=== PATIENT | female | born 1955 | race Caucasian/White ===

== ENCOUNTER 2024-11-21 08:43 | Outpatient (OUT) | payer MEDICARE, SELFPAY ==
--- NOTE | 2024-11-21 08:51 | ECG_ITS ---
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 Measurements Intervals [place] Rate: 53 P: 64 AL: 171 QRS: 49 QRSD: 83 T: 67 QT: 432 QTc: 409 Interpretive Statements SINUS BRADYCARDIA MODERATE ST DEPRESSION [0.05+ mV ST DEPRESSION] Abnormal ECG No previous ECG available for comparison Electronically Signed On 11-21-2024 11:55:49 EDT by MARANDA HERRERA M.D.
--- NOTE | 2024-11-21 09:52 | PM.PRESUREVA ---
History of Present Illness History of Present Illness Chief complaint: Right Ureteral Stone with Hydronephrosis Narrative: Patient presents for presurgical testing accompanied by her . Please see HPI from Dr. Loaiza dated November 19, 2024. Review of Systems ROS Narrative Please see ROS from Dr. Loaiza dated November 19, 2024. 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 (ICD-10) Squamous cell skin cancer ?C44.92 - Squamous cell carcinoma of skin, unspecified (ICD-10) Osteoporosis ?M81.0 - Age-related osteoporosis without current pathological fracture (ICD-10) COVID-19 ?U07.1 - COVID-19 (ICD-10) Heart murmur ?R01.1 - Cardiac murmur, unspecified (ICD-10) Hypertension ?I10 - Essential (primary) hypertension (ICD-10) S/P extracorporeal shock wave therapy ?Z98.890 - Other specified postprocedural states (ICD-10) Tendinitis ?M77.9 - Enthesopathy, unspecified (ICD-10) Kidney stones ?N20.0 - Calculus of kidney (ICD-10) Vertigo ?R42 - Dizziness and giddiness (ICD-10) Surgical History (Updated 11/21/24 @ 09:37 by Jing Gomez NP) S/P ureteral stent placement ?Z96.0 - Presence of urogenital implants (ICD-10) History of breast biopsy ?Z98.890 - Other specified postprocedural states (ICD-10) History of excision of lesion ?Z98.890 - Other specified postprocedural states (ICD-10) ?Z87.2 - Personal history of diseases of the skin and subcutaneous tissue (ICD-10) History of appendectomy ?Z90.49 - Acquired absence of other specified parts of digestive tract (ICD-10) History of tubal ligation ?Z98.51 - Tubal ligation status (ICD-10) History of colonoscopy ?Z98.890 - Other specified postprocedural states (ICD-10) Family History (Updated 11/21/24 @ 09:51 by Jing Gomez NP) Other Arthritis Atrial fibrillation CAD (coronary artery disease) Dementia Family history of CHF (congestive heart failure) Family history of COPD (chronic obstructive pulmonary disease) Family history of cancer Family history of diabetes mellitus Family history of hypertension Family history of myocardial infarction Family history of stroke Kidney disease Pacemaker Parkinson disease Social History (Updated 11/21/24 @ 09:26 by Jing Gomez NP) Within the past year, how often did you have a drink containing alcohol: never Score interpretation: A score less than 3 is consistent with normal alcohol consumption. Smoking status: Never smoker Non-prescribed substance use: denies use Highest level of school completed/degree received: high school graduate Meds Home Medications and Allergies Home Medications ?Medication ?Instructions ?Recorded ?Confirmed ?Type cetirizine 10 mg capsule 10 mg PO DAILY PRN allergy symptoms 11/21/24 11/21/24 History cholecalciferol (vitamin D3) 50 2,000 unit PO DAILY 11/21/24 11/21/24 History mcg (2,000 unit) capsule docusate sodium 100 mg capsule 100 mg PO DAILY 11/21/24 11/21/24 History ondansetron 4 mg disintegrating 4 mg PO Q8H PRN nausea and vomiting 11/21/24 11/21/24 History tablet oxycodone-acetaminophen 5 mg-325 1 tab PO Q8H PRN pain 11/21/24 11/21/24 History mg tablet potassium bicarbonate-citric acid 25 meq PO BID 11/21/24 11/21/24 History 25 mEq effervescent tablet (Klor-Con/EF) rosuvastatin 10 mg tablet 10 mg PO DAILY 11/21/24 11/21/24 History tamsulosin 0.4 mg capsule 0.4 mg PO DAILY 11/21/24 11/21/24 History valsartan 40 mg tablet 40 mg PO DAILY 11/21/24 11/21/24 History Allergies Allergy/AdvReac Type Severity Reaction Status Date / Time amoxicillin Allergy Rash Verified 11/21/24 09:22 azithromycin Allergy Abdominal Verified 11/21/24 09:22 Pain bee venom protein (honey bee) Allergy Hives Verified 11/21/24 09:22 chlorpheniramine Allergy eye Verified 11/21/24 09:22 swelling erythromycin base Allergy Abdominal Verified 11/21/24 09:22 Pain Iodinated Contrast Media Allergy Chest Pain Verified 11/21/24 09:22 Sulfa (Sulfonamide Allergy Rash Verified 11/21/24 09:22 Antibiotics) Exam Narrative Exam Narrative: Constitutional: Awake, alert, comfortable, well-appearing, nontoxic, interactive, vital signs as charted Head: Normocephalic, atraumatic Neck: Supple, normal appearance, normal range of motion, no meningeal signs, no lymphadenopathy Respiratory: No respiratory distress, breath sounds clear Cardiovascular: Regular rate and rhythm, strong and regular heart tones Abdomen: Nontender, normal bowel sounds, soft, no CVA tenderness Musculoskeletal: Normal gait, no swelling or edema Skin: No rashes or induration, no lesions, only visible skin inspected Neuro: No neurological deficits, normal sensation Psychiatric: Oriented ?3, normal affect Assessment and Plan Assessment and Plan (1) Kidney stones: (2) Ureteral stone: (3) Hydronephrosis: Plan Cystoscopy, right retrograde, right ureteroscopy, holmium laser, possible right stent placement scheduled with Dr. Loaiza November 25, 2024.
[2024-11-21 10:17] LABS: INR 1.07; Partial Thromboplastin Time 28.5 sec (22.3-36.2); Prothrombin Time 11.3 sec (9.0-11.6)
== END 2024-11-21 08:44 | disposition home or self-care (01) ==
LOC: PST 08:45
PROVIDERS: PCP Family Medicine; Visit Provider Urology
DX: Z01.812 Encounter for preprocedural laboratory examination (principal); Z01.818 Encounter for other preprocedural examination; N20.1 Calculus of ureter; N13.30 Unspecified hydronephrosis
CPT/HCPCS: 80048; 85610; 85730; 93005; G0463

== ENCOUNTER 2024-11-25 06:26 | Day surgery (SDC) | payer MEDICARE, SELFPAY ==
[2024-11-21 09:45] VITALS: BP 114/75; PULSE 61; TEMP 36.4; O2SAT 98; BMI 26.7
[2024-11-25] VITALS (9 sets, daily range): BP systolic 162–189; BP diastolic 82–99; PULSE 67–130; TEMP 36.2–36.5; O2SAT 94–99; BMI 27.0
[2024-11-25] MEDS: LACTATED RINGER'S SOLUTION 1,000 ML 50 ML IV ×2 (07:22→09:05)
[2024-11-25] MEDS: CIPROFLOXACIN 400 MG/200 ML D5W PREMIX 200 MG IV (07:49)
--- NOTE | 2024-11-25 08:52 | PM.URSON ---
Urology Surgery Operative Note Operative Note Procedure Date: 11/25/24 Time Out Performed: yes Pre-op Diagnosis: Right ureteral and renal calculi Post-op Diagnosis: same as pre-op Procedures performed: 1. Cystoscopy. 2. Right rigid ureteral dilation. 3. Right ureteroscopy. 4. Right pyeloscopy. 5. Thulium laser lithotripsy of multiple right renal calculi. 6. Placement of 6 Russian variable length right ureteral stent Anesthesia: General-LMA Primary Surgeon: Shawn Loaiza Complications: None Estimated blood loss (mL): 5 Findings: 1 distal ureteral calculus. Multiple right renal calculi. Multiple renal James's plaques Specimens: None Drains: 6 Russian variable length right ureteral stent Indications for Procedures: This lady has had 2 obstructing right ureteral calculi that she has been unable to pass. She also has ipsilateral renal calculi. She now presents for definitive ureteroscopic stone manipulation and possible right stent placement. She has signed an informed consent after risks were explained. Detailed description of Procedure: The patient was brought to the operating room and placed on the operating room table in the supine position. SCDs were placed on the lower extremities and turned on and functioning during the entire case. Timeout was done by all parties in the room. We all agreed upon the patient's identification and the planned procedures for this patient. Genn. anesthesia was then administered. The patient was then repositioned into the modified dorsal lithotomy position. All pressure points were satisfactorily padded. Genitalia were sterilely prepped and draped in usual fashion. I started by passing a 22 Russian Olympus cystoscope per urethra and into the bladder. Careful panendoscopy in the bladder revealed no evidence of any tumors, stones or lesions. I then passed a Glidewire through the scope and up the right ureter into the kidney. Fluoroscopically I could only see stones within the right kidney. I then used a 8 and 10 Russian rigid dilator to dilate the distal right ureter. I could feel a stone getting crushed from the dilator distally. I then remove the scope and passed a 10 Russian/12 Russian ureteral access sheath up to the L5 level. The stylette and wire were then removed. I then passed a flexible ureteroscope through the access sheath and into the ureter. I ascended up the ureter and found no stones. I then went into the kidney and scoped through the upper mid and lower pole calyces. There were several stones within the calyces. One of them was at least a centimeter in size. There were also multiple James's plaques in the upper and mid pole calyces. I passed a 272 Angstrom laser fiber through the scope and began doing laser lithotripsy at 7 W on the dusting mode of the thulium laser. I started in the upper calyces and dusted all the stones. I then went into the mid calyces and similarly dusted these I finished off in the lower pole calyces. Our last endoscopic view revealed no evidence of any formed stone remaining. Tons of laser dust and submillimeter fragments were seen. Fluoroscopically there was no evidence of any visible stone remaining. The wire was passed through the scope into the kidney and the scope was then removed. I inspected the ureter on the way out and distally there was a stone which was now crushed. The sheath was removed. I then passed the cystoscope back into the bladder over the wire. I then slid a 6 Russian variable length ureteral stent over the wire up to the kidney. The wire was removed and there were good curls in the kidney and in the bladder. The bladder was drained of its contents and the scope was then removed. She was then transferred to a [facility] bed and wheeled to PACU in stable condition. She will be discharged to home with a prescription for Myrbetriq 50 mg daily #10.
--- NOTE | 2024-11-25 10:17 | PC.NURSE ---
1005: pt ambulates to bathroom,voids without difficulty. urine clear,pink no clots noted.
== END 2024-11-25 10:10 | disposition home or self-care (01) ==
LOC: SURGOUT 06:27
PROVIDERS: PCP Family Medicine; Visit Provider Urology
PROC: (CPT 52356; principal; 2024-11-25 08:00)
DX: N13.2 Hydronephrosis with renal and ureteral calculous obstruction (principal); E78.5 Hyperlipidemia, unspecified; J30.2 Other seasonal allergic rhinitis; Z90.49 Acquired absence of other specified parts of digestive tract; Z98.51 Tubal ligation status
CPT/HCPCS: 52356; 36415; 76000; 80048; 99999; J0744; J1100; J2250; J2371; J2405; J2704; J3010

== ENCOUNTER 2025-01-22 08:31 | Outpatient (OUT) | payer MEDICARE, SELFPAY ==
--- OUTSIDE RECORDS SUMMARY | 2025-01-20 09:00 | XMS_ITS | Encounter Summary ---
Author Organization [facility] Address [id number] [address] [place] [address] Care Team Providers Care Mattress Stuffer Name Role Phone CameronReilly jane Primary Care Provider + [phone] Reason for Visit * Reason Comments maw Encounter Details Date Type Department Care Team (Late st Contact Info) Description 01/20/2025 9:00 AM EDT [facility] [address] [place] [id number] Arrived Social History Tobacco Use Types Packs/Day Years Used Date Smoking Tobacco: Never Passive Smoke Exposure: Never Smokeless Tobacco: Never Alcohol Use Standard Drinks/Week Comments Not Currently 0 (1 standard drink = 0.6 oz pur e alcohol) [facility] Utilities Answer Date Recorded In the past 12 months has e electric, gas, oil, or water company threatened to shut off services in your home? No 08/15/2023 Social Connection and Isolat ion Panel [NHANES] Answer Date Recorded In a typical week, how many times do you talk on the phone with family, friends, or neighbors? More than three times a week 07/18/2022 How often do you get togethe r with friends or relatives? More than three times a week 07/18/2022 How often do you attend chur ch or mandaeism services? More than 4 times per year 07/18/2022 Do you belong to any clubs o r organizations such as tenriism groups, unions, fraternal or athletic groups, or school groups? Yes 07/18/2022 How often do you attend meet ings of the clubs or organizations you belong to? 1 to 4 times per year 07/18/2022 Are you , , di vorced, , never , or living with a partner? 07/18/2022 AUDIT-C Answer Date Recorded Q1: How often do you have a drink containing alcohol? Never 07/18/2022 Q2: How many drinks containi ng alcohol do you have on a typical day when you are drinking? Patient does not drink Q3: How often do you have si x or more drinks on one occasion? Never 07/18/2022 Overall Financial Resource Strain (CARDIA) Answe r Date Recorded How hard is it for you to pa y for the very basics like food, housing, medical care, and heating? Not hard at all 07/18/2022 PHQ-2 Answer Date Recorded Total Score 0 01/20/2025 [facility] [place] [facility] Occupat ional Health - Occupational Stress Questionnaire Answer Date Recorded Do you feel stress - tense, restless, nervous, or anxious, or unable to sleep at night because your mind is troubled all the time - these days? Not at all 07/18/2022 Exercise Vital Sign Answer Date Recorde d On average, how many days pe r week do you engage in moderate to strenuous exercise (like a brisk walk)? 0 days 01/20/2025 On average, how many minutes do you engage in exercise at this level? 0 min 01/20/2025 PRAPARE - Transportation Answer Date Re corded In the past 12 months, has l ack of transportation kept you from medical appointments or from getting medications? No 07/06 In the past 12 months, has l ack of transportation kept you from meetings, work, or from getting things needed for daily living? No 07/18/2022 Housing Instability Answer Date Recorde d Are you worried or concerned that in the next two months you may not have stable housing that you own, rent or stay in as a part of a household? No 01/15/2024 Childcare Answer Date Recorded Do problems getting child ca re make it difficult for you to work or study? No 07/18/2022 Employment Answer Date Recorded Do you need help finding a l al career center and/or a training program? No 12/28/2022 Hunger Screening Answer Date Recorded Within the past 12 months we worried whether our food would run out before we got money to buy more. Never True 01/20/2025 Within the past 12 months th e food we bought just didn't last and we didn't have money to get more. Never True 01/20/2025 Purpose - Life Answer Date Recorded I have a purpose and direction in my life. Stron gly Agree 07/18/2022 Comments Unknown Sex and Gender Information Value Date Recorded Sex Assigned at Not on file Legal Sex Female 11:24 AM EDT Gender Identity Not on file Sexual Orientation Not on file documented as of this encounter Last Filed Vital Signs Vital Sign Reading Time Taken Comments Blood Pressure 110/72 01/20/2025 9:08 AM EDT Pulse - - Temperature - - Respiratory Rate - - Oxygen Saturation - - Inhaled Oxygen Concentration - - Weight 67.1 kg (148 lb) 01/20/2025 9:08 AM EDT Height 160 cm (5' 3 ) 01/20/2025 9:08 AM EDT Body Mass Index 26.22 01/20/2025 9:08 AM EDT documented in this encounter Plan of Treatment Upcoming Encounters Date Type Department Care Team (Late st Contact Info) Description 08/19/2025 10:00 AM EST Office Visit [facility] - Family Medicine [address] [place] [address] Reilly Yoo DO [address] [facility] [address] 01/26/2026 9:40 AM EDT Office Visit [facility] - Family Medicine [address] [place] [address] documented as of this encounter Visit Diagnoses Not on filedocumented in this encounter Additional Health Concerns Assessment Noted Time PHQ-9 Depression Total Score: 0 01/21/20 25 9:10 AM EDT documented as of this encounter Care Teams Mattress Stuffer Relationship Specialty Start Date End Date Reilly Yoo DO [address] [facility] [place] [address] PCP - General Family Medicine 06/06/22 documented as of this encounter
--- OUTSIDE RECORDS SUMMARY | 2025-01-20 10:36 | XMS_ITS | Encounter Summary ---
Author Organization [facility] Address [address] [place] [address] Care Team Providers Care Insulation Worker Furnace Installer Name Role Phone Reilly Yoo MD Primary Care Provider + [phone] Reilly Yoo MD Primary Care Provider + [phone] Encounter Details Date Type Department Care Team (Late st Contact Info) Description 07/14/2024 External Result Encounter [facility] Unsolicited Andres Restrepo, DO [address] [address] Social History Tobacco Use Types Packs/Day Years Used Date Smoking Tobacco: Never Alcohol Use Standard Drinks/Week Comments Never 0 (1 standard drink = 0.6 oz pure alcohol) Caffeine intake: 1-2 cups per day chocolate Comments Unknown Sex and Gender Information Value Date Recorded Sex Assigned at Not on file Legal Sex Female 6:50 PM EDT Gender Identity Not on file Sexual Orientation Not on file documented as of this encounter Plan of Treatment Upcoming Encounters Date Type Department Care Team (Late st Contact Info) Description 01/29/2025 10:45 AM EDT Office Visit [facility] [address] [phone] Andres Restrepo, DO [address] [address] 06/30/2025 10:30 AM EST Office Visit [facility] [address] [place] [address] [place] [phone] Annmarie Freitas DO [address] [place] [address] [place] [address] 06/30/2025 12:00 PM EST Ancillary Procedure [facility] [place] [address] [place] [address] [place] [phone] documented as of this encounter Procedures Procedure Name Priority Date/Time Associated Diagnosis Comments BI US GUIDED BREAST LOCALIZATION AND BIOPSY RIGHT 07/14/2024 2:00 PM EST documented in this encounter Results * Right US-guided breast localization and biopsy (07/14/2024 2:00 PM EST) Anatomical Region Laterality Modality Breast Right Ultrasound 07/14/2024 2:00 PM EST Impressions 07/14/2024 2:39 PM EST Successful ultrasound-guided breast lesion biopsy. RESULT CODE: NL A targeted right breast ultrasound performed. At the 9:00 position 2 cm from nipple there is an ill- defined area of mixed echogenicity measuring 7 x 3 x 6 mm. Anechoic 4 mm cyst identified in the periareolar region of the 9:00 position. Biopsy of the lesion at the 9:00 position 2 cm from the nipple performed. Impression dictated by: Manny Storey M.D.07/14/2024 2:00 PM Tech: Sarah Beth Ramos Transcribed By: 07/14/24 1438 Dictated By: Manny Storey DO 07/14/24 1400 Signed By: 07/17/24 1451 Narrative 07/14/2024 2:39 PM EST [facility] [address] [place] [id number] Ultrasound Report Signed Patient: Malia Smith MR#: [id number] : 1955 Acct:[id number] Age/Sex: 68 / F ADM Date: 07/14/24 Loc: [facility] Room: Type: [facility] Attending Dr: Andres Restrepo DO Ordering Provider: Andres Restrepo DO Date of Service: 07/14/24 US/US breast ndl core biopsy RT: N63.11 ([id number]) US/US breast RT limited: N63.11 ([id number]) MM/MM post biopsy RT w/CAD: POST RT US GUIDED BREAST BIOPSY - CLIP PLACEMENT Copies to: Andres Restrepo DO ADDENDUM Pathology report: Benign nodular fibrocystic change. No evidence of malignancy. No atypia. Return to routine screening. Impression dictated by: Manny Storey M.D.07/17/2024 11:39 AM Ultrasound-guided breast lesion biopsy with vacuum assistance HISTORY: Right breast nodule biopsy PR[facility] IMAG[facility]06/24/2024, 06/12/2024 TECHNIQUE: The region of concern was localized. Sterile technique and local lidocaine utilized. Core biopsy needle was advanced with ultrasound guidance Multiple core tissue samples of the lesion obtained. Before the needle was removed, biopsy marking clip placed. No immediate complications identified. Mammogram obtained for biopsy marking clip localization. Biopsy marking clip is seen near the biopsy cavity. Procedure Note Radiology, Radiologist, MD - 07/17/2024 [facility] [address] [place] [address] Ultrasound Report Signed Patient: Malia Smith MMR#: [id number] : 7Acct:[id number] Age/Sex: 68 / FADM Date: 07/14/24 Loc: [facility] Room:Type: [facility] Attending Dr: Andres Restrepo DO Ordering Provider: Andres Restrepo DO Date of Service: 07/14/24 US/US breast ndl core biopsy RT: N63.11 ([id number]) US/US breast RT limited: N63.11 ([id number]) MM/MM post biopsy RT w/CAD: POST RT US GUIDED BREAST BIOPSY- CLIP PLACEMENT Copies to: Andres Restrepo DO ADDENDUM Pathology report: Benign nodular fibrocystic change. No evidence ofmalignancy. No atypia. Return to routine screening. Impression dictated by: Manny Storey M.D.07/17/2024 11:39 AM Ultrasound-guided breast lesion biopsy with vacuum assistance HISTORY: Right breast nodule biopsy PRIOR IMAGIN06/24/2024, 06/12/2024 TECHNIQUE: The region of concern was localized. Sterile technique andlocal lidocaine utilized. Core biopsy needle was advanced with ultrasound guidance Multiple core tissuesamples of the lesion obtained. Before the needle was removed, biopsy marking clip placed. Noimmediate complications identified. Mammogram obtained for biopsy marking clip localization. Biopsy markingclip is seen near the biopsy cavity. IMPRESSION: Successful ultrasound-guided breast lesion biopsy. RESULT CODE: NL A targeted right breast ultrasound performed. At the 9:00 position 2 cmfrom nipple there is an ill- defined area of mixed echogenicity measuring 7 x 3 x 6 mm. Anechoic 4 mmcyst identified in the periareolar region of the 9:00 position. Biopsy of the lesion at the 9:00position 2 cm from the nipple performed. Impression dictated by: Manny Storey M.D.07/14/2024 2:00 PM Tech: Sarah Beth Ramos Transcribed By: 07/14/24 1438 Dictated By: Manny Storey DO 07/14/24 1400 Signed By:07/17/24 1451 us Andres Restrepo [place] [facility] [place]ED[place] Edited Result - Final documented in this encounter Visit Diagnoses Not on filedocumented in this encounter Care Teams Insulation Worker Furnace Installer Relationship Specialty Start Date End Date Reilly Yoo MD PCP - General Family Medicine 05/17/23 12/31/24 Reilly Yoo MD [address] [facility] [place] [address] PCP - General Family Medicine 01/01/25 documented as of this encounter
--- OUTSIDE RECORDS SUMMARY | 2025-01-20 10:36 | XMS_ITS | Encounter Summary ---
[facility] Address [facility] [place]-[id number] [address] [place] [address] Care Team Providers Care Stoneworking Sander Name Role Phone Reilly Yoo Primary Care Provider + [phone] Encounter Details Date Type Department Care Team (Late st Contact Info) Description 08/18/2024 Orders Only [facility] Internal Medicine - Family Medicine [address] [place] [phone] Ana Larsen CMA Hypercholesterolemia Social History Tobacco Use Types Packs/Day Years Used Date Smoking Tobacco: Never Passive Smoke Exposure: Never Smokeless Tobacco: Never Alcohol Use Standard Drinks/Week Comments Not Currently 0 (1 standard drink = 0.6 oz pur e alcohol) [facility] Utilities Answer Date Recorded In the [...] often do you attend chur ch or cheondoism services? More than 4 times per year 07/18/2022 Do you belong to any clubs o r organizations such as jewish groups, unions, fraternal or athletic groups, or [...] PHQ-2 Answer Date Recorded Total Score 0 08/18/2024 [facility] - Occupational Stress [...] exercise (like a brisk walk)? 0 days 01/15/2024 On average, how many minutes do you engage in exercise at this level? 0 min 01/15/2024 PRAPARE - Transportation Answer Date Re corded [...] got money to buy more. Never True 08/18/2024 Within the past 12 months th e food we bought just didn't last and we didn't have money to get more. Never True 08/18/2024 Purpose - Life Answer Date Recorded I have a purpose and direction in my life. Eloyn gly Agree 07/18/2022 Comments Unknown Sex and [...] - Family Medicine [address] [place] [phone] Reilly Yoo DO [address], [facility] [place] [place] [address] 01/26/2026 9:40 AM EDT [facility] [address] [place] [address] documented as of this encounter Procedures Procedure Name Priority Date/Time Associated Diagnosis Comments LIPID PROFILE Routine 08/15/2024 Hypercholesterolemia documented in this encounter Results * Lipid panel (08/15/2024) External Cholesterol 153 MANUALLY TRANSCRIBED RESULTS External Cholesterol:Hdl 59 MANUALLY TRANSCRIBED RESULTS External Ldl (Calc) 74 MANUALLY TRANSCRIBED RESULTS External Triglycerides 98 MANUALLY TRANSCRIBED RESULTS Blood 08/15/2024 us Reilly Yoo DO LAB BLOOD ORDERABLES Final R esult MANUALLY TRANSCRIBED RESULTS documented in this encounter Visit Diagnoses Diagnosis Hypercholesterolemia Pure hypercholesterolemia documented in this encounter Additional Health Concerns Assessment Noted Time PHQ-9 Depression Total Score: 0 08/18/19 25 10:30 AM EST documented as of this encounter Care Teams Stoneworking Sander Relationship Specialty Start Date End Date Reilly Yoo DO [address], [place] [address] PCP - General Family Medicine 06/06/22 documented as of this encounter
--- OUTSIDE RECORDS SUMMARY | 2025-01-20 10:36 | XMS_ITS | Encounter Summary ---
Author Organization [facility] tem Address [id number] [address] [place] [address] Care Team Providers Care Founder And Chief Technical Officer Name Role Phone Reilly Yoo DO Primary Care Provider + [phone] Encounter Details Date Type Department Care Team (Late st Contact Info) Description 08/19/2024 Orders Only [facility] - Family Medicine [address] [place] [phone] Reilly Yoo DO [address] [place] [address] Social History Tobacco Use Types Packs/Day Years Used Date Smoking Tobacco: Never Passive Smoke Exposure: Never Smokeless Tobacco: Never Alcohol Use Standard Drinks/Week Comments Not Currently 0 (1 standard drink = 0.6 oz pur e alcohol) [facility] Utilities Answer Date Recorded In the past 12 months has [employer], gas, oil, or water Results Scorecard threatened to shut off services in your [...] 07/18/2022 How often do you attend chur or christian services? More than 4 times per year 07/18/2022 Do you belong to any clubs o r organizations such as roman catholic groups, unions, fraternal or athletic groups, or [...] Answer Date Recorded Total Score 0 08/18/2024 [facility]at ional Health - Occupational Stress [...] Recorded Do you need help finding a [facility] career center and/or a training program? No [...] Medicine - Family Medicine [address] [place] [address] Reilly Yoo DO [address], [facility] [address] 01/26/2026 9:40 AM EDT Office Visit [facility] - Family Medicine [address] [place] [address] documented as of this encounter Visit Diagnoses Not on filedocumented in this encounter Additional Health Concerns Assessment Noted Time PHQ-9 Depression Total Score: 0 08/18/19 25 10:30 AM EST documented as of this encounter Care Teams Founder And Chief Technical Officer Relationship Specialty Start Date End Date Reilly Yoo DO [address] [place] [place] [address] PCP - General Family Medicine 06/06/22 documented as of this encounter
--- OUTSIDE RECORDS SUMMARY | 2025-01-20 10:36 | XMS_ITS | Encounter Summary ---
Author Organization [facility] tem Address [facility] [place]-[id number] [address] [place] [address] Care Team Providers Care Rn Plastics Name Role Phone NailaReilly Primary Care Provider + [phone] Encounter Details Date Type Department Care Team (Late st Contact Info) Description 12/11/2022 Orders Only [facility] Medicine - Family Medicine [address] [place] [phone] External, Scanning Provider Social History Tobacco Use Types Packs/Day Years Used Date Smoking Tobacco: Never Passive Smoke Exposure: Never Smokeless Tobacco: Never Alcohol Use Standard Drinks/Week Comments Not Currently 0 (1 standard drink = 0.6 oz pur e alcohol) Social Connection and Isolat ion Panel [NHANES] Answer Date Recorded In a typical week, how many times do you talk on the phone with family, friends, or neighbors? More than three times a week 07/18/2022 How often do you get togethe r with friends or relatives? More than three times a week 07/18/2022 How often do you attend chur ch or latter-day services? More than 4 times per year 07/18/2022 Do you belong to any clubs o r organizations such as uatsdin groups, unions, fraternal or athletic groups, or [...] and heating? Not hard at all 07/18/2022 [facility]at ional [facility] - Occupational Stress Questionnaire Answer Date Recorded [...] exercise (like a brisk walk)? 0 days 07/18/2022 On average, how many minutes do you engage in exercise at this level? 0 min 07/18/2022 PRAPARE - Transportation Answer Date Re corded In the past 12 months, has l ack of transportation kept you from medical appointments or from getting medications? No 07/06 In the past 12 months, has l ack of transportation kept you from meetings, work, or from getting things needed for daily living? No 07/18/2022 Childcare Answer Date Recorded Do problems getting child ca re make it difficult for you to work or study? No 07/18/2022 Employment Answer Date Recorded Employment Unknown 01/15/2019 Purpose - Life Answer Date Recorded I [...] Medicine - Family Medicine [address] [place] [address] Reilly Yoo, DO [address], [place] [address] 01/26/2026 9:40 AM EDT Office Visit [facility] - Family Medicine [address] [place] [address] documented as of this encounter Procedures Procedure Name Priority Date/Time Associated Diagnosis Comments HEPATITIS C(HCV) ANTIBODY W/ REFLEX TO PCR Routine 01/02/2016 documented in this encounter Results * Hepatitis C(HCV) Ab w/ Reflex to PCR (01/02/2016) us Scanning Provider External LAB BLOOD ORDERABLES Final Result Performing Organization Address City/State/[facility] Co de Phone Number MANUALLY TRANSCRIBED LAB RESULTS documented in this encounter Visit Diagnoses Not on filedocumented in this encounter Care Teams Rn Plastics Relationship Specialty Start Date End Date Reilly Yoo DO [address], [place] [address] PCP - General Family Medicine 06/06/22 documented as of this encounter
--- OUTSIDE RECORDS SUMMARY | 2025-01-20 10:36 | XMS_ITS | Clinical Summary ---
Author Organization [facility] Healthcare Address [address] [place] [address] Care Team Providers Care Customer Service Clerk Name Role Phone Reilly Yoo MD Primary Care Provider [phone] Allergies Active Allergy Reactions Criticality Noted Date Comments Amoxicillin Rash Low 07/18/2022 Other Reaction(s): Itching, Unknown Other reaction(s): Itching Azithromycin 05/17/2023 Other Reaction(s): Unknown Bee Venom 07/18/2022 Chlorpheniramine 07/18/2022 Other Reaction(s): Edema around eye Other reaction(s): Edema around eye Erythromycin Base 05/17/2023 Other Reaction(s): Unknown Iodinated Contrast Media 05/17/2023 Other Reaction(s): Chest tightness Pseudoephedrine 05/17/2023 Other Reaction(s): Unknown Sulfamethoxazole Rash Low 07/18/2022 Sulfamethoxazole-Trimethoprim Rash Low 2022 Other Reaction(s): Unknown Medications alendronate (Fosamax) 70 MG tablet TAKE 1 TABLET BY MOUTH ONCE WEEKLY ON AN EMPTY STOMACH BEFORE BREAKFAST. REMAIN UPRIGHT FOR 30 MINUTES AND TAKE WITH 8 OUNCES OF WATER 3 Active Calcium-Vitamin D-Vitamin K (Calcium + D) 500-1000-40 MG-UNT-MCG chewable tablet Orally Acti ve cetirizine (ZyrTEC ALLERGY) 10 MG tablet 1 (one) time each day at the same time. Active cholecalciferol (Vitamin D-3) 50 MCG (1999) tablet Vitamin D3 2,000 IU QD Active lisinopril 5 MG tablet Take 1 tablet by mouth in the morning. 3 Active lovastatin (Mevacor) 20 MG tablet Take 20 mg by mouth in the morning. 3 Active meclizine (Antivert) 12.5 MG tablet take 2 tablet by oral route 3 times every day as needed Oral Active potassium citrate CR (Urocit-K-10) 10 mEq ER tablet every 8 (eight) hours. Active valsartan (Diovan) 40 MG tablet Take 40 mg by mouth in the morning. 4 Active rosuvastatin (Crestor) 10 MG tablet Take 1 tablet by mouth in the morning. 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 Encounters Date Type Department Care Team Description 01/01/2025 Travel from Last 3 Months Family History Medical History Relation Name Comments Asthma Father Atrial fibrillation Father Stroke Father Cancer Maternal Grandmother Heart disease Maternal Grandmother Arthritis Mother Breast cancer Mother Dementia Mother Heart disease Mother Hypertension Mother Kidney disease Mother Ovarian cancer Mother Colon cancer Paternal Grandfather Stroke Paternal Grandmother Arthritis Sister Diabetes Sister Osteoporosis Sister Stroke Sister Thyroid disease Sister Relation Name Status Comments Father Maternal Grandmother Mother Paternal Grandfather Paternal Grandmother Sister Social History Tobacco Use Types Packs/Day Years Used Date Smoking Tobacco: Never Smokeless Tobacco: Never Tobacco Cessation:Counseling Given: Yes Alcohol Use Standard Drinks/Week Comments Never 0 (1 standard drink = 0.6 oz pure alcohol) Caffeine intake: 1-2 cups per day chocolate Comments Unknown Sex and Gender Information Value Date Recorded Sex Assigned at Not on file Legal Sex Female 6:50 PM EDT Gender Identity Not on file Sexual Orientation Not on file Last Filed Vital Signs Vital Sign Reading Time Taken Comments Blood Pressure 124/80 07/31/2024 1:31 PM EST Pulse - - Temperature - - Respiratory Rate 18 10/10/2024 1:31 PM EST Oxygen Saturation - - Inhaled Oxygen Concentration - - Weight 66.7 kg (147 lb) 10/10/2024 1:31 PM EST Height 157.5 cm (5' 2 ) 10/10/2024 1:31 PM EST Body Mass Index 26.89 10/10/2024 1:31 PM EST Plan of Treatment Upcoming Encounters Date Type Department Care Team (Late st Contact Info) Description 01/29/2025 10:45 AM EDT Office Visit [facility] [address] [place] [phone] Andres Restrepo, DO [address] [place] [address] 06/30/2025 10:30 AM EST Office Visit [facility] [address] [place] [address] Annmarie Freitas, DO [address] [place] [address] 06/30/2025 12:00 PM EST Ancillary Procedure [facility] [place] [address] [place] [phone] Health Maintenance Due Date Last Done Comments CT Colonography 1955 Colonoscopy 1955 FIT 1955 FOBT 1955 Sigmoidoscopy 1955 Mammogram 06/24/2025 06/24/2024, 110 02/2024, 05/17/2023, Additional history exists Colorectal Cancer Screening 08/22/2026 FIT-DNA 08/22/2026 08/22/2023 Pneumococcal Vaccine: 65+ Years Completed Influenza Vaccine Completed 06/07/2024, , 05/23/2022, Additional history exists Procedures Procedure Name Priority Date/Time Associated Diagnosis Comments BI US BREAST LIMITED RIGHT Routine 01/16/2025 9:24 AM EDT Pseudoangiomatous stromal hyperplasia of breast BI MAMMOGRAM DIAGNOSTIC TOMOSYNTHESIS RIGHT Routine 06/24/2024 2:20 PM EST Mammogram abnormal from Last 3 Months or Most Recently Relevant to Health Maintenance Results * Right breast US limited (01/16/2025 9:24 AM EDT) Anatomical Region Laterality Modality Breast Right Ultrasound 01/16/2025 9:24 AM EDT Impressions 01/16/2025 1:29 PM EDT decrease in size of mixed echogenic area now measuring 6 mm. Findings likely representing migration of clip adjacent to the smaller biopsy cavity. Six-month targeted right breast ultrasound recommended. RESULT CODE: 3 Probably Benign Finding Short Term Follow-Up DENSITY CODE: 2 (approximately 25-50% glandular) There are scattered areas of fibroglandular density. FOLLOW UP: 6M THE FALSE-NEGATIVE RATE OF MAMMOGRAPHY IS APPROXIMATELY 10%. IMAGING OF A PALPABLE ABNORMALITY MUST BE BASED ON CLINICAL GROUNDS. PATIENT WAS ENTERED INTO A REMINDER SYSTEM WITH A TARGET DUE DATE FOR THE NEXT MAMMOGRAM. Impression dictated by: Manny Storey M.D. 01/16/2025 1:26 PM Dictation Location: [facility] Dictated By: Manny Storey DO 01/16/25 0924 Signed By: <Electronically signed by Manny Storey DO in OV> 01/16/25 1326 Narrative 01/16/2025 1:29 PM EDT [facility] [address] [place] [address] Mammography Report Signed Patient: Malia Smith MR#: [id number] : 1955 Acct:[id number] Age/Sex: 69 / F Adm Date: 01/16/25 Loc: [place] Room: Type: [facility] Attending Dr: Andres Restrepo DO Ordering Provider: Andres Restrepo DO Date of Service: 01/16/25 Procedure(s): MM diagnostic mammo RT w/CAD; US breast RT limited Accession Number(s): ([id number]) US/US breast RT limited: 6mos. follow up w/mamm ([id number]) MM/MM diagnostic mammo RT w/CAD: 6mos. follow up Copies to: DO Andres Amezquita DO RIGHT Diagnostic Full Field digital mammogram with 3-D imaging. Full field digital CC and MLO imaging performed. CAD utilized. COMPARISON: 07/14/2024 HISTORY: Annual screening BREAST COMPOSITION: Scattered fibroglandular densities of the breast parenchyma identified BREAST CALCIFICATIONS: Benign calcifications present. VASCULAR CALCIFICATIONS: None ARCHITECTURAL DISTORTION: None BREAST NODULE: None AXILLARY LYMPH NODES: Normal POSTSURGICAL CHANGES: Biopsy marking clip 5 cm lateral to the nipple adjacent to a small residual cavity. Targeted right breast ultrasound performed. At the 9:00 position 2 cm the nipple there is redemonstration of the mixed echogenic area measuring 6 mm. Prior measurement 7 mm. At the 9:00 position 5 to 6 cm from nipple there is a hypoechoic irregular area measuring 4 x 6 x 4 mm. There is questionable clip identified in this region likely representing the biopsy cavity. This is just migration of clip. MM/MM diagnostic mammo RT w/CAD Procedure Note Radiology, Radiologist, MD - 01/16/2025 [facility] [address] [place] [address] Mammography Report Signed Patient: Malia Smith MMR#: [id number] : 1955cct:[id number] Age/Sex: 69 / FAdm Date: 01/16/25 Loc: [place] Room:Type: [facility] Attending Dr: Andres Restrepo DO Ordering Provider: Andres Restrepo DO Date of Service: 01/16/25 Procedure(s): MM diagnostic mammo RT w/CAD; US breast RT limited Accession Number(s): ([id number]) US/US breast RT limited: 6mos. followup w/mamm ([id number]) MM/MM diagnostic mammo RT w/CAD: 6mos. follow up Copies to: DO Andres Amezquita DO RIGHT Diagnostic Full Field digital mammogram with 3-D imaging. Full field digital CC and MLO imaging performed. CAD utilized. COMPARISON: 07/14/2024 HISTORY: Annual screening BREAST COMPOSITION: Scattered fibroglandular densities of the breastparenchyma identified BREAST CALCIFICATIONS: Benign calcifications present. VASCULAR CALCIFICATIONS: None ARCHITECTURAL DISTORTION: None BREAST NODULE: None AXILLARY LYMPH NODES: Normal POSTSURGICAL CHANGES: Biopsy marking clip 5 cm lateral to the nippleadjacent to a small residual cavity. Targeted right breast ultrasound performed. At the 9:00 position 2 cm thenipple there is redemonstration of the mixed echogenic area measuring 6 mm. Priormeasurement 7 mm. At the 9:00 position 5 to 6 cm from nipple there is a hypoechoic irregular areameasuring 4 x 6 x 4 mm. There is questionable clip identified in this region likely representing the biopsycavity. This is just migration of clip. MM/MM diagnostic mammo RT w/CAD IMPRESSION: decrease in size of mixed echogenic area now measuring 6 mm. Findingslikely representing migration of clip adjacent to the smaller biopsy cavity.Six-month targeted right breast ultrasound recommended. RESULT CODE: 3 Probably Benign Finding Short Term Follow-Up DENSITY CODE: 2 (approximately 25-50% glandular) There are scattered areasof fibroglandular density. FOLLOW UP: 6M THE FALSE-NEGATIVE RATE OF MAMMOGRAPHY IS APPROXIMATELY 10%. IMAGING OF A PALPABLE ABNORMALITY MUST BE BASED ON CLINICAL GROUNDS. PATIENT WAS ENTERED INTO A REMINDER SYSTEM WITH A TARGET DUE DATE FOR THENEXT MAMMOGRAM. Impression dictated by: Manny Storey M.D. 01/16/2025 1:26 PM Dictation Location: [facility] Dictated By: Manny Storey DO 01/16/25 0924 Signed By: <Electronically signed by Manny Storey DO in OV> 01/16/25 1326 us Andres Restrepo DO IMG US PROCEDURES Final R esult * (ABNORMAL) Right diagnostic mammogram with tomosynthesis (06/24/2024 2:20 PM EST) Anatomical Region Laterality Modality Breast Right Mammography 06/25/2024 4:04 PM EST Impressions 06/25/2024 4:20 PM EST Previously noted approximately 7 mm round density in the lateral aspect of the right breast is again identified on coned-down compression views and may be at the mid breast level near the nipple on the true lateral view, difficult to say with certainty. Ultrasound study was unremarkable raising the possibility of a mammographic density that is not a simple cyst. Follow-up MRI examination of the breasts with and without intravenous gadolinium contrast is recommended for further evaluation. If MRI is not desired, follow-up diagnostic mammogram study of the right breast as well as ultrasound study of the right breast in 3 months would be recommended. BIRADS 0 - Need Additional Imaging Evaluation DENSITY: There are scattered areas of fibroglandular density FOLLOW-UP: Additional Imaging Breast MRI. Board Certified Radiologists. Accredited by the ACR and FDA. MAMMOGRAPHY IS VERY IMPORTANT TO YOUR HEALTH. THE [place] [employer]IET[employer] GUIDELINES RECOMMEND THAT WOMEN 40 YEARS OF AGE AND OLDER SHOULD HAVE A MAMMOGRAM EVERY YEAR. A REMINDER LETTER WILL BE SENT AT THE APPROPRIATE TIME. ELECTRONICALLY SIGNED BY: Familia Perry M.D. Narrative 06/25/2024 4:20 PM EST EXAMINATION: BI MAMMOGRAM DIAGNOSTIC TOMOSYNTHESIS RIGHT CLINICAL HISTORY: abnomral mammogram TECHNIQUE: Diagnostic digital mammogram study of the right breast was performed with 2D and 3D tomosynthesis imaging. Study was compared to the screening mammogram study of the breasts dated 06/12/2024 and ultrasound study of the right breast dated 06/24/2024. FINDINGS: Coned-down compression views of the area of interest in the lateral aspect of the right breast as well as true lateral view of the right breast were obtained. On the true lateral view there is an approximately 7 x 6 mm asymmetric density near the level of the nipple anteriorly not seen on the prior study, this may correlate with the 7 mm fairly round asymmetric density again noted laterally on coned- down compression views though difficult to say with certainty. Ultrasound study failed to demonstrate obvious focal abnormality. When correlated with ultrasound study there remains concern for a mammographic density that is not a simple cyst. Follow-up MRI examination of the breasts with and without intravenous gadolinium contrast is recommended for further evaluation. If MRI is not desired, follow-up diagnostic mammogram study of the right breast as well as ultrasound study of the right breast in 3 months would be recommended. Annmarie Freitas DO IMG BI PROCEDURES Final Res ult from Last 3 Months or Most Recently Relevant to Health Maintenance Insurance [facility] Care Teams Customer Service Clerk Relationship Specialty Start Date End Date Reilly Yoo MD [address], [place] [address] PCP - General Family Medicine 01/01/25
--- OUTSIDE RECORDS SUMMARY | 2025-01-20 10:36 | XMS_ITS | Encounter Summary ---
Author Organization [employer] Address [id number] [address] [place] [address] Care Team Providers Care Cryptography Teacher Name Role Phone Naila Reilly Veronica GARCIA Primary Care Provider + [phone] Encounter Details Date Type Department Care Team (Late st Contact Info) Description 08/19/2024 Telephone [facility] - Family Medicine [address] [place] [phone] Lyric Parsons CMA Social History Tobacco Use Types Packs/Day Years Used Date Smoking Tobacco: Never Passive Smoke Exposure: Never Smokeless Tobacco: Never Alcohol Use Standard Drinks/Week Comments Not Currently 0 (1 standard drink = 0.6 oz pur e alcohol) [facility] Utilities Answer Date Recorded In the past [...] often do you attend chur ch or taoism services? More than 4 times per year 07/18/2022 Do you belong to any clubs o r organizations such as holiness groups, unions, fraternal or athletic groups, or [...] Answer Date Recorded Total Score 0 08/18/2024 [facility] - Occupational Stress [...] Recorded Do you need help finding a [facility] career center and/or a training program? No [...] a purpose and direction in my life. Sindy barker Agree 07/18/2022 Comments Unknown Sex and Gender Information Value Date Recorded Sex Assigned at Not on file Legal Sex Female 11:24 AM EDT Gender Identity Not on file Sexual Orientation Not on file documented as of this encounter Miscellaneous Notes * Telephone Encounter - Lyric Parsons CMA - 08/19/2024 2:01 PM EST ----- Message from Dr. Reilly Yoo DO sent at 08/19/2024 1:09 PM EST ----- Her lipids were at goal. Continue rosuvastatin. Vitamin-D level was low normal. Stay on the supplement. I do not have her CMP result yet though. [facility] if not.She will have to go back and get it * Telephone Encounter - Lyric Parsons CMA - 08/19/2024 2:01 PM EST [facility] , they did not I tried to call pt left vm to cb * Telephone Encounter - Lyric Parsons CMA - 08/19/2024 2:01 PM EST Called pt told her she needs to go get her cmp drawn , she stated she would documented in this encounter Plan of Treatment Upcoming Encounters Date Type Department Care Team (Late st Contact Info) Description 08/19/2025 10:00 AM EST Office Visit [facility] - Family Medicine [address] [place] [place] [address] Reilly Yoo DO [address] [facility] [place] [address] 01/26/2026 9:40 AM EDT Office Visit [facility] - Family Medicine [address] [place] [address] documented as of this encounter Visit Diagnoses Not on filedocumented in this encounter Additional Health Concerns Assessment Noted Time PHQ-9 Depression Total Score: 0 08/18/19 25 10:30 AM EST documented as of this encounter Care Teams Cryptography Teacher Relationship Specialty Start Date End Date Reilly Yoo DO [address] [place] [address] PCP - General Family Medicine 06/06/22 documented as of this encounter
--- OUTSIDE RECORDS SUMMARY | 2025-01-20 10:36 | XMS_ITS | Encounter Summary ---
Author Organization [facility] Address [address] [place] [address] Care Team Providers Care Cloth Finishing Range Tender Name Role Phone Reilly Yoo MD Primary Care Provider + [phone] Reilly Yoo MD Primary Care Provider + [phone] Encounter Details Date Type Department Care Team (Late Contact Info) Description 05/16/2023 Abstract [facility] [address] [facility] [address] [place] [address] Annmarie Freitas, DO [address] [facility] [address] [place] [address] Social History Tobacco Use Types Packs/Day Years Used Date Smoking Tobacco: Never Tobacco Cessation:Counseling Given: Not Answered Alcohol Use Standard Drinks/Week Comments Never 0 [...] Encounters Date Type Department Care Team (Late Contact Info) Description 01/29/2025 10:45 AM EDT Office [facility] [address] [facility] [address] [place] [phone] Andres Restrepo, DO [address] [facility] [address] [place] [address] 06/30/2025 10:30 AM EST Office Visit [facility] [address] [place] [address] [place] [address] Annmarie Freitas DO [address] [place] [address] [place] [address] 06/30/2025 12:00 PM EST Ancillary Procedure [facility] [address] [place] [address] [place] [address] documented as of this encounter Visit Diagnoses Not on filedocumented in this encounter Care Teams Cloth Finishing Range Tender Relationship Specialty Start Date End Date Reilly Yoo MD PCP - General Family Medicine 05/17/23 12/31/24 Reilly Yoo MD [address] [place], [facility] [address] PCP - General Family Medicine 01/01/25 documented as of this encounter
--- OUTSIDE RECORDS SUMMARY | 2025-01-20 10:36 | XMS_ITS | Clinical Summary ---
Author Organization [employer] Address [id number] [address] [place] [address] Care Team Providers Care Outpatient Therapist Name Role Phone Reilly Yoo DO Primary Care Provider [phone] Allergies Active Allergy Reactions Criticality Noted Date Comments Amoxicillin Rash Low 07/18/2022 Other reaction(s): Itching Bee Venom Protein (Honey Bee) 2021 Chlorpheniramine 07/18/2022 Other reaction(s): Edema around eye Erythromycin 07/18/2022 Other reaction(s): Stomach cramps Iodinated Contrast Media 07/18/2022 Other reaction(s): Chest tightness Sulfamethoxazole Rash Low 07/18/2022 Medications cholecalciferol, vitamin D3, 2,000 units tablet Active EFFER-K 25 mEq disintegrating tablet 2 Active cetirizine (ZyrTEC) 10 mg tablet Active rosuvastatin (CRESTOR) 10 mg tablet take 1 tablet by mouth every morning 90 tablet 2 4 Active valsartan (DIOVAN) 40 mg tablet TAKE 1 TABLET BY MOUTH EVERY MORNING 90 tablet 2 5 Active pseudoephedrine HCl (SUDAFED 12 HOUR ORAL) Take by mouth. 5 12/23/19 25 Discontin ued(Thera py completed ) Active Problems Problem Noted Date Diagnosed Date Tick bite of lower back 12/22/2024 Neoplasm of uncertain behavior of skin 5 Hydronephrosis with ureteral calculus 01/26/2023 01/26/2023 Overweight 01/26/2023 Left flank pain 07/18/2022 Hypercholesterolemia 07/18/2022 Impacted cerumen 07/18/2022 Incomplete emptying of bladder 07/18/2022 Microscopic hematuria 07/18/2022 Nocturia 07/18/2022 Osteoporosis 07/18/2022 Stress incontinence of urine 07/18/2022 Urinary urgency 07/18/2022 Vertigo 07/18/2022 Kidney stone on left side 02/25/2018 Squamous cell carcinoma of skin 02/25/2018 Essential hypertension 02/11/2016 Vitamin D deficiency 01/03/2016 Resolved Problems Problem Noted Date Diagnosed Date Resolved Date Plantar fasciitis 07/18/2022 01/26/2023 COVID 01/26/2023 Encounters Date Type Department Care Team Description 01/20/2025 9:00 AM EDT Office Visit [facility] - Family Medicine [address] [place] [address] Arrived 01/20/2025 Travel 01/01/2025 11:30 AM EDT Office Visit [facility] [address] [place] [address] Reilly Yoo, Bilateral impacted cerumen (Primary Dx); Neoplasm of uncertain behavior of skin 01/01/2025 Travel 12/30/2024 Orders Only [facility] [address] [place] [address] Reilly Yoo, Neoplasm of uncertain behavior of skin (Primary Dx) 12/22/2024 11:30 AM EDT Office Visit [facility] Internal [facility] - Family Medicine [address] [place] [address] Reilly Yoo, Neoplasm of uncertain behavior of skin (Primary Dx); Tick bite of lower back, sequela; Bilateral impacted cerumen 12/22/2024 Travel 11/02/2024 Refill [facility] Family Medicine [address] [place] [address] Reilly Yoo, DO from Last 3 Months Immunizations Immunization Administration Dates Next Due COVID-19 Vaccine, vector-nr, rS-Ad26, PF, 0.5mL 10/11/2020 COVID-19, mRNA, LNP-S, PF, 1 00mcg/0.5mL Dose 10/11/2020 Influenza (IM) Preservative Free 05/12/2016,04/07 Influenza High Dose Preservative Free IM 024 Influenza, High-dose, Quadrivalent 05/23/2022 Influenza, Injectable, MDCK, Quadrivalent 2018 Influenza, Injectable, Mdck, Preservative Free, Quad 05/07/2020,05/21/2018,04/13/2017 Influenza, Injectable, Quadrivalent 05/08/2017 Influenza, Injectable, quadrivalent (PF) 021 Influenza, Live, Intranasal 05/06/2019 Pneumococcal Conjugate 20-valent 12/05/2021,05/0 09/2021 Tdap 01/26/2023,12/09/2012 Zoster Live 10/23/2016 Zoster Vaccine Recombinant 05/11/2019,03/12/2019 Family History Medical History Relation Name Comments Asthma Brother Basal cell carcinoma Brother Glaucoma Brother Hyperlipidemia Brother Hypertension Brother Nephrolithiasis Brother No Known Problems Daughter 1 No Known Problems Daughter 2 Arthritis Father Asthma Father Atrial fibrillation Father Diverticulosis Father Heart failure Father Nephrolithiasis Father Stroke Father Arthritis Mother Breast cancer Mother Cataracts Mother Dementia Mother Hearing loss Mother Hyperlipidemia Mother Hypertension Mother Kidney disease Mother Macular degeneration Mother Colon cancer Paternal Grandfather Arthritis Sister Diabetes type II Sister Hepatitis Sister Hypertension Sister Osteoporosis Sister Rheum arthritis Sister Stroke Sister No Known Problems Son Relation Name Status Comments Brother Daughter 1 Alive Daughter 2 Alive Father Mother Paternal Grandfather Sister Son Alive Social History Tobacco Use Types Packs/Day Years Used Date Smoking Tobacco: Never Passive Smoke Exposure: Never Smokeless Tobacco: Never Tobacco Cessation:Counseling Given: Not Answered Alcohol Use Standard Drinks/Week Comments Not Currently 0 (1 standard drink = 0.6 oz pur e alcohol) [place] [employer] Utilities Answer Date Recorded In the past 12 months has [employer], gas, oil, or water [employer] threatened to shut off services in your [...] often do you attend chur ch or nondenominational services? More than 4 times per year [...] Answer Date Recorded Total Score 0 01/20/2025 [facility] Occupat ional Health - [...] Recorded Do you need help finding a [facility] career center and/or a training program? No [...] Pressure 110/72 01/20/2025 9:08 AM EDT Pulse 55 01/01/2025 11:06 AM EDT Temperature 37.3 C (99.1 F) 01/01/2025 11:06 AM EDT Respiratory Rate 20 01/01/2025 11:06 AM EDT Oxygen Saturation 99% 01/01/2025 11:06 AM EDT Inhaled Oxygen Concentration - - Weight 67.1 kg (148 lb) 01/20/2025 9:08 AM EDT Height 160 cm (5' 3 ) 01/20/2025 9:08 AM EDT Body Mass Index 26.22 01/20/2025 9:08 AM EDT Plan of Treatment Upcoming Encounters Date Type Department Care Team (Late st Contact Info) Description 08/19/2025 10:00 AM EST Office Visit [facility] - Family Medicine [address] [place] [address] Reilly Yoo, DO [address] [place] [address] 01/26/2026 9:40 AM EDT Office Visit [facility] - Family Medicine [address] [place] [address] Health Maintenance Due Date Last Done Comments Adult BMI Follow Up Plan 1974 Influenza Vaccine 04/06/2025 06/07/2024, , 04/12/2021, Additional history exists Mammogram 06/24/2025 06/24/2024, 02/2024, 05/17/2023, Additional history exists Tobacco Screening 01/01/2026 01/01/2025 Adult BMI Screening 01/20/2026 01/20/2025 Depression Screening 01/20/2026 01/20/2025 Fall Risk Screening 01/20/2026 01/20/2025 Medicare Annual Wellness Visit 01/20/2026 0 01/20/2025, 01/15/2024, 12/28/2022 Colon Cancer Screening 3 Yea r Cologuard 08/22/2026 08/22/2023 DTaP,Tdap and Td Vaccines (3 - Td or Tdap) 01/26/2033 01/26/2023, 12/09/2012 Zoster (Shingles) Vaccine Completed 2018, 03/12/2019, 10/23/2016 COVID-19 Vaccine Discontinued 10/11/2020, 10/11/2020 Medical Devices Not on file Procedures Procedure Name Priority Date/Time Associated Diagnosis Comments COLOGUARD NON-[facility] Routine 08/22/2023 7:34 AM EST Screen for colon cancer from Last 3 Months or Most Recently Relevant to Health Maintenance Results * Cologuard Non-[facility] (08/22/2023 7:34 AM EST) EXTERNAL COLOGUARD Negative Negative 2023 6:45 PM EST [employer] (CLIA #:[id number]) Comment: NEGATIVE TEST RESULT. A negative Cologuard result indicates a low likelihood that a colorectal cancer (CRC) or advanced adenoma (adenomatous polyps with more advanced pre-malignant features) is present. The chance that a person with a negative Cologuard test has a colorectal cancer is less than 1 in 1500 (negative predictive value >99.9%) or has an advanced adenoma is less than 5.3% (negative predictive value 94.7%). These data are based on a prospective cross-sectional study of 10,000 individuals at average risk for colorectal cancer who were screened with both Cologuard and colonoscopy. (Carmen Rahman et al, N Engl J Med 2014;370(14):6213-1599) The normal value (reference range) for this assay is negative. COLOGUARD RE-SCREENING RECOMMENDATION: Periodic colorectal cancer screening is an important part of preventive healthcare for asymptomatic individuals at average risk for colorectal cancer. Following a negative Cologuard result, the [place] Cancer Society and U.S. Multi-Society Task Force screening guidelines recommend a Cologuard re-screening interval of 3 years. References: [place] [employer] Society Guideline for Colorectal Cancer Screening: https://www.cancer.org/cancer/zrxhi-lwrneh-jwushv/ddsaahjse-aggsprgds-xbgqstt/ac s-rec ommendations.html.; Adolph FAROOQ, Francie LUNDBERG, Dread DiorK, Colorectal Cancer Screening: Recommendations for Physicians and Patients from the U.S. Multi-Society Task Force on Colorectal Cancer Screening , Am J Gastroenterology 2017; 112:3947-3099. TEST DESCRIPTION: Composite algorithmic analysis of stool DNA-biomarkers with hemoglobin immunoassay. Quantitative values of individual biomarkers are not reportable and are not associated with individual biomarker result reference ranges. Cologuard is intended for colorectal cancer screening of adults of either sex, 45 years or older, who are at average-risk for colorectal cancer (CRC). Cologuard has been approved for use by the U.S. FDA. The performance of Cologuard was established in a cross sectional study of average-risk adults aged 50-84. Cologuard performance in patients ages 45 to 49 years was estimated by sub-group analysis of near-age groups. Colonoscopies performed for a positive result may find as the most clinically significant lesion: colorectal cancer [4.0%], advanced adenoma (including sessile serrated polyps greater than or equal to 1cm diameter) [20%] or non- advanced adenoma [31%]; or no colorectal neoplasia [45%]. These estimates are derived from a prospective cross-sectional screening study of 10,000 individuals at average risk for colorectal cancer who were screened with both Cologuard and colonoscopy. (Carmen Rahman et al, N Engl J Med 2014;370(14):7458-9146.) Cologuard may produce a false negative or false positive result (no colorectal cancer or precancerous polyp present at colonoscopy follow up). A negative Cologuard test result does not guarantee the absence of CRC or advanced adenoma (pre-cancer). The current Cologuard screening interval is every 3 years. ([place] Cancer Society and U.S. Multi-Society Task Force). Cologuard performance data in a 10,000 patient pivotal study using colonoscopy as the reference method can be accessed at the following location: www.[employer]anov[employer]/results. Additional description of the Cologuard test process, warnings and precautions can be found at www.[employer] Shoprd.Texert. Stool specimen (specimen) Rectum structure / Unknown 08/22/2023 7:34 AM EST 08/23/2023 2:10 PM EST Reilly Yoo DO LAB ORDERABLES Final Result [employer] (CLIA #:[id number]) [address] [place] [address], from Last 3 Months or Most Recently Relevant to Health Maintenance Insurance MEDICARE Care Teams Outpatient Therapist Relationship Specialty Start Date End Date Reilly Yoo DO [address], [place] [address] PCP - General Family Medicine 06/06/22
--- OUTSIDE RECORDS SUMMARY | 2025-01-20 10:36 | XMS_ITS | Encounter Summary ---
Author Organization [facility] tem Address [id number] [address] [place] [address] Care Team Providers Care Chief Knowledge Officer Name Role Phone Reilly Yoo DO Primary Care Provider + [phone] Encounter Details Date Type Department Care Team (Late st Contact Info) Description 08/27/2024 Orders Only [facility] - Family Medicine [address] [place] [phone] Reilly Yoo DO [address] [place] [address] Social History Tobacco Use Types Packs/Day Years Used Date Smoking Tobacco: Never Passive Smoke Exposure: Never Smokeless Tobacco: Never Alcohol Use Standard Drinks/Week Comments Not Currently 0 (1 standard drink = 0.6 oz pur e alcohol) [facility] Utilities Answer Date Recorded In the past 12 months has [employer], gas, oil, or water [employer] threatened to shut off services in your [...] How often do you attend chur or pentecostal services? More than 4 times per year 07/18/2022 Do you belong to any clubs o r organizations such as religious groups, unions, fraternal or athletic groups, or [...] Answer Date Recorded Total Score 0 08/18/2024 [facility] of Occupat ional Health - Occupational [...] Recorded Do you need help finding a [facility] career center and/or a training program? [...] Medicine - Family Medicine [address] [place] [address] Reilly Yoo DO [address], [facility] [place] [address] 01/26/2026 9:40 AM EDT Office Visit [facility] - Family Medicine [address] [place] [address] documented as of this encounter Visit Diagnoses Not on filedocumented in this encounter Additional Health Concerns Assessment Noted Time PHQ-9 Depression Total Score: 0 08/18/19 25 10:30 AM EST documented as of this encounter Care Teams Chief Knowledge Officer Relationship Specialty Start Date End Date Reilly Yoo DO [address] [place] [place] [address] [address] PCP - General Family Medicine 06/06/22 documented as of this encounter
--- OUTSIDE RECORDS SUMMARY | 2025-01-20 10:36 | XMS_ITS | Encounter Summary ---
Author Organization [employer] Address [id number] [address] [place] [address] Care Team Providers Care Performance Manager Name Role Phone GeorgiaReilly mckenzie Primary Care Provider + [phone] Encounter Details Date Type Department Care Team (Latest Contact Info) Description 01/20/2025 Travel Social History Tobacco Use Types Packs/Day Years Used Date Smoking Tobacco: Never Passive Smoke Exposure: Never Smokeless Tobacco: Never Alcohol Use Standard Drinks/Week Comments Not Currently 0 (1 standard drink = 0.6 oz pur e alcohol) [facility] Utilities Answer Date Recorded In the past 12 months has th [employer], gas, oil, or water company threatened [...] often do you attend chur ch or hoahaoism services? More than 4 times per year 07/18/2022 Do you belong to any clubs o r organizations such as methodist groups, unions, fraternal or athletic groups, or [...] Answer Date Recorded Total Score 0 01/20/2025 [facility] of Occupat ional Health - [...] Recorded Do you need help finding a [facility] and/or a training program? No [...] Medicine - Family Medicine [address] [place] [address] Reilly Yoo DO [address] [place] [address] 01/26/2026 9:40 AM EDT Office Visit [facility] - Family Medicine [address] [place] [address] documented as of this encounter Visit Diagnoses Not on filedocumented in this encounter Additional Health Concerns Assessment Noted Time PHQ-9 Depression Total Score: 0 01/21/20 25 9:10 AM EDT documented as of this encounter Care Teams Performance Manager Relationship Specialty Start Date End Date Reilly Yoo DO [address] [place] [address] PCP - General Family Medicine 06/06/22 documented as of this encounter
--- OUTSIDE RECORDS SUMMARY | 2025-01-20 10:36 | XMS_ITS | Encounter Summary ---
Author Organization [id number] [address] [place] [address] Care Team Providers Care Land Lease Information Clerk Name Role Phone GeorgiaReilly mckenzie Primary Care Provider + [phone] Encounter Details Date Type Department Care Team (Late st Contact Info) Description 09/02/2024 Orders Only [facility] - Family Medicine [address] [place] [phone] Ana Larsen CMA Essential hypertension Social History Tobacco Use Types Packs/Day Years [...] often do you attend chur ch or catholic services? More than 4 times per year 07/18/2022 Do you belong to any clubs o r organizations such as advent groups, unions, fraternal or athletic groups, or [...] Answer Date Recorded Total Score 0 08/18/2024 [facility] of Occupat ional Health - Occupational [...] Recorded Do you need help finding a [facility] career center and/or a training program? No [...] Medicine - Family Medicine [address] [place] [address] Reilly Yoo, [address], [facility] [place] [address] 01/26/2026 9:40 AM EDT [facility] [address] [place] [phone] documented as of this encounter Procedures Procedure Name Priority Date/Time Associated Diagnosis Comments COMPREHENSIVE METABOLIC PANEL Routine 08/30/2024 Essential hypertension documented in this encounter Results * Comprehensive metabolic panel (08/30/2024) External Anion Gap 11.8 MANUALLY TRANSCRIBED RESULTS External Ast 18 MANUALL Y TRANSCRIBED RESULTS External Blood Urea Nitrogen Bun 15 MANUALLY TRANSCRIBED RESULTS External Calcium Ca 8.9 MANUALLY TRANSCRIBED RESULTS External Chloride 105 MANUALLY TRANSCRIBED RESULTS External Co2 / Carbon Dioxide 25.2 MANUALLY TRANSCRIBED RESULTS External Creatinine 0.78 MANUALLY TRANSCRIBED RESULTS External Gfr Amer >60 MANUALLY TRANSCRIBED RESULTS External Gfr Non Amer >60 MANUALLY TRANSCRIBED RESULTS External Alkaline Phosphatase 57 MANUALLY TRANSCRIBED RESULTS External Glucose Fasting Or Random (Fbs) 79 MANUALLY TRANSCRIBED RESULTS External Potassium K 4.0 MANUALLY TRANSCRIBED RESULTS External Sodium Na 138 MANUALLY TRANSCRIBED RESULTS Total Bilirubin 1.0 MANU ALLY TRANSCRIBED RESULTS External Total Protein 6.3 MANUALLY TRANSCRIBED RESULTS Blood 08/30/2024 us Reilly Yoo DO LAB BLOOD ORDERABLES Final R esult MANUALLY TRANSCRIBED RESULTS documented in this encounter Visit Diagnoses Diagnosis Essential hypertension Unspecified essential hypertension documented in this encounter Additional Health Concerns Assessment Noted Time PHQ-9 Depression Total Score: 0 08/18/19 25 10:30 AM EST documented as of this encounter Care Teams Land Lease Information Clerk Relationship Specialty Start Date End Date Reilly Yoo DO [address] [facility], [place] [address] PCP - General Family Medicine 06/06/22 documented as of this encounter
--- OUTSIDE RECORDS SUMMARY | 2025-01-20 10:37 | XMS_ITS | Encounter Summary ---
Author Organization [facility] Address [id number] [address] [place] [address] Care Team Providers Care Building Construction Professor Name Role Phone CameronReilly jane Veronica GARCIA Primary Care Provider + [phone] Encounter Details Date Type Department Care Team (Late st Contact Info) Description 07/24/2022 Orders Only [facility] - Family Medicine [address] [place] [phone] Jaleesa Patel MA Hyperlipidemia, unspecified hyperlipidemia type Social History Tobacco Use Types Packs/Day Years [...] often do you attend chur ch or mosque services? More than 4 times per year 07/18/2022 Do you belong to any clubs o r organizations such as islam groups, unions, fraternal or athletic groups, or [...] and heating? Not hard at all 07/18/2022 [facility] Occupat ional Health - Occupational [...] on file Sexual Orientation Not on file COVID-19 Exposure Response Date Recorded In the last month, have you been in contact with someone who was confirmed or suspected to have Coronavirus / COVID-19? No / Unsure 07/18/2022 1:21 PM EST documented as of this encounter Progress Notes * Ana Larsen CMA - 07/24/2022 8:05 AM EST Spoke with the patient and she understands documented in this encounter Plan of Treatment Upcoming Encounters Date Type Department Care Team (Late st Contact Info) Description 08/19/2025 10:00 AM EST Office Visit [facility] - Family Medicine [address] [place] [address] Reilly Yoo, [address], [place] [address] 01/26/2026 9:40 AM EDT Office Visit [facility] Medicine [address] [place] [place] [phone] documented as of this encounter Procedures Procedure Name Priority Date/Time Associated Diagnosis Comments LIPID PROFILE Routine 07/11/2022 Hyperlipidemia, unspecified hyperlipidemia type COMPREHENSIVE METABOLIC PANEL Routine 07/11/2022 Hyperlipidemia, unspecified hyperlipidemia type documented in this encounter Results * Comprehensive metabolic panel (07/11/2022) External Albumin 4.1 MAN UALLY TRANSCRIBED RESULTS External Alt Sgpt 16 MANUALLY TRANSCRIBED RESULTS External Anion Gap 8.4 MANUALLY TRANSCRIBED RESULTS External Ast 18 MANUALL Y TRANSCRIBED RESULTS External Blood Urea Nitrogen Bun 12 MANUALLY TRANSCRIBED RESULTS External Calcium Ca 9.6 MANUALLY TRANSCRIBED RESULTS External Chloride 106 MANUALLY TRANSCRIBED RESULTS External Co2 / Carbon Dioxide 28.3 MANUALLY TRANSCRIBED RESULTS External Creatinine 0.87 MANUALLY TRANSCRIBED RESULTS External Gfr Non Amer >60 MANUALLY TRANSCRIBED RESULTS External Alkaline Phosphatase 49 MANUALLY TRANSCRIBED RESULTS External Glucose Fasting Or Random (Fbs) 93 MANUALLY TRANSCRIBED RESULTS External Potassium K 4.7 MANUALLY TRANSCRIBED RESULTS External Sodium Na 138 MANUALLY TRANSCRIBED RESULTS Total Bilirubin 0.9 MANU ALLY TRANSCRIBED RESULTS External Total Protein 6.7 MANUALLY TRANSCRIBED RESULTS Blood 07/11/2022 us Reilly Yoo DO LAB BLOOD ORDERABLES Final R esult MANUALLY TRANSCRIBED RESULTS * Lipid panel (07/11/2022) External Cholesterol 171 <=200 MANUALLY TRANSCRIBED RESULTS External Cholesterol:Hdl 2.7 <=5.0 MANUALLY TRANSCRIBED RESULTS External Hdl Cholesterol 63 35 - 85 MANUALLY TRANSCRIBED RESULTS External Ldl (Calc) 97 <=100 MANUALLY TRANSCRIBED RESULTS External Triglycerides 54 35 - 149 MANUALLY TRANSCRIBED RESULTS External Very Low Lipoprotein 10 MANUALLY TRANSCRIBED RESULTS Blood 07/11/2022 us Reilly Yoo DO LAB BLOOD ORDERABLES Final R esult Performing Organization Address City/[facility] Co de Phone Number MANUALLY TRANSCRIBED RESULTS documented in this encounter Visit Diagnoses Diagnosis Hyperlipidemia, unspecified hyperlipidemia type documented in this encounter Care Teams Building Construction Professor Relationship Specialty Start Date End Date Reilly Yoo DO [address] [facility], [place] [address] PCP - General Family Medicine 06/06/22 documented as of this encounter
--- OUTSIDE RECORDS SUMMARY | 2025-01-20 10:37 | XMS_ITS | Encounter Summary ---
Author Organization [employer] Address [id number] [address] [place] [address] Care Team Providers Care Plant Operator Control Room Operator Name Role Phone Naila Reilly Veronica GARCIA Primary Care Provider + [phone] Encounter Details Date Type Department Care Team (Late st Contact Info) Description 08/08/2024 Telephone [facility] - Family Medicine [address] [place] [phone] Lyric Parsons CMA Social History Tobacco Use Types Packs/Day Years Used Date Smoking Tobacco: Never Passive Smoke Exposure: Never Smokeless Tobacco: Never Alcohol Use Standard Drinks/Week Comments Not Currently 0 (1 standard drink = 0.6 oz pur e alcohol) [facility] Utilities Answer Date Recorded In the [...] often do you attend chur ch or zoroastrianism services? More than 4 times per year 07/18/2022 Do you belong to any clubs o r organizations such as gnosticism groups, unions, fraternal or athletic groups, or [...] PHQ-2 Answer Date Recorded Total Score 0 04/23/2024 [facility] of Occupat ional Health - Occupational Stress [...] Recorded Do you need help finding a [facility] career [facility] and/or a training program? No 12/28/2022 Hunger Screening Answer Date Recorded Within the past 12 months we worried whether our food would run out before we got money to buy more. Never True 04/23/2024 Within the past 12 months th e food we bought just didn't last and we didn't have money to get more. Never True 04/23/2024 Purpose - Life Answer Date Recorded I [...] Telephone Encounter - Lyric Parsons CMA - 08/08/2024 10:31 AM EST Pts called requesting her lab order sent to [facility] so she has her results for her upcoming appt documented in this encounter Plan of Treatment Upcoming Encounters Date Type Department Care Team (Late st Contact Info) Description 08/19/2025 10:00 AM EST Office Visit [facility] [address] [place] [address] Reilly Yoo DO [address] [facility] [address] 01/26/2026 9:40 AM EDT Office Visit [facility] Medicine [address] [place] [place] [address] documented as of this encounter Visit Diagnoses Not on filedocumented in this encounter Additional Health Concerns Assessment Noted Time PHQ-9 Depression Total Score: 0 04/23/20 24 8:58 AM EDT documented as of this encounter Care Teams Plant Operator Control Room Operator Relationship Specialty Start Date End Date Reilly Yoo DO [address] [facility] [address] PCP - General Family Medicine 06/06/22 documented as of this encounter
--- OUTSIDE RECORDS SUMMARY | 2025-01-20 10:37 | XMS_ITS | Encounter Summary ---
Author Organization [facility] Address [facility][id number] [address] [place] [address] Care Team Providers Care Consumer Science Teacher Name Role Phone NailaReilly Veronica GARCIA Primary Care Provider + [phone] Encounter Details Date Type Department Care Team (Late st Contact Info) Description 02/21/2023 Orders Only [facility] - Family Medicine [address] [place] [phone] Magalis Robles CMA Age-related osteoporosis without current pathological fracture Social History Tobacco Use Types Packs/Day Years [...] often do you attend chur ch or mormonism services? More than 4 times per year 07/18/2022 Do you belong to any clubs o r organizations such as presybeterian groups, unions, fraternal or athletic groups, or [...] PHQ-2 Answer Date Recorded Total Score 0 01/26/2023 [facility] of Occupat ional Health - [...] Recorded Do you need help finding a [facility] career center and/or a training program? No 12/28/2022 Hunger Screening Answer Date Recorded Within the past 12 months we worried whether our food would run out before we got money to buy more. Never True 01/26/2023 Within the past 12 months th e food we bought just didn't last and we didn't have money to get more. Never True 01/26/2023 Purpose - Life Answer Date Recorded I [...] - Family Medicine [address] [place] [place] [address] Reilly Yoo DO [address] [facility] [place] [address] 01/26/2026 9:40 AM EDT Office Visit [facility] - Family Medicine [address] [place] [address] documented as of this encounter Procedures Procedure Name Priority Date/Time Associated Diagnosis Comments DEXA SCAN CENTRAL SKELETAL Routine 02/19/2023 Age-related osteoporosis without current pathological fracture documented in this encounter Results * Dexa scan central skeletal (02/19/2023) Anatomical Region Laterality Modality N/A Radiographic Dayanara ging 02/19/2023 Reilly Yoo DO IMG DXA ORDERABLES Final Res ult documented in this encounter Visit Diagnoses Diagnosis Age-related osteoporosis without current pathological fracture documented in this encounter Additional Health Concerns Assessment Noted Time PHQ-9 Depression Total Score: 0 01/27/20 23 10:24 AM EDT documented as of this encounter Care Teams Consumer Science Teacher Relationship Specialty Start Date End Date Reilly Yoo DO [address] [facility] [place] [address] PCP - General Family Medicine 06/06/22 documented as of this encounter
--- OUTSIDE RECORDS SUMMARY | 2025-01-20 10:37 | XMS_ITS | Encounter Summary ---
Author Organization [facility] Address [id number] [address] [place] [address] Care Team Providers Care Anvil Worker Name Role Phone GeorgiaReilly mckenzie Primary Care Provider + [phone] Encounter Details Date Type Department Care Team (Late st Contact Info) Description 01/22/2023 Orders Only [facility] - Family Medicine [address] [place] [phone] Magalis Robles CMA Essential hypertension; Hypercholesterolemia Social History Tobacco Use Types Packs/Day [...] often do you attend chur ch or roman catholic services? More than 4 times per year 07/18/2022 Do you belong to any clubs o r organizations such as scientologist groups, unions, fraternal or athletic groups, or [...] Answer Date Recorded Total Score 0 01/26/2023 [facility] - Occupational Stress Questionnaire Answer Date [...] Recorded Do you need help finding a [facility] career [facility] and/or a training program? No [...] Medicine - Family Medicine [address] [place] [phone] Reilly Yoo, [address], [place] [address] 01/26/2026 9:40 AM EDT Office Visit [facility] - Family Medicine [address] [place] [phone] documented as of this encounter Procedures Procedure Name Priority Date/Time Associated Diagnosis Comments TSH Routine 01/19/2023 Essential hypertension Hypercholesterolemia LIPID PROFILE Routine 01/19/2023 Hypercholesterolemia COMPREHENSIVE METABOLIC PANEL Routine 01/19/2023 Essential hypertension documented in this encounter Results * (ABNORMAL) Comprehensive metabolic panel (01/19/2023) External Albumin 4.8(A) 6.4 - 8.9 MAN UALLY TRANSCRIBED RESULTS External Alt Sgpt 13 7 - 52 MANUALLY TRANSCRIBED RESULTS External Anion Gap 2.3 MANUALLY TRANSCRIBED RESULTS External Ast 16 13 - 39 MANUALL Y TRANSCRIBED RESULTS External Blood Urea Nitrogen Bun 17 7 - 25 MANUALLY TRANSCRIBED RESULTS External Calcium Ca 9.4 8.6 - 10.3 MANUALLY TRANSCRIBED RESULTS External Chloride 108(A) 98 - 107 MANUALLY TRANSCRIBED RESULTS External Co2 / Carbon Dioxide 26.2 21 - 31 MANUALLY TRANSCRIBED RESULTS External Creatinine 0.85 0.60 - 1.20 MANUALLY TRANSCRIBED RESULTS External Gfr Amer >60 >60 MANUALLY TRANSCRIBED RESULTS External Gfr Non Amer >60 MANUALLY TRANSCRIBED RESULTS External Alkaline Phosphatase 53 34 - 104 MANUALLY TRANSCRIBED RESULTS External Glucose Fasting Or Random (Fbs) 86 70 - 100 MANUALLY TRANSCRIBED RESULTS External Potassium K 4.1 3.5 - 5.1 MANUALLY TRANSCRIBED RESULTS External Sodium Na 142 136 - 145 MANUALLY TRANSCRIBED RESULTS Total Bilirubin 1.2(A) 0.3 - 1.0 MANU ALLY TRANSCRIBED RESULTS External Total Protein 6.9 6.4 - 8.9 MANUALLY TRANSCRIBED RESULTS Blood 01/19/2023 Reilly Yoo DO LAB BLOOD ORDERABLES Final R esult Performing Organization Address [facility] de Phone Number MANUALLY TRANSCRIBED RESULTS * (ABNORMAL) Lipid panel (01/19/2023) External Cholesterol 207(A) 140 - 200 MANUALLY TRANSCRIBED RESULTS External Cholesterol:Hdl 3.6 0 - 5.0 MANUALLY TRANSCRIBED RESULTS External Hdl Cholesterol 58 23 - 92 MANUALLY TRANSCRIBED RESULTS External Ldl (Calc) 127(A) 0 - 100 MANUALLY TRANSCRIBED RESULTS External Triglycerides 109 0 - 149 MANUALLY TRANSCRIBED RESULTS External Very Low Lipoprotein 21 MANUALLY TRANSCRIBED RESULTS Blood 01/19/2023 Reilly Yoo LAB BLOOD ORDERABLES Final R esult Performing Organization Address [facility] de Phone Number MANUALLY TRANSCRIBED RESULTS * TSH (01/19/2023) External Tsh 2.02 0.45 - 5.33 MANUALLY TRANSCRIBED RESULTS Blood 01/19/2023 Result [facility] Reilly Yoo LAB BLOOD ORDERABLES Final R esult Performing Organization Address [facility] de Phone Number MANUALLY TRANSCRIBED RESULTS documented in this encounter Visit Diagnoses Diagnosis Essential hypertension Unspecified essential hypertension Hypercholesterolemia Pure hypercholesterolemia documented in this encounter Additional Health Concerns Assessment Noted Time PHQ-9 Depression Total Score: 0 12/29/19 23 12:51 PM EDT documented as of this encounter Care Teams Anvil Worker Relationship Specialty Start Date End Date Reilly Yoo DO [address] [facility], [place] [address] PCP - General Family Medicine 06/06/22 documented as of this encounter
--- OUTSIDE RECORDS SUMMARY | 2025-01-20 10:37 | XMS_ITS | Encounter Summary ---
Author Organization [facility] [employer] Sys tem Address [id number] [address] [place] [address] Care Team Providers Care Corporate Development Intern Name Role Phone Reilly Yoo DO Primary Care Provider + [phone] Reason for Visit * Reason Comments Med Refill Encounter Details Date Type Department Care Team (Late st Contact Info) Description 12/05/2022 Refill [facility] - Family Medicine [address] [place] [phone] Reilly Yoo DO [address], [facility] [place] [address] Social History Tobacco Use Types Packs/Day Years [...] often do you attend chur ch or yarsani services? More than 4 times per year 07/18/2022 Do you belong to any clubs o r organizations such as hoahaoism groups, unions, fraternal or athletic groups, or [...] and heating? Not hard at all 07/18/2022 [facility] of Occupat ional Health - Occupational Stress [...] encounter Miscellaneous Notes * Telephone Encounter - Reilly Yoo DO - 12/05/2022 1:39 PM EDT Rx sent in. She is due for a blood pressure recheck in January documented in this encounter Plan of Treatment Upcoming Encounters Date Type Department Care Team (Late st Contact Info) Description 08/19/2025 10:00 AM EST Office Visit [facility] - Family Medicine [address] [place] [address] Reilly Yoo DO [address], [facility] [place] [address] 01/26/2026 9:40 AM EDT Office Visit [facility] Family Medicine [address] [place] [address] documented as of this encounter Visit Diagnoses Not on filedocumented in this encounter Care Teams Corporate Development Intern Relationship Specialty Start Date End Date Reilly Yoo DO [address] [facility] [address] PCP - General Family Medicine 06/06/22 documented as of this encounter
--- OUTSIDE RECORDS SUMMARY | 2025-01-20 10:37 | XMS_ITS | Encounter Summary ---
Author Organization [facility] [employer] Sys [employer] Address [id number] [address] [place] [address] Care Team Providers Care Ceo [employer] Name Role Phone Reilly Yoo DO Primary Care Provider + [phone] Reason for Visit * Reason Comments Med Refill Encounter Details Date Type Department Care Team (Late st Contact Info) Description 08/13/2022 Refill [facility] - Family Medicine [address] [place] [phone] Reilly Yoo DO [address], [facility] [place] [address] Social History Tobacco Use Types Packs/Day Years [...] often do you attend chur ch or spiritism services? More than 4 times per year 07/18/2022 Do you belong to any clubs o r organizations such as voodoo groups, unions, fraternal or athletic groups, or [...] and heating? Not hard at all 07/18/2022 [facility] [place] of Occupat ional Health - Occupational Stress [...] PM EST documented as of this encounter Plan of Treatment Upcoming Encounters Date Type Department Care Team (Late st Contact Info) Description 08/19/2025 10:00 AM EST Office Visit [facility] - Family Medicine [address] [place] [address] Reilly Yoo DO [address] [place] [address] 01/26/2026 9:40 AM EDT Office Visit [facility] Family Medicine [address] [place] [phone] documented as of this encounter Visit Diagnoses Not on filedocumented in this encounter Care Teams Ceo [place] [employer] Relationship Specialty Start Date End Date Reilly Yoo DO [address] [place] [address] PCP - General Family Medicine 06/06/22 documented as of this encounter
--- OUTSIDE RECORDS SUMMARY | 2025-01-20 10:37 | XMS_ITS | Encounter Summary ---
Author Organization [facility] [employer] Sys [employer] Address [facility] [id number] [address] [place] [address] Care Team Providers Care Improvement Manager Name Role Phone Reilly Yoo DO Primary Care Provider + [phone] Reason for Visit * Reason Comments Med Refill Encounter Details Date Type Department Care Team (Late st Contact Info) Description 03/05/2023 Refill [facility] - Family Medicine [address] [place] [phone] Reilly Yoo DO [address], [facility] [address] Social History Tobacco Use Types Packs/Day Years [...] often do you attend chur ch or hindu services? More than 4 times per year 07/18/2022 Do you belong to any clubs o r organizations such as christian groups, unions, fraternal or athletic groups, or [...] Answer Date Recorded Total Score 0 01/26/2023 [facility] of Occupat ional Health - Occupational [...] Recorded Do you need help finding a college medical [facility] career center and/or a training program? No [...] - Family Medicine [address] [place] [place] [address] Reilly Yoo DO [address], [place] [address] 01/26/2026 9:40 AM EDT Office Visit [facility] Family Medicine [address] [place] [address] documented as of this encounter Visit Diagnoses Not on filedocumented in this encounter Additional Health Concerns Assessment Noted Time PHQ-9 Depression Total Score: 0 01/27/20 23 10:24 AM EDT documented as of this encounter Care Teams Improvement Manager Relationship Specialty Start Date End Date Reilyl Yoo DO [address], [place] [address] PCP - General Family Medicine 06/06/22 documented as of this encounter
[2025-01-22 08:28] LABS: Calcium 9.3 mg/dL (8.5-10.1); Carbon Dioxide 28.2 mmol/L (21.0-32.0); Chloride 106 mmol/L (98-107); Estimated GFR (African America >60 (>=60 mL/min/1.73m^2); Estimated GFR (Non-African Ame >60 (>=60 mL/min/1.73m^2); Phosphorus 3.8 mg/dL (2.6-4.7); Sodium 144 mmol/L (136-145); Uric Acid 4.9 mg/dL (2.6-6.0)
--- OUTSIDE RECORDS SUMMARY | 2025-01-22 08:34 | XMS_ITS | Encounter Summary ---
Author Organization [facility] Address [facility] [id number] [address] [place] [address] Care Team Providers Care Proofer Apprentice Name Role Phone Reilly Yoo Primary Care Provider + [phone] Encounter Details Date Type Department Care Team (Late st Contact Info) Description 08/18/2024 Orders Only [facility] - Family Medicine [address] [place] [phone] Ana Larsen CMA Hypercholesterolemia Social History Tobacco Use Types Packs/Day Years Used Date Smoking Tobacco: Never Passive Smoke Exposure: Never Smokeless Tobacco: Never Alcohol Use Standard Drinks/Week Comments Not Currently 0 (1 standard drink = 0.6 oz pur e alcohol) [facility] Utilities Answer Date Recorded In [...] often do you attend chur ch or scientologist services? More than 4 times per year 07/18/2022 Do you belong to any clubs o r organizations such as hinduism groups, unions, fraternal or athletic groups, or [...] Date Recorded Total Score 0 08/18/2024 [facility] of Occupat ional Health - Occupational Stress [...] - Family Medicine [address] [place] [address] Reilly Yoo DO [address], [facility] [place] [address] 01/26/2026 9:40 AM EDT [facility] [address] [place] [address] documented as of this encounter Procedures Procedure [...] documented as of this encounter Care Teams Proofer Apprentice Relationship Specialty Start Date End Date Reilly Yoo DO [address], [place] [address] PCP - General Family Medicine 06/06/22 documented as of this encounter
--- OUTSIDE RECORDS SUMMARY | 2025-01-22 08:34 | XMS_ITS | Encounter Summary ---
Author Organization [employer] Sys [employer] Address [facility]-[id number] [address] [place] [address] Care Team Providers Care Automatic Dry Starch Operator Name Role Phone Naila Reilly Veronica GARCIA Primary Care Provider + [phone] Encounter Details Date Type Department Care Team (Late st Contact Info) Description 08/08/2024 Telephone [facility] - Family Medicine [address] [place] [phone] Lyric Parsons CMA Social History Tobacco Use Types Packs/Day Years Used Date Smoking Tobacco: Never Passive Smoke Exposure: Never Smokeless Tobacco: Never Alcohol Use Standard Drinks/Week Comments Not Currently 0 (1 standard drink = 0.6 oz pur e alcohol) [facility] Utilities Answer Date Recorded In the past [...] often do you attend chur ch or yazidi services? More than 4 times per year 07/18/2022 Do you belong to any clubs o r organizations such as jehovah's witness groups, unions, fraternal or athletic groups, or [...] Answer Date Recorded Total Score 0 04/23/2024 [facility] [place] of Occupat ional Health - Occupational Stress [...] Recorded Do you need help finding a [facility] and/or a training [...] called requesting her lab order sent to [facility] so she has her results for her upcoming appt documented in this encounter Plan of Treatment Upcoming Encounters Date Type Department Care Team (Late st Contact Info) Description 08/19/2025 10:00 AM EST Office Visit [facility] - Family Medicine [address] [place] [address] Reilly Yoo DO [address] [facility] [place] [address] 01/26/2026 9:40 AM EDT Office Visit [facility] - Family Medicine [address] [place] [place] [address] documented as of this encounter Visit Diagnoses Not on filedocumented in this encounter Additional Health Concerns Assessment Noted Time PHQ-9 Depression Total Score: 0 04/23/20 24 8:58 AM EDT documented as of this encounter Care Teams Automatic Dry Starch Operator Relationship Specialty Start Date End Date Reilly Yoo DO [address] [facility] [place] [address] PCP - General Family Medicine 06/06/22 documented as of this encounter
--- OUTSIDE RECORDS SUMMARY | 2025-01-22 08:34 | XMS_ITS | Encounter Summary ---
Author Organization [employer] Address [facility]-[id number] [address] [place] [address] Care Team Providers Care Fbi Sharpshooter Name Role Phone GeorgiaReilly mckenzie Primary Care Provider + [phone] Encounter Details Date Type Department Care Team (Latest Contact Info) Description 01/20/2025 Travel Social History Tobacco Use Types Packs/Day Years Used Date Smoking Tobacco: Never Passive Smoke Exposure: Never Smokeless Tobacco: Never Alcohol Use Standard Drinks/Week Comments Not Currently 0 (1 standard drink = 0.6 oz pur e alcohol) [facility] Utilities Answer Date Recorded In the past 12 months has th [employer], gas, oil, or water company threatened [...] often do you attend chur ch or baptist services? More than 4 times per year 07/18/2022 Do you belong to any clubs o r organizations such as faith groups, unions, fraternal or athletic groups, or [...] Answer Date Recorded Total Score 0 01/20/2025 [employer] of Occupat ional Health - Occupational Stress [...] Recorded Do you need help finding a [facility] and/or a training program? [...] Medicine - Family Medicine [address] [place] [address] Reilly Yoo DO [address], [place] [address] 01/26/2026 9:40 AM EDT Office Visit [facility] - Family Medicine [address] [place] [address] documented as of this encounter Visit Diagnoses Not on filedocumented in this encounter Additional Health Concerns Assessment Noted Time PHQ-9 Depression Total Score: 0 01/21/20 25 9:10 AM EDT documented as of this encounter Care Teams Fbi Sharpshooter Relationship Specialty Start Date End Date Reilly Yoo DO [address] [facility] [place] [address] PCP - General Family Medicine 06/06/22 documented as of this encounter
--- OUTSIDE RECORDS SUMMARY | 2025-01-22 08:34 | XMS_ITS | Encounter Summary ---
Author Organization [facility] Address [facility][id number] [address] [place] [address] Care Team Providers Care Scheduling Clerk Name Role Phone CameronReilly jane Veronica GARCIA Primary Care Provider + [phone] Encounter Details Date Type Department Care Team (Late st Contact Info) Description 07/24/2022 Orders Only [facility] Medicine - Family Medicine [address] [place] [phone] Jaleesa Patel MA Hyperlipidemia, unspecified hyperlipidemia type [...] often do you attend chur ch or jehovah's witness services? More than 4 times per year 07/18/2022 Do you belong to any clubs o r organizations such as shinto groups, unions, fraternal or athletic groups, or [...] 07/18/2022 [facility] of Occupat ional Health - Occupational Stress [...] Medicine - Family Medicine [address] [place] [address] Reilly Yoo, [address], [place] [address] 01/26/2026 9:40 AM EDT Office Visit [facility] - Family Medicine [address] [place] [address] documented as of this encounter Procedures Procedure [...] ORDERABLES Final R esult Performing Organization Address City/[facility] Co de Phone Number MANUALLY TRANSCRIBED RESULTS documented in this encounter Visit Diagnoses Diagnosis Hyperlipidemia, unspecified hyperlipidemia type documented in this encounter Care Teams Scheduling Clerk Relationship Specialty Start Date End Date Reilly Yoo DO [address] [facility], [place] [address] PCP - General Family Medicine 06/06/22 documented as of this encounter
--- OUTSIDE RECORDS SUMMARY | 2025-01-22 08:34 | XMS_ITS | Clinical Summary ---
Author Organization [facility] Healthcare Address [address] [place] [address] Care Team Providers Care Psychologist Military Personnel Name Role Phone Reilly Yoo MD Primary Care Provider [phone] Allergies Active Allergy Reactions Criticality Noted Date [...] [address] [place] [phone] Andres Restrepo, DO [address] [place] [address] 06/30/2025 10:30 AM EST Office Visit [facility] [address] [place] [address] Annmarie Freitas, DO [address] [place] [address] 06/30/2025 12:00 PM EST Ancillary Procedure [facility] [place] [address] [place] [phone] Health Maintenance Due Date Last Done Comments [...] Storey M.D. 01/16/2025 1:26 PM Dictation Location: [facility] Dictated By: Manny Storey DO 01/16/25 0924 Signed By: <Electronically signed by Manny Storey DO in OV> 01/16/25 1326 Narrative 01/16/2025 1:29 PM EDT [facility] [address] [place] [address] Mammography Report Signed Patient: Malia Smith MR#: [id number] : 1955 Acct:[id number] Age/Sex: 69 / F Adm Date: 01/16/25 Loc: [place] Room: Type: [facility] Attending Dr: Anrdes Restrepo DO Ordering Provider: Andres Restrepo DO Date of Service: 01/16/25 Procedure(s): MM diagnostic mammo RT w/CAD; US breast RT limited Accession Number(s): ([id number]) US/US breast RT limited: 6mos. follow up w/mamm ([id number]) MM/MM diagnostic mammo RT w/CAD: 6mos. follow [...] Procedure Note Radiology, Radiologist, MD - 01/16/2025 [facility] [address] [place] [address] Mammography Report Signed Patient: Malia Smith MMR#: [id number] : 1955cct:[id number] Age/Sex: 69 / FAdm Date: 01/16/25 Loc: [place] Room:Type: [facility] Attending Dr: Andres Restrepo DO Ordering Provider: Andres Restrepo DO Date of Service: 01/16/25 Procedure(s): MM diagnostic mammo RT w/CAD; US breast RT limited Accession Number(s): ([id number]) US/US breast RT limited: 6mos. followup w/mamm ([id number]) MM/MM diagnostic mammo RT w/CAD: 6mos. follow [...] Storey M.D. 01/16/2025 1:26 PM Dictation Location: [facility] Dictated By: Manny Storey DO [...] IS VERY IMPORTANT TO YOUR HEALTH. THE [employer] GUIDELINES RECOMMEND THAT WOMEN 40 [...] Most Recently Relevant to Health Maintenance Insurance [facility] Care Teams Psychologist Military Personnel Relationship Specialty Start Date End Date Reilly Yoo MD [address], [place] [address] PCP - General Family Medicine 01/01/25
--- OUTSIDE RECORDS SUMMARY | 2025-01-22 08:34 | XMS_ITS | Encounter Summary ---
Author Organization [facility] [employer] Address [facility]-[id number] [address] [place] [address] Care Team Providers Care Plant Specialist Name Role Phone GeorgiaReilly mckenzie Primary Care Provider + [phone] Encounter Details Date Type Department Care Team (Late st Contact Info) Description 01/22/2023 Orders Only [facility] - Family Medicine [address] [place] [address] Magalis Robles CMA Essential hypertension; Hypercholesterolemia Social [...] often do you attend chur ch or restorationism services? More than 4 times per year 07/18/2022 Do you belong to any clubs o r organizations such as rastafarian groups, unions, fraternal or athletic groups, or [...] Answer Date Recorded Total Score 0 01/26/2023 [facility] - Occupational Stress Questionnaire [...] Recorded Do you need help finding a [facility] career center and/or a training program? No [...] - Family Medicine [address] [place] [phone] Reilly Yoo, [address], [place] [address] 01/26/2026 9:40 AM EDT Office Visit [facility] - Family Medicine [address] [place] [phone] documented as of this encounter Procedures Procedure [...] ORDERABLES Final R esult Performing Organization Address [facility] de Phone Number MANUALLY TRANSCRIBED RESULTS * [...] Lipoprotein 21 MANUALLY TRANSCRIBED RESULTS Blood 01/19/2023 Relily Yoo LAB BLOOD ORDERABLES Final R esult Performing Organization Address [facility] de Phone Number MANUALLY TRANSCRIBED RESULTS * TSH (01/19/2023) External Tsh 2.02 0.45 - 5.33 MANUALLY TRANSCRIBED RESULTS Blood 01/19/2023 Result [facility] Reilly Yoo LAB BLOOD ORDERABLES Final R esult Performing Organization Address [facility] de Phone Number MANUALLY TRANSCRIBED RESULTS documented in this encounter Visit Diagnoses Diagnosis Essential hypertension Unspecified essential hypertension Hypercholesterolemia Pure hypercholesterolemia documented in this encounter Additional Health Concerns Assessment Noted Time PHQ-9 Depression Total Score: 0 12/29/19 23 12:51 PM EDT documented as of this encounter Care Teams Plant Specialist Relationship Specialty Start Date End Date Reilly Yoo DO [address] [facility], [place] [address] PCP - General Family Medicine 06/06/22 documented as of this encounter
--- OUTSIDE RECORDS SUMMARY | 2025-01-22 08:34 | XMS_ITS | Encounter Summary ---
Author Organization [facility] [employer] Sys [employer] Address [facility]-[id number] [address] [place] [address] Care Team Providers Care Plate And Weld Inspector Name Role Phone Reilly Yoo DO Primary Care Provider + [phone] Reason for Visit * Reason Comments Med Refill Encounter Details Date Type Department Care Team (Late st Contact Info) Description 12/05/2022 Refill [facility] - Family Medicine [address] [place] [phone] Reilly Yoo DO [address], [facility] [address] Social History Tobacco Use Types Packs/Day Years [...] often do you attend chur ch or holiness services? More than 4 times per year [...] and heating? Not hard at all 07/18/2022 [facility] [place] of Occupat ional Health - Occupational Stress [...] Medicine - Family Medicine [address] [place] [address] Reilly Yoo DO [address], [facility] [address] 01/26/2026 9:40 AM EDT Office Visit [facility] - Family Medicine [address] [place] [address] documented as of this encounter Visit Diagnoses Not on filedocumented in this encounter Care Teams Plate And Weld Inspector Relationship Specialty Start Date End Date Reilly Yoo DO [address] [facility] [address] PCP - General Family Medicine 06/06/22 documented as of this encounter
--- OUTSIDE RECORDS SUMMARY | 2025-01-22 08:34 | XMS_ITS | Encounter Summary ---
Author Organization [facility] [employer] Sys tem Address [facility][id number] [address] [place] [address] Care Team Providers Care Size Maker Name Role Phone NailaReilly Primary Care Provider + [phone] Encounter Details Date Type Department Care Team (Late st Contact Info) Description 12/11/2022 Orders Only [facility] - Family Medicine [address] [place] [phone] External, Scanning Provider Social History Tobacco Use [...] and heating? Not hard at all 07/18/2022 [facility] of Occupat ional [facility] - Occupational Stress Questionnaire Answer Date [...] Family Medicine [address] [place] [address] Reilly Yoo, DO [address], [place] [address] 01/26/2026 9:40 AM EDT Office Visit [facility] - Family Medicine [address] [place] [address] documented as of this encounter Procedures Procedure Name Priority Date/Time Associated Diagnosis Comments HEPATITIS C(HCV) ANTIBODY W/ REFLEX TO PCR Routine 01/02/2016 documented in this encounter Results * Hepatitis C(HCV) Ab w/ Reflex to PCR (01/02/2016) us Scanning Provider External LAB BLOOD ORDERABLES Final Result Performing Organization Address City/State/[facility] Co de Phone Number MANUALLY TRANSCRIBED LAB RESULTS documented in this encounter Visit Diagnoses Not on filedocumented in this encounter Care Teams Size Maker Relationship Specialty Start Date End Date Reilly Yoo DO [address], [facility] [address] PCP - General Family Medicine 06/06/22 documented as of this encounter
--- OUTSIDE RECORDS SUMMARY | 2025-01-22 08:34 | XMS_ITS | Encounter Summary ---
Author Organization [facility] tem Address [facility]-[id number] [address] [place] [address] Care Team Providers Care House Carpenter Name Role Phone Reilly Yoo DO Primary Care Provider + [phone] Encounter Details Date Type Department Care Team (Late st Contact Info) Description 08/19/2024 Orders Only [facility] - Family Medicine [address] [place] [address] Reilly Yoo DO [address], [place] [address] Social History Tobacco Use Types Packs/Day Years Used Date Smoking Tobacco: Never Passive Smoke Exposure: Never Smokeless Tobacco: Never Alcohol Use Standard Drinks/Week Comments Not Currently 0 (1 standard drink = 0.6 oz pur e alcohol) [facility] Utilities Answer Date Recorded In the past 12 months has [employer], gas, oil, or water [employer] threatened to shut off services in your [...] How often do you attend chur or restoration services? More than 4 times per year 07/18/2022 Do you belong to any clubs o r organizations such as sabianist groups, unions, fraternal or athletic groups, or [...] Answer Date Recorded Total Score 0 08/18/2024 [facility] of Occupat ional Health - [...] Recorded Do you need help finding a [facility] career center and/or a training program? [...] Medicine - Family Medicine [address] [place] [address] Reilly Yoo DO [address], [place] [address] 01/26/2026 9:40 AM EDT Office Visit [facility] - Family Medicine [address] [place] [address] documented as of this encounter Visit Diagnoses Not on filedocumented in this encounter Additional Health Concerns Assessment Noted Time PHQ-9 Depression Total Score: 0 08/18/19 25 10:30 AM EST documented as of this encounter Care Teams House Carpenter Relationship Specialty Start Date End Date Reilly Yoo DO [address] [place] [address] PCP - General Family Medicine 06/06/22 documented as of this encounter
--- OUTSIDE RECORDS SUMMARY | 2025-01-22 08:34 | XMS_ITS | Encounter Summary ---
Author Organization [facility] Address [address] [place] [address] Care Team Providers Care M1A1 Tank Crewman Name Role Phone Reilly Yoo MD Primary Care Provider + [phone] Reilly Yoo MD Primary Care Provider + [phone] Encounter Details Date Type Department Care Team (Late Contact Info) Description 05/16/2023 Abstract [facility] [address] [facility] [address] [place] [address] Annmarie Freitas, DO [address] [facility] [address] [place] [address] Social History Tobacco Use Types [...] EDT Office Visit [facility] [address] [employer] [address] [place] [address] Andres Restrepo, DO [address] [facility] [address] [place] [address] 06/30/2025 10:30 AM EST Office Visit [facility] [address] [place] [address] Annmarie Freitas DO [address] [place] [address] 06/30/2025 12:00 PM EST Ancillary Procedure [facility] [place] [address] [place] [address] documented as of this encounter Visit Diagnoses Not on filedocumented in this encounter Care Teams M1A1 Tank Crewman Relationship Specialty Start Date End Date Reilly Yoo MD PCP - General Family Medicine 05/17/23 12/31/24 Reilly Yoo MD [address], [facility] [place] [address] PCP - General Family Medicine 01/01/25 documented as of this encounter
--- OUTSIDE RECORDS SUMMARY | 2025-01-22 08:34 | XMS_ITS | Encounter Summary ---
Author Organization [employer] Address [facility] [place]-[id number] [address] [place] [address] Care Team Providers Care Pile Driver Engineer Name Role Phone Naila Reilly Veronica GARCIA Primary Care Provider + [phone] Encounter Details Date Type Department Care Team (Late st Contact Info) Description 08/19/2024 Telephone [facility] - Family Medicine [address] [place] [address] Lyric Parsons CMA Social History Tobacco Use Types Packs/Day Years Used Date Smoking Tobacco: Never Passive Smoke Exposure: Never Smokeless Tobacco: Never Alcohol Use Standard Drinks/Week Comments Not Currently 0 (1 standard drink = 0.6 oz pur e alcohol) [facility] Utilities Answer Date Recorded In the [...] often do you attend chur ch or religion services? More than 4 times per year 07/18/2022 Do you belong to any clubs o r organizations such as baptist groups, unions, fraternal or athletic groups, or [...] Answer Date Recorded Total Score 0 08/18/2024 [facility] of Occupat ional Health - Occupational [...] Recorded Do you need help finding a [facility] career [facility] and/or a training [...] her CMP result yet though. [facility] if not.She will have to go back and get it * Telephone Encounter - Lyric Parsons CMA - 08/19/2024 2:01 PM EST [facility] [...] - Family Medicine [address] [place] [address] Reilly Yoo DO [address] [place] [address] 01/26/2026 9:40 AM EDT Office Visit [facility] - Family Medicine [address] [place] [address] documented as of this encounter Visit Diagnoses Not on filedocumented in this encounter Additional Health Concerns Assessment Noted Time PHQ-9 Depression Total Score: 0 08/18/19 25 10:30 AM EST documented as of this encounter Care Teams Pile Driver Engineer Relationship Specialty Start Date End Date Reilly Yoo DO [address] [place] [address] PCP - General Family Medicine 06/06/22 documented as of this encounter
--- OUTSIDE RECORDS SUMMARY | 2025-01-22 08:34 | XMS_ITS | Encounter Summary ---
Author Organization [facility] [employer] Sys [employer] Address [facility]-[id number] [address] [place] [address] Care Team Providers Care Helpdesk Specialist Name Role Phone Reilly Yoo DO Primary Care Provider + [phone] Reason for Visit * Reason Comments Med Refill Encounter Details Date Type Department Care Team (Late st Contact Info) Description 08/13/2022 Refill [facility] - Family Medicine [address] [place] [address] Reilly Yoo DO [address], [facility] [address] Social History Tobacco Use Types Packs/Day Years [...] often do you attend chur ch or temple services? More than 4 times per year 07/18/2022 Do you belong to any clubs o r organizations such as anglican groups, unions, fraternal or athletic groups, or [...] and heating? Not hard at all 07/18/2022 [facility] [place] of Occupat ional Health - Occupational Stress [...] Medicine - Family Medicine [address] [place] [address] Reilly Yoo DO [address] [facility] [place] [address] 01/26/2026 9:40 AM EDT Office Visit [facility] - Family Medicine [address] [place] [address] documented as of this encounter Visit Diagnoses Not on filedocumented in this encounter Care Teams Helpdesk Specialist Relationship Specialty Start Date End Date Reilly Yoo DO [address] [facility] [place] [address] PCP - General Family Medicine 06/06/22 documented as of this encounter
--- OUTSIDE RECORDS SUMMARY | 2025-01-22 08:34 | XMS_ITS | Encounter Summary ---
Author Organization [facility] Address [address] [place] [address] Care Team Providers Care Automatic Line Set Up Mechanic Name Role Phone Reilly Yoo MD Primary Care Provider + [phone] Reilly Yoo MD Primary Care Provider + [phone] Encounter Details Date Type Department Care Team (Late st Contact Info) Description 07/14/2024 External Result Encounter [facility] External Department Unsolicited Andres Restrepo, DO [address] [address] Social History Tobacco Use Types Packs/Day Years [...] EDT Office Visit [facility] [address] [phone] Andres Restrepo, DO [address] [address] 06/30/2025 10:30 AM EST Office Visit [facility] [address] [place] [address] [place] [phone] Annmarie Freitas DO [address] [place] [address] [place] [address] 06/30/2025 12:00 PM EST Ancillary Procedure [facility] [place] [address] [place] [address] [place] [address] documented as of this encounter Procedures [...] 07/17/24 1451 Narrative 07/14/2024 2:39 PM EST [facility] [address] [place] [address] Ultrasound Report Signed Patient: Malia Smith MR#: [id number] : 1955 Acct:[id number] Age/Sex: 68 / F ADM Date: 07/14/24 Loc: [facility] Room: Type: [facility] Attending Dr: Andres Restrepo DO Ordering Provider: Andres Restrepo DO Date of Service: 07/14/24 US/US breast ndl core biopsy RT: N63.11 ([id number]) US/US breast RT limited: N63.11 ([id number]) MM/MM post biopsy RT w/CAD: POST RT [...] Procedure Note Radiology, Radiologist, MD - 07/17/2024 [facility] [address] [place] [address] Ultrasound Report Signed Patient: Malia Smith MMR#: [id number] : 7Acct:[id number] Age/Sex: 68 / FADM Date: 07/14/24 Loc: [facility] Room:Type: [facility] Attending Dr: Andres Restrepo DO Ordering Provider: Andres Restrepo DO Date of Service: 07/14/24 US/US breast ndl core biopsy RT: N63.11 ([id number]) US/US breast RT limited: N63.11 ([id number]) MM/MM post biopsy RT w/CAD: POST RT [...] Signed By:07/17/24 1451 us Andres Restrepo DO [facility] US PROCEDURES Edited Result - Final documented in this encounter Visit Diagnoses Not on filedocumented in this encounter Care Teams Automatic Line Set Up Mechanic Relationship Specialty Start Date End Date Reilly Yoo MD PCP - General Family Medicine 05/17/23 12/31/24 Reilly Yoo MD [address] [facility], [facility] [place] [address] PCP - General Family Medicine 01/01/25 documented as of this encounter
--- OUTSIDE RECORDS SUMMARY | 2025-01-22 08:34 | XMS_ITS | Encounter Summary ---
Author Organization [facility] tem Address [facility]-[id number] [address] [place] [address] Care Team Providers Care Ticket Sorter Name Role Phone Reilly Yoo DO Primary Care Provider + [phone] Encounter Details Date Type Department Care Team (Late st Contact Info) Description 08/27/2024 Orders Only [facility] - Family Medicine [address] [place] [phone] Reilly Yoo DO [address] [place] [address] Social History Tobacco Use Types Packs/Day Years Used Date Smoking Tobacco: Never Passive Smoke Exposure: Never Smokeless Tobacco: Never Alcohol Use Standard Drinks/Week Comments Not Currently 0 (1 standard drink = 0.6 oz pur e alcohol) [facility] Utilities Answer Date Recorded In the past 12 months has [employer], gas, oil, or water [employer] threatened to shut off services in your [...] How often do you attend chur or hoahaoism services? More than 4 times per year 07/18/2022 Do you belong to any clubs o r organizations such as jainism groups, unions, fraternal or athletic groups, or [...] Answer Date Recorded Total Score 0 08/18/2024 [facility] of Occupat ional Health - [...] Recorded Do you need help finding a [facility] career center and/or a training program? [...] Medicine - Family Medicine [address] [place] [address] Reilly Yoo DO [address], [facility] [place] [address] 01/26/2026 9:40 AM EDT Office Visit [facility] - Family Medicine [address] [place] [address] documented as of this encounter Visit Diagnoses Not on filedocumented in this encounter Additional Health Concerns Assessment Noted Time PHQ-9 Depression Total Score: 0 08/18/19 25 10:30 AM EST documented as of this encounter Care Teams Ticket Sorter Relationship Specialty Start Date End Date Reilly Yoo DO [address] [place] [address] [address] PCP - General Family Medicine 06/06/22 documented as of this encounter
--- OUTSIDE RECORDS SUMMARY | 2025-01-22 08:34 | XMS_ITS | Encounter Summary ---
Author Organization [facility] Address [facility]-[id number] [address] [place] [address] Care Team Providers Care Plasterer Helper Name Role Phone NailaReilly Veronica GARCIA Primary Care Provider + [phone] Encounter Details Date Type Department Care Team (Late st Contact Info) Description 02/21/2023 Orders Only [facility] - Family Medicine [address] [place] [phone] Magalis Robles CMA Age-related osteoporosis without current [...] any clubs o r organizations such as sabianism groups, unions, fraternal or athletic groups, or [...] Answer Date Recorded Total Score 0 01/26/2023 [facility] of Occupat ional Health - Occupational [...] help finding a [facility] career center and/or a [...] - Family Medicine [address] [place] [place] [address] Reilly Yoo DO [address] [facility] [place] [address] 01/26/2026 9:40 AM EDT Office Visit [facility] - Family Medicine [address] [place] [address] documented as of this encounter Procedures Procedure [...] documented as of this encounter Care Teams Plasterer Helper Relationship Specialty Start Date End Date Reilly Yoo DO [address] [facility] [place] [address] PCP - General Family Medicine 06/06/22 documented as of this encounter
--- OUTSIDE RECORDS SUMMARY | 2025-01-22 08:34 | XMS_ITS | Encounter Summary ---
Author Organization [facility] Address [id number] [address] [place] [address] Care Team Providers Care Supervisor Steffen House Name Role Phone GeorgiaReilly mckenzie Primary Care Provider + [phone] Encounter Details Date Type Department Care Team (Late st Contact Info) Description 09/02/2024 Orders Only [facility] - Family Medicine [address] [place] [phone] Ana Larsen CMA Essential hypertension Social History Tobacco Use Types Packs/Day Years Used Date Smoking Tobacco: Never Passive Smoke Exposure: Never Smokeless Tobacco: Never Alcohol Use Standard Drinks/Week Comments Not Currently 0 (1 standard drink = 0.6 oz pur e alcohol) [facility] Utilities Answer Date Recorded In the [...] often do you attend chur ch or moravian services? More than 4 times per year 07/18/2022 Do you belong to any clubs o r organizations such as caodaism groups, unions, fraternal or athletic groups, or [...] Answer Date Recorded Total Score 0 08/18/2024 [facility] of Occupat ional Health - Occupational [...] Recorded Do you need help finding a [facility] career center and/or a training program? [...] Medicine - Family Medicine [address] [place] [phone] Reilly Yoo, [address], [facility] [place] [address] 01/26/2026 9:40 AM EDT [facility] [address] [place] [phone] documented as of this encounter Procedures Procedure [...] documented as of this encounter Care Teams Supervisor Steffen House Relationship Specialty Start Date End Date Reilly Yoo DO [address] [facility], [place] [address] PCP - General Family Medicine 06/06/22 documented as of this encounter
--- OUTSIDE RECORDS SUMMARY | 2025-01-22 08:34 | XMS_ITS | Clinical Summary ---
Author Organization [employer] Address [facility]-[id number] [address] [place] [address] Care Team Providers Care Glass Science Engineer Name Role Phone Reilly Yoo DO Primary Care Provider Allergies Active Allergy Reactions Criticality Noted Date [...] EVERY MORNING 90 tablet 2 5 Active Active Problems Problem Noted Date [...] Medicine - Family Medicine [address] [place] [address] Reilly Yoo, Medicare annual wellness visit, subsequent (Primary Dx); Screening for depression 01/20/2025 Travel 01/01/2025 11:30 AM EDT Office Visit [facility] - Family Medicine [address] [place] [address] Reilly Yoo, Bilateral impacted cerumen (Primary Dx); Neoplasm of uncertain behavior of skin 01/01/2025 Travel 12/30/2024 Orders Only [facility] - [facility] Medicine [address] [place] [address] Reilly Yoo, Neoplasm of uncertain behavior of skin (Primary Dx) 12/22/2024 11:30 AM EDT Office Visit [facility] - Family Medicine [address] [place] [address] Reilly Yoo, Neoplasm of uncertain behavior of skin (Primary Dx); Tick bite of lower back, sequela; Bilateral impacted cerumen 12/22/2024 Travel 11/02/2024 Refill [facility] Family Medicine [address] [place] [address] Reilly Yoo, DO from Last 3 Months [...] drink = 0.6 oz pur e alcohol) [facility] Utilities Answer Date Recorded In the past 12 months has [employer], gas, oil, or water [employer] threatened to shut off services in your [...] often do you attend chur ch or druze services? More than 4 times per year 07/18/2022 Do you belong to any clubs o r organizations such as quaker groups, unions, fraternal or athletic groups, or [...] Answer Date Recorded Total Score 0 01/20/2025 [facility] of Occupat ional Health - Occupational Stress [...] Description 08/19/2025 10:00 AM EST Office Visit [facility] - Family Medicine [address] [place] [phone] Reilly Yoo DO [address], [place] [address] 01/26/2026 9:40 AM EDT Office Visit [facility] - Family Medicine [address] [place] [address] Health Maintenance Due Date Last [...] COLOGUARD Negative Negative 2023 6:45 PM EST [employer] (CLIA #:[id number]) Comment: NEGATIVE TEST RESULT. A negative Cologuard [...] screened with both Cologuard and colonoscopy. (Carmen Jansen al, N Engl J Med 2014;370(14):2499-1163) The normal value (reference range) for this assay is negative. COLOGUARD RE-SCREENING RECOMMENDATION: Periodic colorectal cancer screening is an important part of preventive healthcare for asymptomatic individuals at average risk for colorectal cancer. Following a negative Cologuard result, the [place] Cancer Society and U.S. Multi-Society Task Force screening guidelines recommend a Cologuard re-screening interval of 3 years. References: [place] Cancer Society Guideline for Colorectal Cancer Screening: https://www.cancer.org/cancer/chiop-abfjnk-wdkouw/wgxbvnmjs-jtztmltvj-lefcere/ac s-rec ommendations.html.; Adolph DK, Francie LUNDBERG, Dread DiorK, Colorectal Cancer Screening: Recommendations for Physicians and Patients from the U.S. Multi-Society Task Force on Colorectal Cancer Screening , Am J Gastroenterology 2017; 112:4469-3860. TEST DESCRIPTION: Composite algorithmic analysis of stool [...] Rahman et al, N Engl J Med 2014;370(14):6709-1050.) Cologuard may produce a false negative or false positive result (no colorectal cancer or precancerous polyp present at colonoscopy follow up). A negative Cologuard test result does not guarantee the absence of CRC or advanced adenoma (pre-cancer). The current Cologuard screening interval is every 3 years. ([place] Cancer Society and U.S. Multi-Society Task Force). Cologuard performance data in a 10,000 patient pivotal study using colonoscopy as the reference method can be accessed at the following location: www.TrumpIT.Rhapso/results. Additional description of the Cologuard test process, warnings and precautions can be found at www.TradingScreenogZapposrd.Rhapso. Stool specimen (specimen) Rectum structure / Unknown 08/22/2023 7:34 AM EST 08/23/2023 2:10 PM EST Reilly Yoo DO LAB ORDERABLES Final Result [employer] (CLIA #:[id number]) [address] [place] [address], from Last 3 Months or Most Recently Relevant to Health Maintenance Insurance MEDICARE Care Teams Glass Science Engineer Relationship Specialty Start Date End Date Reilly Yoo DO [address] [facility], [place] [address] PCP - General Family Medicine 06/06/22
--- OUTSIDE RECORDS SUMMARY | 2025-01-22 08:35 | XMS_ITS | Encounter Summary ---
Author Organization [facility] [employer] Address [facility][id number] [address] [place] [address] Care Team Providers Care Sprayer Leather Name Role Phone Reilly Yoo DO Primary Care Provider + [phone] Reason for Visit * Reason Comments Med Refill Encounter Details Date Type Department Care Team (Late st Contact Info) Description 03/05/2023 Refill [facility] - Family Medicine [address] [place] [phone] Reilly Yoo DO [address], [facility] [place] [address] Social History Tobacco Use Types Packs/Day Years [...] Answer Date Recorded Total Score 0 01/26/2023 [facility] of Occupat ional Health - Occupational [...] Recorded Do you need help finding a [facility] and/or a training program? [...] - Family Medicine [address] [place] [place] [address] Reilly Yoo DO [address], [place] [address] 01/26/2026 9:40 AM EDT Office Visit [facility] - Family Medicine [address] [place] [address] documented as of this encounter Visit Diagnoses Not on filedocumented in this encounter Additional Health Concerns Assessment Noted Time PHQ-9 Depression Total Score: 0 01/27/20 23 10:24 AM EDT documented as of this encounter Care Teams Sprayer Leather Relationship Specialty Start Date End Date Reilly Yoo DO [address], [place] [address] PCP - General Family Medicine 06/06/22 documented as of this encounter
--- OUTSIDE RECORDS SUMMARY | 2025-01-22 08:43 | XMS_ITS | CCD ---
Author Organization [facility] Providers Care Optical Glass Etcher Name Role Phone REQUEST, DR NANCE LISTED Consulting Unavaila ble REQUEST, DR NANCE LISTED Admitting Unavaila ble FURLONG, DR REILLY Martin Primary Care Unavailable REQUEST, DR NANCE LISTED Attending Unavaila ble FURLONG, DR REILLY Martin Primary Care Unavailable FURLONG, DR REILLY Martin Admitting Unavailable FURLONG, DR REILLY Martin Attending Unavailable FURLONG, DR REILLY Martin Consulting Unavailable LOAIZA, DR FIELDS Admitting Unavailable LOAIZA, DR FIELDS Attending Unavailable LOAIZA, DR FIELDS Consulting Unavailable FURLONG, DR REILLY Martin Primary Care Unavailable WEST, DR ARTHUR Matias Consulting Unavailable RINKES, ANNMARIE Attending Unavailable RINKES, ANNMARIE Admitting Unavailable FURLONG, DR REILLY Martin Primary Care Unavailable WEST, DR ARTHUR Matias Consulting Unavailable RINKES, ANNMARIE Consulting Unavailable LOAIZA, DR FIELDS Admitting Unavailable LOAIZA, DR FIELDS Attending Unavailable LOAIZA, DR FIELDS Consulting Unavailable FURLONG, DR REILLY Martin Primary Care Unavailable WEST, DR ARTHUR Matias Consulting Unavailable FurloDO Reilly jane Primary Care Provider DO Reilly Yoo Attending Provider MD Diamond Loaiza Attending Provider REILLY YOO Primary Care Physician Kaitlyn Giordano Unavailable DO Reilly Yoo Primary Care Provider [phone] MD Diamond Loaiza Attending Provider REILLY YOO Referring Unavailable REILLY YOO Primary Care Unavailable REILLY YOO Referring Unavailable GEORGIALOBUCK, REILLY Martin Primary Care Unavailable Cameronng Reilly RODRIGUES Primary Care Provider [phone] Reilly Yoo DO Primary Care Provider Furlong DOReilly Primary Care Provider Itzkowitz DO, Vipul Attending Provider [phone] Georgialong DOReilly Attending Provider [phone] CJ ODONNELL Attending Unavailable CJ ODONNELL Attending Unavailable RINRASTA, ANNMARIE E Attending Unavailable RINKES, ANNMARIE E Referring Unavailable RINKES, ANNMARIE E Referring Unavailable RINKES, ANNMARIE E Referring Unavailable ITZKOWITZ, VIPUL H Attending Unavailable CJ ODONNELL Attending Unavailable Furlong DO, Reilly Martin Primary Care Provider [phone] Georgialong Reilly GARCIA Primary Care Provider Georgialong DO, Reilly Attending Provider [phone] Carmencita Hirsch APRN Emergency Provider [phone] Diamond LOAIZA Attending Unavailable Diamond LOAIZA Attending Unavailable Diamond LOAIZA Attending Unavailable Diamond LOAIZA Attending Unavailable Diamond LOAIZA Attending Unavailable FURLONG, REILLY G Referring Unavailable FURLONG, REILLY G Primary Care Unavailable FURLONG, REILLY G Attending Unavailable FURLONG, REILLY G Referring Unavailable FURLONG, REILLY G Primary Care Unavailable FURLONG, REILLY G Attending Unavailable FURLONG, REILLY G Referring Unavailable FURLONG, REILLY G Primary Care Unavailable FURLONG, REILLY G Attending Unavailable FURLONG, REILLY G Referring Unavailable FURLONG, REILLY G Primary Care Unavailable FURLONG, REILLY G Attending Unavailable FURLONG, REILLY G Referring Unavailable FURLONG, REILLY G Primary Care Unavailable FURLONG, REILLY G Attending Unavailable FURLONG, REILLY G Referring Unavailable FURLONG, REILLY G Primary Care Unavailable Itzkowitz, Vipul Admitting Unavailable Itzkowitz, Vipul Attending Unavailable Furlong, Reilly Primary Care Unavailable Itzkowitz, Vipul Admitting Unavailable Itzkowitz, Vipul Attending Unavailable Furlong, Reilly Primary Care Unavailable Furlong, Reilly Primary Care Unavailable Furlong, Reilly Attending Unavailable Furlong, Reilly Admitting Unavailable Furlong, Reilly Primary Care Unavailable Furlong, Reilly Attending Unavailable Furlong, Reilly Admitting Unavailable Furlong, Reilly Primary Care Unavailable Itzkowitz, Vipul Admitting Unavailable Itzdanielle, Vipul Attending Unavailable Saffle, Carmencita N Admitting Unavailable Saffle, Carmencita N Attending Unavailable Furlong, Reilly Primary Care Unavailable Allergies Allergy Classification Reported Allergen(s) Allergy Type Date of Onset Reaction(s) Facility (10 sources) Amoxicillin; Translations: [AMOXICILLIN] Drug Allergy rash [facility] Repository (6 sources) Azithromycin Drug Allergy Abdominal Pain, Abdominal Pain, diarrhea [facility] Rep[facility] (1 source) bee venom Drug allergy (disorder) [facility] Rep[facility] (9 sources) Chlorpheniramine; Translations: [CHLORPHENIRAMINE] Drug Allergy Swelling of the Eye [facility] Repository (18 sources) Erythromycin Drug Allergy Gastrointestinal Upset, Gastrointestinal Upset, stomach cramping [facility] Rep[facility] (1 source) Iodine (And Iodine Containting Drugs) Drug allergy (disorder) [facility] (1 source) Pseudoephedrine Drug Allergy [facility] (5 sources) Sulfonamides (Antibiotic) Allergy to substance 10-20-2 020 Rash/Itching [facility] (20 sources) bee venom protein (honey bee); Translations: [BEE VENOM PROTEIN (HONEY BEE)] Allergy to substance 10-20-2 020 Anaphylaxis/Hives [facility] (20 sources) Iodinated Contrast Media; Translations: [IODINATED CONTRAST MEDIA] Allergy to substance 10-20-2 020 Anaphylaxis/ heart felt funny, tightness/pressure [facility] Comment on above: Reaction: chest tightness (20 sources) Amoxicillin; Translations: [amoxicillin] Drug Allergy 022 Eruption of skin (disorder), Rash [facility] (3 sources) Bee/Wasp/Ant venom; Translations: [Bee Stings] Drug allergy Urticaria (disorder) [facility] (20 sources) Chlorpheniramine; Translations: [chlorpheniramine] Drug Allergy Periorbital edema (disorder) [facility] (3 sources) Contrast media; Translations: [Contrast Dye] Drug allergy Tight chest (finding) [facility] (20 sources) Erythromycin; Translations: [erythromycin] Drug Allergy Stomach cramps (finding) [facility] (15 sources) Sulfamethoxazole / Trimethoprim; Translations: [sulfamethoxazole- trimethoprim] Drug Allergy Eruption of skin (disorder), Rash [facility] (13 sources) Azithromycin Drug Allergy diarrhea [facility] [employer] Other (1 source) Contrast media Propensity to adverse reactions chest tightness [facility] [employer] Other (1 source) bees Propensity to adverse reactions hives [facility] [employer] Other (3 sources) Chlorphen Flores-Pseudoeph Flores Drug allergy 023 eyes swollen [facility] (1 source) Sulfamethoxazole-T MP DS Drug allergy rash [facility] Other (20 sources) Sulfamethoxazole; Translations: [SULFAMETHOXAZOLE] Drug Allergy Rash [facility] Repository (12 sources) Honey bee venom Propensity to adverse reactions [facility] (12 sources) Pseudoephedrine Drug Allergy [facility] (2 sources) Trimethoprim Drug Allergy 023 rash [facility] (2 sources) venom-honey bee Allergy to substance [facility] Medications Current Medications Medication Drug Class(es) Dates Sig (Normalized) Sig (Original) acetaminophen 325 mg / oxyCODONE hydrochloride 5 mg oral tablet (6 sources) Opioid Agonist Start: 05-25-2020 End: 11-14-2024 take 1 tablet by mouth every four to six hours as needed for pain Oxycodone-Acetam inophen (Percocet) 5-325 mg tablet Active 1 TAB PO EVERY 4-6 HOURS as needed for pain 07 08November 14, 2024 [id number] 200 actuat albuterol 0.09 mg/actuat metered dose inhaler (1 source) beta2-Adrenergic Agonist Start: 06-17-2023 take 2 puff(s) by inhalation four times daily as needed Albuterol Sulfate HFA 108 (90 Base) MCG/ACT 2 puffs Inhalation 4 times a day prn 12 Jun, 2023 Active calcium carbonate 1250 mg / cholecalciferol 1000 unt / vitamin k 0.4 mg chewable tablet (12 sources) Vitamin D Calcium-Vitamin D-Vitamin K (Calcium + D) 500-1000-40 MG-UNT-MCG chewable tablet Orally Active cetirizine hydrochloride 10 mg oral tablet (20 sources) Histamine-1 Receptor Antagonist Start: 02-27-2018 take 1 tablet by mouth once daily in the morning Cetirizine (Zyrtec) 10 mg Tablet Active 10 MG PO Every morning May 14, 2020 12:00am Start: 02-14-2018 End: 03-21-2018 take 1 capsule by mouth once daily Cetirizine (Zyrtec) 10 mg Capsule Discontinued 10 MG PO Daily February 14, 2018 12:00am March 21, 2018 3:47pm cholecalciferol 0.05 mg oral capsule (20 sources) Vitamin D Start: 05-14-2020 take 1 capsule by mouth once daily at bedtime Cholecalciferol (Vitamin D3) (Vitamin D3) 50 mcg (2,000 unit) Capsule Active 2000 UNIT PO Daily at bedtime May 14, 2020 12:00am Start: 02-28-2018 cholecalcifero l 400 intl units oral capsule 400 International_Unit = 1 cap(s), Oral, TIDWM, # 100 cap(s), Refills(s) 0 Start Date: 02/28/18 Status: Suspended Start: 02-14-2018 End: 03-21-2018 take 1 capsule by mouth once daily Cholecalciferol (Vitamin D3) (Vitamin D3) 1,000 unit Capsule Discontinued 1000 UNIT PO Daily February 14, 2018 12:00am March 21, 2018 3:47pm cholecalciferol, vitamin D3, 2,000 units tablet Active cholecalciferol, vitamin D3, 2,000 units tablet Vitamin D3 2,000 IU QD Active cholecalciferol (Vitamin D-3) 50 MCG (2000 UT) tablet Vitamin D3 2,000 IU QD Active docusate sodium 100 mg oral capsule (1 source) Start: 11-14-2024 take 1 capsule by mouth once daily Docusate Sodium (Colace) 100 mg capsule Active 100 MG PO Daily November 14, 2024 12:00am doxycycline hyclate 100 mg oral tablet (1 source) Tetracycline-class Drug Start: 04-23-2024 End: 04-30-2024 take 1 tablet by mouth in the morning, then take 1 tablet by mouth at bedtime doxycycline (VIBRA-TABS) 100 mg tablet Take 1 tablet (100 mg total) by mouth in the morning and 1 tablet (100 mg total) before bedtime. Do all this for 7 days. 14 tablet 04/23/2024 04/30/2024 Active fluticasone propionate 0.05 mg/actuat metered dose nasal spray (2 sources) Corticosteroid Start: 11-14-2024 take 1 spray(s) nasal route once daily as needed Fluticasone Propionate 50 mcg/actuation spray,suspension Active 1 SPRAY INTRANASAL Daily as needed for Allergies November 14, 2024 12:00am [employer] spray in each nostril Nasally Once a day; Note: Source Status: Taking; Provider: Hemal Dior Start: 07-27-2017 take 1 spray(s) nasa l route once daily Fluticasone Propionate 50 MCG/ACT 1 spray in each nostril Nasally Once a day for 21 days Jul, Active lovastatin 20 mg oral tablet (20 sources) HMG-CoA Reductase Inhibitor Start: 03-05-2023 End: 08-17-2023 take 1 tablet by mouth in the morning lovastatin (Mevacor) 20 MG tablet Take 20 mg by mouth in the morning. 03/05/2023 Active Start: 05-07-[address] ut once daily lovastatin 10 mg Tab 20 mg = 2 tab(s), Oral, Daily Start Date: 05/07/20 Status: Ordered Start: 11-11-2018 End: 11-14-2024 take 1 tablet by mouth once daily at bedtime Lovastatin 10 mg Tablet Discontinued 10 MG PO Daily at bedtime November 11, 2018 12:00am November 14, 2024 7:35pm methylPREDNISolone (7 sources) Corticosteroid Start: 08-14-2024 End: 08-18-2024 methylPREDNISolone (MEDROL, GURMEET,) 4 mg tablet Follow schedule on MEDROL PACK package instructions to be used as directed 08/14/2024 08/18/2024 Discontinued (Dose adjustment) Start: 08-14-2024 methylPREDNISo lone (Medrol Dospak) 4 MG tablets Indications: Posterior tibial tendonitis of right leg Follow schedule on MEDROL PACK package instructions to be used as directed 21 tablet 08/14/2024 Active phenylephrine hydrochloride 10 mg oral tablet (1 source) alpha-1 Adrenergic Agonist Start: 11-14-2024 take 1 tablet by mouth once daily as needed Phenylephrine Hcl (Sudafed Pe) 10 mg tablet Active 10 MG PO Daily as needed for Allergies November 14, 2024 12:00am Potassium Bicarb-Citric Acid (Klor-Con/Ef) 25 mEq tablet, effervescent (1 source) Start: 11-14-2024 Potassium Bicarb-Citric Acid (Klor-Con/Ef) 25 mEq tablet, effervescent Active 25 MEQ PO Twice daily November 14, 2024 12:00am potassium bicarbonate 25 meq effervescent oral tablet (18 sources) Start: 05-09-2022 End: 03-03-2024 EFFER-K 25 mEq disintegrating tablet 05/09/2022 Active potassium chloride 20 meq extended release oral tablet (1 source) take 1 tablet by mouth every twelve hours Potassium Chloride ER 20 MEQ 1 tablet with food Orally Twice a day Active predniSONE 20 mg oral tablet (1 source) Start: 06-17-2023 take 1 tablet by mouth every twelve hours predniSONE 20 MG 1 tablet Orally bid for 5 day(s) Jun, Active rosuvastatin calcium 10 mg oral tablet (20 sources) HMG-CoA Reductase Inhibitor Start: 08-17-2023 End: 05-14-2024 take 1 tablet by mouth once daily in the morning rosuvastatin (CRESTOR) 10 mg tablet take 1 tablet by mouth every morning 90 tablet 2 05/14/2024 Active Sudafed PE Congestion (1 source) Sudafed PE Congestion Active tamsulosin hydrochloride 0.4 mg oral capsule (1 source) alpha-Adrenergic Mitchell Start: 11-14-2024 take 1 capsule by mouth once daily Tamsulosin (Flomax) 0.4 mg capsule Active 0.4 MG PO Daily November 14, 2024 12:00am valsartan 40 mg oral tablet (20 sources) Angiotensin 2 Receptor Mitchell Start: 02-15-2024 End: 11-02-2024 take 1 tablet by mouth once daily in the morning valsartan (DIOVAN) 40 mg tablet TAKE 1 TABLET BY MOUTH EVERY MORNING 90 tablet 2 11/02/2024 Active Vitamin D-3 25 MCG (1000 UT) (1 source) take 2 capsules by mouth once daily Vitamin D-3 25 MCG (1000 UT) 2 capsule Orally Once a day Active Vitamin D3 (2 sources) Start: 02-27-2018 Vitamin D3 1,000 International_Unit, Oral, Daily, Prophylaxis Start Date: 02/27/18 Status: Ordered Completed/Discontinued Medications Medication Drug Class(es) Dates Sig (Normalized) Sig (Original) acetaminophen 325 mg / HYDROcodone bitartrate 5 mg oral tablet (20 sources) Opioid Agonist Start: 05-21-2020 End: 05-28-2020 take 1 tablet by mouth every four to six hours as needed for pain Hydrocodone-Acetami nophen ([place]) 5-325 mg tablet Discontinued 1 TAB PO EVERY 4-6 HOURS as needed for pain 14 3 May 21, 2020 May 28, 2020 9:26pm Start: 03-22-2018 End: 05-14-2020 take 1 tablet by mouth every four to six hours as needed for pain Hydrocodone-Acetaminophen ([place]) 5-325 mg Tablet Discontinued 1 TAB PO EVERY 4-6 HOURS as needed for Pain 7 3 November 11, 2018 May 14, 2020 2:11pm Start: 03-22-2018 End: 03-28-2018 Hydrocodone-Acetaminophen 5- 325 mg tablet Discontinued 5 - 325 MG PO As Directed as needed for Pain March 22, 2018 12:00am March 28, 2018 12:25am alendronic acid 70 mg oral tablet (19 sources) Bisphosphonate Start: 02-14-2018 End: 11-14-2024 Alendronate 70 mg tablet Discontinued 70 MG PO every week February 14, 2018 12:00am November 14, 2024 7:36pm TK 1 T PO WEEKLY. TAKE IN THE MORNING WITH 8 OUNCES OF WATER ONE HALFHOUR BEFORE A MEAL. Patient takes on saturdays. calcium carbonate 1500 mg / cholecalciferol 800 unt oral tablet (5 sources) Vitamin D Start: 02-15-2018 End: 03-21-2018 take 1 tablet by mouth three times daily Calcium Carbonate-Vitamin D3 600 mg(1,500mg) -800 unit Tablet Discontinued 1 TAB PO Three times daily February 15, 2018 12:00am March 21, 2018 3:47pm cephalexin 500 mg oral capsule (5 sources) Cephalosporin Antibacterial Start: 03-21-2018 End: 11-11-2018 take 1 capsule by mouth every twelve hours Cephalexin (Keflex) 500 mg capsule Discontinued 500 MG PO Q12H March 21, 2018 12:00am November 11, 2018 11:00am ciprofloxacin 500 mg oral tablet (5 sources) Quinolone Antimicrobial Start: 05-31-2020 End: 11-14-2024 take 1 tablet by mouth twice daily Ciprofloxacin Hcl (Cipro) 500 mg tablet Discontinued 500 MG PO Twice daily 07 11May 31, 2020 12:00am November 14, 2024 7:34pm start 06/01/20 am Effer-K 25 mEq oral tablet, effervescent (1 source) Start: 02-07-2022 End: 02-02-2023 take 1 tablet by mouth twice daily Effer-K 25 mEq oral tablet, effervescent 25 mEq = 1 tab(s), Oral, BID, X 90 day(s), # 180 tab(s), Refills(s) 3, Pharmacy: [facility] [id number], 158, cm, 07/18/21 11:10:00 EST, Height/Length Dosing, 63, kg, 07/18/21 11:10:00 EST, Weight Dosing Start Date: 02/07/22 Stop Date: 02/02/23 Status: Ordered lisinopril 5 mg oral tablet (20 sources) Angiotensin Converting Enzyme Inhibitor Start: 02-14-2018 End: 11-14-2024 take 1 tablet by mouth once daily in the morning Lisinopril 5 mg Tablet Discontinued 5 MG PO Every morning February 14, 2018 12:00am November 14, 2024 7:34pm meclizine hydrochloride 25 mg oral tablet (20 sources) Antiemetic Start: 05-14-2020 End: 11-14-2024 take 1 tablet by mouth every six hours as needed Meclizine 25 mg Tablet Discontinued 25 MG PO Q6H as needed for Vertigo May 14, 2020 12:00am November 14, 2024 7:35pm Start: 02-28-2018 take 25 mg by mouth three times daily as needed for dizziness meclizine 25 mg, Oral, TID, PRN Dizziness, Refills(s) 0 Start Date: 02/28/18 Status: Ordered take 2 tablets by mo uth three times daily as needed meclizine (Antivert) 12.5 MG tablet take 2 tablet by oral route 3 times every day as needed Oral Active End: 04-23-2024 meclizine (ANTIVERT) 12.5 mg tablet 04/23/2024 Discontinued (Therapy completed) ondansetron 4 mg disintegrating oral tablet (20 sources) Serotonin-3 Receptor Antagonist Start: 05-03-2020 End: 05-14-2020 take 1 tablet by mouth three times daily as needed for nausea and vomiting Ondansetron 4 mg tablet,disintegrating Discontinued 4 MG PO Three times daily as needed for nausea and vomiting 23 11May 03, 2020 12:00am May 14, 2020 2:12pm Start: 03-21-2018 End: 11-14-2024 Ondansetron 4 mg Tablet,Disi ntegrating Discontinued 4 MG PO every 6 to 8 hours as needed for Nausea November 11, 2018 12:00am May 14, 2020 2:12pm oxybutynin chloride 5 mg oral tablet (10 sources) Cholinergic Muscarinic Antagonist Start: 03-22-2018 End: 11-11-2018 Oxybutynin Chloride 5 mg tablet Discontinued 5 MG PO As Directed March 22, 2018 12:00am March 28, 2018 12:25am phenazopyridine hydrochloride 97.5 mg oral tablet (5 sources) Start: 05-21-2020 End: 11-14-2024 take 1 tablet by mouth every eight hours as needed Phenazopyridine 99.5 mg tablet Discontinued 99.5 MG PO Q8H as needed for dysuria May 21, 2020 12:00am November 14, 2024 7:35pm as needed for bladder spasms potassium citrate 15 meq extended release oral tablet (17 sources) Start: 02-14-2018 End: 11-14-2024 Potassium Citrate 15 mEq tablet extended release Discontinued 1080 MG PO Twice daily February 14, 2018 12:00am November 14, 2024 7:35pm Start: 02-14-2018 take 1080 mg by mout h twice daily Potassium Citrate Active 1080 MG PO Twice daily February 13, 2018 11:00pm potassium citrat e CR (Urocit-K-10) 10 mEq ER tablet every 8 (eight) hours. Active Pseudoephedrine (1 source) alpha-Adrenergic Agonist Start: 11-19-2024 End: 12-22-2024 pseudoephedrine HCl (SUDAFED 12 HOUR ORAL) Take by mouth. 11/19/2024 12/22/2024 Discontinued (Therapy completed) Vitamin D3-Vitamin K2 (Dosoquin) 5,500-200 unit-mcg Tablet (5 sources) Start: 11-11-2018 End: 05-14-2020 take 1 tablet by mouth once daily Vitamin D3-Vitamin K2 (Dosoquin) 5,500-200 unit-mcg Tablet Discontinued 1 TAB PO Daily November 11, 2018 12:00am May 14, 2020 2:13pm Start: 11-11-2018 End: 05-14-2020 take 1 tablet by mouth once daily Vitamin D3-Vitamin K2 (Dosoquin) 5,500-200 unit-mcg Tablet Discontinued 1 TAB PO Daily November 10, 2018 11:00pm May 14, 2020 1:13pm Problems Active Problems Problem Classification Problem Date Documented Date Episodic/Chronic Acquired foot deformities (4 sources) Acquired pes planus; Translations: [Flat foot [pes planus] (acquired), right foot] 08-14-2024 Episodic Acute and unspecified renal failure (5 sources) Acute renal failure syndrome; Translations: [Acute kidney failure, unspecified] 05-28-2020 Episodic Disorders of lipid metabolism (20 sources) Pure hypercholesterolemia, unspecified; Translations: [Hypercholesterolemia] Onset: 07-18-2022 08-11-2024 Chronic E Codes: Natural/environment (3 sources) Bitten or stung by nonvenomous insect and other nonvenomous arthropods, initial encounter; Translations: [Bitten or stung by nonvenomous insect and other nonvenomous arthropods, sequela] Onset: 02-15-2024 Episodic Essential hypertension (20 sources) Hypertensive disorder; Translations: [Essential (primary) hypertension] Onset: 02-11-2016 02-15-2018 Chronic Genitourinary symptoms and ill-defined conditions (20 sources) Stress incontinence (female) (male); Translations: [Genuine stress incontinence] Onset: 07-21-2021 09-26-2019 Chronic Nausea and vomiting (5 sources) Nausea and vomiting; Translations: [Nausea with vomiting, unspecified] 02-15-2018 Episodic Nonmalignant breast conditions (12 sources) Pseudoangiomatous stromal hyperplasia of breast; Translations: [Other specified disorders of breast] Onset: 07-30-2024 07-30-2024 Episodic Nutritional deficiencies (20 sources) Vitamin D deficiency, unspecified; Translations: [Vitamin D deficiency] Onset: 01-03-2016 08-11-2024 Chronic Osteoporosis (19 sources) Osteoporosis; Translations: [Age-related osteoporosis without current pathological fracture] Onset: 07-18-2022 02-27-2018 Chronic Other connective tissue disease (4 sources) Tendinitis of right posterior tibial tendon; Translations: [Posterior tibial tendinitis, right leg] 08-14-2024 Episodic Other ear and sense organ disorders (2 sources) Impacted cerumen of bilateral ears; Translations: [Impacted cerumen, bilateral] 12-22-2024 Episodic Other upper respiratory infections (2 sources) Acute pharyngitis, unspecified; Translations: [Acute upper respiratory infection, unspecified] Episodic Poisoning by nonmedicinal substances (1 source) Tick bite 12-22-2024 Episodic Residual codes; unclassified (1 source) Family history of malignant neoplasm of breast; Translations: [FAMILY HX MALIG NEOPLASM OF BREAST] Onset: 05-11-2021 Episodic Screening and history of mental health and substance abuse codes (2 sources) Patient encounter status; Translations: [Encounter for screening for depression] 01-15-2024 Episodic Septicemia (except in labor) (5 sources) Sepsis; Translations: [Sepsis, unspecified organism] 05-28-2020 Episodic Spondylosis; intervertebral disc disorders; other back problems (2 sources) Backache 05-07-2019 Episodic Superficial injury; contusion (9 sources) Insect bite (nonvenomous) of lower back and pelvis, initial encounter; Translations: [Tick bite] Onset: 02-15-2024 02-15-2024 Episodic Unclassified (1 source) Insect Bite Onset: 04-23-2024 Unclassified (1 source) MAW Onset: 01-15-2024 Urinary tract infections (6 sources) Acute pyelonephritis; Translations: [Acute pyelonephritis] 05-28-2020 Episodic Past or Other Problems Problem Classification Problem Date Documented Date Episodic/Chronic Abdominal pain (20 sources) Left flank pain; Translations: [Unspecified abdominal pain] Onset: 07-18-2022 05-29-2020 Episodic Calculus of urinary tract (20 sources) Calculus of kidney; Translations: [Kidney stone] Onset: 02-25-2018 Episodic Conditions associated with dizziness or vertigo (19 sources) Vertigo; Translations: [Dizziness and giddiness] Onset: 07-18-2022 05-07-2019 Episodic Genitourinary symptoms and ill-defined conditions (20 sources) Retention of urine, unspecified; Translations: [Retention of urine] Onset: 07-21-2021 Episodic Mood disorders (17 sources) Mood disorders Onset: 04-23-2024 Resolved: 01-20-2025 04-23-2024 Neoplasms of unspecified nature or uncertain behavior (14 sources) Neoplasm of uncertain behavior of skin; Translations: [Neoplasm of uncertain behavior of skin] Onset: 08-18-2024 08-18-2024 Episodic Other connective tissue disease (17 sources) Plantar fasciitis; Translations: [Plantar fascial fibromatosis] Onset: 07-18-2022 Resolved: 01-26-2023 01-26-2023 Episodic Other diseases of kidney and ureters (8 sources) Hydronephrosis; Translations: [Hydronephrosis with renal and ureteral calculous obstruction] Onset: 01-26-2023 02-15-2018 Episodic Other diseases of kidney and ureters (16 sources) Hydronephrosis with renal and ureteral calculous obstruction; Translations: [Hydronephrosis with urinary obstruction due to ureteral calculus] Onset: 01-26-2023 02-15-2018 Episodic Other ear and sense organ disorders (17 sources) Impacted cerumen; Translations: [Impacted cerumen, unspecified ear] Onset: 07-18-2022 07-18-2022 Episodic Other lower respiratory disease (1 source) Chronic cough; Translations: [Chronic cough] 02-15-2024 Episodic Other non-epithelial cancer of skin (17 sources) Squamous cell carcinoma of skin; Translations: [Squamous cell carcinoma of skin, unspecified] Onset: 02-25-2018 07-18-2022 Episodic Other nutritional; endocrine; and metabolic disorders (19 sources) Overweight; Translations: [Overweight] Onset: 01-26-2023 01-26-2023 Episodic Other nutritional; endocrine; and metabolic disorders (1 source) Overweight; Translations: [Overweight] Onset: 01-26-2023 Episodic Other screening for suspected conditions (not mental disorders or infectious disease) (18 sources) Encounter for screening mammogram for malignant neoplasm of breast; Translations: [Encounter for screening for cardiovascular disorders] Onset: 12-22-2020 Episodic Skin and subcutaneous tissue infections (2 sources) Cellulitis; Translations: [Cellulitis, unspecified] Onset: 04-23-2024 04-23-2024 Episodic Unclassified (1 source) Cough R05.9 Viral infection (17 sources) Disease caused by 2019-nCoV; Translations: [COVID-19] Resolved: 01-26-2023 01-26-2023 Episodic Results Test Name Value Interpretation Reference Range Facility US breast RT limited 01-16 US breast RT limited [facility] [address] [place] [address] Mammography Report Signed Patient: Ena Radford MR#: [id number] : 1955 Acct:[id number] Age/Sex: 69 / F Adm Date: 01/16/25 Loc: MS Room: Type: [facility] Attending Dr: Vipul Restrepo DO Ordering Provider: Vipul Restrepo DO Date of Service: 01/16/25 Procedure(s): MM diagnostic mammo RT w/CAD; US breast RT limited Accession Number(s): ([id number]) US/US breast RT limited: 6mos. follow up w/mamm ([id number]) MM/MM diagnostic mammo RT w/CAD: 6mos. follow up Copies to: DO Vipul Amezquita DO RIGHT Diagnostic Full Field digital [...] Storey M.D. 01/16/2025 1:26 PM Dictation Location: [facility] Dictated By: Manny Storey DO 01/16/25 0924 Signed By: 01/16/25 1326 Normal [facility] Ambulatory Visit Summaryon 0 11-19-2024 Ambulatory Visit Summary Ambulatory Visit Summary ENA RADFORD Jaime :1955 Visit Date:11/19/2024 Ambulatory Visit Instructions Your Diagnosis Ureteral stone with hydronephrosis Kidney stones Renal cyst Your Care Team Attending Physician - Diamond LOAIZA MD Primary Care Physician - REILLY YOO DO This Is Your Medications List potassium bicarbonate (potassium bicarbonate 25 mEq Tab (K-LYTE)) Contact prescribing physician if questions or concerns cetirizine (Zyrtec) cholecalciferol (Vitamin D3) diphenhydrAMINE (Allergy) docusate pseudoephedrine (Sudafed) rosuvastatin (rosuvastatin 10 mg Tab) tamsulosin (tamsulosin 0.4 mg Cap) valsartan (valsartan 40 mg Tab) Procedures Performed Removal of ureteral stent (05/25/2020), Cystoscopy and retrograde pyelography (05/21/2020), History of ureteroscopy and laser lithotripsy (05/21/2020), Placement of stent (05/21/2020), Lithotripsy (02/28/2018), Appendectomy, Colonoscopy, ESWL - Extracorporeal shock wave lithotripsy of bile duct calculus, removal of skin cancer, Tubal ligation. Discharge Vitals Heart Rate (Peripheral) 54 Respiratory Rate 18 Blood Pressure 146/86 Height 157 cm Height 62 in Weight 66.6 kg Weight 146.828 lb BMI 27.02 What to do next Scheduled Follow-Up Appointments Sunday 9:45 AM EDT With: Diamond LOAIZA MD Where: [facility] [address] [place] [address]- You Need to Schedule the Following Appointments Follow Up with Diamond LOAIZA MD, ABBE When: Where: [facility] [address] [place] [address]- Medications What How Much When Instructions Unchanged potassium bicarbonate (potassium bicarbonate 25 mEq Tab (K-LYTE)) 1 Tablets By Mouth 2 times a day Duration: 90 Days Unchanged cetirizine (Zyrtec) 10 Milligram By Mouth Every day as needed for Allergy symptoms Contact prescribing physician if questions or concerns Unchanged cholecalciferol (Vitamin D3) 1,000 International unit By Mouth Every day Contact prescribing physician if questions or concerns Unchanged diphenhydrAMINE (Allergy) By Mouth Every 6 hours Contact prescribing physician if questions or concerns Unchanged docusate Contact prescribing physician if questions or concerns Unchanged pseudoephedrine (Sudafed) By Mouth Every 6 hours Contact prescribing physician if questions or concerns Unchanged rosuvastatin (rosuvastatin 10 mg Tab) 1 Tablets By Mouth Contact prescribing physician if questions or concerns Unchanged tamsulosin (tamsulosin 0.4 mg Cap) 1 Capsules By Mouth Contact prescribing physician if questions or concerns Unchanged valsartan (valsartan 40 mg Tab) Contact prescribing physician if questions or concerns Allergies Bee Stings (Hives) Contrast Dye (Chest tightness) amoxicillin (Itching, Rash) chlorpheniramine (Edema around eye) erythromycin (Stomach cramps) sulfamethoxazole-trime thoprim (Rash) Problems Ongoing - Any problem that you are currently receiving treatment for. Back pain Incomplete bladder emptying Kidney stones Nocturia Renal cyst Stress incontinence Ureteral stone with hydronephrosis Vertigo Patient Survey You may receive a survey via text or e-mail asking about your office visit. Please share your experience with us by completing your survey. We appreciate your feedback and thank you for choosing us for your care. Education Materials Laser Therapy for Kidney Stones, Care After After laser therapy for kidney stones, it is common to have: ??? Pain. ??? A burning feeling when you pee (urinate). ??? Small amounts of blood in your pee (urine). ??? A need to pee a lot. ??? Parts of the kidney stone in your pee. ??? Mild discomfort in your back when you pee. You may have this if you had a small mesh tube (stent) placed during the procedure. Follow these instructions at home: Medicines ??? Take hser-gmo-nfijygh and prescription medicines only as told by your health care provider. ??? If you were prescribed antibiotics, take them as told by your provider. Do not stop using the antibiotic even if you start to feel better. ??? Ask your provider if the medicine prescribed to you: ? Requires you to avoid driving or using machinery. ? Can cause constipation. You may need to take these actions to prevent or treat constipation: ? Drink enough fluid to keep your pee pale yellow. ? Take rrxa-vdk-mqynqxs or prescription medicines. ? Eat foods that are high in fiber, such as beans, whole grains, and fresh fruits and vegetables. ? Limit foods that are high in fat and processed sugars, such as fried or sweet foods. Activity ??? If you were given a sedative during the procedure, it can affect you for several hours. Do not drive or operate machinery until your provider says that it is safe. ??? Return to your norm (more content not included)... Normal [facility] Urology Office/Clinic Noteon 11-19-2024 Urology Office/Clinic Note Urology Office/Clinic Note Chief Complaint New Pt HPI Staff Pt was seen at [facility] on 11/14/24 due to right flank pain CT SCAN 11/14/24 Pt states has some back on the right side when she moves Denies any urinary issues History of Present Illness Tests reviewed: UA, ER records, CT I have reviewed the previous health record information and history for this patient from [facility]. I have reviewed and verified the staff HPI to be accurate for this encounter. Review of Systems PHQ Score Initial Depression Screen Score: 0 SCORE ROS - Provider Constitutional: denies weight loss, denies hot flashes. Eyes: denies eye problems. Gastrointestinal: denies nausea, denies vomiting. Cardiovascular: denies chest pain or angina. Integumentary: no dryness Musculoskeletal: denies musculoskeletal symptoms. ENMT: denies otolaryngeal symptoms. Respiratory: no shortness of breath. Heme/Lymph: denies easy bleeding tendency, denies easy bruising tendency. Psychiatric: no confusion, no anxiety. Genitourinary: See HPI. Physical Exam Vitals & Measurements HR: 54(Peripheral) RR: 18 BP: 146/86 HT: 62 in HT: 157 cm WT: 66.6 kg WT: 146.828 lb BMI: 27.02 General Appearance: alert, no distress, well nourished, well developed female. Assessment/Plan 1. Ureteral stone with hydronephrosis (N13.2: Hydronephrosis with renal and ureteral calculous obstruction) [facility] ED 11/14/24 d/t F flank pain, bladder spasms, nausea. CT AP wo con 11/14/24 [facility] - Mild to mod R hydro secondary to 4-5 mm UPJ stone. Also a second stone at the R UVJ, 3 mm. No L ureteral stones. Pain intermittent. Has not had to take pain meds from ER. Has been afebrile. Reviewed imaging with pt. Typically is unable to pass stones on her own. Discussed cont try to pass on her own vs cysto, urs, laser litho, possible stent placement. Will let pt try to pass the stone on her on but put her on next week's schedule in case she does not pass it. Pt agreeable. -Call if stone passes (strainer given) -Will schedule cysto, R urs, laser litho, possible R stent placement. The procedural risks, benefits, details, and treatment alternatives have been discussed with the patient. These include bleeding, infection, inability to break or retrieve all of the stone, injury to the ureter (the tube which connects the kidney to the bladder), injury to the kidney scarring of the ureter, and need for repeat procedures, among others. Full informed consent has been obtained. Will order General anesthesia. 2. Kidney stones (N20.0: Calculus of kidney) CT AP wo con 11/14/24 [facility] - Multiple BL renal stones, largest 6 mm on the R. 3. Renal cyst (N28.1: Cyst of kidney, acquired) CT AP wo con 11/14/24 [facility] - 7 mm cortical hyperdensity RUP that may be a hemorrhagic cyst. Follow-up With When Contact Information MICHELE RODRIGUES, Diamond Gonzalez, URL [facility] [address], [place] [address]- Additional Instructions: schedule cysto, urs, laser litho, possible stent placement Patient Education Laser Therapy for Kidney Stones, Care After Laser Therapy for Kidney Stones I, Jo Perkins, personally scribed for Dr. Loaiza on 11/19/2024 09:15:40. . Documentation recorded by the scribe, Jo Perkins, accurately reflects the services(s) I performed and decisions made by me. Authenticated by Dr. Loaiza on 11/19/2024 09:17:19. Problem List/Past Medical History Ongoing Back pain Incomplete bladder emptying Kidney stones Nocturia Renal cyst Stress incontinence Ureteral stone with hydronephrosis Vertigo Historical No qualifying data Procedure/Surgical History Removal of ureteral stent (05/25/2020), Cystoscopy and retrograde pyelography (05/21/2020), History of ureteroscopy and laser lithotripsy (05/21/2020), Placement of stent (05/21/2020), Lithotripsy (02/28/2018), Appendectomy, Colonoscopy, ESWL - Extracorporeal shock wave lithotripsy of bile duct calculus, removal of skin cancer, Tubal ligation. Medications Allergy, Oral, q6hr docusate potassium bicarbonate 25 mEq Tab (K-LYTE), 25 mEq= 1 tab(s), Oral, BID, 3 refills rosuvastatin 10 mg Tab, 10 mg= 1 tab(s), Oral Sudafed, Oral, q6hr tamsulosin 0.4 mg Cap, 0.4 mg= 1 cap(s), Oral valsartan 40 mg Tab Vitamin D3, 1000 International_Unit, Oral, Daily Zyrtec, 10 mg, Oral, Daily, PRN Allergies Bee Stings (Hives) Contrast Dye (Chest tightness) amoxicillin (Itching, Rash) chlorpheniramine (Edema around eye) erythromycin (Stomach cramps) sulfamethoxazole-trime thoprim (Rash) Social History Alcohol - Denies Alcohol Use, 02/27/2018 Substance Abuse - Denies Substance Abuse, 02/27/2018 Tobacco - Denies Tobacco Use, 02/27/2018 Never (less than 100 in lifetime) Tobacco Use:. Never Smokeless Tobacco Use:., 11/19/2024 Family History CAD (coronary artery disease): Mother. CHF - Congestive heart failure: Father. COPD: Brother. Dementia: Mother. Diabetes: (more content not included)... Normal [facility] Comment on above: Result Comment: Elec tronically Signed By: MICHELE RODRIGUES, Diamond R\.br\Date and Time Signed: 11/19/24 09:17 EDT\.br\Electronically Co-Signed By: Jo Perkins\.br\Date and Time Co-Signed: 11/19/24 09:16 EDT Alanine aminotransferase [En zymatic activity/volume] in Serum or PlasmaOrdered By: Carmencita Hirsch on 11-14-2024 ALT [Catalytic activity/Vol] Alanine aminotransferase [Enzymatic activity/volume] in Serum or Plasma 7-52 [facility] Albumin [Mass/volume] in Ser um or Plasma by Bromocresol green (BCG) dye binding methoOrdered By: Carmencita Hirsch on 11-14-2024 Albumin BCG dye [Mass/Vol] Albumin [Mass/volume] in Serum or Plasma by Bromocresol green (BCG) dye binding metho 3.5-5.7 [facility] Alkaline phosphatase [Enzyma tic activity/volume] in Serum or PlasmaOrdered By: Carmencita Hirsch on 11-14-2024 ALP [Catalytic activity/Vol] Alkaline phosphatase [Enzymatic activity/volume] in Serum or Plasma 34-104 [facility] Appearance of UrineOrdered B y: Carmencita Hirsch on 11-14-2024 Appearance (U) Urine appearance Clear [facility] Aspartate aminotransferase [ Enzymatic activity/volume] in Serum or PlasmaOrdered By: Carmencita Hirsch on 11-14-2024 AST [Catalytic activity/Vol] Aspartate aminotransferase [Enzymatic activity/volume] in Serum or Plasma 13-39 [facility] Bacteria [Presence] in Urine by AutomatedOrdered By: Carmencita Hirsch on 11-14-2024 Bacteria Auto Ql (U) Bacteria [Presence] in Urine by Automated None Seen [facility] Basophils Auto (Bld) [#/Vol] Ordered By: Carmencita Hirsch on 11-14-2024 Basophils (Bld) [#/Vol] Automated basoph il count 0.0-0.2 [facility] Basophils/100 WBC Auto (Bld) Ordered By: Carmencita Hirsch on 11-14-2024 Basophils/100 WBC (Bld) Automated basophil % . [facility] Bilirubin Test strip Ql (U)O rdered By: Carmencita Hirsch on 11-14-2024 Bilirubin Ql (U) Bilirubin.total [Presence] in Urine by Test strip Negative [facility] Bilirubin.total [Mass/volume ] in Serum or PlasmaOrdered By: Carmencita Hirsch on 11-14-2024 Bilirubin [Mass/Vol] Bilirubin.total [Mass/volume] in Serum or Plasma 0.3-1.[address] [facility] [address] abdomen pelvis wo conon 0 11-14-2024 [place] [address] CT Scan Report Signed Patient: Ena Radford MR#: [id number] : 1955 Acct:[id number] Age/Sex: 69 / F ADM Date: 11/14/24 Loc: ER Room: Type: [facility] ER Attending Dr: Copies to: Carmencita Hirsch APRN Ordering Provider: Carmencita Hirsch APRN Date of Service: 11/14/24 CT/CT abdomen pelvis wo con: flank pain CT ABDOMEN AND PELVIS WITHOUT CONTRAST COMPARISON: 05/28/2020 CLINICAL DATA: Right flank pain and bladder spasms. History of kidney stones. Spiral images were obtained through the abdomen and pelvis without contrast. This CT exam was performed using one or more following dose reduction techniques: Automated exposure control, adjustment of the mA and/or kV according to patient size, or use of iterative reconstruction technique. Limited cuts through the lung bases again show a tiny nodular density within the right lower lobe adjacent to the dome of the diaphragm. There is a tiny hiatal hernia. Evaluation of the intra-abdominal organs is slightly limited by the absence of contrast. No calcified gallstones are identified. Multiple small scattered hepatic hypodensities are again seen. These are not fully evaluated without contrast though they might be cysts. The spleen, pancreas and adrenal glands show no acute findings. A subtle 7 mm cortical hyperdensity is seen at the upper pole of the right kidney that may be a hemorrhagic cyst. There are multiple bilateral renal stones. The largest is on the right measuring 6 mm. There is mild to moderate right hydronephrosis due to a ureteropelvic junction stone measuring 4 to 5 mm in size. There is also a second stone at the ureterovesical junction on that side measuring 3 mm. No ureteral calculi are present on the left. There is atherosclerotic plaque at the aorta and iliac arteries. There are tiny lymph nodes. No ascites is seen. There is a small umbilical hernia containing fat. Normal caliber small bowel loops are visualized. There is mild stool within the colon. Food debris is seen within the stomach. There is levoscoliotic curvature and minor degenerative change at the lower lumbar facets. Images through the pelvis show normal caliber small bowel loops. There is stool at the cecum. The distal colon is decompressed. No diverticular disease is noted. The appendix is not seen. There are no dominant adnexal cysts. No urinary bladder abnormalities are present. There is no ascites. CT/CT abdomen pelvis wo con IMPRESSION: POSSIBLE TINY HEMORRHAGIC RIGHT RENAL CYST. BILATERAL NEPHROLITHIASIS. PARTIALLY OBSTRUCTING RIGHT URETEROPELVIC AND URETEROVESICAL JUNCTION STONES. Impression dictated by: Maritza Willoughby M.D.11/14/2024 7:52 PM Dictation Location: [place] [address] Transcribed By: [facility] 11/14/241951 Dictated By: Maritza Willoughby MD 11/14/241935 Signed By: 11/14/241951 Normal [facility] Calcium [Mass/volume] in Ser um or PlasmaOrdered By: Carmencita Hirsch on 11-14-2024 Calcium [Mass/Vol] Calcium [Mass/volume ] in Serum or Plasma 8.6-10.3 [facility] Carbon dioxide, total [Moles /volume] in Serum or PlasmaOrdered By: Carmencita Hirsch on 11-14-2024 CO2 [Moles/Vol] Carbon dioxide, tota l [Moles/volume] in Serum or Plasma 21.0-31.0 [facility] Chloride [Moles/volume] in S ellen or PlasmaOrdered By: Carmencita Hirsch on 11-14-2024 Chloride [Moles/Vol] Chloride [Moles/volume] in Serum or Plasma 98-107 [facility] Color Auto (U)Ordered By: Donte Hirsch on 11-14-2024 Color (U) Color of Urine by Auto Yellow [facility] Complete Blood Count Auto Di ffon 11-14-2024 Basophils (Bld) [#/Vol] 0.0 10*3/uL Normal 0.0-0.2 [facility] Comment on above: Result Comment: PERF ORMED BY: [place] [address] PATHOLOGIST SHOW GIRL OKSANA MCFARLANE M.D. Performed By: #### C BC, LIPASE, CMP #### [address] Basophils/100 WBC (Bld) 0.2 % Normal . T merlene [facility] Comment on above: Performed By: #### C BC, LIPASE, CMP #### [facility] [address] Eosinophils (Bld) [#/Vol] 0.5 10*3/uL High 0.0-0.45 [facility] Comment on above: Performed By: #### C BC, LIPASE, CMP #### [address] Eosinophils/100 WBC (Bld) 6.7 % Normal . [facility] Comment on above: Performed By: #### C BC, LIPASE, CMP #### [address] Erythrocyte distribution width (RBC) [Ratio] 13.6 % Normal 11.9-15.3 [facility] Comment on above: Performed By: #### C BC, LIPASE, CMP #### [address] Hematocrit (Bld) [Volume fraction] 41.7 % Normal 34.0-46.4 [facility] Comment on above: Performed By: #### C BC, LIPASE, CMP #### [address] Hemoglobin (Bld) [Mass/Vol] 14.1 g/dL Normal 11.8-15.4 [facility] Comment on above: Performed By: #### C BC, LIPASE, CMP #### [address] Lymphocytes (Bld) [#/Vol] 2.6 10*3/uL Normal 1.00-4.8 [facility] Comment on above: Performed By: #### C BC, LIPASE, CMP #### [address] Lymphocytes/100 WBC (Bld) 38.0 % Normal . [facility] Comment on above: Performed By: #### C BC, LIPASE, CMP #### [address] MCH (RBC) [Entitic mass] 30.3 pg Normal 24.7-34.3 [facility] Comment on above: Performed By: #### C BC, LIPASE, CMP #### [address] MCV (RBC) [Entitic vol] 89.8 fL Normal 80-100 T [facility] Comment on above: Performed By: #### C BC, LIPASE, CMP #### [address] Mean Corpuscular HGB Conc 33.8 g/dL Normal 32.0-35.0 [facility] Comment on above: Performed By: #### C BC, LIPASE, CMP #### [facility] [address] [place] [address] [place] Monocytes (Bld) [#/Vol] 0.6 10*3/uL Normal 0.0-0.8 [facility] Comment on above: Performed By: #### C BC, LIPASE, CMP #### [facility] [address] [place] [address] [place] Monocytes/100 WBC (Bld) 17.35 % Normal 0.00-20.00 [facility] Comment on above: Performed By: #### C BC, LIPASE, CMP #### [facility] [address] [place] [address] [place] Monocytes/100 WBC (Bld) 8.3 % Normal . [facility] Comment on above: Performed By: #### C BC, LIPASE, CMP #### [address] Neutrophils (Bld) [#/Vol] 3.2 10*3/uL Normal 1.8-7.7 [facility] Comment on above: Performed By: #### C BC, LIPASE, CMP #### [place] [address] [place] Neutrophils/100 WBC (Bld) 46.8 % Normal . [facility] Comment on above: Performed By: #### C BC, LIPASE, CMP #### [place] [address] [place] NRBC% 0.1 /100{WBC} Normal 0-0.5 [facility] Comment on above: Performed By: #### C BC, LIPASE, CMP #### [place] [address] [place] Platelet mean volume (Bld) [Entitic vol] 8.0 fL Normal 6.3-10.7 [facility] Comment on above: Performed By: #### C BC, LIPASE, CMP #### [place] [address] [place] Platelets (Bld) [#/Vol] 209 10*3/uL Normal 150-450 [facility] Comment on above: Performed By: #### C BC, LIPASE, CMP #### [address] RBC (Bld) [#/Vol] 4.65 10*6/uL Normal 3.60-5.00 [facility] Comment on above: Performed By: #### C BC, LIPASE, CMP #### [address] WBC (Bld) [#/Vol] 6.9 10*3/uL Normal 3.8-11.6 [facility] Comment on above: Performed By: #### C BC, LIPASE, CMP #### [address] Comprehensive Metabolic Pane cristian 11-14-2024 Albumin [Mass/Vol] 4.6 g/dL Normal 3.5-5.7 [facility] Comment on above: Performed By: #### C BC, LIPASE, CMP #### [address] Albumin/Globulin [Mass ratio] 2.0 {ratio} Normal [facility] Comment on above: Performed By: #### C BC, LIPASE, CMP #### [address] ALP [Catalytic activity/Vol] 64 U/L Normal 34-104 [facility] Comment on above: Performed By: #### C BC, LIPASE, CMP #### [address] ALT [Catalytic activity/Vol] 24 U/L Normal 7-52 [facility] Comment on above: Performed By: #### C BC, LIPASE, CMP #### [address] Anion gap [Moles/Vol] 11.2 mmol/L Normal 6.0-15.0 Th e [facility] Comment on above: Performed By: #### C BC, LIPASE, CMP #### [address] AST [Catalytic activity/Vol] 23 U/L Normal 13-39 [facility] Comment on above: Performed By: #### C BC, LIPASE, CMP #### [address] Bilirubin [Mass/Vol] 0.7 mg/dL Normal 0.3-1.0 [facility] Comment on above: Performed By: #### C BC, LIPASE, CMP #### [address] Calcium [Mass/Vol] 9.8 mg/dL Normal 8.6-10.3 [facility] Comment on above: Performed By: #### C BC, LIPASE, CMP #### [address] Chloride [Moles/Vol] 106 mmol/L Normal 98-107 [facility] Comment on above: Performed By: #### C BC, LIPASE, CMP #### [address] CO2 [Moles/Vol] 25.8 mmol/L Normal 21.0-31.0 [facility] Comment on above: Performed By: #### C BC, LIPASE, CMP #### [place] [address] [place] Creatinine [Mass/Vol] 0.82 mg/dL Normal 0.60-1.20 [facility] Comment on above: Performed By: #### C BC, LIPASE, CMP #### [place] [address] [place] Creatinine Clr Calc Pharmacy 58.86 Normal [facility] Comment on above: Performed By: #### C BC, LIPASE, CMP #### [place] [address] [place] GFR/1.73 sq M.predicted MDRD (S/P/Bld) [Vol rate/Area] mL/min/{1.73_m2} Normal [facility] Comment on above: Performed By: #### C BC, LIPASE, CMP #### [place] [address] [place] Globulin (S) [Mass/Vol] 2.3 g/dL Normal T he [facility] Comment on above: Performed By: #### C BC, LIPASE, CMP #### [facility] [address] Glucose [Mass/Vol] 94 mg/dL Normal 70-100 [facility] Comment on above: Result Comment: [place] Glucose Reference Range is dependent on time and content of last meal. Glucose of more than 200 mg/dL in a nonstressed, ambulatory subject supports the diagnosis of Diabetes Mellitus. ADA recommended reference range Performed By: #### C BC, LIPASE, CMP #### [facility] [address] Potassium [Moles/Vol] 4.0 mmol/L Normal 3.5-5.1 [facility] Comment on above: Performed By: #### C BC, LIPASE, CMP #### [facility] [address] Protein [Mass/Vol] 6.9 g/dL Normal 6.4-8.9 [facility] Comment on above: Performed By: #### C BC, LIPASE, CMP #### [facility] [address] [place] [address] [place] Sodium [Moles/Vol] 139 mmol/L Normal 136-145 [facility] Comment on above: Performed By: #### C BC, LIPASE, CMP #### [facility] [address] [place] [address] [place] Urea nitrogen [Mass/Vol] 19 mg/dL Normal 7-25 [facility] Comment on above: Performed By: #### C BC, LIPASE, CMP #### [facility] [address] [place] [address] [place] Creatinine [Mass/volume] in Serum or PlasmaOrdered By: Carmencita Hirsch on 11-14-2024 Creatinine [Mass/Vol] Creatinine [Mass/volume] in Serum or Plasma 0.60-1.20 [facility] Dipstick and Microscopicon 0 11-14-2024 Appearance (U) Clear Normal Clear The [facility] Comment on above: Order Comment: Name Collection Type:: Clean-Voided Midstream Performed By: #### A DDONUAPLUS #### [facility] [address] [place] [address] [place] Bacteria,Urine Rare Normal None Seen [facility] Comment on above: Order Comment: Name Collection Type:: Clean-Voided Midstream Performed By: #### A DDONUAPLUS #### [place] [address] [place] Bilirubin,Urine Negative Normal Negative The [facility] Comment on above: Order Comment: Name Collection Type:: Clean-Voided Midstream Performed By: #### A DDONUAPLUS #### [place] [address] [place] Color (U) Light-Yellow Normal Yellow [facility] Comment on above: Order Comment: Name Collection Type:: Clean-Voided Midstream Performed By: #### A DDONUAPLUS #### [address] Glucose Ql (U) Normal Normal Normal [facility] Comment on above: Order Comment: Name Collection Type:: Clean-Voided Midstream Performed By: #### A DDONUAPLUS #### [place] [address] [place] Hyaline Casts,Urine None Normal 0-8 [facility] Comment on above: Order Comment: Name Collection Type:: Clean-Voided Midstream Performed By: #### A DDONUAPLUS #### [place] [address] [place] Ketones Ql (U) Negative Normal Negative [facility] Comment on above: Order Comment: Name Collection Type:: Clean-Voided Midstream Performed By: #### A DDONUAPLUS #### [place] [address] [place] Leukocyte esterase Test strip Ql (U) Negative Normal Negative [facility] Comment on above: Order Comment: Name Collection Type:: Clean-Voided Midstream Performed By: #### A DDONUAPLUS #### [place] [address] [place] Mucus,Urine Rare Normal [facility] Comment on above: Order Comment: Name Collection Type:: Clean-Voided Midstream Result Comment: PERF ORMED BY: [place] [address] PATHOLOGIST SHOW GIRL OKSANA MCFARLANE M.D. Performed By: #### A DDONUAPLUS #### [place] [address] [place] Nitrite,Urine Negative Normal Negative [facility] Comment on above: Order Comment: Name Collection Type:: Clean-Voided Midstream Performed By: #### A DDONUAPLUS #### [address] Occult Blood,Urine 1+ High Negative [facility] Comment on above: Order Comment: Name Collection Type:: Clean-Voided Midstream Result Comment: PERF ORMED BY: [place] [address] PATHOLOGIST SHOW GIRL OKSANA MCFARLANE M.D. Performed By: #### A DDONUAPLUS #### [place] [address] [place] pH (U) 7.0 [pH] Normal 5.0-9.0 [facility] Comment on above: Order Comment: Name Collection Type:: Clean-Voided Midstream Performed By: #### A DDONUAPLUS #### [place] [address] [place] Protein,Urine Negative Normal Negative [facility] Comment on above: Order Comment: Name Collection Type:: Clean-Voided Midstream Performed By: #### A DDONUAPLUS #### [place] [address] [place] RBC,Urine 20-49 High 0-4 [facility] Comment on above: Order Comment: Name Collection Type:: Clean-Voided Midstream Performed By: #### A DDONUAPLUS #### [place] [address] [place] Specificy [place],Urine 1.011 Normal 1.001-1.030 [facility] Comment on above: Order Comment: Name Collection Type:: Clean-Voided Midstream Performed By: #### A DDONUAPLUS #### [facility] [address] [place] [address] Squamous Epithelial Cell,Urine 1-2 Normal 0-2 [facility] Comment on above: Order Comment: Name Collection Type:: Clean-Voided Midstream Performed By: #### A DDONUAPLUS #### [facility] [address] [place] [address] Urobilinogen,Urine Normal Normal Normal [facility] Comment on above: Order Comment: Name Collection Type:: Clean-Voided Midstream Performed By: #### A DDONUAPLUS #### [address] WBC,Urine 3-4 Normal 0-4 [facility] Comment on above: Order Comment: Name Collection Type:: Clean-Voided Midstream Performed By: #### A DDONUAPLUS #### [address] Eosinophils Auto (Bld) [#/Vo l]Ordered By: Carmencita Hirsch on 11-14-2024 Eosinophils (Bld) [#/Vol] Automated eosinophil count High 0.0-0.45 [facility] Eosinophils/100 WBC Auto (Bl d)Ordered By: Carmencita Hirsch on 11-14-2024 Eosinophils/100 WBC (Bld) Automated eosinophil % . [facility] Epithelial cells.squamous [# /area] in Urine sediment by Automated countOrdered By: Carmencita Hirsch on 11-14-2024 Epithelial cells.squamous Auto (Urine sed) [#/Area] Epithelial cells.squamous [#/area] in Urine sediment by Automated count 0-2 [facility] Erythrocyte distribution wid th Auto (RBC) [Ratio]Ordered By: Carmencita Hirsch on 11-14-2024 Erythrocyte distribution width (RBC) [Ratio] Erythrocyte distribution width [Ratio] by Automated count 11.9-15.3 [facility] Erythrocytes [#/area] in Uri ne sediment by Automated countOrdered By: Carmencita Hirsch on 11-14-2024 RBC Auto (Urine sed) [#/Area] Erythrocytes [#/area] in Urine sediment by Automated count High 0-4 [facility] Globulin Calc (S) [Mass/Vol] Ordered By: Carmencita Hirsch on 11-14-2024 Globulin (S) [Mass/Vol] Serum globulin measurement by calculation (mass/volume) [facility] Glucose [Mass/volume] in Ser um or PlasmaOrdered By: Carmencita Hirsch on 11-14-2024 Glucose [Mass/Vol] Glucose [Mass/volume ] in Serum or Plasma 70-100 [facility] Comment on above: ADA recommended refe rence rangeRandom Glucose Reference Range is dependent on time and content of last meal. Glucose of more than 200 mg/dL in a nonstressed, ambulatory subject supports the diagnosis of Diabetes Mellitus. Glucose [Mass/volume] in Uri ne by Test stripOrdered By: Carmencita Hirsch on 11-14-2024 Glucose Test strip (U) [Mass/Vol] Glucose [Mass/volume] in Urine by Test strip Normal [facility] Hematocrit Auto (Bld) [Volum e fraction]Ordered By: Carmencita Hirsch on 11-14-2024 Hematocrit (Bld) [Volume fraction] Hematocrit [Volume Fraction] of Blood by Automated count 34.0-46.4 [facility] Hemoglobin Test strip Ql (U) Ordered By: Carmencita Hirsch on 11-14-2024 Hemoglobin Ql (U) Hemoglobin [Presence ] in Urine by Test strip High Negative [facility] Hemoglobin [Mass/volume] in BloodOrdered By: Carmencita Hirsch 11-14-2024 Hemoglobin (Bld) [Mass/Vol] Hemoglobin [Mass/volume] in Blood 11.8-15.4 [facility] Hyaline casts [#/area] in Ur ine sediment by Automated countOrdered By: Carmencita Hirsch 11-14-2024 Hyaline casts Auto (Urine sed) [#/Area] Hyaline casts [#/area] in Urine sediment by Automated count 0-8 [facility] Ketones Test strip Ql (U)Ord ered By: Carmencita Hirsch on 11-14-2024 Ketones Ql (U) Ketones [Presence] i n Urine by Test strip Negative [facility] Leukocyte esterase [Presence ] in Urine by Test stripOrdered By: Carmencita Hirsch on 11-14-2024 Leukocyte esterase Test strip Ql (U) Leukocyte esterase [Presence] in Urine by Test strip Negative [facility] Leukocytes [#/area] in Urine sediment by Automated countOrdered By: Carmencita Hirsch on 11-14-2024 WBC Auto (Urine sed) [#/Area] Leukocytes [#/area] in Urine sediment by Automated count 0-4 [facility] Leukocytes [#/volume] correc magaly for nucleated erythrocytes in Blood by Automated counOrdered By: Carmencita Hirsch on 11-14-2024 WBC corrected for nucl RBC Auto (Bld) [#/Vol] Leukocytes [#/volume] corrected for nucleated erythrocytes in Blood by Automated coun 3.8-11.6 [facility] Lipaseon 11-14-2024 Lipase [Catalytic activity/Vol] 51.0 U/L Normal 11.0-82.0 [facility] Comment on above: Result Comment: PERF ORMED BY: [place] [address] PATHOLOGIST SHOW GIRL OKSANA MCFARLANE M.D. Performed By: #### C BC, LIPASE, CMP #### [address] Lipase [Enzymatic activity/v olume] in Serum or PlasmaOrdered By: Carmencita Hirsch on 11-14-2024 Lipase [Catalytic activity/Vol] Lipase [Enzymatic activity/volume] in Serum or Plasma 11.0-82.0 [facility] Lymphocytes Auto (Bld) [#/Vo l]Ordered By: Carmencita Hirsch on 11-14-2024 Lymphocytes (Bld) [#/Vol] Lymphocytes [#/volume] in Blood by Automated count 1.00-4.8 [facility] Lymphocytes/100 WBC Auto (Bl d)Ordered By: Carmencita Hirsch on 11-14-2024 Lymphocytes/100 WBC (Bld) Lymphocytes/100 leukocytes in Blood by Automated count . [facility] MCH Auto (RBC) [Entitic mass ]Ordered By: Carmencita Hirsch on 11-14-2024 MCH (RBC) [Entitic mass] MCH [Entitic mass] by Automated count 24.7-34.3 [facility] MCHC Auto (RBC) [Mass/Vol]Or dered By: Carmencita Hirsch on 11-14-2024 MCHC (RBC) [Mass/Vol] MCHC [Mass/volume] by Automated count 32.0-35.0 [facility] MCV Auto (RBC) [Entitic vol] Ordered By: Carmencita Hirsch on 11-14-2024 MCV (RBC) [Entitic vol] MCV [Entitic vol ume] by Automated count 80-100 [facility] Monocyte distribution width [Entitic volume] in Blood by AutomatedOrdered By: Carmencita Hirsch on 11-14-2024 Monocyte distribution width Auto (Bld) [Entitic vol] Monocyte distribution width [Entitic volume] in Blood by Automated 0.00-20.00 [facility] Monocytes Auto (Bld) [#/Vol] Ordered By: Carmencita Hirsch on 11-14-2024 Monocytes (Bld) [#/Vol] Automated blood monocyte count 0.0-0.8 [facility] Monocytes/100 WBC Auto (Bld) Ordered By: Carmencita Hirsch on 11-14-2024 Monocytes/100 WBC (Bld) Automated monocyte % . [facility] Mucus [Presence] in Urine by AutomatedOrdered By: Carmencita Hirsch on 11-14-2024 Mucus Auto Ql (U) Mucus [Presence] in Urine by Automated [facility] Neutrophils Auto (Bld) [#/Vo l]Ordered By: Carmencita Hirsch on 11-14-2024 Neutrophils (Bld) [#/Vol] Neutrophils [#/volume] in Blood by Automated count 1.8-7.7 [facility] Neutrophils/100 WBC Auto (Bl d)Ordered By: Carmencita Hirsch on 11-14-2024 Neutrophils/100 WBC (Bld) Automated neutrophil % . [facility] Nitrite Test strip Ql (U)Ord ered By: Carmencita Hirsch on 11-14-2024 Nitrite Ql (U) Nitrite [Presence] i n Urine by Test strip Negative [facility] No Panel InformationOrdered By: Carmencita Hirsch on 11-14-2024 Estimated GFR (CKD-EPI) > 60.0 mL/Min [facility] Creatinine Clearance (Chem 58.86 [facility] Nucleated erythrocytes [Pres ence] in Blood by Automated countOrdered By: Carmencita Hirsch on 11-14-2024 Nucleated RBC Auto Ql (Bld) Nucleated erythrocytes [Presence] in Blood by Automated count 0-0.5 [facility] Platelet mean volume Auto (B ld) [Entitic vol]Ordered By: Carmencita Hirsch on 11-14-2024 Platelet mean volume (Bld) [Entitic vol] Platelet mean volume [Entitic volume] in Blood by Automated count 6.3-10.7 [facility] Platelets Auto (Bld) [#/Vol] Ordered By: Carmencita Hirsch on 11-14-2024 Platelets (Bld) [#/Vol] Platelets [#/vol ume] in Blood by Automated count 150-450 [facility] Potassium [Moles/volume] in Serum or PlasmaOrdered By: aCrmencita Hirsch 11-14-2024 Potassium [Moles/Vol] Potassium [Moles/volume] in Serum or Plasma 3.5-5.1 [facility] Protein Test strip (U) [Mass /Vol]Ordered By: Carmencita Hirsch on 11-14-2024 Protein (U) [Mass/Vol] Protein [Mass/vol ume] in Urine by Test strip Negative [facility] Protein [Mass/volume] in Ser um or PlasmaOrdered By: Carmencita Hirsch 11-14-2024 Protein [Mass/Vol] Protein [Mass/volume ] in Serum or Plasma 6.4-8.9 [facility] RBC Auto (Bld) [#/Vol]Ordere d By: Carmencita Hirsch on 11-14-2024 RBC (Bld) [#/Vol] Erythrocytes [#/volume] in Blood by Automated count 3.60-5.00 [facility] Serum or plasma albumin/glob ulin mass ratioOrdered By: Carmencita Hirsch 11-14-2024 Albumin/Globulin [Mass ratio] Serum or plasma albumin/globulin mass ratio [facility] Serum or plasma anion gap de terminationOrdered By: Carmencita Hirsch on 11-14-2024 Anion gap [Moles/Vol] Serum or plasma an ion gap determination 6.0-15.0 [facility] Sodium [Moles/volume] in Ser um or PlasmaOrdered By: Carmencita Hirsch on 11-14-2024 Sodium [Moles/Vol] Sodium [Moles/volume ] in Serum or Plasma 136-145 [facility] Specific gravity Test strip (U) [Rel density]Ordered By: Carmencita Hirsch on 11-14-2024 Specific gravity (U) [Rel density] Specific gravity of Urine by Test strip 1.001-1.030 [facility] Urea nitrogen [Mass/volume] in Serum or PlasmaOrdered By: Carmencita Hirsch on 11-14-2024 Urea nitrogen [Mass/Vol] Urea nitrogen [Mass/volume] in Serum or Plasma 02-27 [facility] Urobilinogen Test strip (U) [Mass/Vol]Ordered By: Carmencita Hirsch on 11-14-2024 Urobilinogen (U) [Mass/Vol] Urobilinogen [Mass/volume] in Urine by Test strip Normal [facility] WBC Auto (Bld) [#/Vol]Ordere d By: Carmencita Hirsch on 11-14-2024 WBC (Bld) [#/Vol] Leukocytes [#/volume ] in Blood by Automated count 3.8-11.6 [facility] pH Test strip (U)Ordered By: Carmencita Hirsch on 11-14-2024 pH (U) pH of Urine by Test strip 5.0-9.0 [facility] Alanine aminotransferase [En zymatic activity/volume] in Serum or PlasmaOrdered By: Reilly Yoo on 08-30-2024 ALT [Catalytic activity/Vol] Alanine aminotransferase [Enzymatic activity/volume] in Serum or Plasma [facility] Albumin [Mass/volume] in Ser um or Plasma by Bromocresol green (BCG) dye binding methoOrdered By: Reilly Yoo on 08-30-2024 Albumin BCG dye [Mass/Vol] Albumin [Mass/volume] in Serum or Plasma by Bromocresol green (BCG) dye binding metho 3.5-5.7 [facility] Alkaline phosphatase [Enzyma tic activity/volume] in Serum or PlasmaOrdered By: Reilly Yoo on 08-30-2024 ALP [Catalytic activity/Vol] Alkaline phosphatase [Enzymatic activity/volume] in Serum or Plasma 34-104 [facility] Aspartate aminotransferase [ Enzymatic activity/volume] in Serum or PlasmaOrdered By: Reilly Yoo on 08-30-2024 AST [Catalytic activity/Vol] Aspartate aminotransferase [Enzymatic activity/volume] in Serum or Plasma 13-39 [facility] Bilirubin.total [Mass/volume ] in Serum or PlasmaOrdered By: Reilly Yoo on 08-30-2024 Bilirubin [Mass/Vol] Bilirubin.total [Mass/volume] in Serum or Plasma 0.3-1.0 [facility] Calcium [Mass/volume] in Ser um or PlasmaOrdered By: Reilly Yoo 08-30-2024 Calcium [Mass/Vol] Calcium [Mass/volume ] in Serum or Plasma 8.6-10.3 [facility] Carbon dioxide, total [Moles /volume] in Serum or PlasmaOrdered By: Reilly Yoo on 08-30-2024 CO2 [Moles/Vol] Carbon dioxide, tota l [Moles/volume] in Serum or Plasma 21.0-31.0 [facility] Chloride [Moles/volume] in S ellen or PlasmaOrdered By: Reilly Yoo 08-30-2024 Chloride [Moles/Vol] Chloride [Moles/volume] in Serum or Plasma 98-107 [facility] Comprehensive Metabolic Pane cristian 08-30-2024 Albumin [Mass/Vol] 4.1 g/dL Normal 3.5-5.7 [facility] Comment on above: Performed By: #### C MP #### [facility] [address] Albumin/Globulin [Mass ratio] 1.9 {ratio} Normal [facility] Comment on above: Performed By: #### C MP #### [facility] [address] [place] [id number] [facility] ALP [Catalytic activity/Vol] 57 U/L Normal 34-104 [facility] Comment on above: Result Comment: PERF ORMED BY: [place] [address] PATHOLOGIST SHOW GIRL OKSANA MCFARLANE M.D. Performed By: #### C MP #### [address] ALT [Catalytic activity/Vol] 15 U/L Normal 7-52 [facility] Comment on above: Performed By: #### C MP #### [address] Anion gap [Moles/Vol] 11.8 mmol/L Normal 6.0-15.0 [facility] Comment on above: Performed By: #### C MP #### [address] AST [Catalytic activity/Vol] 18 U/L Normal 13-39 [facility] Comment on above: Performed By: #### C MP #### [address] Bilirubin [Mass/Vol] 1.0 mg/dL Normal 0.3-1.0 [facility] Comment on above: Performed By: #### C MP #### [address] Calcium [Mass/Vol] 8.9 mg/dL Normal 8.6-10.3 [facility] Comment on above: Performed By: #### C MP #### [place] [address] [place] Chloride [Moles/Vol] 105 mmol/L Normal 98-107 [facility] Comment on above: Performed By: #### C MP #### [place] [address] [place] CO2 [Moles/Vol] 25.2 mmol/L Normal 21.0-31.0 [facility] Comment on above: Performed By: #### C MP #### [place] [address] [place] Creatinine [Mass/Vol] 0.78 mg/dL Normal 0.60-1.20 [facility] Comment on above: Performed By: #### C MP #### [place] [address] [place] GFR/1.73 sq M.predicted MDRD (S/P/Bld) [Vol rate/Area] mL/min/{1.73_m2} Normal [facility] Comment on above: Performed By: #### C MP #### [address] Globulin (S) [Mass/Vol] 2.2 g/dL Normal T [facility] Comment on above: Performed By: #### C MP #### [address] Glucose [Mass/Vol] 79 mg/dL Normal 70-100 [facility] Comment on above: Result Comment: [facility] Glucose Reference Range is dependent on time and content of last meal. Glucose of more than 200 mg/dL in a nonstressed, ambulatory subject supports the diagnosis of Diabetes Mellitus. ADA recommended reference range Performed By: #### C MP #### [address] Potassium [Moles/Vol] 4.0 mmol/L Normal 3.5-5.1 [facility] Comment on above: Performed By: #### C MP #### [address] Protein [Mass/Vol] 6.3 g/dL Low 6.4-8.9 [facility] Comment on above: Performed By: #### C MP #### [address] Sodium [Moles/Vol] 138 mmol/L Normal 136-145 [facility] Comment on above: Performed By: #### C MP #### [address] Urea nitrogen [Mass/Vol] 15 mg/dL Normal 7-25 [facility] Comment on above: Performed By: #### C MP #### [facility] [address] [place] [id number] [facility] Creatinine [Mass/volume] in Serum or PlasmaOrdered By: Reilly Yoo on 08-30-2024 Creatinine [Mass/Vol] Creatinine [Mass/volume] in Serum or Plasma 0.60-1.20 [facility] Globulin Calc (S) [Mass/Vol] Ordered By: Reilly Yoo on 08-30-2024 Globulin (S) [Mass/Vol] Serum globulin measurement by calculation (mass/volume) [facility] Glucose [Mass/volume] in Ser um or PlasmaOrdered By: Reilly Yoo on 08-30-2024 Glucose [Mass/Vol] Glucose [Mass/volume ] in Serum or Plasma 70-100 [facility] Comment on above: ADA recommended refe rence rangeRandom Glucose Reference Range is dependent on time and content of last meal. Glucose of more than 200 mg/dL in a nonstressed, ambulatory subject supports the diagnosis of Diabetes Mellitus. No Panel InformationOrdered By: Reilly Yoo on 08-30-2024 Estimated GFR (CKD-EPI) > 60.0 mL/Min [facility] Creatinine Clearance (Chem N/A [facility] Potassium [Moles/volume] in Serum or PlasmaOrdered By: Reilly Yoo 08-30-2024 Potassium [Moles/Vol] Potassium [Moles/volume] in Serum or Plasma 3.5-5.1 [facility] Protein [Mass/volume] in Ser um or PlasmaOrdered By: Reilly Yoo 08-30-2024 Protein [Mass/Vol] Protein [Mass/volume ] in Serum or Plasma Low 6.4-8.9 [facility] Serum or plasma albumin/glob ulin mass ratioOrdered By: Reilly Yoo 08-30-2024 Albumin/Globulin [Mass ratio] Serum or plasma albumin/globulin mass ratio [facility] Serum or plasma anion gap de terminationOrdered By: Reilly Yoo 08-30-2024 Anion gap [Moles/Vol] Serum or plasma an ion gap determination 6.0-15.0 [facility] Sodium [Moles/volume] in Ser um or PlasmaOrdered By: Reilly Yoo on 08-30-2024 Sodium [Moles/Vol] Sodium [Moles/volume ] in Serum or Plasma 136-145 [facility] Urea nitrogen [Mass/volume] in Serum or PlasmaOrdered By: Reilly Yoo on 08-30-2024 Urea nitrogen [Mass/Vol] Urea nitrogen [Mass/volume] in Serum or Plasma 7-25 [facility] Cholesterol [Mass/volume] in Serum or PlasmaOrdered By: Reilly Yoo on 08-15-2024 Cholesterol [Mass/Vol] Cholesterol [Mass/volume] in Serum or Plasma 140-200 [facility] Comment on above: Chol less than 200 m g/dl low riskChol 201-239 mg/dl borderline riskChol 240 mg/dl and greater high risk Cholesterol in HDL [Mass/vol ume] in Serum or PlasmaOrdered By: Reilly Yoo on 08-15-2024 Cholesterol in HDL [Mass/Vol] Serum or plasma high density lipoprotein (HDL) cholesterol measurement 23-92 [facility] Comment on above: HDL CHOL ATP-III CLA SSIFICATION Cardiovascular RiskHDL > or equal to 60 mg/dL LOWHDL < 40 mg/dL HIGH Cholesterol in LDL Calc [Mas s/Vol]Ordered By: Reilly Yoo on 08-15-2024 Cholesterol in LDL [Mass/Vol] Cholesterol in LDL [Mass/volume] in Serum or Plasma by calculation 0-100 [facility] Comment on above: LDL ATP III CLASSIFI CATIONLDL less than 100 mg/dL OptimalLDL 100-129 mg/dL Near or above optimalLDL 130-159 mg/dL Borderline highLDL 160-189 mg/dL HighLDL greater than 189 mg/dL Very high Cholesterol in VLDL Calc [Ma ss/Vol]Ordered By: Reilly Yoo on 08-15-2024 Cholesterol in VLDL [Mass/Vol] Cholesterol in VLDL [Mass/volume] in Serum or Plasma by calculation [facility] Lipid Panelon 08-15-2024 Cholesterol [Mass/Vol] 153 mg/dL Normal 140-200 [facility] Comment on above: Result Comment: Chol less than 200 mg/dl low risk Chol 201-239 mg/dl borderline risk Chol 240 mg/dl and greater high risk Performed By: #### L IPID, [id number] #### [facility] [address] [place] [address] [facility] Cholesterol in HDL [Mass/Vol] 59 mg/dL Normal 23-92 [facility] Comment on above: Result Comment: HDL CHOL ATP-III CLASSIFICATION Cardiovascular Risk HDL > or equal to 60 mg/dL LOW HDL < 40 mg/dL HIGH Performed By: #### L IPID, [id number] #### [facility] [address] [place] [id number] [facility] Cholesterol.total/Yazmin sterol in HDL [Mass ratio] 2.6 {ratio} Normal <5.0 [facility] Comment on above: Performed By: #### L IPID, [id number] #### [facility] [address] LDL Cholesterol,Calculated 74 mg/dL Normal 0-100 [facility] Comment on above: Result Comment: LDL ATP III CLASSIFICATION LDL less than 100 mg/dL Optimal LDL 100-129 mg/dL Near or above optimal LDL 130-159 mg/dL Borderline high LDL 160-189 mg/dL High LDL greater than 189 mg/dL Very high Performed By: #### L IPID, [id number] #### [facility] [address] [place] [id number] [facility] Triglyceride w/Reflex 98 mg/dL Normal 0-149 [facility] Comment on above: Result Comment: TRIG ATP III CLASSIFICATION TRIG less than 150 mg/dL Normal TRIG 150-199 mg/dL Borderline high TRIG 200-500 mg/dL High TRIG greater than 500 mg/dL Very high Standard traceable to the Center for Disease Conrtrol and Prevention (CDC) test method. Performed By: #### L IPID, [id number] #### [facility] [address] [place] [address] [facility] VLDL CHOLESTEROL 19 mg/dL Normal [facility] Comment on above: Performed By: #### L IPID, [id number] #### [facility] [address] [place] [id number] [facility] Serum or plasma total choles terol/high density lipoprotein (HDL) cholesterol mass ratOrdered By: Reilly Yoo on 08-15-2024 Cholesterol.total/Yazmin sterol in HDL [Mass ratio] Serum or plasma total cholesterol/high density lipoprotein (HDL) cholesterol mass rat <5.0 [facility] Triglyceride [Mass/volume] i n Serum or PlasmaOrdered By: Reilly Yoo on 08-15-2024 Triglyceride [Mass/Vol] Triglyceride [Mass/volume] in Serum or Plasma 0-149 [facility] Comment on above: TRIG ATP III CLASSIF ICATIONTRIG less than 150 mg/dL NormalTRIG 150-199 mg/dL Borderline highTRIG 200-500 mg/dL High TRIG greater than 500 mg/dL Very highStandard traceable to the Center for Disease Conrtrol and Prevention (CDC) test method. Vitamin D 25 Hydroxy Totalon 08-15-2024 Vitamin D 25 Hydroxy Total 34.5 ng/mL Normal 30-100 [facility] Comment on above: Result Comment: DASHA MIN D STATUS 25(OH)VITAMIN D RANGE (ng/mL) Deficient <20 Insufficient 20 to <30 Sufficient 30 to 100 Reference: Esperanza Rodrigez, Geetha YOUSIF, et al. Evaluation,treatment, and prevention of vitamin D deficiency; an Endocrine Society clinical practice guideline. JCEM. 2010; 96(7):191-. PERFORMED BY: [place] [address] PATHOLOGIST SHOW GIRL OKSANA MCFARLANE M.D. Performed By: #### L IPID, [id number] #### [address] Vitamin D+Metabolites [Mass/ volume] in Serum or PlasmaOrdered By: Reilly Yoo on 08-15-2024 Vitamin D+Metabolites [Mass/Vol] Vitamin D+Metabolites [Mass/volume] in Serum or Plasma 30-100 [facility] Comment on above: VITAMIN D STATUS 25( [place])VITAMIN D RANGE (ng/mL) Deficient <20 Insufficient 20 to <30Sufficient 30 to 100Reference: Esperanza Rodrigez, Geetha YOUSIF, et al. Evaluation,treatment, and prevention of vitamin D deficiency; an Endocrine Society clinical practice guideline. JCEM. 2010; 96(7):1911-30. Cristian 12-09-2024 L -- ---- Specimen: [id number] Received: 07/15/24 Status: ONUR Jaimes Num: [id number] Spec Type: Surgical Subm Dr: Manny Storey DO Tissues: A BREAST CORE NO CALCS (RT BREAST TISSUE) Procedures: HE/6, Gross/Micro L4, AE1-AE3, CD31 ---- Age/ Patient Sex Location Account Attending Physician ---- Ena Radford 68/F [place] [id number] Vipul Restrepo, DO ---- SPEC NUM: [id number] RECD: 07/15/24 STATUS: ONUR JAIMES NUM: [id number] [place]: 07/14/24 [facility] DR: Manny Storey DO ENTERED: 07/15/[address] [facility] DR: Vipul Restrepo DO SPEC TYPE: Surgical DEPT: S ENTERED BY: [id number] RECV BY: [id number] ORDERED: HE/6, Gross/Micro L4, AE1-AE3, CD31 ORDERED: HE/6, Gross/Micro L4, AE1-AE3, CD31 Pathological Diagnosis Right breast mass at 9:00 and 2 cm from nipple, core biopsy: -Benign nodular fibrocystic change of the mild proliferative type, including patchy mild to moderate ductal epithelial hyperplasia of the usual type (UDH), and occasional columnar cell hyperplasia -Incidental occasional early and/or faint microcalcifications -Incidental patchy expansile fibrocollagenous stromal proliferation within the lesion with the 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 The cores are entirely submitted in Cassette A1?A2 with the fragmented fibrofatty tissue filtered, and entirely submitted in Cassette A3. ---- Specimen: [id number] Received: 07/15/24 Status: ONUR Theodore Num: [id number] Spec Type: Surgical Subm Dr: Storey,Manny S DO Tissues: A BREAST CORE NO CALCS (RT BREAST TISSUE) Procedures: , Gross/Micro L4, AE1-AE3, CD31 ---- Patient: Ena Radford [id number] (Continued) ---- Specimen: [id number] Received: 07/15/24 (Continued) Gross Description (Continued) Signed (signature on file) Marissa Moreno MD 07/16/24 1711 ---- Specimen: [id number] Received: 07/15/24 Status: ONUR Jaimes Num: [id number] Spec Type: Surgical Subm Dr: Manny Storey DO Tissues: A BREAST CORE NO CALCS (RT BREAST TISSUE) Procedures: , Gross/Micro L4, AE1-AE3, CD31 ---- Patient: Ena Radford [id number] (Continued) ---- Specimen: [id number] Received: 07/15/24 (Continued) Gross Description (Continued) Fixation time: Time tissue removed from patient: 1342 Time specimen placed in formalin: 1344 Cold ischemic time: 2 minutes Total fixation time: 28 hours (3, ns, [id number] A) Microscopic Description Microscopic examinations are performed supporting the above interpretation CPT Codes 89267, 19737, 79621 ---- ---- Specimen: [id number] Received: 07/15/24 Status: ONUR Jaimes Num: [id number] Spec Type: Surgical Subm Dr: Manny Storey DO Tissues: A BREAST CORE NO CALCS (RT BREAST TISSUE) Procedures: HE/6, Gross/Micro L4, AE1-AE3, CD31 ---- Patient: Ena Radford [id number] (Continued) ---- Signed (signature on file) Chin-Alexys Moreno MD 07/16/24 1711 Normal [facility] US breast ndl core biopsy RT on 07-14-2024 US breast ndl core biopsy RT [facility] [address] [place] [address] Ultrasound Report Signed Patient: Ena Radford MR#: [id number] : 1955 Acct:[id number] Age/Sex: 68 / F ADM Date: 07/14/24 Loc: [facility] Room: Type: [facility] Attending Dr: Vipul Restrepo DO Ordering Provider: Vipul Restrepo DO Date of Service: 07/14/24 US/US breast ndl core biopsy RT: N63.11 ([id number]) US/US breast RT limited: N63.11 ([id number]) MM/MM post biopsy RT w/CAD: POST RT US GUIDED BREAST BIOPSY - CLIP PLACEMENT Copies to: Vipul Restrepo DO ADDENDUM Pathology report: Benign nodular [...] clip is seen near the biopsy cavity. IMPRESSION: [...] DO 07/14/24 1400 Signed By: 07/17/24 1451 Normal [facility] BI MAMMOGRAM DIAGNOSTIC MARJORIE SYNTHESIS RIGHTon 06-24-2024 BI MAMMOGRAM DIAGNOSTIC TOMOSYNTHESIS RIGHT This is a summary report. The complete report is available in the patient's medical record. If you cannot access the medical record, please contact the sending organization for a detailed fax or copy. EXAMINATION: BI MAMMOGRAM DIAGNOSTIC TOMOSYNTHESIS RIGHT CLINICAL [...] round asymmetric density again noted laterally on coned-down compression views though difficult to say with [...] breast in 3 months would be recommended. IMPRESSION: Previously noted approximately 7 mm round density [...] IS VERY IMPORTANT TO YOUR HEALTH. THE [place] GUIDELINES RECOMMEND THAT WOMEN 40 YEARS OF AGE AND OLDER SHOULD HAVE A MAMMOGRAM EVERY YEAR. A REMINDER LETTER WILL BE SENT AT THE APPROPRIATE TIME. ELECTRONICALLY SIGNED BY: Familia Perry M.D. Abnormal Not Available BI US BREAST LIMITED RIGHTon 06-24-2024 BI US BREAST LIMITED RIGHT This is a summary report. The complete report is available in the patient's medical record. If you cannot access the medical record, please contact the sending organization for a detailed fax or copy. Examination: BI US BREAST LIMITED RIGHT Reason for Study: abnormal mammogram Comparison: Screening mammogram study of the breasts dated 06/12/2024, diagnostic mammogram study of the right breast dated 06/24/2024. Technique: Ultrasound study of the right breast was performed with images of the lateral aspect of the right breast obtained from the 6:00 to the 12 o'clock position to include area of asymmetric density noted on the mammogram studies. Findings: No obvious solid or cystic mass. No obvious solid vascular mass to suggest neoplasm. No obvious abnormal calcifications or vascularity. When correlated with the mammogram studies, the possibility of a true mammographic finding that is not a simple cyst and occult on ultrasound. Follow-up MRI examination of the breasts with and without intravenous gadolinium contrast is recommended for further evaluation. If MRI is not desired, follow-up diagnostic mammogram study of the right breast as well as ultrasound study of the right breast in 3 months would be recommended. IMPRESSION: Impression: Right breast ultrasound study is grossly unremarkable. There remains concern for a true mammographic finding that is not a simple cyst and occult on ultrasound. Follow-up MRI examination of the breasts with and without intravenous gadolinium contrast is recommended for further evaluation. If MRI is not desired, follow-up diagnostic mammogram study of the right breast as well as ultrasound study of the right breast in 3 months would be recommended. BI-RADS 0 ELECTRONICALLY SIGNED BY: Familia Perry M.D. Normal Not Available ARTHROPOD IDENTon 02-15-2024 Arthropod identified Nom (Unsp spec) ARTHROPOD IDENT DERMACENTOR SPECIES FEMALE Normal [facility] COMPREHENSIVE METABOLIC PANE Cristian 08-15-2023 Albumin [Mass/Vol] 4.6 g/dL Normal 3.2-5.3 [facility] Comment on above: Performed By: #### C , 58746-4, 61498-0 #### [facility] ([id number]) [address], [address] [place] [address] ALP [Catalytic activity/Vol] 66 U/L Normal 39-130 [facility] Comment on above: Performed By: #### C ANITHA, 19691-0, 03771-3 #### [facility] ([id number]) [address], [address] [place] [address] ALT [Catalytic activity/Vol] 14 U/L Normal 0-31 [facility] Comment on above: Performed By: #### C ANITHA, 05049-9, 76107-2 #### [facility] ([id number]) [address], [address] [place] [address] Anion gap [Moles/Vol] 9 mmol/L Normal 5-15 [facility] Comment on above: Performed By: #### Romeo WELSH, 31868-0, 23833-0 #### [facility] ([id number]) [address], [address] [place] [address] AST [Catalytic activity/Vol] 16 U/L Normal 0-41 [facility] Comment on above: Performed By: #### Romeo WELSH, 50436-7, 16055-0 #### [facility] ([id number]) [address], [address] [place] [address] Bilirubin [Mass/Vol] 1.0 mg/dL Normal 0.3-1.2 [facility] Comment on above: Performed By: #### Romeo WELSH, 64760-0, 88964-9 #### [facility] ([id number]) [address], [address] [place] [address] Calcium [Mass/Vol] 9.8 mg/dL Normal 8.5-10.5 [facility] Comment on above: Performed By: #### Romeo WELSH, 94365-0, 04701-9 #### [facility] ([id number]) [address], [address] [place] [address] Chloride [Moles/Vol] 105 mmol/L Normal 98-109 [facility] Comment on above: Performed By: #### Romeo WELSH, 14949-2, 03963-5 #### [facility] ([id number]) [address], [address] [place] [address] CO2 [Moles/Vol] 26 mmol/L Normal 22-32 [facility] Comment on above: Performed By: #### Romeo WELSH, 10943-2, 22470-6 #### [facility] ([id number]) [address], [address] [place] [address] Creatinine [Mass/Vol] 0.88 mg/dL Normal 0.40-1.00 [facility] Comment on above: Result Comment: METH OD TRACEABLE TO IDMS STANDARD Performed By: #### Romeo WELSH, 28591-9, 48716-4 #### [facility] ([id number]) [address], [address] [place] [address] GFR/1.73 sq M.predicted among non-blacks MDRD (S/P/Bld) [Vol rate/Area] 72 mL/min/{1.73_m2} Normal >59 [facility] Comment on above: Result Comment: Reported eGFR is based on the CKD-EPI 2020 equation that does not use a race coefficient. Performed By: #### Romeo WELSH, 71179-8, 08349-2 #### [facility] ([id number]) [address], [address] [place] [address] Glucose [Mass/Vol] 91 mg/dL Normal 65-99 [facility] Comment on above: Performed By: #### Romeo WELSH, 32181-8, 48155-7 #### [facility] ([id number]) [address], [address] [place] [address] Potassium [Moles/Vol] 4.2 mmol/L Normal 3.5-5.0 [facility] Comment on above: Performed By: #### Romeo WELSH, 81132-8, 99608-0 #### [facility] ([id number]) [address], [address] [place] [address] Protein [Mass/Vol] 6.7 g/dL Normal 6.0-8.0 [facility] Comment on above: Performed By: #### Romeo WELSH, 53908-3, 90681-2 #### [facility] ([id number]) [address], [address] [place] [address] Sodium [Moles/Vol] 140 mmol/L Normal 134-146 [facility] Comment on above: Performed By: #### Romeo WELSH, 62873-5, 78735-7 #### [facility] ([id number]) [address], [address] [place] [address] Urea nitrogen [Mass/Vol] 17 mg/dL Normal 5-27 [facility] Comment on above: Performed By: #### C , 59357-3, 60466-6 #### [facility] ([id number]) [address], [address] [place] [address] Comprehensive metabolic pane cristian 08-15-2023 Albumin [Mass/Vol] 4.6 g/dL 3.2 - 5.3 g/dL [facility] ALP [Catalytic activity/Vol] 66 U/L 39 - 130 U/L [facility] ALT No additional P-5'-P [Catalytic activity/Vol] 14 U/L 0 - 31 U/L [facility] Anion gap [Moles/Vol] 9 mmol/L 5 - 15 mmol/L [facility] AST [Catalytic activity/Vol] 16 U/L 0 - 41 U/L [facility] Bilirubin [Mass/Vol] 1.0 mg/dL 0.3 - 1 .2 mg/dL [facility] Calcium [Mass/Vol] 9.8 mg/dL 8.5 - 10. 5 mg/dL [facility] Chloride [Moles/Vol] 105 mmol/L 98 - 10 9 mmol/L [facility] CO2 [Moles/Vol] 26 mmol/L 22 - 32 mmol/L [facility] Creatinine [Mass/Vol] 0.88 mg/dL 0.40 - 1.00 mg/dL [facility] Comment on above: METHOD TRACEABLE TO IDIN STANDARD eGFR (CKD-EPI)non-race dependent 72 - PINF [facility] Comment on above: Reported eGFR is based on the CKD-EPI 2020 equation that does not use a race coefficient. Glucose [Mass/Vol] 91 mg/dL 65 - 99 mg/dL [facility] Potassium [Moles/Vol] 4.2 mmol/L 3.5 - 5.0 mmol/L [facility] Protein [Mass/Vol] 6.7 g/dL 6.0 - 8.0 g/dL [facility] Sodium [Moles/Vol] 140 mmol/L 134 - 146 mmol/L [facility] Urea nitrogen [Mass/Vol] 17 mg/dL 5 - 27 mg/dL [facility] Lipid 1996 panelon 4 Cholesterol [Mass/Vol] 218 mg/dL High 150 - 200 mg/dL [facility] Cholesterol in HDL [Mass/Vol] 62 mg/dL 39 - PINF mg/dL [facility] Comment on above: HDL <40 mg/dL - High Risk HDL > or = 40mg/dL- Desirable HDL >60 mg/dL - Negative Risk Cholesterol in LDL [Mass/Vol] 135 mg/dL High NINF - 130 mg/dL [facility] Comment on above: LDL <100 mg/dL - Desirable LDL >160 mg/dL - High Risk Cholesterol in VLDL [Mass/Vol] 21 mg/dL 0 - 30 mg/dL [facility] Cholesterol.total/Yazmin sterol in HDL [Mass ratio] 3.5 {ratio} 1.0 - 5.0 [facility] Interpretation and review of laboratory results Abnormal [facility] Triglyceride [Mass/Vol] 103 mg/dL 27 - 150 mg/dL [facility] Cholesterol [Mass/Vol] 218 mg/dL High 150-[address] [facility] Comment on above: Performed By: #### C , 08570-5, 37815-7 #### [facility] ([id number]) [address] [place] [address] Cholesterol in HDL [Mass/Vol] 62 mg/dL Normal >39 [facility] Comment on above: Result Comment: HDL <40 mg/dL - High Risk HDL > or = 40mg/dL- Desirable HDL >60 mg/dL - Negative Risk Performed By: #### Romeo WELSH, 64550-4, 25557-2 #### [facility] ([id number]) [address], [address] [place] [address] Cholesterol in LDL [Mass/Vol] 135 mg/dL High <130 [facility] Comment on above: Result Comment: LDL <100 mg/dL - Desirable LDL >160 mg/dL - High Risk Performed By: #### Romeo WELSH, 20612-9, 75763-0 #### [facility] ([id number]) [address], [address] [place] [address] Cholesterol in VLDL [Mass/Vol] 21 mg/dL Normal 0-30 [facility] Comment on above: Performed By: #### Romeo WELSH, 41865-5, 17580-5 #### [facility] ([id number]) [address], [address] [place] [address] CHOLESTEROL:HDL 3.5 Normal 1.0-5.0 [facility] Comment on above: Performed By: #### Romeo WELSH, 09995-0, 83193-2 #### [facility] ([id number]) [address], [address] [place] [address] Triglyceride [Mass/Vol] 103 mg/dL Normal 27-150 [facility] Comment on above: Performed By: #### Romeo WELSH, 97708-5, 24175-3 #### [facility] ([id number]) [address], [address] [place] [address] No Panel Informationon 08-15 [facility] Vitamin D 25 hydroxyon 08-15 Vitamin D+Metabolites [Mass/Vol] 33.2 ng/mL 30 - 100 ng/mL [facility] Comment on above: Vitamin D status 25 [place] Vitamin D Deficiency <20 ng/mL Insufficiency 20-29 ng/mL Sufficiency 30-100 ng/mL Toxicity >100 ng/mL NOTE: A pediatric reference range has not been established by the launch [employer] police of this kit. The [place] [employer] recommends a Vitamin D level of = or >20ng/mL in infants and children. Vitamin D+Metabolites [Mass/ Vol]on 08-15-2023 [facility] VITAMIN D 25 HYD TOT 33.2 ng/mL Normal 30-100 [facility] Comment on above: Result Comment: Vitamin D status 25 [place] Vitamin D Deficiency <20 ng/mL Insufficiency 20-29 ng/mL Sufficiency 30-100 ng/mL Toxicity >100 ng/mL NOTE: A pediatric reference range has not been established by the [employer] police of this kit. The [place] [employer] recommends a Vitamin D level of = or >20ng/mL in infants and children. Performed By: #### C , 34872-6, 72140-4 #### [facility] ([id number]) [address] [place] [address], [address] [place] [address] COVID/FLU/RSV RT-PCRon 06-17 SARS-CoV-2 (COVID-19) RNA SOL+probe Ql (Unsp spec) Negative [employer] Other COVID/FLU/RSV RT-PCR Negative [facility] [employer] Other Quick Strepon 06-17-2023 S. pyogenes Org specific cx Ql (Throat) Negative knowNormal Ia [employer] Other Quick Strep [employer] Other Albumin [Mass/volume] in Ser um or PlasmaOrdered By: Reilly Yoo on 07-11-2022 Albumin [Mass/Vol] 4.1 g/dL 3.2-5.5 [facility] Cholesterol [Mass/volume] in Serum or PlasmaOrdered By: Reilly Yoo on 07-11-2022 Cholesterol [Mass/Vol] 171 mg/dL 140-200 [facility] Comment on above: Chol less than 200 m g/dl low riskChol 201-239 mg/dl borderline riskChol 240 mg/dl and greater high risk Cholesterol in LDL Calc [Mas s/Vol]Ordered By: Reilly Yoo on 07-11-2022 Cholesterol in LDL [Mass/Vol] 97 mg/dL 0-100 [facility] Comment on above: LDL ATP III CLASSIFI CATIONLDL less than 100 mg/dL OptimalLDL 100-129 mg/dL Near or above optimalLDL 130-159 mg/dL Borderline highLDL 160-189 mg/dL HighLDL greater than 189 mg/dL Very high Cholesterol in VLDL Calc [Ma ss/Vol]Ordered By: Reilly Yoo on 07-11-2022 Cholesterol in VLDL [Mass/Vol] 10 mg/dL [facility] Creatinine and Glomerular fi ltration rate.predicted panel (S/P/Bld)Ordered By: Reilly Yoo on 07-11-2022 Creatinine [Mass/Vol] 0.87 mg/dL 0.44-1.03 [facility] Estimated glomerular filtrat ion rate (GFR) non- AmericanOrdered By: Reilly Yoo on 07-11-2022 GFR/1.73 sq M.predicted among non-blacks MDRD (S/P/Bld) [Vol rate/Area] > 60 mL/Min [facility] Globulin Calc (S) [Mass/Vol] Ordered By: Reilly Yoo on 07-11-2022 Globulin (S) [Mass/Vol] 2.6 g/dL [facility] No Panel InformationOrdered By: Reilly Yoo on 07-11-2022 Estimated GFR () > 60 mL/Min [facility] Comment on above: GFR estimated refere nce range: According to KDOQI guidelines, <60 ml/min/1.73m2 is sufficient to diagnose a patient with chronic kidney disease. Pharmacy Creatinine Clearance (Chem N/A [facility] Protein [Mass/volume] in Ser um or PlasmaOrdered By: Reilly Yoo on 07-11-2022 Protein [Mass/Vol] 6.7 g/dL 6.1-7.9 [facility] Serum or plasma alanine iniguez otransferase measurement without P-5'-P (enzymatic activiOrdered By: Reilly Yoo on 07-11-2022 ALT No additional P-5'-P [Catalytic activity/Vol] 16 U/L 10-60 [facility] Serum or plasma albumin/glob ulin mass ratioOrdered By: Reilly Yoo on 07-11-2022 Albumin/Globulin [Mass ratio] 1.6 {ratio} [facility] Serum or plasma alkaline dalton sphatase measurement (enzymatic activity/volume)Ordered By: Reilly Yoo on 07-11-2022 ALP [Catalytic activity/Vol] 49 U/L 32-92 [facility] Serum or plasma anion gap de terminationOrdered By: Reilly Yoo on 07-11-2022 Anion gap [Moles/Vol] 8.4 mmol/L 6.0-15.0 [facility] Serum or plasma aspartate am inotransferase measurement (enzymatic activity/volume)Ordered By: Reilly Yoo 07-11-2022 AST [Catalytic activity/Vol] 18 U/L 10-42 [facility] Serum or plasma calcium davin urement (mass/volume)Ordered By: Reilly Yoo on 07-11-2022 Calcium [Mass/Vol] 9.6 mg/dL 8.2-10.2 [facility] Serum or plasma chloride samira surement (moles/volume)Ordered By: Reilly Yoo 07-11-2022 Chloride [Moles/Vol] 106 mmol/L 95-114 [facility] Serum or plasma glucose davin urement (mass/volume)Ordered By: Reilly Yoo on 07-11-2022 Glucose [Mass/Vol] 93 mg/dL 70-100 [facility] Comment on above: ADA recommended refe rence rangeRandom Glucose Reference Range is dependent on time and content of last meal. Glucose of more than 200 mg/dL in a nonstressed, ambulatory subject supports the diagnosis of Diabetes Mellitus. Serum or plasma high density lipoprotein (HDL) cholesterol measurementOrdered By: Reilly Yoo on 07-11-2022 Cholesterol in HDL [Mass/Vol] 63 mg/dL 35-85 [facility] Comment on above: HDL CHOL ATP-III CLA SSIFICATION Cardiovascular RiskHDL > or equal to 60 mg/dL LOWHDL < 40 mg/dL HIGH Serum or plasma potassium me asurement (moles/volume)Ordered By: Reilly Yoo on 07-11-2022 Potassium [Moles/Vol] 4.7 mmol/L 3.5-5.1 [facility] Serum or plasma sodium measu rement (moles/volume)Ordered By: Reilly Yoo on 07-11-2022 Sodium [Moles/Vol] 138 mmol/L 136-146 [facility] Serum or plasma total biliru bin measurement (mass/volume)Ordered By: Reilly Yoo on 07-11-2022 Bilirubin [Mass/Vol] 0.9 mg/dL 0.3-1.2 [facility] Serum or plasma total carbon dioxide measurement (moles/volume)Ordered By: Reilly Yoo on 07-11-2022 CO2 [Moles/Vol] 28.3 mmol/L 22.0-30.0 [facility] Serum or plasma total choles terol/high density lipoprotein (HDL) cholesterol mass ratOrdered By: Reilly Yoo on 07-11-2022 Cholesterol.total/Yazmin sterol in HDL [Mass ratio] 2.7 {ratio} <5.0 [facility] Serum or plasma urea nitroge n measurement (mass/volume)Ordered By: Reilly Yoo on 07-11-2022 Urea nitrogen [Mass/Vol] 12 mg/dL 9-23 [facility] Triglyceride [Mass/volume] i n Serum or PlasmaOrdered By: Reilly Yoo on 07-11-2022 Triglyceride [Mass/Vol] 54 mg/dL 35-149 [facility] Comment on above: TRIG ATP III CLASSIF ICATIONTRIG less than 150 mg/dL NormalTRIG 150-199 mg/dL Borderline highTRIG 200-500 mg/dL High TRIG greater than 500 mg/dL Very highStandard traceable to the Center for Disease Conrtrol and Prevention (CDC) test method. SCREENING MAMMOGRAM W/MARJORIE, BILATERAL*on 05-08-2022 SCREENING MAMMOGRAM W/MARJORIE, BILATERAL* CLINICAL HISTORY: Screening Mammogram COMPARISON: Priors dating back to 2016. TECHNIQUE: 2D and 3D mammogram imaging of both breasts was performed. RESULT: DENSITY: There are scattered areas of fibroglandular density. There is no suspicious mass, asymmetry, architectural distortion, or calcification. No significant change since the prior mammograms. IMPRESSION: BIRADS 1 : NEGATIVE, NORMAL INTERVAL FOLLOW UP FOLLOW-UP: 12 months DENSITY: Scattered MAMMOGRAPHY IS VERY IMPORTANT TO YOUR HEALTH. THE CURRENT [place] [employer] OF [employer] AND N[employer] COMPREHENSIVE CANC[employer] NETWORK GUIDELINES RECOMMENDS ANNUAL MAMMOGRAPHY BEGINNING AT AGE 40 THIS FACILITY USES A REMINDER SYSTEM TO ENSURE ALL PATIENTS RECEIVE REMINDER NOTIFICATIONS AT THE APPROPRIATE TIME BASED ON THE RECOMMENDATIONS OF THIS EXAM. Board Certified Radiologist. Accredited by the ACR and FDA. Report reported and signed by Colton Campoverde on 05/11/2022 0947 Normal [facility] Specialist COMPREHENSIVE METABOLIC PANE [facility] 12-27-2021 Albumin [Mass/Vol] 4.7 g/dL Normal 3.6-5.1 [facility] Comment on above: Performed By: #### 7 600, 52595, 72579 #### [facility] [address], [address] [place] [address] Structural Biologist: Gregg Ferrer MD Albumin/Globulin [Mass ratio] 2.0 {ratio} Normal 1.0-2.5 [facility] Comment on above: Performed By: #### 7 600, 60594, 02872 #### [facility] [address], [address] [place] [address] Structural Biologist: Gregg Ferrer MD ALP [Catalytic activity/Vol] 56 U/L Normal 37-153 [facility] Comment on above: Performed By: #### 7 600, 42617, 42932 #### [facility] [address], [address] [place] [address] Structural Biologist: Gregg Ferrer MD ALT [Catalytic activity/Vol] 20 U/L Normal 6-29 [facility] Comment on above: Performed By: #### 7 600, 81052, 92267 #### [facility] of [place] [address] Structural Biologist: Gregg Ferrer MD AST [Catalytic activity/Vol] 20 U/L Normal 10-35 [facility] Comment on above: Performed By: #### 7 600, 76416, 77412 #### [facility] [place] [address] Structural Biologist: Gregg Ferrer MD Bilirubin [Mass/Vol] 1.1 mg/dL Normal 0.2-1.2 [facility] Comment on above: Performed By: #### 7 600, 22928, 83469 #### [facility] [place] [address] Structural Biologist: Gregg Ferrer MD BUN/CREATININE RATIO NOT APPLICABLE Normal 6-22 [facility] Comment on above: Performed By: #### 7 600, 66411, 89165 #### [facility] [place] [address] Structural Biologist: Gregg Ferrer MD Calcium [Mass/Vol] 9.9 mg/dL Normal 8.6-10.4 [facility] Comment on above: Performed By: #### 7 600, 30009, 61132 #### [facility] [place] [address] Structural Biologist: Gregg Ferrer MD Chloride [Moles/Vol] 105 mmol/L Normal 98-110 [facility] Comment on above: Performed By: #### 7 600, 93639, 71543 #### [facility] [place] [address] Structural Biologist: Gregg Ferrer MD CO2 [Moles/Vol] 26 mmol/L Normal 20-32 [facility] Comment on above: Performed By: #### 7 600, 85914, 24038 #### [facility] of [address] [place] [address] Structural Biologist: Gregg Ferrer MD Creatinine [Mass/Vol] 0.83 mg/dL Normal 0.50-0.[address] [facility] Comment on above: Result Comment: For patients >49 years of age, the reference limit for Creatinine is approximately 13% higher for people identified as -Swiss. Performed By: #### 7 600, 27517, 25295 #### [facility] [address], [address] [place] [address] Structural Biologist: Gregg Ferrer MD eGFR NON-AFR. [place] 74 mL/min/1.73m2 Normal > OR = 60 [facility] Comment on above: Performed By: #### 7 600, 08955, 68405 #### [facility] [place] [address] Structural Biologist: Gregg Ferrer MD GFR/1.73 sq M.predicted among blacks MDRD (S/P/Bld) [Vol rate/Area] 86 mL/min/{1.73_m2} Normal > OR = 60 [facility] Comment on above: Performed By: #### 7 600, 36391, 89062 #### [facility] [place] [address] Structural Biologist: Gregg Ferrer MD Globulin (S) [Mass/Vol] 2.4 g/dL Normal 1.9-3.7 [facility] Comment on above: Performed By: #### 7 600, 41585, 05329 #### [facility] [place] [address] Structural Biologist: Gregg Ferrer MD Glucose [Mass/Vol] 95 mg/dL Normal 65-99 [facility] Comment on above: Result Comment: Fasting reference interval Performed By: #### 7 600, 73506, 99064 #### [facility] [place] [address] Structural Biologist: Gregg Ferrer MD Potassium [Moles/Vol] 4.0 mmol/L Normal 3.5-5.[address] [facility] Comment on above: Performed By: #### 7 600, 52332, 10878 #### [facility] of [address], [address] [place] [address] Structural Biologist: Gregg Ferrer MD Protein [Mass/Vol] 7.1 g/dL Normal 6.1-8.1 [facility] Comment on above: Performed By: #### 7 600, 81982, 46676 #### [facility] of [address], [address] [place] [address] Structural Biologist: Gregg Ferrer MD Sodium [Moles/Vol] 141 mmol/L Normal 135-146 [facility] Comment on above: Performed By: #### 7 600, 72870, 57046 #### [facility] [place] [address] Structural Biologist: Gregg Ferrer MD Urea nitrogen [Mass/Vol] 17 mg/dL Normal 7-25 [facility] Comment on above: Performed By: #### 7 600, 97679, 24145 #### [facility] [place] [address] Structural Biologist: Gregg Ferrer MD LIPID PANEL, [address] Cholesterol [Mass/Vol] 219 mg/dL High <200 [facility] Comment on above: Order Comment: FASTI NG:YES FASTING: YES Performed By: #### 7 600, 71244, 84442 #### [facility] [place] [address] Structural Biologist: Gregg Ferrer MD Cholesterol in HDL [Mass/Vol] 62 mg/dL Normal > OR = 50 [facility] Comment on above: Order Comment: FASTI NG:YES FASTING: YES Performed By: #### 7 600, 61857, 89811 #### [facility] [place] [address] Structural Biologist: Gregg Ferrer MD Cholesterol in LDL [Mass/Vol] 137 mg/dL High [facility] Comment on above: Order Comment: FASTI NG:YES FASTING: YES Result Comment: Refe rence range: <100 Desirable range <100 mg/dL for primary prevention; <70 mg/dL for patients with CHD or diabetic patients with > or = 2 CHD risk factors. LDL-C is now calculated using the Willie calculation, which is a validated novel method providing better accuracy than the Friedewald equation in the estimation of LDL-C. Joshua MUSTAFA et al. BARBIE. 2013;310(19): 8506-5819 (http://education.[employer]/faq/SEZ640) Performed By: #### 7 600, 36981, 54151 #### [facility] [address], [address] [place] [address] Structural Biologist: Gregg Ferrer MD Cholesterol.total/Yazmin sterol in HDL [Mass ratio] 3.5 {ratio} Normal <5.0 [facility] Comment on above: Order Comment: FASTI NG:YES FASTING: YES Performed By: #### 7 600, 72480, 53812 #### [facility] [address], [address] [place] [address] Structural Biologist: Gregg Ferrer MD NON HDL CHOLESTEROL 157 mg/dL (calc) High <130 [facility] Comment on above: Order Comment: FASTI NG:YES FASTING: YES Result Comment: For patients with diabetes plus 1 major ASCVD risk factor, treating to a non-HDL-C goal of <100 mg/dL (LDL-C of <70 mg/dL) is considered a therapeutic option. Performed By: #### 7 600, 89085, 77872 #### [facility] [address], [address] [place] [address] Structural Biologist: Gregg Ferrer MD Triglyceride [Mass/Vol] 94 mg/dL Normal <150 [facility] Comment on above: Order Comment: FASTI NG:YES FASTING: YES Performed By: #### 7 600, 98812, 03999 #### [facility] [address], [address] [place] [address] Structural Biologist: Gregg Ferrer MD VITAMIN D,25-OH,TOTAL,IAon 0 12-27-2021 VITAMIN D,25-OH,TOTAL,IA 41 ng/mL Normal 30-100 [facility] Comment on above: Result Comment: Dasha min D Status 25-OH Vitamin D: Deficiency: <20 ng/mL Insufficiency: 20 - 29 ng/mL Optimal: > or = 30 ng/mL For 25-OH Vitamin D testing on patients on D2-supplementation and patients for whom quantitation of D2 and D3 fractions is required, the QuestAssureD(TM) 25-OH VIT D, (D2,D3), LC/MS/MS is recommended: order code 31028 (patients >2yrs). See Note 1 Note 1 For additional information, please refer to http://education.[employer]/faq/ZDU645 (This link is being provided for informational/ educational purposes only.) Performed By: #### 7 600, 63278, 89732 #### [facility] [address], [address] [place] [address] Structural Biologist: Gregg Ferrer MD XR KUB 1 VIEWon 07-15-2021 XR KUB 1 VIEW EXAMINATION: XR KUB 1 VIEW HISTORY: Kidney stone COMPARISON: 01/07/2021 FINDINGS: KIDNEY/URETER - RIGHT: Punctate calcifications KIDNEY/URETER - LEFT: Punctate calcification PELVIS: No visible ureteral calcifications. Any visible calcifications favor phleboliths. BOWEL: No abnormal dilation or deviation. BONES: No acute abnormality. Rotatory dextrocurvature OTHER: Negative. No abnormal gaseous collections. IMPRESSION: Bilateral stable punctate nephroliths Electronically authenticated by: ARTHUR WATTS Date: 2021-07-15 10:54 Normal [facility] MAMM SCREEN 3D MARIO CADon 05-04-2021 MG MAMM SCREEN 3D MARIO CAD Patient: EAN RADFORD Exam Date: 05/04/2021 : 1955 Gender:F Ordering : DR. ANNMARIE FREITAS D.O. Admission #: [id number] Family : Order #: [id number] CLICK HERE TO VIEW EXAM RADIOLOGY REPORT PROCEDURE: MAMMOGRAM SCREENING 3D BILATERAL CAD COMPARISON: MG MAMM SCREEN 3D MARIO CAD, 04/22/2020. INDICATIONS: Screening mammography Calculator Name NCI Breast Cancer Risk Assessment Tool 5 Year Breast Cancer Risk 3.10% Lifetime Breast Cancer Risk 12.10% Personal Breast Cancer No Personal Ovarian Cancer No Treatments None Family Cancers Mother with breast cancer at age 91; Grandmother-maternal with breast cancer at age 36; Aunt-maternal with breast cancer at age 90. LOCATION: [facility] BREAST COMPOSITION: Scattered areas fibroglandular density. FINDINGS: DIAGNOSTIC CATEGORY 2--BENIGN FINDING NO CHANGE FROM COMPARISON ASSESSMENT. Scattered benign-appearing nodules are present. Scattered benign-appearing calcifications are present. Scattered benign-appearing lymph nodes are present. RIGHT BREAST: No significant suspicious finding. LEFT BREAST: No significant suspicious finding. RECOMMENDATIONS: ROUTINE MAMMOGRAM AND CLINICAL EVALUATION IN 12 MONTHS. PLEASE NOTE: A NORMAL MAMMOGRAM DOES NOT EXCLUDE THE POSSIBILITY OF BREAST CANCER. A CLINICALLY SUSPICIOUS PALPABLE LUMP SHOULD BE BIOPSIED. Dictated by: Arthur Watts MD on 05/04/2021 at 14:36 Approved by: Arthur Watts MD on 05/04/2021 at 14:39 Normal [facility] XR KUB 1 VIEWon 01-07-2021 XR KUB 1 VIEW EXAMINATION: XR KUB 1 VIEW HISTORY: Kidney stone COMPARISON: No relevant comparison available. FINDINGS: KIDNEY/URETER - RIGHT: Punctate nephroliths KIDNEY/URETER - LEFT: Punctate nephrolith PELVIS: No visible ureteral calcifications. Any visible calcifications favor phleboliths. BOWEL: No abnormal dilation or deviation. BONES: No acute abnormality. Mild rotatory levocurvature of the thoracolumbar spine centered at L1 OTHER: Negative. No abnormal gaseous collections. IMPRESSION: Bilateral punctate nephrolithiasis Electronically authenticated by: ARTHUR WATTS Date: 2021-01-07 07:37 Normal [facility] LIPID PROFILEon 12-22-2020 CHOL-HDL RATIO NORM SEE BELOW Normal [facility] Comment on above: Result Comment: 3.3 - 4.4 LOW RISK 4.4 - 7.1 AVERAGE RISK 7.1 - 11.0 MODERATE RISK >11.0 HIGH RISK Performed By: #### L MARIANNA CMP #### [facility] [address] [place], [place] [address] Marques Maritza Cholesterol [Mass/Vol] 184 mg/dL Normal <=200 Th [facility] Comment on above: Performed By: #### L MARIANNA, CMP #### [facility] [address] [place], [place] [address] Marques Maritza Cholesterol in HDL [Mass/Vol] 72 mg/dL Normal [facility] Comment on above: Performed By: #### L IPID, CMP #### [facility] [address] [place], [place] [address] Marques Maritza Cholesterol in LDL [Mass/Vol] 98.2 mg/dL Normal [facility] Comment on above: Performed By: #### L IPID, CMP #### [facility] [address] [place], [place] [address] Marques Maritza Cholesterol.total/Yazmin sterol in HDL [Mass ratio] 2.6 {ratio} Normal [facility] Comment on above: Performed By: #### L IPID, CMP #### [facility] [address] [place], [place] [address] Marques Maritza HDL NORMAL > or = 60 mg/dl - LO W CARDIOVASCULAR RISK <40 mg/dl - HIGH CARDIOVASCULAR RISK Normal [facility] Comment on above: Performed By: #### L IPID, CMP #### [facility] [address] [place], [place] [address] Marques Maritza LDL CALC NORMAL SEE BELOW Normal [facility] Comment on above: Result Comment: <100 mg/dl OPTIMAL 100 - 129 mg/dl NEAR OR ABOVE OPTIMAL 130 - 159 mg/dl BORDERLINE HIGH 160 - 189 mg/dl HIGH >190 mg/dl VERY HIGH Performed By: #### L IPID, CMP #### [facility] [address] [place], [place] [address] Marques Maritza Triglyceride [Mass/Vol] 69 mg/dL Normal <=150 T [facility] Comment on above: Performed By: #### L IPID, CMP #### [facility] [address] [place], [place] [address] Marques Maritza VLDL CALC 13.8 mg/dL Normal [facility] Comment on above: Performed By: #### L IPID, CMP #### [facility] [address] [place], [place] [address] Marques Maritza PROF 14(COMP METB)on 021 Albumin [Mass/Vol] 4.0 g/dL Normal 3.5-5.0 [facility] Comment on above: Performed By: #### L IPID, CMP #### [facility] [address] [place], [place] [address] Marques Maritza Albumin/Globulin [Mass ratio] 1.3 {ratio} Normal [facility] Comment on above: Performed By: #### L IPID, CMP #### [facility] [address] [place], [place] [address] Marques Maritza ALP [Catalytic activity/Vol] 52 U/L Normal 38-126 [facility] Comment on above: Performed By: #### L IPID, CMP #### [facility] [address] [place] [id number] Marques Maritza ALT [Catalytic activity/Vol] 22 U/L Normal 9-52 [facility] Comment on above: Performed By: #### L IPID, CMP #### [facility] [address] [place] [id number] Marques Maritza Anion gap [Moles/Vol] 11.4 mmol/L Normal [facility] Comment on above: Performed By: #### L IPID, CMP #### [facility] [address] [place] [address] Marques Maritza AST [Catalytic activity/Vol] 18 U/L Normal 14-36 [facility] Comment on above: Performed By: #### L IPID, CMP #### [facility] [address] [place] [id number] Marques Maritza Bilirubin [Mass/Vol] 0.8 mg/dL Normal 0.2-1.3 [facility] Comment on above: Performed By: #### L IPID, CMP #### [facility] [address] [place] [id number] Marques Maritza Calcium [Mass/Vol] 9.1 mg/dL Normal 8.4-10.2 [facility] Comment on above: Performed By: #### L IPID, CMP #### [facility] [address] [place] [id number] Marques Maritza Chloride [Moles/Vol] 107 mmol/L Normal 98-107 [facility] Comment on above: Performed By: #### L IPID, CMP #### [facility] [address] [place], [place] [address] Marques Maritza CO2 [Moles/Vol] 29.7 mmol/L Normal 22.0-30.0 [facility] Comment on above: Performed By: #### L IPID, CMP #### [facility] [address] [place] [id number] Marques Maritza Creatinine [Mass/Vol] 1.00 mg/dL Normal 0.52-1.04 [facility] Comment on above: Performed By: #### L IPID, CMP #### [facility] [address] [place] [id number] Marques Maritza EGFR-AF VENEZUELAN >60 Normal >=60 [facility] Comment on above: Performed By: #### L IPID, CMP #### [facility] [address] [place] [address] Marques Maritza EGFR-NON AF [place]AN 56 mL/min/1.73m2 Critically low >=60 [facility] Comment on above: Performed By: #### L IPID, CMP #### [facility] [address] [place] [id number] Marques Maritza Globulin (S) [Mass/Vol] 3.2 g/dL Normal T [facility] Comment on above: Performed By: #### L IPID, CMP #### [facility] [address] [place] [phone] Marques Maritza Glucose [Mass/Vol] 100 mg/dL Normal 74-106 [facility] Comment on above: Performed By: #### L IPID, CMP #### [facility] [address] [place] [id number] Marques Maritza Potassium [Moles/Vol] 4.1 mmol/L Normal 3.4-5.0 [facility] Comment on above: Performed By: #### L IPID, CMP #### [facility] [address] [place] [phone] Marques Maritza Protein [Mass/Vol] 7.2 g/dL Normal 6.1-8.2 [facility] Comment on above: Performed By: #### L IPID, CMP #### [facility] [address] [place], [place] [address] Marques Maritza Sodium [Moles/Vol] 144 mmol/L Normal 137-145 [facility] Comment on above: Performed By: #### L IPID, CMP #### [facility] [address] [place], [place] [address] Marques Maritza Urea nitrogen [Mass/Vol] 15.0 mg/dL Normal 7.0-17.0 [facility] Comment on above: Performed By: #### L IPID, CMP #### [facility] [address] [place], [place] [address] Marques Maritza Urea nitrogen/Creatinine [Mass ratio] 15.0 mg/mg Normal [facility] Comment on above: Performed By: #### L IPID, CMP #### [facility] [address] [place], [place] [address] Marques Maritza Vital Signs Date Time Vital Sign Value Performing Clinician Facility 01-20-2025 09:08-0400 Body height 160 cm Reilly Furlong DO Work Phone: [facility] 01-20-2025 09:08-0400 Body mass index (BMI) [Ratio] 26.22 kg/m2 Reilly Furlong DO Work Phone: [facility] 01-20-2025 09:08-0400 Body weight 67.13 kg Reilly Furlong DO Work Phone: [facility] 01-20-2025 09:08-0400 Diastolic blood pressure 72 mm[Hg] Reilly Furlong DO Work Phone: [facility] 01-20-2025 09:08-0400 Systolic blood pressure 110 mm[Hg] Reilly Furlong DO Work Phone: [facility] 01-01-2025 11:06-0400 Body height 157.5 cm Reilly Furlong DO Work Phone: [facility] 01-01-2025 11:06-0400 Body mass index (BMI) [Ratio] 26.81 kg/m2 Reilly Furlong DO Work Phone: [facility] 01-01-2025 11:06-0400 Body temperature 99.1 [degF] Reilly Furlong DO Work Phone: [facility] 01-01-2025 11:06-0400 Body weight 66.5 kg Reilly Furlong DO Work Phone: [facility] 01-01-2025 11:06-0400 Diastolic blood pressure 78 mm[Hg] Reilly Furlong DO Work Phone: [facility] 01-01-2025 11:06-0400 Heart rate 55 /min Reilly Furlong DO Work Phone: [facility] 01-01-2025 11:06-0400 Respiratory rate 20 /min Reilly Furlong DO Work Phone: [facility] 01-01-2025 11:06-0400 SaO2% (BldA) [Mass fraction] 99 % Reilly Furlong DO Work Phone: [facility] 01-01-2025 11:06-0400 Systolic blood pressure 108 mm[Hg] Reilly Furlong DO Work Phone: [facility] 12-22-2024 11:32-0400 Body height 157.5 cm Reilly Furlong DO Work Phone: [facility] 12-22-2024 11:32-0400 Body mass index (BMI) [Ratio] 27.21 kg/m2 Reilly Furlong DO Work Phone: [facility] 12-22-2024 11:32-0400 Body temperature 97.9 [degF] Reilly Furlong DO Work Phone: [facility] 12-22-2024 11:32-0400 Body weight 67.5 kg Reilly Furlong DO Work Phone: [facility] 12-22-2024 11:32-0400 Diastolic blood pressure 72 mm[Hg] Reilly Furlong DO Work Phone: [facility] 12-22-2024 11:32-0400 Heart rate 58 /min Reilly Furlong DO Work Phone: [facility] 12-22-2024 11:32-0400 Respiratory rate 20 /min Reilly Furlong DO Work Phone: [facility] 12-22-2024 11:32-0400 SaO2% (BldA) [Mass fraction] 100 % Reilly Furlong DO Work Phone: [facility] 12-22-2024 11:32-0400 Systolic blood pressure 162 mm[Hg] Reilly Furlong DO Work Phone: [facility] 11-14-2024 20:42-0400 Diastolic blood pressure 76 mm[Hg] Reilly Furlong DO Work Phone: [facility] 11-14-2024 20:42-0400 Heart rate 62 /min Reilly Furlong DO Work Phone: [facility] 11-14-2024 20:42-0400 Respiratory rate 16 /min Reilly Furlong DO Work Phone: [facility] 11-14-2024 20:42-0400 SaO2% (BldA) [Mass fraction] 98 % Reilly Furlong DO Work Phone: [facility] 11-14-2024 20:42-0400 Systolic blood pressure 154 mm[Hg] Reilly Furlong DO Work Phone: [facility] 11-14-2024 19:46-0400 Inhaled oxygen flow rate 2 L/min Reilly Furlong DO Work Phone: [facility] 11-14-2024 18:55-0400 Body temperature 97.9 [degF] Reilly Furlong DO Work Phone: [facility] 11-14-2024 18:54-0400 Body height 157.48 cm Reilly Furlong DO Work Phone: [facility] 11-14-2024 18:54-0400 Body weight 66.8 kg Reilly Furlong DO Work Phone: [facility] 09-04-2024 13:00-0500 Body height 157.5 cm Cj Odonnell DPM Work Phone: [facility] 09-04-2024 13:00-0500 Body mass index (BMI) [Ratio] 26.89 kg/m2 Cj Odonnell DPM Work Phone: [facility] 09-04-2024 13:00-0500 Body weight 66.68 kg Cj Blas DPM Work Phone: [facility] 09-04-2024 13:00-0500 Respiratory rate 18 /min Cj Odonnell DPM Work Phone: [facility] 08-18-2024 10:30-0500 Body height 157.5 cm Reilly Furlong DO Work Phone: [facility] 08-18-2024 10:30-0500 Body mass index (BMI) [Ratio] 27 kg/m2 Reilly Furlong DO Work Phone: [facility] 08-18-2024 10:30-0500 Body temperature 97.5 [degF] Reilly Furlong DO Work Phone: [facility] 08-18-2024 10:30-0500 Body weight 66.95 kg Reilly Furlong DO Work Phone: [facility] 08-18-2024 10:30-0500 Diastolic blood pressure 68 mm[Hg] Reilly Furlong DO Work Phone: [facility] 08-18-2024 10:30-0500 Heart rate 66 /min Reilly Furlong DO Work Phone: [facility] 08-18-2024 10:30-0500 Respiratory rate 18 /min Reilly Furlong DO Work Phone: [facility] 08-18-2024 10:30-0500 SaO2% (BldA) [Mass fraction] 98 % Reilly Furlong DO Work Phone: [facility] 08-18-2024 10:30-0500 Systolic blood pressure 130 mm[Hg] Reilly Furlong DO Work Phone: [facility] 08-14-2024 15:05-0500 Body height 157.5 cm Cj Blas DPM Work Phone: [facility] 08-14-2024 15:05-0500 Body mass index (BMI) [Ratio] 26.89 kg/m2 Cj Odonnell DPM Work Phone: [facility] 08-14-2024 15:05-0500 Body weight 66.68 kg Cj Odonnell DPM Work Phone: [facility] 08-14-2024 15:05-0500 Respiratory rate 18 /min Cj Odonnell DPM Work Phone: [facility] 07-31-2024 13:31-0500 Body height 157.5 cm Vipul Itzkowitz DO Work Phone: [facility] 07-31-2024 13:31-0500 Body mass index (BMI) [Ratio] 25.97 kg/m2 Vipul Itzkowitz DO Work Phone: [facility] 07-31-2024 13:31-0500 Body weight 64.41 kg Vipul Itzkowitz DO Work Phone: [facility] 07-31-2024 13:31-0500 Diastolic blood pressure 80 mm[Hg] Vipul Itzkowitz DO Work Phone: [facility] 07-31-2024 13:31-0500 Systolic blood pressure 124 mm[Hg] Vipul Restrepo DO Work Phone: [facility] 07-14-2024 13:15-0500 Body temperature 98.2 [degF] Reilly Furlong DO Work Phone: [facility] 07-14-2024 13:15-0500 Diastolic blood pressure 82 mm[Hg] Reilly Furlong DO Work Phone: [facility] 07-14-2024 13:15-0500 Heart rate 74 /min Reilly Furlong DO Work Phone: [facility] 07-14-2024 13:15-0500 Respiratory rate 18 /min Reilly Furlong DO Work Phone: [facility] 07-14-2024 13:15-0500 SaO2% (BldA) [Mass fraction] 99 % Reilly Furlong DO Work Phone: [facility] 07-14-2024 13:15-0500 Systolic blood pressure 140 mm[Hg] Reilly Furlong DO Work Phone: [facility] 06-12-2024 10:18-0500 Body mass index (BMI) [Ratio] 27.44 kg/m2 Annmarie Rinkes DO Work Phone: [facility] 06-12-2024 10:18-0500 Body weight 68.04 kg Annmarie Rinkes DO Work Phone: [facility] 06-12-2024 10:18-0500 Diastolic blood pressure 84 mm[Hg] Annmarie Rinkes DO Work Phone: [facility] 06-12-2024 10:18-0500 Systolic blood pressure 122 mm[Hg] Annmarie Rinkes DO Work Phone: [facility] 04-23-2024 08:58-0400 Body height 157.5 cm Reilly Furlong DO Work Phone: [facility] [employer] 04-23-2024 08:58-0400 Body mass index (BMI) [Ratio] 27.65 kg/m2 Reilly Furlong DO Work Phone: [facility] [employer] 04-23-2024 08:58-0400 Body temperature 98.29 [degF] Reilly Furlong DO Work Phone: [facility] [employer] 04-23-2024 08:58-0400 Body weight 68.58 kg Reilly Furlong DO Work Phone: [facility] [employer] 04-23-2024 08:58-0400 Diastolic blood pressure 64 mm[Hg] Reilly Furlong DO Work Phone: [facility] [employer] 04-23-2024 08:58-0400 Heart rate 66 /min Reilly Furlong DO Work Phone: [facility] [employer] 04-23-2024 08:58-0400 Respiratory rate 18 /min Reilly Furlong DO Work Phone: [facility] [employer] 04-23-2024 08:58-0400 SaO2% (BldA) [Mass fraction] 98 % Reilly Furlong DO Work Phone: [facility] [employer] 04-23-2024 08:58-0400 Systolic blood pressure 124 mm[Hg] Reilly Furlong DO Work Phone: [facility] 02-15-2024 09:21-0400 Body height 157.5 cm Reilly Furlong DO Work Phone: [facility] [employer] 02-15-2024 09:21-0400 Body mass index (BMI) [Ratio] 26.7 kg/m2 Reilly Furlong DO Work Phone: [facility] [employer] 02-15-2024 09:21-0400 Body temperature 98.01 [degF] Reilly Furlong DO Work Phone: [facility] 02-15-2024 09:21-0400 Body weight 66.22 kg Reilly Furlong DO Work Phone: [facility] 02-15-2024 09:21-0400 Diastolic blood pressure 80 mm[Hg] Reilly Furlong DO Work Phone: [facility] 02-15-2024 09:21-0400 Heart rate 58 /min Reilly Furlong DO Work Phone: [facility] 02-15-2024 09:21-0400 Respiratory rate 18 /min Reilly Furlong DO Work Phone: [facility] 02-15-2024 09:21-0400 SaO2% (BldA) [Mass fraction] 99 % Reilly Furlong DO Work Phone: [facility] 02-15-2024 09:21-0400 Systolic blood pressure 120 mm[Hg] Reilly Furlong DO Work Phone: [facility] 01-15-2024 11:03-0400 Body height 157.5 cm Reilly Furlong DO Work Phone: [facility] 01-15-2024 11:03-0400 Body mass index (BMI) [Ratio] 26.41 kg/m2 Reilly Furlong DO Work Phone: [facility] 01-15-2024 11:03-0400 Body weight 65.5 kg Reilly Furlong DO Work Phone: [facility] 01-15-2024 11:03-0400 Diastolic blood pressure 88 mm[Hg] Reilly Furlong DO Work Phone: [facility] 01-15-2024 11:03-0400 Systolic blood pressure 122 mm[Hg] Reilly Furlong DO Work Phone: [facility] 08-16-2023 10:47-0500 Diastolic blood pressure 73 mm[Hg] SARAH BETHMARCO A SINGH [facility] 08-16-2023 10:47-0500 Heart rate 60 /min SARAH BETH SINGH [facility] 08-16-2023 10:47-0500 Systolic blood pressure 134 mm[Hg] SARAH BETH SINGH [facility] 08-15-2023 09:20-0500 Body height 157.5 cm [facility] 08-15-2023 09:20-0500 Body mass index (BMI) [Ratio] 26.34 kg/m2 Re[facility] 08-15-2023 09:20-0500 Body temperature 97.2 [degF] [facility] 08-15-2023 09:20-0500 Body weight 65.32 kg Reilly Furlong DO [facility] 08-15-2023 09:20-0500 Diastolic blood pressure 62 mm[Hg] [facility] 08-15-2023 09:20-0500 Heart rate 74 /min Re[facility]long DO [facility] 08-15-2023 09:20-0500 SaO2% (BldA) [Mass fraction] 97 % Reilly Furlong DO [facility] 08-15-2023 09:20-0500 Systolic blood pressure 102 mm[Hg] Reilly Furlong DO Work [facility] 06-17-2023 10:10-0500 Body height 160.02 cm Kaitlyn Giordano Other [employer] Other 06-17-2023 10:10-0500 Body mass index (BMI) [Ratio] 25.79 kg/m2 Kaitlyn Giordano Other [employer] Other 06-17-2023 10:10-0500 Body temperature 98.1 [degF] Kaitlyn Giordano Other [employer] Other 06-17-2023 10:10-0500 Body weight 66.04 kg Kaitlyn Giordano Other [employer] Other 06-17-2023 10:10-0500 Diastolic blood pressure 74 mm[Hg] Kaitlyn Giordano Other [employer] Other 06-17-2023 10:10-0500 Respiratory rate 18 /min Kaitlyn Giordano Other [employer] Other 06-17-2023 10:10-0500 SaO2% (BldA) [Mass fraction] 95 % Kaitlyn Giordano Other [employer] Other 06-17-2023 10:10-0500 Systolic blood pressure 129 mm[Hg] Kaitlyn Giordano Other [employer] Other 07-21-2022 10:52-0500 Blood Pressure Location Diamond LOAIZA [facility] 07-21-2022 10:52-0500 Diastolic blood pressure 67 mm[Hg] Diamond LOAIZA [facility] 07-21-2022 10:52-0500 Heart rate 68 /min Diamond LOAIZA [facility] 07-21-2022 10:52-0500 Respiratory rate 16 /min Diamond LOAIZA [facility] 07-21-2022 10:52-0500 Systolic blood pressure 124 mm[Hg] Diamond LOAIZA [facility] Encounters Encounter Date Encounter Type Care Provider Facility Start: 03-06-2025 ambulatory Diamond Dahli ty:[facility] Start: 02-11-2025 ambulatory Diamond Gonzalez LOAIZA Facili ty:[facility] Start: 01-20-2025 End: 01-20-2025 Patient encounter procedure Reilly Yoo DO Work Phone[facility] Comment on above: Medicare annual well ness visit, subsequent (Primary Dx); Screening for depression Start: 01-16-2025 End: 01-16-2025 ambulatory Reilly Hobuck Facility:[facility] Start: 01-01-2025 End: 01-01-2025 Office outpatient visit 15 minutes Reilly Yoo DO Work Phone: [facility] Comment on above: Bilateral impacted c erumen (Primary Dx); Neoplasm of uncertain behavior of skin Start: 01-01-2025 End: 01-01-2025 [facility] Start: 12-30-2024 End: 12-30-2024 Orders Only Reilly Yoo DO Work Phone: [facility] Comment on above: Neoplasm of uncertai n behavior of skin (Primary Dx) Start: 12-22-2024 End: 12-22-2024 Office outpatient visit 25 minutes Reilly Yoo DO Work Phone: [facility] Comment on above: Neoplasm of uncertai n behavior of skin (Primary Dx); Tick bite of lower back, sequela; Bilateral impacted cerumen Start: 12-22-2024 End: 12-22-2024 ambulatory [facility] Start: 12-19-2024 End: 12-19-2024 ambulatory Diamond LOAIZA Facility:[id number] Start: 11-25-2024 End: 11-26-2024 ambulatory Diamond LOAIZA Facility:CD:[id number] Start: 11-19-2024 End: 11-19-2024 ambulatory Diamond LOAIZA Facility:[facility] Start: 11-14-2024 End: 11-14-2024 Emergency department patient visit Reilly Yoo DO Work Phone: [facility] Work Phone: Start: 11-02-2024 End: 11-02-2024 [facility] Work Phone: [facility] Internal Medicine - Family Medicine Start: 10-10-2024 End: 10-10-2024 ambulatory CJ ODONNELL Not Available Start: 10-09-2024 End: 10-09-2024 Bamboo flowsheet Cj Odonnell DPM Work Phone: [facility] Start: 10-09-2024 End: 10-09-2024 Bamboo flowsheet Cj Odonnell DPM Work Phone: [facility] Start: 09-04-2024 End: 09-04-2024 Bamboo flowsheet Cj Odonnell DPM Work Phone: [facility] Start: 09-04-2024 End: 09-04-2024 Bamboo flowsheet Cj Odonnell DPM Work Phone: [facility] Start: 09-04-2024 End: 09-04-2024 Office outpatient visit 15 minutes Cj Odonnell DPM Work Phone: [facility] Comment on above: Posterior tibial ten donitis of right leg (Primary Dx); Pes planovalgus, acquired, right Start: 09-04-2024 End: 09-04-2024 ambulatory CJ ODONNELL Not Available Start: 08-30-2024 End: 08-30-2024 Patient encounter procedure Reilly Yoo DO Work Phone: [facility] Work Phone: Start: 08-30-2024 End: 08-30-2024 ambulatory Reilly Yoo Facility:[facility] Start: 08-18-2024 End: 08-18-2024 Office outpatient visit 25 minutes Reilly Yoo DO Work Phone: [facility] Comment on above: Essential hypertensi on (Primary Dx); Hypercholesterolemia; Overweight; Neoplasm of uncertain behavior of skin Start: 08-18-2024 End: 08-18-2024 ambulatory REILLYKALEB HOBUCK [facility] Start: 08-15-2024 End: 08-15-2024 Patient encounter procedure Reilly Yoo DO Work Phone: [facility] Work Phone: Start: 08-15-2024 End: 08-15-2024 ambulatory Reilly Yoo DO Work Phone: [facility] Work Phone: Start: 08-14-2024 End: 08-14-2024 Office outpatient new 30 minutes Cj Odonnell DPM Work Phone: [facility] Comment on above: Posterior tibial ten donitis of right leg (Primary Dx); Pes planovalgus, acquired, right Start: 08-14-2024 End: 08-14-2024 ambulatory CJ ODONNELL Not Available Start: 08-14-2024 End: 08-14-2024 Bamboo flowsheet Cj Odonnell DPM Work Phone: [facility] Start: 08-14-2024 End: 08-14-2024 Bamboo flowsheet Cj Odonnell DPM Work Phone: [facility] Start: 08-11-2024 End: 08-12-2024 Orders Only Reilly Yoo DO Work Phone: [facility] Comment on above: Essential hypertensi on (Primary Dx); Hypercholesterolemia; Vitamin D deficiency Start: 08-11-2024 End: 08-11-2024 Refill Reilly Yoo DO Work Phone: [facility] Start: 07-31-2024 End: 07-31-2024 Office outpatient visit 15 minutes Vipul Ara Itteratz DO Work Phone: [facility] Comment on above: 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) Start: 07-31-2024 End: 07-31-2024 ambulatory VIPUL Ara ITZKOWITZ Not Available Start: 07-14-2024 End: 07-14-2024 Admission to same day surgery center Reilly Yoo DO Work Phone: [facility] Start: 07-14-2024 End: 07-14-2024 ambulatory Vipul Itzkowitz Facility:[facility] Start: 07-02-2024 End: 07-02-2024 Patient encounter procedure Reilly Yoo DO Work Phone: [facility] Work Phone: Start: 07-02-2024 End: 07-02-2024 ambulatory Vipul Itzkowitz Facility:[facility] Start: 06-24-2024 End: 06-24-2024 ambulatory ANNMARIE E RINKES Not Available Start: 06-12-2024 End: 06-12-2024 Bamboo flowsheet Annmarie E Rinkes DO Work Phone: [facility] Start: 06-12-2024 End: 06-12-2024 Bamboo flowsheet Annmarie E Rinkes DO Work Phone: [facility] Start: 06-12-2024 End: 06-12-2024 Patient encounter status Annmarie E Rinkes DO Work Phone: [facility] Start: 06-12-2024 End: 06-12-2024 Periodic preventive med est patient 65yrs& older Annmarie Freitas DO Work Phone: [facility] Comment on above: Encounter for gyneco logical examination without abnormal finding; Screening for malignant neoplasm of cervix; Encounter for screening mammogram for breast cancer Start: 06-12-2024 End: 06-12-2024 ambulatory ANNMARIE FREITAS Not Available Start: 05-14-2024 End: 05-14-2024 Refill Reilly Yoo DO Work Phone: [facility] Start: 04-23-2024 End: 04-23-2024 Office outpatient visit 15 minutes Reilly Yoo DO Work Phone: [facility] Comment on above: Cellulitis, unspecif ied cellulitis site (Primary Dx) Start: 04-23-2024 End: 04-23-2024 ambulatory [facility] Start: 04-22-2024 End: 04-22-2024 Telephone encounter Reilly Yoo DO Work Phone: [facility] Start: 02-15-2024 End: 02-15-2024 ambulatory [facility] Start: 02-15-2024 End: 02-15-2024 Office outpatient visit 15 minutes Reilly Yoo DO Work Phone: [facility] Comment on above: Tick bite of lower b ack, initial encounter (Primary Dx); Essential hypertension; Chronic cough Start: 02-15-2024 End: 02-15-2024 ambulatory [facility] Start: 01-15-2024 End: 01-15-2024 Patient encounter procedure Reilly Yoo DO Work Phone: [facility] Comment on above: Medicare annual well ness visit, subsequent (Primary Dx); Screening for depression Start: 01-15-2024 End: 01-15-2024 ambulatory [facility] Start: 08-30-2023 Refill Reilly jane DO Work Phone: [facility] Start: 08-17-2023 Orders Only Reilly jane DO Work Phone: [facility] Start: 08-16-2023 End: 08-16-2023 Patient encounter procedure SARAH BETH E FRANCISCO [facility] Start: 08-15-2023 End: 08-15-2023 ambulatory [facility] Start: 08-15-2023 End: 08-15-2023 Office outpatient visit 25 minutes Reilly Yoo DO Work Phone: [facility] Comment on above: Essential hypertensi on (Primary Dx); Hypercholesterolemia; Overweight; Screen for colon cancer; Vitamin D deficiency Start: 07-16-2023 End: 07-16-2023 ambulatory DO Reilly Yoo Work Phone: [facility] Work Phone: Start: 07-16-2023 End: 07-16-2023 Patient encounter procedure DO Reilly Yoo Work Phone: [facility] Work Phone: Start: 06-17-2023 End: 06-17-2023 ambulatory Kaitlyn Giordano Other [employer] Other Start: 06-17-2023 Office outpatient vi sit 15 minutes Kaitlyn Giordano [facility] Start: 07-21-2022 End: 07-21-2022 Patient encounter procedure [facility] Start: 07-18-2022 End: 07-18-2022 ambulatory DO Reilly Furlong Work Phone: [facility] Work Phone: Start: 07-18-2022 End: 07-18-2022 Patient encounter procedure DO Reilly Furlong Work Phone: [facility] [place] Start: 07-11-2022 End: 07-11-2022 ambulatory DO Reilly Furlong Work Phone: [facility] Work Phone: Start: 07-11-2022 End: 07-11-2022 Patient encounter procedure DO Reilly Furlong Work Phone: [facility] Start: 07-15-2021 End: 07-16-[address] DIAMOND LOAIZA Facility:[facility] Start: 05-04-2021 End: 05-05-2021 ambulatory ANNMARIE FREITAS Facility:[facility] Start: 01-07-2021 End: 01-08-[address] DIAMOND LOAIZA Facility:[facility] Start: 12-22-2020 End: 12-23-[address] REILLY YOO Facility:[facility] Start: 10-11-2020 End: 10-12-[address] NANCE LISTED REQUEST Facility:[facility] Procedures Date Procedure Procedure Detail Performing Clinician Start: 01-20-2025 Adult depression scr eening assessment Reilly Furlong DO Work Phone: Start: 01-01-2025 Adult depression scr eening assessment Reilly Furlong DO Work Phone: Start: 12-22-2024 Follow-up visit Follow-up REILLY YOO Start: 12-22-2024 Adult depression scr eening assessment Reilly Furlong DO Work Phone: Start: 11-14-2024 CT of abdomen and pe lvis without contrast Reilly Georgiajonah DO Work Phone: Start: 08-18-2024 Adult depression scr eening assessment Reilly Yoo DO Work Phone: Start: 07-14-2024 Mammography of right breast Reilly [employer] DO Work Phone: Start: 07-14-2024 Core needle biopsy o f breast using ultrasound guidance Reilly BarnesGuaranteach DO Work Phone: Start: 07-14-2024 Ultrasonography of r ight breast Reilly HoTRiQ DO Work Phone: Start: 06-24-2024 Mammography Vipul It zbarbtz DO Work Phone: Start: 04-23-2024 Adult depression scr eening assessment Reilly GeorgiaTRiQ DO Work Phone: Start: 02-15-2024 Adult depression scr eening assessment Reilly [employer] DO Work Phone: Start: 01-15-2024 Adult depression scr eening assessment Reilly [employer]buck DO Work Phone: Start: 08-15-2023 Adult depression scr eening assessment Reilly HoTRiQ DO Work Phone: Start: 07-16-2023 Diagnostic radiograp hy of abdomen DO Reilly GeorgiaTRiQ Work Phone: Start: 05-17-2023 Mammography Reilly mckenzie DO Work Phone: Start: 07-18-2022 Diagnostic radiograp hy of abdomen DO [employer] Work Phone: Start: 05-25-2020 Removal of ureteral stent Diamond LOAIZA Start: 05-21-2020 Cystoscopy and retro grade pyelography Diamondivanna LOAIZA Start: 05-21-2020 History of ureterosc opic laser fragmentation of ureteric calculus Diamond LOAIZA Start: 05-21-2020 Placement of stent Kody LOAIZA Start: 07-26-2018 Lithotripsy Diamond REHMAN Comment on above: Extracorporeal shock wave lithotripsy left renal calculi Appendectomy Diamond LOAIZA Colonoscopy Diamond LOAIZA Extracorporeal shock wave lithotripsy of the bile duct Diamond LOAIZA Comment on above: had kidney stone in1 987..3 lithotripsies in 2015 Ligation of fallopian tube Aly LOAIZA removal of skin cancer Shakira LOAIZA Screening for malign ant neoplasm of colon Kaitlyn Giordano Other Plan of Treatment Date Care Activity Detail Author Start: 01-26-2033 DTaP,Tdap and Td Vaccines (3 - Td or Tdap) DTaP,Tdap and Td Vaccines (3 - Td or Tdap) [facility] Start: 08-22-2026 Screening for malignant neoplasm of colon [facility] Start: 01-26-2026 End: 01-26-2026 Patient encounter procedure 01/26/2026 9:40 AM EDT [facility] [place] [id number] [facility] Start: 01-20-2026 Adult BMI Screening Adult BMI Screening [facility] Start: 01-20-2026 Depression Screening Depression Screening [facility] Start: 01-20-2026 Fall Risk Screening Fall Risk Screening [facility] Start: 01-20-2026 Medicare Annual Wellness Visit Medicare Annual Wellness Visit [facility] Start: 01-01-2026 Tobacco Screening Tobacco Screening [facility] Start: 12-22-2025 Adult BMI Screening Adult BMI Screening [facility] Start: 12-22-2025 Depression Screening Depression Screening [facility] Start: 12-22-2025 Fall Risk Screening Fall Risk Screening [facility] Start: 12-22-2025 Tobacco Screening Tobacco Screening [facility] Start: 08-19-2025 End: 08-19-2025 Patient encounter procedure 08/19/2025 10:00 AM EST Office Visit [facility] [address] [place] [address] Reilly Yoo, [address] [place] [address] [facility] Start: 08-18-2025 Adult BMI Screening Adult BMI Screening [facility] Start: 08-18-2025 Depression Screening Depression Screening [facility] Start: 08-18-2025 Fall Risk Screening Fall Risk Screening [facility] Start: 08-18-2025 Tobacco Screening Tobacco Screening [facility] Start: 06-30-2025 End: 06-30-2025 Professional / ancillary services management 06/30/2025 12:00 PM EST Ancillary Procedure [facility] [place] [address] [place] [address] [facility] [place] Start: 06-30-2025 End: 06-30-2025 Patient encounter procedure 06/30/2025 10:30 AM EST Office Visit [facility] [address] [place] [address] Annmarie Freiats, DO [address] [address] [place] [address] [facility] Start: 06-24-2025 Screening for malignant neoplasm of breast Mammogram [facility] Start: 04-23-2025 Adult BMI Screening Adult BMI Screening [facility] Start: 04-23-2025 Depression Screening Depression Screening [facility] Start: 04-23-2025 Fall Risk Screening Fall Risk Screening [facility] Start: 04-23-2025 Tobacco Screening Tobacco Screening [facility] Start: 04-06-2025 Influenza vaccination Influenza Vaccine [facility] Start: 02-14-2025 Adult BMI Screening Adult BMI Screening [facility] Start: 02-14-2025 Depression Screening Depression Screening [facility] Start: 02-14-2025 Tobacco Screening Tobacco Screening [facility] Start: 01-29-2025 End: 10-01-2025 DBT Breast - right diagnostic Right diagnostic mammogram with tomosynthesis Imaging Routine Pseudoangiomatous stromal hyperplasia of breast Expected: 01/29/2025, Expires: 10/01/2025 [facility] Work Phone: Comment on above: Expected: 01/29/2025, Expires: Start: 01-29-2025 End: 10-01-2025 US Breast - right limited Right breast US limited Imaging Routine Pseudoangiomatous stromal hyperplasia of breast Expected: 01/29/2025, Expires: 10/01/2025 [facility] [employer] Comment on above: Expected: 01/29/2025, Expires: Start: 01-29-2025 End: 01-29-2025 Patient encounter procedure 01/29/2025 10:45 AM EDT Office Visit [facility] [address] [address] Vipul Restrepo DO [address] [place] [address] [facility] Start: 01-20-2025 End: 01-20-2025 Patient encounter procedure 01/20/2025 9:00 AM EDT [facility] [address] [place] [address] [facility] Internal Medicine - Family Medicine Start: 01-14-2025 Adult BMI Screening Adult BMI Screening [facility] Start: 01-14-2025 Depression Screening Depression Screening [facility] Start: 01-14-2025 Fall Risk Screening Fall Risk Screening [facility] Start: 01-14-2025 Medicare Annual Wellness Visit Medicare Annual Wellness Visit [facility] Start: 01-01-2025 End: 01-01-2025 Patient encounter procedure 01/01/2025 11:30 AM EDT [facility] [address] [address] Reilly Yoo, DO [address], [place] [address] [facility] Start: 10-09-2024 End: 10-09-2024 Patient encounter procedure 10/09/2024 10:50 AM EST Office Visit [facility] [address] [facility] [address] [place] [id number] Cj Odonnell, DPJaime [address] [facility] [address] [place] [address] Posterior tibial tendonitis of right leg (Primary Dx); Pes planovalgus, acquired, right; Contracture of left ankle [facility] Comment on above: Posterior tibial tendonitis of right leg (Primary Dx); Pes planovalgus, acquired, right; Contracture of left ankle Start: 09-04-2024 End: 09-04-2024 Patient encounter procedure [facility] Comment on above: Posterior tibial tendonitis of right leg (Primary Dx); Pes planovalgus, acquired, right Start: 08-18-2024 End: 08-18-2024 Patient encounter procedure 08/18/2024 10:30 AM EST [facility] [address] [place] [address] Reilly Yoo, DO [address], [place] [address] [facility] Start: 08-15-2024 Adult BMI Screening Adult BMI Screening [facility] Start: 08-15-2024 Depression Screening Depression Screening [facility] Start: 08-15-2024 Fall Risk Screening Fall Risk Screening [facility] Start: 08-15-2024 Tobacco Screening Tobacco Screening [facility] Start: 08-14-2024 End: 08-14-2024 Patient encounter procedure [facility] Comment on above: Arrived Start: 06-12-2024 End: 06-12-2024 Professional / ancillary services management 06/12/2024 11:00 AM EST Ancillary Procedure [facility] [place] [address] [place] [address] [facility] [place] Start: 06-12-2024 End: 06-12-2024 Patient encounter procedure 06/12/2024 10:15 AM EST [facility] [address] [place] [address] Annmarie Freitas DO [address] [place] [address] Encounter for gynecological examination without abnormal finding; Screening for malignant neoplasm of cervix; Encounter for screening mammogram for breast cancer [facility] Comment on above: Encounter for gynecological examination without abnormal finding; Screening for malignant neoplasm of cervix; Encounter for screening mammogram for breast cancer Start: 05-17-2024 Screening for malignant neoplasm of breast Mammogram [facility] Start: 04-23-2024 End: 04-23-2024 Patient encounter procedure 04/23/2024 9:00 AM EDT Office Visit [facility] [address] [place] [address] Reilly Yoo DO [address] [address] [facility] Start: 04-06-2024 Influenza vaccination [facility] Start: 01-15-2024 End: 01-15-2024 Patient encounter procedure 01/15/2024 11:00 AM EDT Office Visit [facility] [address] [place] [address] [facility] Start: 12-29-2023 Medicare Annual Wellness Visit Medicare Annual Wellness Visit [facility] Start: 07-03-2023 COVID-19 Vaccine ( season) [facility] Start: 11-08-2020 COVID-19 Vaccine (2 - Silver risk series) COVID-19 Vaccine (2 - Silver risk series) [facility] Start: 2001 Screening for malignant neoplasm of colon Colon Cancer Screening 3 Year Cologuard [facility] Start: 1974 Adult BMI Follow Up Plan [facility] Start: 1955 Screening for malignant neoplasm of colon [facility] End: 02-14-2025 Arthropod identification Arthropod identification Lab Routine Tick bite of lower back, initial encounter 1 Occurrences starting 02/15/2024 until 02/14/2025 [facility] Work Phone: Comment on above: 1 Occurrences starting 02/15/2024 until 02/14/2025 [facility] C[facility] Lab Routine Screen for colon cancer Ordered: 08/15/2023 [facility] Work Phone: Comment on above: Ordered: 08/15/2023 End: 08-11-2025 Comprehensive metabolic 2000 panel - Serum or Plasma Comprehensive metabolic panel Lab Routine Essential hypertension 1 Occurrences starting 08/11/2024 until 08/11/2025 [facility] Work Phone: Comment on above: 1 Occurrences starting 08/11/2024 until 08/11/2025 DBT Breast - bilater al screening Bilateral screening mammogram with tomosynthesis Imaging Routine Encounter for screening mammogram for breast cancer Ordered: 06/12/2024 [facility] Comment on above: Ordered: 06/12/2024 End: 08-11-2025 Lipid panel Lipid panel Lab Routine Hypercholesterolemia 1 Occurrences starting 08/11/2024 until 08/11/2025 [facility] Comment on above: 1 Occurrences starting 08/11/2024 until 08/11/2025 Patient Education Kidney stones in adults [facility] Work Phone: Patient referral [facility] Work Phone: SENDOUT TEST MISCELLANEOUS [facility] SENDOUT TEST MISCELLANEOUS [facility] Lab Routine Screening for malignant neoplasm of cervix Ordered: 06/12/2024 [facility] Work Phone: Comment on above: Ordered: 06/12/2024 End: 08-11-2025 Vitamin D 25 hydroxy Vitamin D 25 hydroxy Lab Routine Vitamin D deficiency 1 Occurrences starting 08/11/2024 until 08/11/2025 [facility] Comment on above: 1 Occurrences starting 08/11/2024 until 08/11/2025 Immunizations Immunization Date Immunization Notes Care Provider Heidi mera 06-07-2024 influenza, high dose seasonal, preservative-free Reilly Furlong DO Work Phone: [facility] 06-07-2024 influenza virus vaccine, unspecified formulation Reilly Furlong DO Work Phone: [facility] 05-08-2023 influenza virus vaccine, unspecified formulation SARAH BETH SINGH [facility] 01-26-2023 tetanus toxoid, redu robin diphtheria toxoid, and acellular pertussis vaccine, adsorbed Reilly Furlong DO Work Phone: [facility] 06-23-2022 SARS-CoV-2 (COVID-19 ) [id number] SARAH BETH SINGH [facility] 05-23-2022 influenza virus vaccine, unspecified formulation SARAH BETH SINGH [facility] 05-23-2022 Influenza, High-dose , Quadrivalent Reilly Furlong DO Work Phone: [facility] 12-05-2021 Pneumococcal Conjuga te 20-valent Reilly Furlong DO Work Phone: [facility] 06-08-2021 SARS-CoV-2 (COVID-19 ) Ad26 vaccine, recombinant SARAH BETH SINGH [facility] 04-12-2021 influenza virus vaccine, unspecified formulation SARAH BETHREI SINGH [facility] 04-12-2021 influenza, injectabl e, quadrivalent, preservative free Reilly Furlong DO Work Phone: [facility] 10-11-2020 COVID-19 Vaccine, vector-nr, rS-Ad26, PF, 0.5mL Reilly Furlong DO Work Phone: [facility] 10-11-2020 SARS-CoV-2 (COVID-19 ) mRNA-1273 vaccine Diamond Neovacs [facility] Comment on above: Result Comment: birgit scherer 05-07-2020 influenza virus vaccine, unspecified formulation SARAH BETH SINGH [facility] 05-07-2020 Influenza, injectabl e, Madin [place] Canine Kidney, preservative free, quadrivalent Reilly Furlong DO Work Phone: [facility] 05-11-2019 zoster vaccine recombinant Reilly Furlong DO Work Phone: [facility] 05-06-2019 influenza virus vaccine, live, attenuated, for intranasal use Diamond LOAIZA [facility] 05-06-2019 Influenza, injectabl e, Madin [place] Canine Kidney, quadrivalent with preservative Reilly Furlong DO Work Phone: [facility] 03-12-2019 zoster vaccine recombinant Reilly Furlong DO Work Phone: [facility] 05-21-2018 influenza virus vaccine, unspecified formulation SARAH BETHREI SINGH [facility] 05-21-2018 Influenza, injectabl e, Madin Azeb Canine Kidney, preservative free, quadrivalent Reilly Furlong DO Work Phone: [facility] 05-08-2017 influenza virus vaccine, unspecified formulation SARAH BETH [place] [facility] 05-08-2017 influenza, injectabl e, quadrivalent, contains preservative Reilly Furlong DO Work Phone: [facility] 04-13-2017 influenza virus vaccine, unspecified formulation SARAH BETH [place] [facility] 04-13-2017 Influenza, injectabl e, Madin Azeb Canine Kidney, preservative free, quadrivalent Reilly Furlong DO Work Phone: [facility] 10-23-2016 zoster vaccine, live Reilly Furlong DO Work Phone: [facility] 05-12-2016 influenza virus vaccine, unspecified formulation SARAH BETH [place] [facility] 05-12-2016 influenza, seasonal, injectable, preservative free Reilly Furlong DO Work Phone: [facility] 04-29-2015 influenza, seasonal, injectable, preservative free Reilly Furlong DO Work Phone: [facility] 12-09-2012 tetanus toxoid, redu robin diphtheria toxoid, and acellular pertussis vaccine, adsorbed Reilly Furlong DO Work Phone: [facility] Payers Date Payer Category Payer Managed Care Other (unspecified) [facility] [id number] 2021 Medicare [id number] 2021 Private Health Insurance [id number] 2021 Medicare [id number] 2021 Medicare [id number] 2021 Unknown [id number] 1959 Self-pay 1956 Unknown [id number] 2.0.1.182410.3.579.2 .593 1956 Unknown [id number] 2.840.1.869516.3.579.2 .593 1956 Unknown [id number] 2.840.1.859778.3.579.2 .593 1956 Unknown [id number] .840.1.397603.3.579.2 .593 1956 Unknown [id number] 2.16840.1.636756.3.579.2 .1286 1956 Unknown [id number] 2.16840.1.158507.3.579.2 .1286 1956 Unknown [id number] 2.16840.1.356489.3.579.2 .1259 1956 Unknown [id number] 2.16.840.1.800134.3.579.2 .1259 1956 Unknown [id number] 2.16.840.1.192590.3.579.2 .1258 1956 Unknown [id number] 2.16.840.1.340808.3.579.2 .1258 1956 Unknown [id number] 2.16.840.1.553284.3.579.2 .1258 1956 Unknown [id number] 2.16.840.1.940342.3.579.2 .1258 1956 Unknown [id number] 2.16.840.1.256033.3.579.2 .1258 1956 Unknown [id number] 2.16840.1.076464.3.579.2 .1258 1956 Unknown [id number] 2.16.840.1.977238.3.579.2 .727 1956 Unknown [id number] 2.16.840.1.534369.3.579.2 .727 1956 Unknown [id number] 2.16.840.1.764373.3.579.2 .727 1956 Unknown [id number] 2.16840.1.089810.3.579.2 .7 1956 Unknown [id number] 2.16.840.1.463226.3.579.2 .727 1956 Unknown [id number] 2.16.840.1.316277.3.579.2 .1286 1956 Unknown [id number] 2.16.840.1.405998.3.579.2 .1286 1956 Unknown [id number] 2.16.840.1.579617.3.579.2 .128 1956 Unknown [id number] 2.16.840.1.837541.3.579.2 .1286 1956 Unknown [id number] 2.16.840.1.811858.3.579.2 .1286 1956 Unknown [id number] 2.16.840.1.185713.3.579.2 .1286 Unknown [id number] Unknown [id number] 2.16.840.1.127565.3.579.2 .593 Unknown [place] [facility] [id number] Unknown [facility] [id number] Unknown HCAP/HFA/FAP Active [id number] Social History Date Type Detail Facility Start: 06-09-2022 End: 07-18-2022 Tobacco smoking status NHIS Never smoked tobacco (finding) [facility] Start: 1955 Sex Assigned At Female [facility] Tobacco smoking status Never [facility] Start: 07-18-2022 End: 06-12-2024 Sex Assigned At Female [facility] Start: 06-12-2024 End: 09-04-2024 Alcoholic beverage intake Lifetime non-drinker (finding) [facility] Start: 07-18-2022 End: 06-12-2024 History of Social function [facility] Start: 05-16-2023 Alcohol Comment Caffeine intak e: 1-2 cups per day chocolate [facility] Start: 1955 Sex assigned at Not on file [email or web address] Start: 07-18-2022 End: 07-31-2024 Tobacco use and exposure Smokeless tobacco non-user [facility] Start: 08-01-2024 End: 01-01-2025 Alcoholic beverage intake Ex-drinker (finding) [facility] Has the Petta, Screen [employer] [place], or water Orderlord threatened to shut off services in your home in past 12Mo No [facility] Do you belong to any clubs or organizations such as druze groups, unions, fraternal or athletic groups, or school groups? Yes [facility] Are you now , , , , never or living with a partner? [facility] How often to you hav e a drink containing alcohol? Never [facility] Do you feel stress - tense, restless, nervous, or anxious, or unable to sleep at night because your mind is troubled all the time - these days [OSQ] Not at all [facility] Start: 03-11-2015 End: 11-14-2024 Sex Female (finding) [facility] NEGATED: Highlighted rowStart: NINF History of tobacco use Passive smoker [facility] Medical Equipment Procedure Code Equipment Code Equipment Origin al Text Equipment Identifier Dates Cystoscopy, with ureteral calculus manipulation and stent placement STENT CONTOUR 4.8FR X 22-30CM FDA Start: 02-15-2018 Cystoscopy, with ureteral calculus manipulation and stent placement STENT CONTOUR 4.8FR X 22-30CM FDA Start: 03-22-2018 Cystoscopy, with ureteral calculus manipulation and stent placement STENT PERCUFLEX 4.8FR X 24CM FDA Start: 03-22-2018 Cystoscopy, with ureteral calculus manipulation and stent placement STENT CONTOUR 4.8FR X 22-30CM FDA Start: 02-15-2018 Cystoscopy, with ureteral calculus manipulation and stent placement STENT CONTOUR 4.8FR X 22-30CM FDA Start: 03-22-2018 Cystoscopy, with ureteral calculus manipulation and stent placement STENT PERCUFLEX 4.8FR X 24CM FDA Start: 03-22-2018 Cystoscopy, with ureteral calculus manipulation and stent placement STENT CONTOUR 4.8FR X 22-30CM FDA Start: 02-15-2018 Cystoscopy, with ureteral calculus manipulation and stent placement STENT CONTOUR 4.8FR X 22-30CM FDA Start: 03-22-2018 Cystoscopy, with ureteral calculus manipulation and stent placement STENT PERCUFLEX 4.8FR X 24CM FDA Start: 03-22-2018 Cystoscopy, with ureteral calculus manipulation and stent placement STENT CONTOUR 4.8FR X 22-30CM FDA Start: 02-15-2018 Cystoscopy, with ureteral calculus manipulation and stent placement STENT CONTOUR 4.8FR X 22-30CM FDA Start: 03-22-2018 Cystoscopy, with ureteral calculus manipulation and stent placement STENT PERCUFLEX 4.8FR X 24CM FDA Start: 03-22-2018 Cystoscopy, with ureteral calculus manipulation and stent placement STENT CONTOUR 4.8FR X 22-30CM FDA Start: 02-15-2018 Cystoscopy, with ureteral calculus manipulation and stent placement STENT CONTOUR 4.8FR X 22-30CM FDA Start: 03-22-2018 Cystoscopy, with ureteral calculus manipulation and stent placement STENT PERCUFLEX 4.8FR X 24CM FDA Start: 03-22-2018 Polymeric ureter al stent ([id number] FDA Start: 05-21-2020 Functional Status Date Assessment Result Facility 08-16-2023 Functional Status N/A [facility] 07-21-2022 Functional Status N/A [facility] Clinical Notes 07-21-2022 to 01-20-2025 Reilly Yoo, DO - 01/20/2025 9:00 AM EDJeana Yoo, DO - 01/01/2025 11:30 AM EDJeana Yoo, DO - 12/22/2024 11:30 AM EDTMedical Student - Kendall Navarro - 12/22/2024 11:30 AM EDT Note Date & Type Note Facility 01-20-2025 History of Presen t illness Narrative Subjective SUBJECTIVE: Patient ID: Ena Radford is a 69 y.o. female who presents for a Medicare Annual Wellness exam. HPI The following portions of the patient's history were reviewed and updated as appropriate: allergies, current medications, past family history, past medical history, past social history, past surgical history and problem list. AWV FLOWSHEET : Lifestyle Assessment Do you smoke or use smokeless tobacco?: No If you smoke or use smokeless tobacco, are you ready to quit?: NA Are you exposed to secondhand smoke?: No On average, how many drinks of alcohol do you consume in a week?: None Do you exercise for 30 or more minutes on average at least 3 days a week?: (!) Never Do you have any tooth, denture, or oral problems?: No Do you snore or has anyone told you that you snore?: (!) Yes Do you try to eat a balanced diet?: Yes Do you experience leakage of urine, also known as urinary incontinence?: (!) Often Do you have difficulty bathing?: No Do you have difficulty dressing?: No Do you have difficulty grooming?: No Do you have difficulty eating?: No Do you have difficulty getting out of a chair?: No Do you have difficulty walking?: No Do you have difficulty using the toilet?: No Do you have difficulty doing laundry?: No Do you have difficulty with housekeeping?: No Do you have difficulty preparing a meal?: No Do you have difficulty shopping?: No Do you have difficulty using transportation?: No Do you have difficulty paying bills?: No Do you have difficulty managing finances?: No Fall Risk Fall Risk Assessment Completed?: Yes Have you fallen in the past year?: No Are you worried about falling?: No Do you feel unsteady when standing or walking?: No Risk Stratification: Low Risk Depression Screening Little interest or pleasure in doing things: Not at all Feeling down, depressed, or hopeless: Not at all Trouble falling or staying asleep, or sleeping too much: Not at all Feeling tired or having little energy: Not at all Poor appetite or overeating: Not at all Feeling bad about yourself - or that you are a failure or have let yourself or your family down: Not at all Trouble concentrating on things, such as reading the newspaper or watching television: Not at all Moving or speaking so slowly that other people could have noticed. Or the opposite - being so fidgety or restless that you have been moving around a lot more than usual: Not at all Thoughts that you would be better off , or of hurting yourself in some way: Not at all PEG Scale What number best describes your pain on average in the past week?: 0 - No pain Safety Assessment Do you have throw rugs on the floor?: No Do you feel safe at your home?: Yes Do you feel unsteady when walking?: No Are you having difficulty with driving?: No Do you have trouble seeing?: No Do you use a bath bar/seat?: (!) Yes Do you use a raised toilet seat?: (!) Yes Do you use a cane?: No Do you use a walker?: No Do you use a wheelchair?: No Hearing Assessment Do you strain or struggle to hear/understand conversations?: No Do you have trouble hearing the television or radio when others do not?: No Does your family ever voice concerns about your hearing?: No Do you wear hearing aid/s?: No Personal Health During the past 4 weeks, how would you rate your overall health?: Very Good Do you understand how to take all of your medications?: Yes How confident are you that you can control and manage most of your health problems?: Very confident In the past 12 months, how many times have you been hospitalized?: None End of Life Planning Do you have a living will?: Yes Do you have a durable power of patent prosecution attorney?: Yes Cognitive Screening Do you have trouble remembering or recalling facts or events?: No Do family members or caregivers report that you have difficulty remembering things?: No 6-Cit: Normal REVIEW OF SYSTEMS: Review of Systems Objective PHYSICAL EXAMINATION: Vitals: 01/20/25 0908 Weight: 67.1 kg (148 lb) Height: 160 cm (5' 3 ) Physical Exam Assessment/Plan ASSESSMENT/PLAN Encounter Diagnoses Name Primary? Medicare annual wellness visit, subsequent Yes Screening for depression Health maintenance discussed. Depression screen was negative. At least 3 minute spent administering and discussing. Cognitive evaluation did not reveal any impairment. They have advanced directives in place. Return in about 1 year (around 01/20/2026). documented in this encounter [place] 01-01-2025 History of Presen t illness Narrative Subjective Patient ID: Ena Radford is a 69 y.o. female. Ena presents today for ear wax removal. She had this evaluated previously and has been using Debrox ear drops. She is still having trouble hearing out of both ears. She would like the wax removed. She has not heard anything from Dermatology yet. The following portions of the patient's history were reviewed and updated as appropriate: allergies, current medications, past family history, past medical history, past social history, past surgical history, problem list, and medication reconciliation was completed including current medication and post discharge medication. Review of Systems Objective Physical Exam Vitals reviewed. Exam conducted with a final canoe inspector present (Ramon Argueta MS 3). Constitutional: General: She is not in acute distress. Appearance: Normal appearance. She is not ill-appearing. HENT: Head: Normocephalic. Right Ear: Tympanic membrane and ear canal normal. There is impacted cerumen. Left Ear: Tympanic membrane and ear canal normal. There is impacted cerumen. Ears: Comments: Wax was obstructing both external auditory canals and was removed with lavage. Canals were not traumatize. The tympanic membranes were clear and intact bilaterally Skin: Findings: Lesion (Hyperpigmented lesion on low back) present. Neurological: Mental Status: She is alert. Assessment/Plan Ena was seen today for ear flush. Diagnoses and all orders for this visit: Bilateral impacted cerumen She would like both ears lavage. They were lavaged with lukewarm water. The ear plug on the left came out after just a couple attempts. The right took a few more attempts and then there was some residual wax which needed to be removed with alligator forceps. All the wax was removed from both ear canals. Tympanic membranes were clear and intact. Neoplasm of uncertain behavior of skin Etiology unclear. If derm declines the case may need to send to a different surgeon. documented in this encounter [facility] 12-22-2024 History of Presen t illness Narrative Subjective Patient ID: Ena Radford is a 69 y.o. female. Ena presents today for irritation of a tick bite on her lower back that was discovered in February 2024. She states it flares up from time to time with increased itchiness, swelling, redness and occasional pain. She had a flare up started 11/10/24 until 11/22/24 which she used triple antibiotic ointment 3 times daily which provided relief of symptoms. She stopped the ointment on 11/22/24 and the site worsened again on 11/29/24. She also had clobetasol cream which she tried but that did not help it at all. She does not have any fever or chills. She had a recent kidney stone on the right side which she had a scope and laser procedure for. She was given antibiotics for that and the lesion did improve but never fully went away. The redness worsened then after the antibiotic was completed. She also notes recent ear popping when she wakes up in the morning. No pain or other symptoms. 1.3x1cm Follow-up Associated symptoms include a rash. The following portions of the patient's history were reviewed and updated as appropriate: allergies, current medications, past family history, past medical history, past social history, past surgical history, problem list, and medication reconciliation was completed including current medication and post discharge medication. Review of Systems Constitutional: Negative. Musculoskeletal: Negative. Skin: Positive for rash. Psychiatric/Behavioral: Negative. Objective Physical Exam Vitals reviewed. Exam conducted with a final canoe inspector present (Ramon Argueta MS 3). Constitutional: Appearance: Normal appearance. HENT: Head: Normocephalic. Right Ear: There is impacted cerumen. Left Ear: There is impacted cerumen. Pulmonary: Effort: Pulmonary effort is normal. Skin: Findings: Lesion (red, firm plaque on mid lower back) present. Neurological: Mental Status: She is alert and oriented to person, place, and time. Psychiatric: Mood and Affect: Mood normal. Behavior: Behavior normal. Assessment/Plan Ena was seen today for follow-up. Diagnoses and all orders for this visit: Neoplasm of uncertain behavior of skin - Ambulatory referral to General Surgery ([facility]); Future She has persistent redness at the site of the tick bite. She had a course of doxycycline as well as antibiotics for other reasons but it persists. 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 I would recommend that she have it excised. It is bothering her. Tick bite of lower back, sequela - Ambulatory referral to General Surgery ([facility]); Future Lesion possibly related to her tick bite. Bilateral impacted cerumen Use Debrox ear drops and return to the office for lavage next week. Note composed in part by Ramon Argueta MS 3. documented in this encounter [facility] 12-22-2024 Miscellaneous Notes Disclaimer: This note is intended for educational purposes only. It does not constitute a patient visit and is not to be used or relied on for treatment, billing, or any other purposes. It has been created solely for to enable the student to practice documentation to achieve the expected level of competency in charting and receive feedback regarding same. This note is not a part of the legal medical record. documented in this encounter [facility] 12-22-2024 Progress note Formatting of t his note might be different from the original. Disclaimer: This note is intended for educational purposes only. It does not constitute a patient visit and is not to be used or relied on for treatment, billing, or any other purposes. It has been created solely for to enable the student to practice documentation to achieve the expected level of competency in charting and receive feedback regarding same. This note is not a part of the legal medical record. [facility] 11-19-2024 Note Patient Education Nephrology Laser Therapy for Kidney Stones, Care After After laser therapy for kidney stones, it is common to have: ??? Pain. ??? A burning feeling when you pee (urinate). ??? Small amounts of blood in your pee (urine). ??? A need to pee a lot. ??? Parts of the kidney stone in your pee. ??? Mild discomfort in your back when you pee. You may have this if you had a small mesh tube (stent) placed during the procedure. Follow these instructions at home: Medicines ??? Take tnyd-khn-xixkjtf and prescription medicines only as told by your health care provider. ??? If you were prescribed antibiotics, take them as told by your provider. Do not stop using the antibiotic even if you start to feel better. ??? Ask your provider if the medicine prescribed to you: ? Requires you to avoid driving or using machinery. ? Can cause constipation. You may need to take these actions to prevent or treat constipation: ? Drink enough fluid to keep your pee pale yellow. ? Take llhq-rfh-ducclbi or prescription medicines. ? Eat foods that are high in fiber, such as beans, whole grains, and fresh fruits and vegetables. ? Limit foods that are high in fat and processed sugars, such as fried or sweet foods. Activity ??? If you were given a sedative during the procedure, it can affect you for several hours. Do not drive or operate machinery until your provider says that it is safe. ??? Return to your normal activities as told by your provider. Ask your provider what activities are safe for you. General instructions ??? Your provider may recommend that you drink a lot of water for a few hours after your procedure. If you have heart or kidney disease, ask your provider how much you should drink. ??? You may be asked to strain your pee to collect any stone pieces that you pass. Your provider may have these pieces tested. ??? Do not take baths, swim, or use a hot tub until your provider approves. Ask your provider if you may take warm baths to soothe the burning. ??? Keep all follow-up visits. If you have a stent, you will need to go back to your provider to have it removed. Your provider may give you more instructions. Make sure you know what you can and cannot do. Contact a health care provider if: ??? You have pain or a burning feeling that lasts for more than 2 days. ??? You feel nauseous. ??? You vomit more and more often. ??? You have trouble peeing. ??? You have pain that gets worse or does not get better with medicine. ??? You have a fever or shaking chills. Get help right away if: ??? You cannot pee, even when your bladder feels full. ??? You faint. ??? You have chest pain, shortness of breath, or cough up blood. ??? You have: ? Bright red blood or blood clots in your pee. ? Severe pain or discomfort. ? Pain in your abdomen. ? Swelling in your legs. These symptoms may be an emergency. Get help right away. Call 911. ??? Do not wait to see if the symptoms will go away. ??? Do not drive yourself to the hospital. This information is not intended to replace advice given to you by your health care provider. Make sure you discuss any questions you have with your health care provider. Document Revised: 03/23/2023 Document Reviewed: 03/23/2023 [employer] Patient Education ? 2023 [employer] Laser Therapy for Kidney Stones Laser therapy for kidney stones is a procedure to break up rock-like masses that form inside the kidneys (kidney stones). It is done using a device that beams a strong light (laser) on the kidney stones. This breaks the stones up into small pieces. These small pieces may leave your body when you pee (urinate) or may be taken out during the procedure. You may need laser therapy if you have kidney stones that are painful or that are stopping you from being able to pee. Tell a health care provider about: ??? Any allergies you have. ??? All medicines you are taking, including vitamins, herbs, eye drops, creams, and gnkk-wbm-wiuthzc medicines. ??? Any problems you or family members have had with anesthesia. ??? Any bleeding problems you have. ??? Any surgeries you have had. ??? Any medical conditions you have. ??? Whether you are or may be . What are the risks? Your health care provider will talk with you about risks. These may include: ??? Infection. ??? Bleeding. ??? Allergic reactions to medicines. ??? Damage to: ? The part of your body that drains pee (urine) from the bladder (urethra). ? The bladder. ? The tube that connects the bladder to the kidneys (ureter). ??? Urinary tract infection (UTI). ??? Urethral stricture. This is when the urethra is narrowed by scarring. ??? Trouble peeing. ??? Blockage of the kidney. This may be caused by a piece of kidney stone. What happens before the procedure? When to stop eating and drinking Follow instructions from your provider about what you may eat and drink. Thes (more content not included)... [facility] 11-14-2024 Radiology Diagnostic study note [facility] [place] [address] [place] [id number] Scan Report Signed Patient: Ena Radford MR#: [id number] : 1955 Acct:[id number] Age/Sex: 69 / F ADM Date: 5 Loc: ER Room: Type: [facility] ER Attending Dr: Copies to: Carmencita Hirsch APRN~ Ordering Provider: Carmencita Hirsch APRN Date of Service: 11/14/24 CT/CT abdomen pelvis wo con: flank pain CT ABDOMEN AND PELVIS WITHOUT CONTRAST COMPARISON: 05/28/2020 CLINICAL DATA: Right flank pain and bladder spasms. History of kidney stones. Spiral images were obtained through the abdomen and pelvis without contrast. This CT exam was performed using one or more following dose reduction techniques: Automated exposure control, adjustment of the mA and/or kV accordingto patient size, or use of iterative reconstruction technique. Limited cuts through the lung bases again show a tiny nodular density within theright lower lobe adjacent to the dome of the diaphragm. There is a tiny hiatal hernia. Evaluation of the intra-abdominal organs is slightly limited by the absence of contrast. No calcified gallstones are identified. Multiple small scattered hepatic hypodensities are again seen. These are not fully evaluated without contrast though they might be cysts. The spleen, pancreas and adrenal glands show no acute findings. A subtle 7 mm cortical hyperdensity is seen at the upper pole of the right kidney that may be a hemorrhagic cyst. There are multiple bilateral renal stones. The largest is on the right measuring 6 mm. There is mild to moderate right hydronephrosis due to a ureteropelvic junction stone measuring 4 to 5 mm in size. There is also a second stone at the ureterovesical junction on that side measuring 3 mm. No ureteral calculi are present on the left. There is atherosclerotic plaque at the aorta and iliac arteries. There are tinylymph nodes. No ascites is seen. There is a small umbilical hernia containing fat. Normal caliber small bowel loops are visualized. There is mild stool within the colon. Food debris is seen within the stomach. There is levoscoliotic curvature and minor degenerative change at the lower lumbar facets. Images through the pelvis show normal caliber small bowel loops. There is stoolat the cecum. The distal colon is decompressed. No diverticular disease is noted. The appendix is not seen. There are no dominant adnexal cysts. No urinary bladder abnormalities are present. There is no ascites. CT/CT abdomen pelvis wo con IMPRESSION: POSSIBLE TINY HEMORRHAGIC RIGHT RENAL CYST. BILATERAL NEPHROLITHIASIS. PARTIALLY OBSTRUCTING RIGHT URETEROPELVIC AND URETEROVESICAL JUNCTION STONES. Impression dictated by: Maritza Willoughby M.D.11/14/2024 7:52 PM Dictation Location: [place] [address] Transcribed By: [facility] 11/14/241951 Dictated By: Maritza Willoughby MD 11/14/241935 Signed By: 11/14/241951 [facility] Work Phone: 08-18-2024 History of Presen t illness Narrative Subjective Patient ID: Ena Radford is a 68 y.o. female. Ena presents today for a cardiovascular recheck. She is doing well today. Her cough has resolved after changing off of DORCAS to ARB. She does not check BP at home. Her weight is down 4 lbs, but not physically active. The tick spot still itches her occasionally. She will use hydrocortisone when the itching really bothers her. She has a new spot on the right side of her face, may be changing in size in the last 6 months. The following portions of the patient's history were reviewed and updated as appropriate: allergies, current medications, past family history, past medical history, past social history, past surgical history, problem list, and medication reconciliation was completed including current medication and post discharge medication. Review of Systems Constitutional: Positive for unexpected weight change. Respiratory: Negative. Cardiovascular: Negative. Gastrointestinal: Negative. Neurological: Negative. Psychiatric/Behavioral: Negative. Objective Physical Exam Vitals reviewed. Exam conducted with a final canoe inspector present (Yudi Muniz MS 3). Constitutional: General: She is not in acute distress. Appearance: She is overweight. She is not ill-appearing. HENT: Head: Normocephalic. Eyes: Extraocular Movements: Extraocular movements intact. Conjunctiva/sclera: Conjunctivae normal. Neck: Vascular: No carotid bruit. Cardiovascular: Rate and Rhythm: Normal rate and regular rhythm. Heart sounds: Normal heart sounds. No murmur heard. Pulmonary: Effort: Pulmonary effort is normal. No respiratory distress. Breath sounds: Normal breath sounds. No wheezing, rhonchi or rales. Abdominal: General: Bowel sounds are normal. Palpations: Abdomen is soft. Musculoskeletal: Cervical back: Neck supple. Skin: Findings: Lesion (4mm x 4mm on right cheek) present. Neurological: General: No focal deficit present. Mental Status: She is alert and oriented to person, place, and time. Psychiatric: Mood and Affect: Mood normal. Assessment/Plan Ena was seen today for hypertension and hyperlipidemia. Diagnoses and all orders for this visit: Essential hypertension Blood pressure essentially at goal. Continue current regimen. Await results of CMP. Hypercholesterolemia Await results of lipid panel Overweight She is overweight. She did lose 4 lb but she is not sure how. Diet and exercise was discussed and encouraged. Neoplasm of uncertain behavior of skin - Ambulatory referral to Dermatology ([facility]); Future Etiology unclear it does look benign in general but it is darker complexion and relatively new. She also thinks it is enlarging. We will refer to dermatology for their opinion. documented in this encounter [facility] 08-14-2024 History of Presen t illness Narrative Patient: Ena Radford : 1955 PCP: Reilly Yoo MD SUBJECTIVE This is a 68 y.o. female that presents today for a chief complaint of right medial ankle and plantar foot pain for the past 3 months. Patient denies any trauma states up to 5/10 and has been intermittent in nature particularly with prolonged standing and points to the mid arch region up to the medial ankle region along course of posterior tibial tendon. She states some improvement with not wearing shoes and with anti-inflammatories. Allergies: Allergies Allergen Reactions Azithromycin Other Reaction(s): Unknown Bee Venom Chlorpheniramine Other Reaction(s): Edema around eye Other reaction(s): Edema around eye Erythromycin Base Other Reaction(s): Unknown Iodinated Contrast Media Other Reaction(s): Chest tightness Pseudoephedrine Other Reaction(s): Unknown Amoxicillin Rash Other Reaction(s): Itching, Unknown Other reaction(s): Itching Sulfamethoxazole Rash Sulfamethoxazole-Trimethoprim Rash Other Reaction(s): Unknown Past Medical History: Past Medical History: Diagnosis Date Arthritis Elevated cholesterol (CMS/HCC) HTN (hypertension) (CMS/HCC) Kidney stones Sinus problem Squamous cell carcinoma, arm, right Vertigo Wears glasses Medications: Current Outpatient Medications: alendronate (Fosamax) 70 MG tablet, TAKE 1 TABLET BY MOUTH ONCE WEEKLY ON AN EMPTY STOMACH BEFORE BREAKFAST. REMAIN UPRIGHT FOR 30 MINUTES AND TAKE WITH 8 OUNCES OF WATER, Disp: , Rfl: Calcium-Vitamin D-Vitamin K (Calcium + D) 500-1000-40 MG-UNT-MCG chewable tablet, Orally, Disp: , Rfl: cetirizine (ZyrTEC ALLERGY) 10 MG tablet, 1 (one) time each day at the same time., Disp: , Rfl: cholecalciferol (Vitamin D-3) 50 MCG (1999) tablet, Vitamin D3 2,000 IU QD, Disp: , Rfl: lisinopril 5 MG tablet, Take 1 tablet by mouth in the morning., Disp: , Rfl: lovastatin (Mevacor) 20 MG tablet, Take 20 mg by mouth in the morning., Disp: , Rfl: meclizine (Antivert) 12.5 MG tablet, take 2 tablet by oral route 3 times every day as needed Oral, Disp: , Rfl: potassium citrate CR (Urocit-K-10) 10 mEq ER tablet, every 8 (eight) hours., Disp: , Rfl: rosuvastatin (Crestor) 10 MG tablet, Take 1 tablet by mouth in the morning., Disp: , Rfl: valsartan (Diovan) 40 MG tablet, Take 40 mg by mouth in the morning., Disp: , Rfl: Social History: Social History Socioeconomic History Marital status: Spouse name: Not on file Number of children: Not on file Years of education: Not on file Highest education level: Not on file Occupational History Not on file Tobacco Use Smoking status: Never Smokeless tobacco: Never Substance and Sexual Activity Alcohol use: Never Comment: Caffeine intake: 1-2 cups per day chocolate Drug use: Never Sexual activity: Not on file Other Topics Concern Not on file Social History Narrative Not on file Social Drivers of Health Financial Resource Strain: Low Risk (07/18/2022) Received from [facility] Overall Financial Resource Strain (CARDIA) Difficulty of Paying Living Expenses: Not hard at all Food Insecurity: No Food Insecurity (04/23/2024) Received from [facility] Hunger Screening Within the past 12 months we worried whether our food would run out before we got money to buy more.: Never True Within the past 12 months the food we bought just didn't last and we didn't have money to get more.: Never True Transportation Needs: No Transportation Needs (07/18/2022) [facility] Lack of Transportation (Medical): No Lack of Transportation (Non-Medical): No Physical Activity: Inactive (01/15/2024) [facility] Exercise Vital Sign Days of Exercise per Week: 0 days Minutes of Exercise per Session: 0 min Stress: No Stress Concern Present (07/18/2022) [facility] [employer] [place] of Occupational Health - Occupational Stress Questionnaire Feeling of Stress : Not at all Social Connections: Socially Integrated (07/18/2022) Received from [facility], [facility] Social Connection and Isolation Panel [NHANES] Frequency of Communication with Friends and Family: More than three times a week Frequency of Social Gatherings with Friends and Family: More than three times a week Attends Yarsani Services: More than 4 times per year Active Member of Clubs or Organizations: Yes Attends Club or Organization Meetings: 1 to 4 times per year Marital Status: Intimate Partner Violence: Not on file Housing Stability: Low Risk (01/15/2024) [facility] Housing Instability Are you worried or concerned that in the next two months you may not have stable housing that you own, rent or stay in as a part of a household?: No ROS: General: denies fever, chills, fatigue, malaise Gastrointestinal: denies abdominal pain, ulcers, or changes in appetite or bowel habits Musculoskeletal: denies arthritis, denies loss of strength, pain to hip, knees, back Cardiovascular: denies CP, palpitations, irregular rhythms OBJECTIVE LE EXAM: DERM: Positive hair growth to b/l feet with good skin turgor noted. Negative openings in skin VASC: Palpable pedal pulsed b/l with warm to cool tibia to toes b/l NEURO: Gross sensation intact digits 1-10 and b/l feet ORTHO: +5/5 DF/PF/IN/EV right, +5/5 DF/PF/IN/EV left. 20 degrees inversion and 10 degrees eversion STJ b/l. Ankle ROM less than 10 degrees b/l. Positive pain on palpation to right posterior tibial tendon plantarly up to the medial ankle region along the course of posterior tibial tendon Pes planovalgus foot type bilateral XRAY: US: ASSESSMENT 1. Posterior tibial tendonitis of right leg 2. Pes planovalgus, acquired, right PLAN Discussed condition in detail today with patient discussed most likely might need orthotics and discussed different type of orthotic devices today and also will placed on Medrol pack with follow up in 2 weeks Cj Odonnell DPM documented in this encounter [facility] 08-11-2024 Miscellaneous Notes Patient is coming in for an apt and would like her labs sent to [facility] documented in this encounter [facility] 08-11-2024 Telephone encounter Note Patient is coming in for an apt and would like her labs sent to [facility] 07-31-2024 History of Presen t illness Narrative Images from the original note were not included. Ena Radford is a 68 y.o. female presents for Discuss Rt. breast bx results, breast clinic pt. HPI: HPI Ena was seen in the breast clinic fo an abnormal right breast imaging. She was scheduled for a repeat US and possible biopsy. 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 Path is concordant with imaging. I recommend a repeat right mamm and US in 6 months. documented in this encounter [facility] 07-02-2024 Evaluation note Diagnosis Onset Date Resolution Abnormal finding on mammography acute July 02, 2 024 11:23am Abnormal finding on mammography acute July 14 12:35pm [facility] Work Phone: 1(347) 676-915211-07-2024 History of Present illness Narrative* Annmarie Freitas, DO - 06/12/2024 10:15 AM EST Images from the original note were not included. Annmarie Freitas D.O. Obstetrics and Gynecology Patient: Ena Radford : 1955 (68 y.o.) Yearly Wellness Exam Date: 06/12/2024 Reason for Visit - Chief Complaint Patient presents with Gynecologic Exam Denies concerns, Denies bowel/bladder/breast concerns. Denies vaginal bleeding/spotting Visit Vitals BP 122/84 Wt 150 lb BMI 27.44 kg/m Smoking Status Never BSA 1.72 m Allergies Allergen Reactions Azithromycin Other Reaction(s): Unknown Bee Venom Chlorpheniramine Other Reaction(s): Edema around eye Other reaction(s): Edema around eye Erythromycin Base Other Reaction(s): Unknown Iodinated Contrast Media Other Reaction(s): Chest tightness Pseudoephedrine Other Reaction(s): Unknown Amoxicillin Rash Other Reaction(s): Itching, Unknown Other reaction(s): Itching Sulfamethoxazole Rash Sulfamethoxazole-Trimethoprim Rash Other Reaction(s): Unknown History of Present Illness, Associated Treatments and Results - OB History Para Term AB Living 3 3 3 0 0 3 SAB IAB Ectopic Multiple Live Births 0 0 0 0 3 # Outcome Date GA Lbr Rey/2nd Weight Sex Type Anes PTL Lv 3 Term 2 Term 1 Term Obstetric Comments Pap smear 05/04/22 wnl, Mammogram 05/17/23 wnl @ [facility] Review of Systems - General: Chills denies. Allergy/Immunology: Rash Denies. ENT: Denies Difficulty swallowing. Endocrine: Denies Cold intolerance denies. Heat intolerance denied. Respiratory: Denies Chest pain denies. Shortness of breath denies. Breast: Denies Bloody nipple discharge denies. Breast lump denies. Cardiovascular: Denies Chest pain. Gastrointestinal: Abdominal pain denies. Blood in stool denies. Hematology: Easy bruising denies. Prolonged bleeding denies. Women Only: Breast lump denies. Vaginal bleeding between periods is denied. Vaginal discharge/itching denied. Genitourinary: Blood in urine denies. Painful urination denies. Incontinence denies. Skin: Hair changes. Neurologic: Seizures denied. Stroke denies. Psychiatric: Anxiety denies. Depressed mood denies. Medication Documentation Review Audit Reviewed by Elizabet Puga MA (Staff Engineer) on 06/12/24 at 1016 Medication Order Taking? Sig Documenting Provider Last Dose Status alendronate (Fosamax) 70 MG tablet [id number] TAKE 1 TABLET BY MOUTH ONCE WEEKLY ON AN EMPTY STOMACH BEFORE BREAKFAST. REMAIN UPRIGHT FOR 30 MINUTES AND TAKE WITH 8 OUNCES OF WATER Annmarie Freitas DO Active Calcium-Vitamin D-Vitamin K (Calcium + D) 500-1000-40 MG-UNT-MCG chewable tablet [id number] Orally Annmarie Freitas DO Active cetirizine (ZyrTEC ALLERGY) 10 MG tablet [id number] 1 (one) time each day at the same time. Annmarie Freitas DO Active cholecalciferol (Vitamin D-3) 50 MCG (1999 UT) tablet [id number] Vitamin D3 2,000 IU QD Annmarie Freitas DO Active lisinopril 5 MG tablet [id number] Take 1 tablet by mouth in the morning. Annmarie Freitas DO Active lovastatin (Mevacor) 20 MG tablet [id number] Take 20 mg by mouth in the morning. Annmarie Freitas DO Active meclizine (Antivert) 12.5 MG tablet [id number] take 2 tablet by oral route 3 times every day as needed Oral Annmarie Freitas DO Active potassium citrate CR (Urocit-K-10) 10 mEq ER tablet [id number] every 8 (eight) hours. Annmarie Freitas DO Active rosuvastatin (Crestor) 10 MG tablet [id number] Yes Take 1 tablet by mouth in the morning. Annmarie Freitas DO Active valsartan (Diovan) 40 MG tablet [id number] Yes Take 40 mg by mouth in the morning. Annmarie FreitasDO Active Past Medical History: Diagnosis Date Arthritis Elevated cholesterol (CMS/HCC) HTN (hypertension) (CMS/HCC) Kidney stones Sinus problem Squamous cell carcinoma, arm, right Vertigo Wears glasses Past Surgical History: Procedure Laterality Date APPENDECTOMY COLONOSCOPY 2013 wnl LITHOTRIPSY x3 LITHOTRIPSY 02/2018 Dr Jensen OTHER SURGICAL HISTORY kidney stent OTHER SURGICAL HISTORY 08/22/2023 Cologuard-Neg SQUAMOUS CELL CARCINOMA EXCISION Right 2018 right arm SQUAMOUS CELL CARCINOMA EXCISION Right 12/2018 right upper arm TUBAL LIGATION Family History Problem Relation Name Age of Onset Breast cancer Mother Dementia Mother Kidney disease Mother Arthritis Mother Heart disease Mother Ovarian cancer Mother Hypertension Mother Atrial fibrillation Father Asthma Father Stroke Father Arthritis Sister Diabetes Sister Stroke Sister Osteoporosis Sister Thyroid disease Sister Heart disease Maternal Grandmother Cancer Maternal Grandmother Stroke Paternal Grandmother Colon cancer Paternal Grandfather Physical Exam - General appearance, mentation, extraocular movements, facial strength and movement, hearing, upper and lower extremity strength and tone, sensation to gross testing, coordination, and gait are normalor at baseline unless noted below. General Examination: GENERAL APPEARANCE: alert oriented well developed, well nourished. HEAD: normocephalic atraumatic. EYES: sclera anicteric. EARS: no obvious hearing deficit. SKIN: warm and dry. HEART: regular rate and rhythm. LUNGS: clear to auscultation bilaterally. CHEST: axillary nodes grossly normal. BREASTS: no masses palpable bilaterally, normal nipples bilaterally. ABDOMEN: soft, nontender, nondistended, no masses palpable. BACK: no costovertebral angle tenderness, no obvious scoliosis/kyphosis. FEMALE GENITOURINARY: atrophic vaginal mucosa, cervix absent of lesions, nontender, uterus AV, mobile, ovaries nonpalpable and nontender. EXTREMITIES: no edema. NEUROLOGIC: alert and oriented. PSYCH: cooperative with exam. Diagnoses and all orders for this visit: Encounter for gynecological examination without abnormal finding Screening for malignant neoplasm of cervix - SENDOUT TEST MISCELLANEOUS [facility] Encounter for screening mammogram for breast cancer - Bilateral screening mammogram with tomosynthesis Pap, pelvic and breast exam completed. Findings of today's exam discussed with the patient. Continue MSBE. Ca/Vit D recommendations reviewed with the patient. The patient is to contact the office with any changes to her gynecological condition. The patient is to return in 1 year or as needed ICD-10-CM 1. Encounter for gynecological examination without abnormal finding Z01.419 2. Screening for malignant neoplasm of cervix Z12.4 SENDOUT TEST MISCELLANEOUS [facility] 3. Encounter for screening mammogram for breast cancer Z12.31 Bilateral screening mammogram with tomosynthesis documented in this encounterResearch Belton [id number] History of Present illness Narrative* Reilly Yoo DO - 04/23/2024 9:00 AM EDT Images from the original note were not included. Subjective Patient ID: Ena Radford is a 68 y.o. female. Ena presents for a recheck of her tick bite site. She feels a bump back there and it itches at times. She does not have a fever. She does not know if she had a rash or not because she can not see the site. She was switched on her blood pressure medications and the cough is gone but she has episodes of dizziness. The following portions of the patient's history were reviewed and updated as appropriate: allergies, current medications, past family history, past medical history, past social history, past surgicalhistory, problem list, and medication reconciliation was completed including current medication andpost discharge medication. Review of Systems Objective Physical Exam Vitals reviewed. Constitutional: General: She is not in acute distress. Appearance: She is not ill-appearing. Skin: Findings: Erythema and rash present. No wound. Comments: Hutchison papule with a halo of erythema around it on lower back in the midline. There is no open area. Picture taken Neurological: General: No focal deficit present. Mental Status: She is alert and oriented to person, place, and time. Psychiatric: Attention and Perception: Attention normal. Mood and Affect: Mood and affect normal. Speech: Speech normal. Behavior: Behavior normal. Behavior is cooperative. Cognition and Memory: Cognition normal. Judgment: Judgment normal. Assessment/Plan Ena was seen today for insect bite. Diagnoses and all orders for this visit: Cellulitis, unspecified cellulitis site There is redness at the site of the bite. There can be residual erythema from a tick bite versus a cellulitis. Discussed risks and benefits of treatment. She agrees to taking doxycycline 100 mg twicea day for 7 days. Possibly has foreign body retained from the tick at the site. We discussed punch biopsy to remove it. We opted to hold off on that for now. She will try the antibiotic and give it time. Other orders - doxycycline (VIBRA-TABS) 100 mg tablet; Take 1 tablet (100 mg total) by mouth in the morning and 1 tablet (100 mg total) before bedtime. Do all this for 7 days. documented in this [facility]24 Miscellaneous Notes* Telephone Encounter - Patchante Stevens - 04/22/2024 8:39 AM EDT Not needed documented in this encounterMarietta [facility]09-17-[facility]24 Telephone encounter Note* Telephone Encounter - Pat Stevens - 04/22/2024 8:39 AM EDT Not needed [facility] History of Present illness Narrative* Reilly Yoo DO - 02/15/2024 9:30 AM EDT Subjective Patient ID: Ena Radford is a 68 y.o. female. Ena presents today to the office for a new and enlarging mole. She noticed it about 2 weeks ago. It is gradually enlarged. It looks like a skin tag. It is on her lower back. There is no pain or other symptoms with it. She was out cleaning a fence row at home about 2-1/2 weeks ago. She has had a low grade cough which is nonproductive for about a year. She read where some high blood pressure medications can cause a cough. She does not have any other symptoms with it such as fever, shortness a breath or wheezing. She does take Zyrtec for allergies as needed. The following portions of the patient's history were reviewed and updated as appropriate: allergies, current medications, past family history, past medical history, past social history, past surgicalhistory, problem list, and medication reconciliation was completed including current medication andpost discharge medication. Review of Systems Objective Physical Exam Exam conducted with a final canoe inspector present (). Constitutional: General: She is not in acute distress. HENT: Head: Normocephalic. Skin: General: Skin is warm and dry. Findings: Erythema (Very faint pink erythema surrounding tick on lower back in the midline) present. Comments: Mole on her lower back was actually a tick. It was engorged. It was grabbed with a forceps and pulled straight back. Head appeared to be intact. There was a drop of blood at the site. Therewas a small papule in the center with a drop of blood on top of that and mild erythema surrounding it. There was no erythema chronica migrans type of rash. Think the redness was just irritation and inflammation from the tick bite. It was not warm or indurated. Neurological: General: No focal deficit present. Mental Status: She is alert and oriented to person, place, and time. Psychiatric: Mood and Affect: Mood normal. Behavior: Behavior normal. Thought Content: Thought content normal. Judgment: Judgment normal. Assessment/Plan Ena was seen today for mole check. Diagnoses and all orders for this visit: Tick bite of lower back, initial encounter - Arthropod identification; Future Tick has been on at least 2 weeks. We are not in an endemic area for Lyme disease but there are sporadic cases. I am going to send the tick off for identification to see if it is the deer tick that carries Lyme disease. There is a little bit of erythema surrounding the site which I think is just from irritation from the tick bite and not a true cellulitis or EM rash. She was told to monitor the side for a rash that enlarges or flu-like illness symptoms. Wound was cleaned with alcohol pad and triple antibiotic ointment and Band-Aid applied. Essential hypertension Her blood pressure is at goal however she does have a chronic cough. She is on an DORCAS inhibitor. I am going to switch this to valsartan 40 mg daily. Chronic cough Possibly DORCAS induced. Continue Zyrtec p.r.n. Other orders - valsartan (DIOVAN) 40 mg tablet; Take 1 tablet (40 mg total) by mouth in the morning. documented in this encounterM[facility]06-[facility]24 History of Present illness Narrative* Reilly Yoo, - 01/15/2024 11:00 AM EDT Subjective SUBJECTIVE: Patient ID: Ena Radford is a 68 y.o. female who presents for a Medicare Annual Wellness exam. HPI The following portions of the patient's history were reviewed and updated as appropriate: allergies, current medications, past family history, past medical history, past social history, past surgicalhistory and problem list. AWV FLOWSHEET : Lifestyle Assessment Do you smoke or use smokeless tobacco?: No If you smoke or use smokeless tobacco, are you ready to quit?: NA Are you exposed to secondhand smoke?: No On average, how many drinks of alcohol do you consume in a week?: None Do you exercise for 30 or more minutes on average at least 3 days a week?: Sometimes Do you have any tooth, denture, or oral problems?: No Do you snore or has anyone told you that you snore?: (!) Yes Do you try to eat a balanced diet?: Yes Do you experience leakage of urine, also known as urinary incontinence?: (!) Often Do you have difficulty performing any of these activities? (check all that apply): None Do you have difficulty performing any of these activities? (check all that apply): None Fall Risk Fall Risk Assessment Completed?: Yes Have you fallen in the past year?: (!) Yes How many times?: 1 Were you injured?: No Are you worried about falling?: No Do you feel unsteady when standing or walking?: No Risk Stratification: Moderate Risk Depression Screening Little interest or pleasure in doing things: Not at all Feeling down, depressed, or hopeless: Not at all Trouble falling or staying asleep, or sleeping too much: Not at all Feeling tired or having little energy: Not at all Poor appetite or overeating: Not at all Feeling bad about yourself - or that you are a failure or have let yourself or your family down: Not at all Trouble concentrating on things, such as reading the newspaper or watching television: Not at all Moving or speaking so slowly that other people could have noticed. Or the opposite - being so fidgety or restless that you have been moving around a lot more than usual: Not at all Thoughts that you would be better off , or of hurting yourself in some way: Not at all PEG Scale Safety Assessment Do you have throw rugs on the floor?: No Do you feel safe at your home?: Yes Do you feel unsteady when walking?: No Are you having difficulty with driving?: No Do you have trouble seeing?: No What assistive device do you use? (check all that apply): None Hearing Assessment Do you strain or struggle to hear/understand conversations?: No Do you have trouble hearing the television or radio when others do not?: No Does your family ever voice concerns about your hearing?: No Do you wear hearing aid/s?: No Personal Health During the past 4 weeks, how would you rate your overall health?: Very Good Do you understand how to take all of your medications?: Yes How confident are you that you can control and manage most of your health problems?: Very confident In the past 12 months, how many times have you been hospitalized?: None End of Life Planning Do you have a living will?: Yes Do you have a durable power of patent prosecution attorney?: Yes Cognitive Screening Do you have trouble remembering or recalling facts or events?: No Do family members or caregivers report that you have difficulty remembering things?: No Clock Drawing Test: Normal REVIEW OF SYSTEMS: Review of Systems Objective PHYSICAL EXAMINATION: There were no vitals filed for this visit. Physical Exam Assessment/Plan ASSESSMENT/PLAN Encounter Diagnoses Name Primary? Medicare annual wellness visit, subsequent Yes Screening for depression Health maintenance discussed. Depression screen was negative. At least 3 minutes spent administering and discussing. Cognitive evaluation did not reveal any impairment. She has advanced directives in place. Return in about 1 year (around 01/14/2025). documented in this encounterMer[facility] Health Will[facility] HospitalBeartooth Radio, INC [id number] Hospital Discharge instructions Patient Education 08/16/2023 11:34:36 Kidney Stones, [id number] Kidney Stones Kidney stones are rock-like masses that form inside of the kidneys. Kidneys are organs that make pee (urine). A kidney stone may move into other parts of the urinary tract, including: The tubes that connect the kidneys to the bladder (ureters). The bladder. The tube that carries urine out of the body (urethra). Kidney stones can cause very bad pain and can block the flow of pee. The stone usually leaves your body (passes) through your pee. You may need to have a doctor take out the stone. What are the causes? Kidney stones may be caused by: A condition in which certain glands make too much parathyroid hormone (primary hyperparathyroidism). A buildup of a type of crystals in the bladder made of a chemical called uric acid. The body makes uric acid when you eat certain foods. Narrowing (stricture) of one or both of the ureters. A kidney blockage that you were born with. Past surgery on the kidney or the ureters, such as gastric bypass surgery. What increases the risk? You are more likely to develop this condition if: You have had a kidney stone in the past. You have a family history of kidney stones. You do not drink enough water. You eat a diet that is high in protein, salt (sodium), or sugar. You are overweight or very overweight (obese). What are the signs or symptoms? Symptoms of a kidney stone may include: Pain in the side of the belly, right below the ribs (flank pain). Pain usually spreads (radiates) to the groin. Needing to pee often or right away (urgently). Pain when going pee (urinating). Blood in your pee (hematuria). Feeling like you may vomit (nauseous). Vomiting. Fever and chills. How is this treated? Treatment depends on the size, location, and makeup of the kidney stones. The stones will often pass out of the body through peeing. You may need to: Drink more fluid to help pass the stone. In some cases, you may be given fluids through an IV tube put into one of your veins at the hospital. Take medicine for pain. Make changes in your diet to help keep kidney stones from coming back. Sometimes, medical procedures are needed to remove a kidney stone. This may involve: A procedure to break up kidney stones using a beam of light (laser) or shock waves. Surgery to remove the kidney stones. Follow these instructions at home: Medicines Take [id number] and prescription medicines only as told by your doctor. Ask your doctor if the medicine prescribed to you requires you to avoid driving or using heavy machinery. Eating and drinking Drink enough fluid to keep your pee pale yellow. You may be told to drink at least 8 10 glasses of water each day. This will help you pass the stone. If told by your doctor, change your diet. This may include: ?Limiting how much salt you eat. ?Eating more fruits and vegetables. ?Limiting how much meat, poultry, fish, and eggs you eat. Follow instructions from your doctor about eating or drinking restrictions. General instructions Collect pee samples as told by your doctor. You may need to collect a pee sample: ?24 hours after a stone comes out. ?8 12 weeks after a stone comes out, and every 6 12 months after that. Strain your pee every time you pee (urinate), for as long as told. Use the strainer that your doctor recommends. Do not throw out the stone. Keep it so that it can be tested by your doctor. Keep all follow-up visits as told by your doctor. This is important. You may need follow-up tests. How is this prevented? To prevent another kidney stone: Drink enough fluid to keep your pee pale yellow. This is the best way to prevent kidney stones. Eat healthy foods. Avoid certain foods as told by your doctor. You may be told to eat less protein. Stay at a healthy weight. Where to find more information National Kidney Foundation (NKF): www.kidney.org [facility] [facility] (UCF): www.urologyhealth.org Contact a doctor if: You have pain that gets worse or does not get better with medicine. Get help right away if: You have a fever or chills. You get very bad pain. You get new pain in your belly (abdomen). You pass out (faint). You cannot pee. Summary Kidney stones are rock-like masses that form inside of the kidneys. Kidney stones can cause very bad pain and can block the flow of pee. The stones will often pass out of the body through peeing. Drink enough fluid to keep your pee pale yellow. This information is not intended to replace advice given to you by your health care provider. Make sure you discuss any questions you have with your health care provider. Document Revised: 03/27/2022 Document Reviewed: 03/27/2022 Elsevier Patient Education 2022 [employer]. Follow Up Care 07/10/2023 10:36:14 With:SARAH BETH SINGH PA-C, URL Address: [address] [place] [address] [phone] When: Unknown Comments:18 months w/ [facility] 01-10-2024 History of Present illness Narrative* Reilly Veronica Naila, DO - 08/15/2023 9:20 AM EST Subjective Patient ID: Ena Radford is a 67 y.o. female. Ena presents today for recheck of high blood pressure and high cholesterol. She has no new problems to report. She is taking all of her medications. She has not having any side effects. She has not really following her diet. She has no new problems to report. Her last colonoscopy was in 2013. She is due this year. She has no family history of colon cancer. She would like to try the Cologuard. Hyperlipidemia This is a chronic problem. The current episode started more than 1 year ago. The problem is uncontrolled. Recent lipid tests were reviewed and are variable. Current antihyperlipidemic treatment includes statins. Compliance problems include adherence to exercise and adherence to diet. Risk factors for coronary artery disease include a sedentary lifestyle, post-menopausal and hypertension. Hypertension The following portions of the patient's history were reviewed and updated as appropriate: allergies, current medications, past family history, past medical history, past social history, past surgicalhistory, problem list, and medication reconciliation was completed including current medication andpost discharge medication. Review of Systems Constitutional: Negative. HENT: Negative. Eyes: Negative. Respiratory: Negative. Cardiovascular: Negative. Gastrointestinal: Negative. Endocrine: Negative. Genitourinary: Negative. Musculoskeletal: Negative. Skin: Negative. Allergic/Immunologic: Negative. Neurological: Negative. Psychiatric/Behavioral: Negative. Objective Physical Exam HENT: Head: Normocephalic. Eyes: General: No scleral icterus. Extraocular Movements: Extraocular movements intact. Conjunctiva/sclera: Conjunctivae normal. Neck: Vascular: No carotid bruit. Cardiovascular: Rate and Rhythm: Normal rate and regular rhythm. Pulses: Normal pulses. Heart sounds: Normal heart sounds. No murmur heard. Pulmonary: Effort: Pulmonary effort is normal. No respiratory distress. Breath sounds: Normal breath sounds. No wheezing, rhonchi or rales. Abdominal: General: Bowel sounds are normal. Palpations: Abdomen is soft. Musculoskeletal: Cervical back: Neck supple. Right lower leg: No edema. Left lower leg: No edema. Lymphadenopathy: Cervical: No cervical adenopathy. Neurological: General: No focal deficit present. Mental Status: She is alert and oriented to person, place, and time. Psychiatric: Mood and Affect: Mood normal. Behavior: Behavior normal. Thought Content: Thought content normal. Judgment: Judgment normal. Assessment/Plan Ena was seen today for hyperlipidemia and hypertension. Diagnoses and all orders for this visit: Essential hypertension - Comprehensive metabolic panel; Future Blood pressure at goal. Check CMP. Continue current regimen. Hypercholesterolemia - Lipid panel; Future Check lipid panel. Overweight She is overweight. She would benefit from weight loss. It is contributing to high blood pressure and high cholesterol. Diet exercise and weight loss discussed. Screen for colon cancer - Cologuard Non-[facility] She is due for colon cancer screening. Cologuard and colonoscopy were discussed. Risks and benefitsof both discussed. She would like to try the Cologuard. Vitamin D deficiency - Vitamin D 25 hydroxy; Future Check vitamin-D level documented in this encounterM[facility] Memorial [facility] Evaluation note* Encounter Date Diagnosis Assessment Notes Treatment Notes Treatment Clinical Notes Jun, Sore throat (ICD-10 - J02.9) Jun, Viral upper respiratory infection (ICD-10 - J06.9) Viral upper respiratory infection: adult home care material was printed Drink plenty fluids, get plenty of rest. Take Tylenol or Motrin as needed for aches pains or fevers. Take the prednisone as prescribed until gone. You may continue to take Sudafed as needed for congestion. Use your fluticasone nasal spray as prescribed until your symptoms improved. Follow-up with your family physician if no improvement in 2 to 3 days Jun, Cough (ICD-10 - R05.9) [facility] Other 12-16-2022 Hospital Discharge instructions Patient Education 07/21/2022 11:52:31 Kidney Stones, Sfei-gp-Nwpu Kidney Stones Kidney stones are rock-like masses that form inside of the kidneys. Kidneys are organs that make pee (urine). A kidney stone may move into other parts of the urinary tract, including: The tubes that connect the kidneys to the bladder (ureters). The bladder. The tube that carries urine out of the body (urethra). Kidney stones can cause very bad pain and can block the flow of pee. The stone usually leaves your body (passes) through your pee. You may need to have a doctor take out the stone. What are the causes? Kidney stones may be caused by: A condition in which certain glands make too much parathyroid hormone (primary hyperparathyroidism). A buildup of a type of crystals in the bladder made of a chemical called uric acid. The body makes uric acid when you eat certain foods. Narrowing (stricture) of one or both of the ureters. A kidney blockage that you were born with. Past surgery on the kidney or the ureters, such as gastric bypass surgery. What increases the risk? You are more likely to develop this condition if: You have had a kidney stone in the past. You have a family history of kidney stones. You do not drink enough water. You eat a diet that is high in protein, salt (sodium), or sugar. You are overweight or very overweight (obese). What are the signs or symptoms? Symptoms of a kidney stone may include: Pain in the side of the belly, right below the ribs (flank pain). Pain usually spreads (radiates) to the groin. Needing to pee often or right away (urgently). Pain when going pee (urinating). Blood in your pee (hematuria). Feeling like you may vomit (nauseous). Vomiting. Fever and chills. How is this treated? Treatment depends on the size, location, and makeup of the kidney stones. The stones will often pass out of the body through peeing. You may need to: Drink more fluid to help pass the stone. In some cases, you may be given fluids through an IV tube put into one of your veins at the hospital. Take medicine for pain. Make changes in your diet to help keep kidney stones from coming back. Sometimes, medical procedures are needed to remove a kidney stone. This may involve: A procedure to break up kidney stones using a beam of light (laser) or shock waves. Surgery to remove the kidney stones. Follow these instructions at home: Medicines Take ktzc-mej-aeqtspu and prescription medicines only as told by your doctor. Ask your doctor if the medicine prescribed to you requires you to avoid driving or using heavy machinery. Eating and drinking Drink enough fluid to keep your pee pale yellow. You may be told to drink at least 8 10 glasses of water each day. This will help you pass the stone. If told by your doctor, change your diet. This may include: ?Limiting how much salt you eat. ?Eating more fruits and vegetables. ?Limiting how much meat, poultry, fish, and eggs you eat. Follow instructions from your doctor about eating or drinking restrictions. General instructions Collect pee samples as told by your doctor. You may need to collect a pee sample: ?24 hours after a stone comes out. ?8 12 weeks after a stone comes out, and every 6 12 months after that. Strain your pee every time you pee (urinate), for as long as told. Use the strainer that your doctor recommends. Do not throw out the stone. Keep it so that it can be tested by your doctor. Keep all follow-up visits as told by your doctor. This is important. You may need follow-up tests. How is this prevented? To prevent another kidney stone: Drink enough fluid to keep your pee pale yellow. This is the best way to prevent kidney stones. Eat healthy foods. Avoid certain foods as told by your doctor. You may be told to eat less protein. Stay at a healthy weight. Where to find more information National Kidney Foundation (NKF): www.kidney.org Urology Care Foundation (UCF): www.urologyhealth.org Contact a doctor if: You have pain that gets worse or does not get better with medicine. Get help right away if: You have a fever or chills. You get very bad pain. You get new pain in your belly (abdomen). You pass out (faint). You cannot pee. Summary Kidney stones are rock-like masses that form inside of the kidneys. Kidney stones can cause very bad pain and can block the flow of pee. The stones will often pass out of the body through peeing. Drink enough fluid to keep your pee pale yellow. This information is not intended to replace advice given to you by your health care provider. Make sure you discuss any questions you have with your health care provider. Document Released: 01/08/2009 Document Revised: 12/09/2019 Document Reviewed: 12/09/2019 Penemarie K Murphy Patient Education 2020 [employer]. Follow Up Care 07/18/2021 12:00:36 With:MICHELE RODRIGUES, Diamond Gonzalez, URL Address: [address] [place] [id number]- When: Unknown [facility] evaluation + Plan note Future Appointments Appointment Date:07/23/2023 10:15:00 AM Scheduled Provider:Diamnod LOAIZA MD Location:[facility] Appointment Type:URO Office Visit [facility] evaluation noteNo assessment information available [facility] Work Phone: Evaluation note* Diagnosis Encounter for gynecological examination without abnormal finding Screening for malignant neoplasm of cervix Screening for malignant neoplasm of the cervix Encounter for screening mammogram for breast cancer [facility] Diagnosis Pseudoangiomatous stromal hyperplasia of breast- Primary [facility]* Diagnosis Essential hypertension- Primary Unspecified essential hypertension Hypercholesterolemia Pure hypercholesterolemia Vitamin D deficiency [facility] Diagnosis Posterior tibial tendonitis of right leg- Primary Pes planovalgus, acquired, right [facility]* Diagnosis Essential hypertension- Primary Unspecified essential hypertension Hypercholesterolemia Pure hypercholesterolemia Overweight Neoplasm of uncertain behavior of skin [facility] Diagnosis Posterior tibial tendonitis of right leg- Primary Pes planovalgus, acquired, right [facility] Diagnosis Essential hypertension- Primary Unspecified essential hypertension Hypercholesterolemia Pure hypercholesterolemia Overweight Screen for colon cancer Special screening for malignant neoplasms, colon Vitamin D deficiency [facility]* Diagnosis Medicare annual wellness visit, subsequent- Primary Screening for depression documented [facility]* Diagnosis Tick bite of lower back, initial encounter- Primary Essential hypertension Unspecified essential hypertension Chronic cough Cough documented in [facility]* Diagnosis Cellulitis, unspecified cellulitis site- Primary [facility]* Diagnosis Neoplasm of uncertain behavior of skin- Primary Tick bite of lower back, sequela Bilateral impacted cerumen Impacted cerumen documented [facility]* Diagnosis Neoplasm of uncertain behavior of skin- Primary documented [facility] Diagnosis Bilateral impacted cerumen- Primary Impacted cerumen Neoplasm of uncertain behavior of skin documented in this encounter [facility]* Diagnosis Medicare annual wellness visit, subsequent- Primary Screening for depression [facility] - Reported* Type Description Date Medical History UTI Medical History hypertension Medical History osteoporosis Medical History KIDNEY STONES Surgical History appendectomy Surgical History BTL Surgical History kidney stones Hospitalization History See Above [facility] Other History of Present illness Narrative* Cj Odonnell, MELANIE - 09/04/2024 1:20 PM EST Patient: Ena Radford : 1955 PCP: Reilly Yoo MD SUBJECTIVE This is a 68 y.o. female that presents today for a follow up of right PT tendonitis and has been taking a medrol pack with positive improvement. He also has hx of pes planovalgus with discussion of possible orthotics in the future. Allergies: Allergies Allergen Reactions Azithromycin Other Reaction(s): Unknown Bee Venom Chlorpheniramine Other Reaction(s): Edema around eye Other reaction(s): Edema around eye Erythromycin Base Other Reaction(s): Unknown Iodinated Contrast Media Other Reaction(s): Chest tightness Pseudoephedrine Other Reaction(s): Unknown Amoxicillin Rash Other Reaction(s): Itching, Unknown Other reaction(s): Itching Sulfamethoxazole Rash Sulfamethoxazole-Trimethoprim Rash Other Reaction(s): Unknown Past Medical History: Past Medical History: Diagnosis Date Arthritis Elevated cholesterol (CMS/HCC) HTN (hypertension) (CMS/HCC) Kidney stones Sinus problem Squamous cell carcinoma, arm, right Vertigo Wears glasses Medications: Current Outpatient Medications: alendronate (Fosamax) 70 MG tablet, TAKE 1 TABLET BY MOUTH ONCE WEEKLY ON AN EMPTY STOMACH BEFORE BREAKFAST. REMAIN UPRIGHT FOR 30 MINUTES AND TAKE WITH 8 OUNCES OF WATER, Disp: , Rfl: Calcium-Vitamin D-Vitamin K (Calcium + D) 500-1000-40 MG-UNT-MCG chewable tablet, Orally, Disp: , Rfl: cetirizine (ZyrTEC ALLERGY) 10 MG tablet, 1 (one) time each day at the same time., Disp: , Rfl: cholecalciferol (Vitamin D-3) 50 MCG (1999) tablet, Vitamin D3 2,000 IU QD, Disp: , Rfl: lisinopril 5 MG tablet, Take 1 tablet by mouth in the morning., Disp: , Rfl: lovastatin (Mevacor) 20 MG tablet, Take 20 mg by mouth in the morning., Disp: , Rfl: meclizine (Antivert) 12.5 MG tablet, take 2 tablet by oral route 3 times every day as needed Oral, Disp: , Rfl: methylPREDNISolone (Medrol Dospak) 4 MG tablets, Follow schedule on MEDROL PACK package instructions to be used as directed, Disp: 21 tablet, Rfl: 0 potassium citrate CR (Urocit-K-10) 10 mEq ER tablet, every 8 (eight) hours., Disp: , Rfl: rosuvastatin (Crestor) 10 MG tablet, Take 1 tablet by mouth in the morning., Disp: , Rfl: valsartan (Diovan) 40 MG tablet, Take 40 mg by mouth in the morning., Disp: , Rfl: Social History: Social History Socioeconomic History Marital status: Spouse name: Not on file Number of children: Not on file Years of education: Not on file Highest education level: Not on file Occupational History Not on file Tobacco Use Smoking status: Never Smokeless tobacco: Never Substance and Sexual Activity Alcohol use: Never Comment: Caffeine intake: 1-2 cups per day chocolate Drug use: Never Sexual activity: Not on file Other Topics Concern Not on file Social History Narrative Not on file Social Drivers of Health Financial Resource Strain: Low Risk (07/18/2022) [facility] Overall Financial Resource Strain (CARDIA) Difficulty of Paying Living Expenses: Not hard at all Food Insecurity: No Food Insecurity (08/18/2024) Received from [facility] Hunger Screening Within the past 12 months we worried whether our food would run out before we got money to buy more.: Never True Within the past 12 months the food we bought just didn't last and we didn't have money to get more.: Never True Transportation Needs: No Transportation Needs (07/18/2022) [facility] Lack of Transportation (Medical): No Lack of Transportation (Non-Medical): No Physical Activity: Inactive (01/15/2024) Received from [facility] Exercise Vital Sign Days of Exercise per Week: 0 days Minutes of Exercise per Session: 0 min Stress: No Stress Concern Present (07/18/2022) [facility] [employer] [place] [employer] - Occupational Stress Questionnaire Feeling of Stress : Not at all Social Connections: Socially Integrated (07/18/2022) Received from [facility], [facility] Social Connection and Isolation Panel [NHANES] Frequency of Communication with Friends and Family: More than three times a week Frequency of Social Gatherings with Friends and Family: More than three times a week Attends Yarsani Services: More than 4 times per year Active Member of Clubs or Organizations: Yes Attends Club or Organization Meetings: 1 to 4 times per year Marital Status: Intimate Partner Violence: Not on file Housing Stability: Low Risk (01/15/2024) Received from [facility] Housing Instability Are you worried or concerned that in the next two months you may not have stable housing that you own, rent or stay in as a part of a household?: No ROS: General: denies fever, chills, fatigue, malaise GI: denies abdominal pain, loose stool or cramping. Denies abdominal pain with nsaids. OBJECTIVE LE EXAM: DERM: Positive hair growth to b/l feet with good skin turgor noted. Negative openings in skin VASC: Palpable pedal pulsed b/l with warm to cool tibia to toes b/l NEURO: Gross sensation intact digits 1-10 and b/l feet ORTHO: +5/5 DF/PF/IN/EV right, +5/5 DF/PF/IN/EV left. 20 degrees inversion and 10 degrees eversion STJ b/l. Ankle ROM less than 10 degrees b/l. Minimal to no pain on palpation to right posterior tibial tendon plantarly up to the medial ankle region along the course of posterior tibial tendon Pes planovalgus foot type bilateral XRAY: US: ASSESSMENT 1. Posterior tibial tendonitis of right leg 2. Pes planovalgus, acquired, right PLAN Patient to continue with oral anti - inflammatories as needed for pain and recommended OTC medications such as tylenol or Ibuprofen Pt presents today for casting of a removable foot inserts/orthotics today that was accomplished with scanning of feet and sent to orthotics lab.(L3020 right and L3020 left foot). Pt to have signed ABN for device if needed. It was explained to the patient of a break in period for the devices. The patient is ambulatory maybenefit functionally for this device. It may be used for the following conditions as noted per EMR. Cj Odonnell DPM [facility] Narrative No data available for this section [facility] Hospital Discharge instructions Additional Instructions Take Zofran for nausea vomiting Tylenol and Motrin for minor pain Percocet for severe pain You cannot work or drive when taking Percocets Flomax daily your next dose is due tomorrow Push fluids Rest Colace daily as a stool softener or you could also use MiraLAX Increase fiber in your diet Follow-up with urology as planned Please return if you develop any fever, chills, vomiting unable to be controlled, increased pain, chest pain, shortness of breath or any other concerns [facility] Work Phone: InstructionsNot on filedocumented in this encounter [facility] filedocumented in this encounter [facility] on filedocumented in this encounter [facility] on filedocumented in this encounter [facility]ructionsNot on filedocumented in this encounter [facility]ructionsNot on filedocumented in this encounter [facility]ructionsNot on filedocumented in this encounter [facility] SystemInstructionsNot on filedocumented in this encounter [facility] No data available for this section [facility] Summary Purpose Family History Relationship Condition Age at Onset Recorded Date/T nikole Not Specified Malignant neoplasm of ovary Unknown Coronary artery disease Unknown Dementia Unknown Hypercholesterolemia Unknown Chronic kidney disease Unknown Malignant neoplasm of breast Unknown Degeneration of intervertebral disc Unkno wn Glaucoma Unknown Hypertension Unknown Macular degeneration Unknown father Congestive heart failure Unknown Atrial fibrillation Unknown Calculus of kidney Unknown brother Calculus of kidney Unknown Malignant neoplasm of skin Unknown Benign paroxysmal positional vertigo Unkn own Chronic obstructive pulmonary disease Unk nown sister Diabetes mellitus Unknown Osteoporosis Unknown Rheumatoid arthritis Unknown Relationship Condition Age at Onset Recorded Date/T nikole mother Malignant neoplasm of ovary Unknown Coronary artery disease Unknown Dementia Unknown Hypercholesterolemia Unknown Chronic kidney disease Unknown Malignant neoplasm of breast Unknown Degeneration of intervertebral disc Unkno wn Glaucoma Unknown Hypertension Unknown Macular degeneration Unknown father Congestive heart failure Unknown Atrial fibrillation Unknown Calculus of kidney Unknown brother Calculus of kidney Unknown Malignant neoplasm of skin Unknown Benign paroxysmal positional vertigo Unkn own Chronic obstructive pulmonary disease Unk nown sister Diabetes mellitus Unknown Osteoporosis Unknown Rheumatoid arthritis Unknown father Unknown Gastrointestinal hemorrhage Unknown mother Unknown Malignant neoplasm Unknown Advance Directives Advance Directive Response Recorded Date/ Time Advance Directives No June 09, 2022 2:07pm Advance Directive Response Recorded Date/ Time Advance Directives No June 09, 2022 3:07pm Chief Complaint and Reason for Visit Chief Complaint e78.5 Chief Complaint e78.5 See order Chief Complaint See order Chief Complaint Admit Date Abnormal Mammogram July 02, 2024 11:23am n63.11 July 14, 2024 1 2:35pm E55.9 August 15, 2024 8 :56am Reason for Visit Admit Date Abnormal finding on mammography July 02, 2024 11:23am Abnormal finding on mammography July 14, 2024 12:35pm Chief Complaint Admit Date I10 August 30, 2024 8 :18am back pain, bladder spasms November 14 6:43pm Additional Source Comments INFORMATION SOURCE (unrecogn ized section and content) DATE CREATED AUTHOR 07/23/2021 [facility] DATE CREATED AUTHOR AUTHOR'S ORGANIZ ATION 12/27/2021 [facility] DATE CREATED AUTHOR AUTHOR'S ORGANIZ ATION 05/12/2022 [facility] dical Specialist DATE CREATED AUTHOR AUTHOR'S ORGANIZ ATION 02/21/2024 [facility] DATE CREATED AUTHOR AUTHOR'S ORGANIZ ATION 10/11/2024 [facility] Specialists EPIC DATE CREATED AUTHOR AUTHOR'S ORGANIZ ATION 12/30/2024 [facility] DATE CREATED AUTHOR AUTHOR'S ORGANIZ ATION 01/04/2025 [facility] DATE CREATED AUTHOR AUTHOR'S ORGANIZ ATION 01/19/2025 [facility] y[facility] Care Teams (unrecognized sec tion and content) Team Status: Inactive Member Role Status Dates Reilly Yoo DO Primary Care Provider, Attending Aly crum Active Team Status: Active Member Role Status Dates Reilly Yoo DO Primary Care Provider Active Team Status: Inactive Member Role Status Dates Reilly Yoo DO Primary Care Provider Active Diamond Loaiza MD Attending Provider Active Optical Glass Etcher Relationship Specialty Start Date End Date Reilly Yoo MD [address], [place] [address] PCP - General Family Medicine 05/17/23 Optical Glass Etcher Relationship Specialty Start Date End Date Reilly Yoo MD [address], [place] [address] PCP - General Family Medicine 05/17/23 Optical Glass Etcher Relationship Specialty Start Date End Date Reilly Yoo DO [address], [place] [address] PCP - General Family Medicine 06/06/22 Optical Glass Etcher Relationship Specialty Start Date End Date Reilly Yoo DO [address], [place] [address] PCP - General Family Medicine 06/06/22 Optical Glass Etcher Relationship Specialty Start Date End Date Reilly Yoo DO [address], [place] [address] PCP - General Family Medicine 06/06/22 Optical Glass Etcher Relationship Specialty Start Date End Date Reilly Yoo MD [address], [place] [address] PCP - General Family Medicine 05/17/23 Optical Glass Etcher Relationship Specialty Start Date End Date Reilly Yoo MD [address], [place] [address] PCP - [facility] Family Medicine 05/17/23 Team Status: Inactive Member Role Status Dates Reilly Yoo DO Primary Care Provider Active Start: July 02, 2024 End: July 02, 2024 Vipul Restrepo DO Attending Provider Active Start: July 02, 2024 End: July 02, 2024 Team Status: Inactive Member Role Status Dates Reilly Yoo DO Primary Care Provider Active Start: July 14, 2024 End: July 14, 2024 Vipul Restrepo DO Attending Provider Active Start: July 14, 2024 End: July 14, 2024 Team Status: Inactive Member Role Status Dates Reilly Yoo DO Primary Care Provide r, Attending Provider Active Start: August 15, 2024 End: August 15, 2024 Optical Glass Etcher Relationship Specialty Start Date End Date Reilly Yoo DO [address], [place] [address] PCP - [facility] Family Medicine 06/06/22 Optical Glass Etcher Relationship Specialty Start Date End Date Reilly Yoo MD [address], [place] [address] PCP - General Family Medicine 05/17/23 Optical Glass Etcher Relationship Specialty Start Date End Date Reilly Yoo MD [address], [place] [address] PCP - General Family Medicine 05/17/23 Optical Glass Etcher Relationship Specialty Start Date End Date Reilly Yoo DO [address], [place] [address] PCP - General Family Medicine 06/06/22 Optical Glass Etcher Relationship Specialty Start Date End Date Reilly Yoo DO [address], [place] [address] PCP - General Family Medicine 06/06/22 Optical Glass Etcher Relationship Specialty Start Date End Date Reilly Yoo DO [address], [place] [address] PCP - General Family Medicine 06/06/22 Optical Glass Etcher Relationship Specialty Start Date End Date Reilly Yoo DO [address], [place] [address] PCP - General Family Medicine 06/06/22 Optical Glass Etcher Relationship Specialty Start Date End Date Reilly Yoo DO [address], [place] [address] PCP - General Family Medicine 06/06/22 Team Status: Inactive Member Role Status Dates Reilly Yoo DO Primary Care Provide r, Attending Provider Active Start: August 30, 2024 End: August 30, 2024 Team Status: Inactive Member Role Status Dates Reilly Georgiajonah DO Primary Care Provider Active Start: November 14, 2024 End: November 14, 2024 Carmencita Hirsch APRN Emergency Provider Active Start: November 14, 2024 End: November 14, 2024 Optical Glass Etcher Relationship Specialty Start Date End Date Reilly Yoo DO [address], [place] [address] PCP - General Family Medicine 06/06/22 Optical Glass Etcher Relationship Specialty Start Date End Date GeorgiajonahClintonReilly DO Veroncia [address], [place] [address] PCP - General Family Medicine 06/06/22 Goals (unrecognized section and content) Goals may be documented in a n alternate sectionGoals may be documented in an alternate section No data available for this sectionNo InformationGoals may be documented in an alternate section No data available for this sectionNot on filedocumented as of this encounterNot on filedocumented as of this encounterNot on filedocumented as of this encounterGoals may be documented in an alternate sectionNot on filedocumented as of this encounterNot on filedocumented as of this encounterNot on filedocumented as of this encounterNot on filedocumented as of this encounterNot on filedocumented as of this encounterNot on filedocumented as of this encounterNot on filedocumented as of this encounterNot on filedocumented as of this encounterNot on filedocumented as of this encounterNot on filedocumented as of this encounterGoals may be documented in an alternate sectionNot on filedocumented as of this encounterNot on filedocumented as of this encounterNot on filedocumented as of this encounterNot on filedocumented as of this encounter REASON FOR VISIT (unrecogniz ed section and content) Reason Comments Gynecologic Exam Denies concerns, Den ies bowel/bladder/breast concerns. Denies vaginal bleeding/spotting Reason Comments Discuss Rt. breast bx results, breast cl inic pt. Reason Comments Med Refill Reason Comments Ankle Pain Rt ankle/ft pain Reason Comments Hypertension Hyperlipidemia cv Reason Comments Follow-up Rt tendonitis check Reason Comments Hyperlipidemia Hypertension Reason Comments MAW Reason Comments mole check Reason Comments Insect Bite 3 raised Reason Comments Follow-up On tick bite. Reason Comments ear flush Reason Comments maw FOR RECORDS PERTAINING TO PATIENTS WHO ARE OR HAVE BEEN ENROLLED IN A CHEMICAL DEPENDENCY/SUBSTANCEABUSE PROGRAM, SOME INFORMATION MAY BE OMITTED. This clinical summary was aggregated from multiple sources. Caution should be exercised in using it in the provision of clinical care. This summary normalizes information from multiple sources, and as a consequence, information in this document may materially change the coding, format and clinical context of patient data. In addition, data may be omitted in some cases. CLINICAL DECISIONS SHOULD BE BASED ON THE PRIMARY CLINICAL RECORDS. [facility] [facility]. provides no warranty or guarantee of the accuracy or completeness of information in this document.
[2025-01-22 09:24] LABS: Calcium Urine Random 8.2 mg/dL (5.1-21.0); Creatinine Urine Random 20.98 mg/dL (20.00-300.00); Sodium Urine Random 37 mmol/L (30-90)
[2025-01-22 09:29] LABS: Calcium 24 Hour Urine 360.8 mg/24hr (100.0-300.0); Sodium 24 Hour Urine 163 mmol/24h (40-220); Total Volume 24 Hour Urine 4400 mL/24hr
[2025-01-23 04:07] LABS: Uric Acid, Urine 8.9 mg/dL (Not Estab.); Uric Acid,Urine 24hr 391.6 mg/24 hr (142.3-713.2)
[2025-01-23 10:09] LABS: Magnesium, U 4.4 mg/dL (Not Estab.); Magnesium,Urine 24hr 193.6 mg/24 hr (12.0-293.0); Phosphorus, Urine 11.8 mg/dL (Not Estab.); Phosphorus,Urine 24h 519 mg/24 hr (261-1078)
[2025-01-23 10:09] LABS: PTH, Intact 40 pg/mL (15-65)
[2025-01-23 16:10] LABS: BOX Test Reference Lab Cleveland Clinic
[2025-01-27 07:09] LABS: Citric Acid, U, 24hr 1008 mg/24 hr (320-1240); Citric Acid, Urine 229 mg/L (Undefined)
== END 2025-01-22 08:32 | disposition home or self-care (01) ==
LOC: LAB 08:32
PROVIDERS: PCP Family Medicine; Visit Provider Urology
DX: N20.0 Calculus of kidney (principal)
CPT/HCPCS: 36415; 82310; 82340; 82374; 82435; 82507; 82565; 82570; 83735; 83945; 83970; 84100; 84105; 84295; 84300; 84520; 84550; 84560

== ENCOUNTER 2025-02-06 13:49 | Emergency (ER) | payer MEDICARE, SELFPAY ==
--- OUTSIDE RECORDS SUMMARY | 2025-01-29 10:45 | XMS_ITS | Encounter Summary ---
Author Organization [facility] Address [address] [place] [address] Care Team Providers Care Lap Checker Name Role Phone Reilly Yoo MD Primary Care Provider [phone] Reason for Visit * Reason Comments 6mos. follow up Rt. mamm/US w/exam Encounter Details Date Type Department Care Team (Latest Contact Info) Description 01/29/2025 10:45 AM EDT Office Visit [facility] [address] [place] [phone] Andres Restrepo, DO 703 [facility] [address] [place] [address] Pseudoangiomatous stromal hyperplasia of breast (Primary Dx) Social History Tobacco Use Types Packs/Day Years Used Date Smoking Tobacco: Never Smokeless Tobacco: Never Alcohol Use Standard [...] Sign Reading Time Taken Comments Blood Pressure 118/60 01/29/2025 10:26 AM EDT Pulse - - Temperature - - Respiratory Rate - - Oxygen Saturation - - Inhaled Oxygen Concentration - - Weight 67.1 kg (148 lb) 01/29/2025 10:26 AM EDT Height 160 cm (5' 3 ) 01/29/2025 10:26 AM EDT Body Mass Index 26.22 01/29/2025 10:26 AM EDT documented in this encounter Progress Notes * Andres Restrepo, - 01/29/2025 10:45 AM EDT Images from the original note were not included. Malia Smith 1955 Malia Smith is a 69 y.o. female presents with chief complaint of 6mos. follow up Rt. mamm/US w/exam HPI: HPI Malia presents for her 6 mth follow up imaging of the right breast. She is doing well. SUBJECTIVE: MEDICATIONS: ALLERGIES Current Outpatient Medications Medication Instructions alendronate (Fosamax) 70 MG tablet Calcium-Vitamin D-Vitamin K (Calcium + D) 500-1000-40 MG-UNT-MCG chewable tablet cetirizine (ZyrTEC ALLERGY) 10 MG tablet Every 24 hours cholecalciferol (Vitamin D-3) 50 MCG (1999) tablet lisinopril 5 MG tablet 1 tablet, Daily lovastatin (MEVACOR) 20 mg, Daily RT meclizine (Antivert) 12.5 MG tablet methylPREDNISolone (Medrol Dospak) 4 MG tablets Follow schedule on MEDROL PACK package instructionsto be used as directed potassium citrate CR (Urocit-K-10) 10 mEq ER tablet Every 8 hours rosuvastatin (Crestor) 10 MG tablet 1 tablet, Every morning valsartan (DIOVAN) 40 mg, Daily RT Allergies Allergen Reactions Azithromycin Other Reaction(s): Unknown Bee Venom Chlorpheniramine Other Reaction(s): Edema around eye Other reaction(s): Edema around eye Erythromycin Base Other Reaction(s): Unknown Iodinated Contrast Media Other Reaction(s): Chest tightness Pseudoephedrine Other Reaction(s): Unknown Amoxicillin Rash Other Reaction(s): Itching, Unknown Other reaction(s): Itching Sulfamethoxazole Rash Sulfamethoxazole-Trimethoprim Rash Other Reaction(s): Unknown PAST MEDICAL HISTORY: SOCIAL HISTORY SURGICAL HISTORY: Past Medical History: Diagnosis Date Arthritis Elevated cholesterol HTN (hypertension) Kidney stones Sinus problem Squamous cell carcinoma, arm, right Vertigo Wears glasses Social History Tobacco Use Smoking status: Never Smokeless tobacco: Never Substance Use Topics Alcohol use: Never Comment: Caffeine intake: 1-2 cups per day chocolate Drug use: Never Past Surgical History: Procedure Laterality Date APPENDECTOMY BI US GUIDED BREAST LOCALIZATION AND BIOPSY RIGHT Right 07/17/2024 BI US GUIDED BREAST LOCALIZATION AND BIOPSY RIGHT COLONOSCOPY 2013 wnl LITHOTRIPSY x3 LITHOTRIPSY 02/2018 Dr eJnsen OTHER SURGICAL HISTORY kidney stent OTHER SURGICAL HISTORY 08/22/2023 Cologuard-Neg SQUAMOUS CELL CARCINOMA EXCISION Right 2018 right arm SQUAMOUS CELL CARCINOMA EXCISION Right 12/2018 right upper arm TUBAL LIGATION FAMILY HISTORY Family History Problem Relation Name Age of Onset Breast cancer Mother Dementia Mother Kidney disease Mother Arthritis Mother Heart disease Mother Ovarian cancer Mother Hypertension Mother Atrial fibrillation Father Asthma Father Stroke Father Arthritis Sister Diabetes Sister Stroke Sister Osteoporosis Sister Thyroid disease Sister Heart disease Maternal Grandmother Cancer Maternal Grandmother Stroke Paternal Grandmother Colon cancer Paternal Grandfather REVIEW OF SYMPTOMS: Review of Systems Constitutional: Negative for diaphoresis and unexpected weight change. HENT: Negative for hearing loss, tinnitus and voice change. Respiratory: Negative for shortness of breath. Cardiovascular: Negative for chest pain and palpitations. Musculoskeletal: Negative for arthralgias. Neurological: Positive for dizziness. Negative for seizures and headaches. All other systems reviewed and are negative. Hematological: Negative for adenopathy. Does not bruise/bleed easily. OBJECTIVE: Visit Vitals BP 118/60 Ht 5' 3 Wt 148 lb BMI 26.22 kg/m² Smoking Status Never BSA 1.73 m² Physical Exam Exam conducted with a coal deliverer present. HENT: Head: Normocephalic. Cardiovascular: Rate and Rhythm: Normal rate and regular rhythm. Pulmonary: Effort: Pulmonary effort is normal. Breath sounds: Normal breath sounds. Chest: Comments: Bilateral supraclavicular, infraclavicular, bicipital and axillary lymph nodes were foundto be normal. Each breast was examined in the sitting and supine position, there was no evidence ofmasses, dimpling or discharge in either breast Abdominal: General: Abdomen is flat. Bowel sounds are normal. Palpations: Abdomen is soft. Skin: General: Skin is warm and dry. Neurological: Mental Status: She is alert. ASSESSMENT AND PLAN: Assessment/Plan Diagnoses and all orders for this visit: Pseudoangiomatous stromal hyperplasia of breast Malia had her 6 mth Rt breast mamm & US that showed - decrease in size of mixed echogenic area now measuring 6 mm. She is due for her bilateral mamm;s in Nov, I'l add a right breast US to that andsee her following the imaging documented in this encounter Miscellaneous Notes * Addendum Note - Rip Spencer LPN - 01/29/2025 10:45 AM EDTAddended by: RIP SPENCER on: 01/29/2025 10:52 AM Modules accepted: Orders documented in this encounter Plan of Treatment Upcoming Encounters Date Type Department Care Team (Late st Contact Info) Description 06/25/2025 9:45 AM EST [facility] Visit [facility] [facility] [address] [place] [address] Andres Restrepo DO 703 [facility] [address] [place] [address] 06/30/2025 10:30 AM EST Office Visit [facility] [address] [place] [address] [place] [phone] Annmarie Freitas, DO [address] [place] [address] [place] [address] Scheduled Orders Name Type Priority Associated Diagnoses Orde r Schedule Bilateral diagnostic mammogram with tomosynthesis Imaging Routine Pseudoangiomatous stromal hyperplasia of breast Expected: 06/06/2025 (Approximate), Expires: 03/31/2026 Right breast US limited Imaging Routine Pseudoangiomatous stromal hyperplasia of breast Expected: 06/06/2025, Expires: 03/31/2026 documented as of this encounter Visit Diagnoses Diagnosis Pseudoangiomatous stromal hyperplasia of breast- Primary documented in this encounter Care Teams Lap Checker Relationship Specialty Start Date End Date Reilly Yoo MD [address] [facility], [place] [address] PCP - General Family Medicine 01/01/25 documented as of this encounter
--- OUTSIDE RECORDS SUMMARY | 2025-02-06 13:55 | XMS_ITS | Encounter Summary ---
Author Organization [facility] Address [id number] [address] [place] [address] Care Team Providers Care Supervisor Asphalt Paving Name Role Phone Reilly Yoo Primary Care Provider + [phone] Encounter Details Date Type Department Care Team (Late st Contact Info) Description 08/18/2024 Orders Only [facility] - Family Medicine [address] [place] [phone] Ana Larsen CMA Hypercholesterolemia Social History Tobacco Use Types Packs/Day Years Used Date Smoking Tobacco: Never Passive Smoke Exposure: Never Smokeless Tobacco: Never Alcohol Use Standard Drinks/Week Comments Not Currently 0 (1 standard drink = 0.6 oz pur e alcohol) [facility] Utilities Answer Date Recorded In the [...] often do you attend chur ch or tenriism services? More than 4 times per year [...] Answer Date Recorded Total Score 0 08/18/2024 [facility] of Occupat ional Health - Occupational Stress [...] - Family Medicine [address] [place] [phone] Reilly Yoo DO [address], [facility] [place] [address] 01/26/2026 9:40 AM EDT [facility] [address] [place] [address] documented as of this encounter Procedures Procedure [...] as of this encounter Care Teams Supervisor Asphalt Paving Relationship Specialty Start Date End Date Reilly Yoo DO [address], [place] [address] PCP - General Family Medicine 06/06/22 documented as of this encounter
--- OUTSIDE RECORDS SUMMARY | 2025-02-06 13:55 | XMS_ITS | Encounter Summary ---
Author Organization [facility] Address [address] [place] [address] Care Team Providers Care Special Education Superintendent Name Role Phone Reilly Yoo MD Primary Care Provider + [phone] Reilly Yoo MD Primary Care Provider + [phone] Encounter Details Date Type Department Care Team (Late st Contact Info) Description 07/14/2024 External Result Encounter [facility] External Department Unsolicited Andres Restrepo, DO [address] [address] Social History Tobacco Use Types Packs/Day Years [...] EST Office Visit [facility] [address] [phone] Andres Restrepo, DO [address] [address] 06/30/2025 10:30 AM EST Office Visit [facility] [address] [place] [address] [place] [address] ZenaAnnmarie, DO [address] [place] [address] [place] [address] documented as of this encounter Procedures Procedure [...] Ramos Transcribed By: 07/14/24 1438 Dictated By: Mnany Storey DO 07/14/24 1400 Signed By: 07/17/24 1451 [facility] 07/14/2024 2:39 PM EST [facility] [address] [place] [address] Ultrasound Report Signed Patient: Malia Smith MR#: [id number] : 1955 Acct:[id number] Age/Sex: 68 / F ADM Date: 07/14/24 Loc: [facility] Room: Type: [facility] Attending Dr: Andres Restrepo DO Ordering Provider: Andres Restrepo DO Date of Service: 07/14/24 US/US breast ndl core biopsy RT: N63.11 ([id number]) US/US breast RT limited: N63.11 ([id number]) MM/MM post biopsy RT w/CAD: POST RT [...] Procedure Note Radiology, Radiologist, MD - 07/17/2024 [facility] [address] [place] [address] Ultrasound Report Signed Patient: Malia Smith MMR#: [id number] : 7Acct:[id number] Age/Sex: 68 / FADM Date: 07/14/24 Loc: [facility] Room:Type: [facility] Attending Dr: Andres Restrepo DO Ordering Provider: Andres Restrepo DO Date of Service: 07/14/24 US/US breast ndl core biopsy RT: N63.11 ([id number]) US/US breast RT limited: N63.11 ([id number]) MM/MM post biopsy RT w/CAD: POST RT [...] Storey M.D.07/14/2024 2:00 PM Tech: Sarah Beth Lorenzana; Lorena Ramos Transcribed By: 07/14/24 1438 Dictated By: Manny Storey DO 07/14/24 1400 Signed By:07/17/24 1451 us Andres Restrepo DO IMG US PROCEDURES Edited Result - Final documented in this encounter Visit Diagnoses Not on filedocumented in this encounter Care Teams Special Education Superintendent Relationship Specialty Start Date End Date Reilly Yoo MD PCP - General Family Medicine 05/17/23 12/31/24 Reilly Yoo MD [address] [facility], [facility] [address] PCP - General Family Medicine 01/01/25 documented as of this encounter
--- OUTSIDE RECORDS SUMMARY | 2025-02-06 13:55 | XMS_ITS | Clinical Summary ---
Author Organization [employer] Address [facility]-[id number] [address] [place] [address] Care Team Providers Care Continuous Crusher Operator Name Role Phone Reilly Yoo DO Primary Care Provider [phone] Allergies Active Allergy Reactions Criticality Noted Date [...] Medicine - Family Medicine [address] [place] [address] Reilly Yoo, DO Medicare annual wellness visit, subsequent (Primary Dx); Screening for depression 01/20/2025 Travel 01/01/2025 11:30 AM EDT Office Visit [facility] [address] [place] [address] Reilly Yoo, DO Bilateral impacted cerumen (Primary Dx); Neoplasm of uncertain behavior of skin 01/01/2025 Travel 12/30/2024 Orders Only [facility] [address] [place] [address] Reilly Yoo, Neoplasm of uncertain behavior of skin (Primary Dx) 12/22/2024 11:30 AM EDT Office Visit [facility] [address] [place] [address] Reilly Yoo, Neoplasm of uncertain behavior of skin (Primary Dx); Tick bite of lower back, sequela; Bilateral impacted cerumen 12/22/2024 Travel from Last 3 Months Immunizations Immunization Administration [...] drink = 0.6 oz pur e alcohol) [facility] [employer] Utilities Answer Date Recorded In the past 12 months has [employer], oil, or water [employer] threatened to shut off services in your [...] week 07/18/2022 How often do you attend [facility] or [facility]ain services? More than 4 times per year 07/18/2022 Do you belong to any clubs o r organizations such as mandaen groups, unions, fraternal or athletic groups, or [...] Answer Date Recorded Total Score 0 01/20/2025 [facility] of Occupat ional Health - Occupational Stress [...] - Family Medicine [address] [place] [phone] Reilly Yoo, DO [address], [facility] [place] [address] 01/26/2026 9:40 AM EDT Office Visit [facility] - Family Medicine [address] [place] [phone] Health Maintenance Due Date Last Done Comments [...] COLOGUARD Negative Negative 2023 6:45 PM EST [facility] [employer] [facility] (CLIA #:[id number]) Comment: NEGATIVE TEST RESULT. A negative Cologuard [...] (Carmen Jansen al, N Engl J Med 2014;370(14):3584-5232) The normal value (reference range) for this assay is negative. COLOGUARD RE-SCREENING RECOMMENDATION: Periodic colorectal cancer screening is an important part of preventive healthcare for asymptomatic individuals at average risk for colorectal cancer. Following a negative Cologuard result, the [place] Cancer Society and U.S. Multi-Society Task Force screening guidelines recommend a Cologuard re-screening interval of 3 years. References: [place] [employer] Society Guideline for Colorectal Cancer Screening: https://www.cancer.org/cancer/xddfo-malrzv-eiaiyb/xpubtkogm-ywbmnozol-fyavpdp/ac s-rec ommendations.html.; Adolph FAROOQ, Francie LUNDBERG, Dread DiorK, Colorectal Cancer Screening: Recommendations for Physicians and Patients from the U.S. Multi-Society Task Force on Colorectal Cancer Screening , Am J Gastroenterology 2017; 112:1549-8902. TEST DESCRIPTION: Composite algorithmic analysis of stool [...] screened with both Cologuard and colonoscopy. (Carmen Anders, N Engl J Med 2014;370(14):8200-0616.) Cologuard may produce a false negative or false positive result (no colorectal cancer or precancerous polyp present at colonoscopy follow up). A negative Cologuard test result does not guarantee the absence of CRC or advanced adenoma (pre-cancer). The current Cologuard screening interval is every 3 years. ([place] Cancer Society and U.S. Multi-Society Task Force). Cologuard performance data in a 10,000 patient pivotal study using colonoscopy as the reference method can be accessed at the following location: www.GiveNext/results. Additional description of the Cologuard test process, warnings and precautions can be found at www.cologuard.com. Stool specimen (specimen) Rectum structure / Unknown 08/22/2023 7:34 AM EST 08/23/2023 2:10 PM EST us Reilly Yoo DO LAB ORDERABLES Final Result [facility] (CLIA #:[id number]) [address] [place] [address], from Last 3 Months or Most Recently Relevant to Health Maintenance Insurance MEDICARE Care Teams Continuous Crusher Operator Relationship Specialty Start Date End Date Reilly Yoo DO [address], [place] [address] PCP - General Family Medicine 06/06/22
--- OUTSIDE RECORDS SUMMARY | 2025-02-06 13:55 | XMS_ITS | Encounter Summary ---
Author Organization [facility] Address [address] [place] [address] Care Team Providers Care Lodging Facilities Manager Name Role Phone Unavailable Primary Care Provider Unavailabl e Source Comments In the event this information is protected by the Federal Confidentiality of Alcohol and Drug AbusePatient Records regulations: The Federal rules restrict any use of the information to criminally investigate or prosecute any alcohol or drug abuse patient.[facility] Encounter Details Date Type Department Care Team (Late st Contact Info) Description 01/22/2025 Lab Requisition [facility] Hospital Laboratory [facility] [place] [id number] Shawn Loaiza MD [address] [place] [address] Social History Tobacco Use Types Packs/Day Years Used Date Smoking Tobacco: Never Assessed Comments Unknown Sex and Gender Information Value Date Recorded Sex Assigned at Not on file Legal Sex Female 11:13 PM EDT Gender Identity Not on file Sexual Orientation Not on file documented as of this encounter Plan of Treatment Not on file documented as of this encounter Procedures Procedure Name Priority Date/Time Associated Diagnosis Comments OXALATE 24 HR URINE Routine 01/22/2025 7 :24 AM EDT documented in this encounter Results * OXALATE 24 HR URINE (01/22/2025 7:24 AM EDT) Oxalate, Urine 24 Hour 26 4 - 31 mg/24hrs 01/23/2025 3:49 PM EDT [facility] Comment:This test was develo ped, and its performance characteristics determined by the [facility] Department of Pathology and Laboratory Medicine. It has not been cleared or approved by the FDA. The [facility] Department of Pathology and Laboratory Medicine is regulated under CLIA as qualified to perform high- complexity testing. This test is used for clinical purposes. It should not be regarded as investigational or for research. Period 24 hr 01/23/2025 3:49 PM EDT [facility] Volume 4,400 mL 01/23/2025 3:49 PM EDT [facility] Urine URINE SPECIMEN / Unknown 01/22/2025 7:24 AM EDT 01/22/2025 11:16 PM EDT us Shawn Loaiza MD LABORATORY Final Result [facility] [address] [facility] [address] [address], [place] documented in this encounter Visit Diagnoses Not on filedocumented in this encounter
--- OUTSIDE RECORDS SUMMARY | 2025-02-06 13:55 | XMS_ITS | Clinical Summary ---
Author Organization [facility] Address [address] [place] [address] Care Team Providers Care Director Microbiology Name Role Phone Unavailable Primary Care Provider Unavailabl e Encounters Date Type Department Care Team Description 01/22/2025 Lab Requisition [facility] Laboratory [address] [place] [address] Shawn Loaiza MD from Last 3 Months Social History Tobacco Use Types Packs/Day Years Used Date Smoking Tobacco: Never Assessed Comments Unknown Sex and Gender Information Value Date Recorded Sex Assigned at Not on file Legal Sex Female 11:13 PM EDT Gender Identity Not on file Sexual Orientation Not on file Plan of Treatment Not on file Procedures Procedure Name Priority Date/Time Associated Diagnosis Comments OXALATE 24 HR URINE Routine 01/22/2025 7 :24 AM EDT from Last 3 Months Results * OXALATE 24 HR URINE (01/22/2025 7:24 AM EDT) Oxalate, Urine 24 Hour 26 4 - 31 mg/24hrs 01/23/2025 3:49 PM EDT [facility] Comment:This test was develo ped, and its performance characteristics determined by the [facility] Department of Pathology and Laboratory Medicine. It has not been cleared or approved by the FDA. The [facility] Department of Pathology and Laboratory Medicine is regulated under CLIA as qualified to perform high- complexity testing. This test is used for clinical purposes. It should not be regarded as investigational or for research. Period 24 hr 01/23/2025 3:49 PM EDT [facility] Volume 4,400 mL 01/23/2025 3:49 PM EDT [facility] Urine URINE SPECIMEN / Unknown 01/22/2025 7:24 AM EDT 01/22/2025 11:16 PM EDT us Shawn Loaiza MD LABORATORY Final Result [facility] [address] [address], [place] from Last 3 Months
--- OUTSIDE RECORDS SUMMARY | 2025-02-06 13:56 | XMS_ITS | Encounter Summary ---
[facility] [id number] [address] [place] [address] Care Team Providers Care Print Production Manager Name Role Phone GeorgiaReilly mckenzie Primary Care Provider + [phone] Encounter Details Date Type Department Care Team (Late st Contact Info) Description 09/02/2024 Orders Only [facility] Internal Medicine - Family Medicine [address] [place] [id number] Ana Larsen CMA Essential hypertension Social History Tobacco Use Types Packs/Day Years Used Date Smoking Tobacco: Never Passive Smoke Exposure: Never Smokeless Tobacco: Never Alcohol Use Standard Drinks/Week Comments Not Currently 0 (1 standard drink = 0.6 oz pur e alcohol) [facility] Utilities Answer Date Recorded In the [...] often do you attend chur ch or adventism services? More than 4 times per year 07/18/2022 Do you belong to any clubs o r organizations such as restorationist groups, unions, fraternal or athletic groups, or [...] Recorded Do you need help finding a vencor hospitalal career center and/or a training program? [...] Medicine - Family Medicine [address] [place] [place] [id number] Reilly Yoo, [address], [facility] [place] [address] 01/26/2026 9:40 AM EDT [facility] [address] [place] [id number] documented as of this encounter Procedures Procedure [...] documented as of this encounter Care Teams Print Production Manager Relationship Specialty Start Date End Date Reilly Yoo DO [address] [facility], [place] [address] PCP - General Family Medicine 06/06/22 documented as of this encounter
--- OUTSIDE RECORDS SUMMARY | 2025-02-06 13:56 | XMS_ITS | Encounter Summary ---
[facility] Organization [id number] [address] [place] [address] Care Team Providers Care Editorial Director Name Role Phone NailaReilly Veronica GARCIA Primary Care Provider + [phone] Encounter Details Date Type Department Care Team (Late st Contact Info) Description 07/24/2022 Orders Only [facility] Internal Medicine - Family Medicine [address] [place] [phone] Jaleesa Patel MA Hyperlipidemia, unspecified hyperlipidemia type [...] often do you attend chur ch or buddhist services? More than 4 times per year 07/18/2022 Do you belong to any clubs o r organizations such as rastafari groups, unions, fraternal or athletic groups, or [...] and heating? Not hard at all 07/18/2022 [facility] - Occupational Stress [...] Medicine - Family Medicine [address] [place] [phone] Reilly Yoo, [address], [place] [address] 01/26/2026 9:40 AM EDT Office Visit [facility] - Family Medicine [address] [place] [phone] documented as of this encounter Procedures Procedure [...] Performing Organization Address City/[facility] Co de Phone Number MANUALLY TRANSCRIBED RESULTS documented in this encounter Visit Diagnoses Diagnosis Hyperlipidemia, unspecified hyperlipidemia type documented in this encounter Care Teams Editorial Director Relationship Specialty Start Date End Date Reilly Yoo DO [address] [facility] [facility], [place] [address] PCP - General Family Medicine 06/06/22 documented as of this encounter
--- OUTSIDE RECORDS SUMMARY | 2025-02-06 13:56 | XMS_ITS | CCD ---
Author Organization [facility] ion [facility] Care Team Providers Care Director Of Broadcast Name Role Phone REQUEST, DR NANCE LISTED Consulting Unavaila ble REQUEST, DR NANCE LISTED Admitting Unavaila ble FURLONG, DR REILLY Martin Primary Care Unavailable REQUEST, DR NANCE LISTED Attending Unavaila ble FURLONG, DR REILLY Martin Primary Care Unavailable FURLONG, DR REILLY Martin Admitting Unavailable FURLONG, DR REILLY Martin Attending Unavailable FURCASSIENG, DR REILLY Martin Consulting Unavailable BAUTISTA, DR FIELDS Admitting Unavailable BAUTISTA, DR FIELDS Attending Unavailable BAUTISTA, DR FIELDS Consulting Unavailable FURLONG, DR REILLY Martin Primary Care Unavailable WEST, DR ARTHUR Matias Consulting Unavailable ANNMARIE FREITAS Attending Unavailable ANNMARIE FREITAS Admitting Unavailable FURJONAH, DR REILLY Martin Primary Care Unavailable WEST, DR ARTHUR Matias Consulting Unavailable ANNMARIE FREITAS Consulting Unavailable BAUTISTA, DR FIELDS Admitting Unavailable BAUTISTA, DR FIELDS Attending Unavailable BAUTISTA, DR FIELDS Consulting Unavailable FURLONG, DR REILLY Martin Primary Care Unavailable WEST, DR ARTHUR Matias Consulting Unavailable DO Reilly Phipps Primary Care Provider DO Reilly Phipps Attending Provider [phone] MD Diamond Bautista Attending Provider [phone] REILLY PHIPPS Primary Care Physician [phone] Kaitlyn Giordano Unavailable DO Reilly Phipps Primary Care Provider [phone] MD Diamond Bautista Attending Provider REILLY PHIPPS Referring Unavailable DESIRE, REILLY Martin Primary Care Unavailable REILLY PHIPPS Referring Unavailable GEORGIALOBUCK, REILLY Martin Primary Care Unavailable Furlong MD, Reilly G Primary Care Provider Furlong DO, Reilly G Primary Care Provider [phone] Furlong DO, Reilly Primary Care Provider [phone] Itzkowitz DO, Vipul Attending Provider Furlong DO, Reilly Attending Provider [phone] Furlong DO, Reilly G Primary Care Provider [phone] Furlong DO, Reilly Primary Care Provider [phone] Furlong DO, Reilly Attending Provider [phone] Carmencita Hirsch APRN Emergency Provider Diamond BAUTISTA Attending Unavailable MICHELE, Diamond Gonzalez Attending Unavailable Diamond BAUTISTA Attending Unavailable Diamond BAUTISTA Attending Unavailable Diamond BAUTISTA Attending Unavailable Itzkowitz, Vipul Admitting Unavailable Itzkowitz, Vipul Attending Unavailable Furlong, Reilly Primary Care Unavailable Itzkowitz, Vipul Admitting Unavailable Itzkowitz, Vipul Attending Unavailable Furlong, Reilly Primary Care Unavailable Furlong, Reilly Primary Care Unavailable Furlong, Reilly Attending Unavailable Furlong, Reilly Admitting Unavailable Furlong, Reilly Primary Care Unavailable Furlong, Reilly Attending Unavailable Furlong, Reilly Admitting Unavailable Furlong, Reilly Primary Care Unavailable Itzkowitz, Vipul Admitting Unavailable Itzkoann-marietz, Vipul Attending Unavailable Carmencita Hirsch Admitting Unavailable Carmencita Hirsch Attending Unavailable Furlong, Reilly Primary Care Unavailable FURLONG, REILLY G Attending [...] Attending Unavailable FURLONG, REILLY G Referring Unavailable REILLY PHIPPS Primary Care Unavailable REILLY PHIPPS Referring Unavailable REILLY PHIPPS Primary Care Unavailable Reilly Phipps MD Primary Care Provider CJ COTE Attending Unavailable CJ COTE Attending Unavailable RINMAURA, ANNMARIE E Attending Unavailable RINKES, ANNMARIE E Referring Unavailable RINKES, ANNMARIE E Referring Unavailable ITZKOWITZ, VIPUL H Attending Unavailable RINMAURA, ANNMARIE E Referring Unavailable ITZKOWITZ, VIPUL H Attending Unavailable CJ COTE Attending Unavailable Allergies Allergy Classification Reported Allergen(s) Allergy Type Date of Onset Reaction(s) Facility (10 sources) Amoxicillin; Translations: [AMOXICILLIN] Drug Allergy rash [facility] Repository (6 sources) Azithromycin Drug Allergy Abdominal Pain, Abdominal Pain, diarrhea [facility] Rep[facility] (1 source) bee venom Drug allergy (disorder) [facility] (9 sources) Chlorpheniramine; Translations: [CHLORPHENIRAMINE] Drug Allergy Swelling of the Eye [facility] Rep[facility] (20 sources) Erythromycin Drug Allergy Gastrointestinal Upset, Gastrointestinal Upset, stomach cramping [facility] (1 source) Iodine (And Iodine Containting Drugs) Drug allergy (disorder) [facility] (1 source) Pseudoephedrine Drug Allergy [facility] (5 sources) Sulfonamides (Antibiotic) Allergy to substance 1020-2 020 Rash/Itching [facility] (20 sources) bee venom protein (honey bee); Translations: [BEE VENOM PROTEIN (HONEY BEE)] Allergy to substance 1020-2 020 Anaphylaxis/Hives [facility] (20 sources) Iodinated Contrast Media; Translations: [IODINATED CONTRAST MEDIA] Allergy to substance 10-20-2 020 Anaphylaxis/ heart felt funny, tightness/pressure [facility] Comment on above: Reaction: chest tightness (20 sources) Amoxicillin; Translations: [amoxicillin] Drug Allergy Eruption of skin (disorder), Rash [facility] (3 sources) Bee/Wasp/Ant venom; Translations: [Bee Stings] Drug allergy Urticaria (disorder) [facility] (20 sources) Chlorpheniramine; Translations: [chlorpheniramine] Drug Allergy Periorbital edema (disorder) [facility] (3 sources) Contrast media; Translations: [Contrast Dye] Drug allergy Tight chest (finding) [facility] (20 sources) Erythromycin; Translations: [erythromycin] Drug Allergy Stomach cramps (finding) [facility] (17 sources) Sulfamethoxazole / Trimethoprim; Translations: [sulfamethoxazole- trimethoprim] Drug Allergy Eruption of skin (disorder), Rash [facility] (15 sources) Azithromycin Drug Allergy diarrhea Merged With [facility] Other (1 source) Contrast media Propensity to adverse reactions chest tightness Merged With [facility] Other (1 source) bees Propensity to adverse [facility] Other (3 sources) Chlorphen Davis-Pseudoeph Davis Drug allergy 023 eyes swollen [facility] (1 source) Sulfamethoxazole-T MP DS Drug allergy rash Merged With [facility] Other (20 sources) Sulfamethoxazole; Translations: [SULFAMETHOXAZOLE] Drug Allergy Rash [facility] Repository (14 sources) Honey bee venom Propensity to adverse reactions [facility] (14 sources) Pseudoephedrine Drug Allergy [facility] (2 sources) Trimethoprim Drug Allergy rash [facility] (2 sources) venom-honey bee Allergy to substance [facility] Medications Current Medications Medication Drug Class(es) Dates Sig (Normalized) Sig (Original) acetaminophen 325 mg / oxyCODONE hydrochloride 5 mg oral tablet (6 sources) Opioid Agonist Start: 05-25-2020 End: 11-14-2024 take 1 tablet by mouth every four to six hours as needed for pain Oxycodone-Acetam inophen (Percocet) 5-325 mg tablet Active 1 TAB PO EVERY 4-6 HOURS as needed for pain 12 November 14, 2024 [id number] 200 actuat albuterol 0.09 mg/actuat metered dose inhaler (1 source) beta2-Adrenergic Agonist Start: 06-17-2023 take 2 puff(s) by inhalation four times daily as needed Albuterol Sulfate HFA 108 (90 Base) MCG/ACT 2 puffs Inhalation 4 times a day prn Jun, Active alendronic acid 70 mg oral tablet (20 sources) Bisphosphonate Start: 02-14-2018 End: 11-14-2024 alendronate (Fosamax) 70 MG tablet 08/13/2022 Active calcium carbonate 1250 mg / cholecalciferol 1000 unt / vitamin k 0.4 mg chewable tablet (14 sources) Vitamin D Calcium-Vitamin D-Vitamin K (Calcium + D) 500-1000-40 MG-UNT-MCG chewable tablet Active cetirizine hydrochloride 10 mg oral tablet [...] 2018 12:00am March 21, 2018 3:47pm cholecalciferol (Vitamin D-3) 50 MCG (2000 UT) tablet Active cholecalciferol, vitamin D3, 2,000 units tablet Active cholecalciferol (Vitamin D-3) 50 MCG (2000 [...] a day for 21 days Jul, Active lisinopril 5 mg oral tablet (20 sources) Angiotensin Converting Enzyme Inhibitor Start: 02-14-2018 End: 11-14-2024 take 1 tablet by mouth once daily lisinopril 5 MG tablet Take 1 tablet by mouth Daily 03/05/2023 Active lovastatin 20 mg oral tablet (20 sources) HMG-CoA Reductase Inhibitor Start: 03-05-2023 End: 08-17-2023 take 1 tablet by mouth in the morning lovastatin (Mevacor) 20 MG tablet Take 20 mg by mouth in the morning. 03/05/2023 Active Start: 05-07-2020 take 2 tablets by [facility] once daily lovastatin 10 mg Tab 20 mg = 2 tab(s), Oral, Daily Start Date: 05/07/20 Status: Ordered Start: 11-11-2018 End: 11-14-2024 take 1 tablet by mouth once daily at bedtime Lovastatin 10 mg Tablet Discontinued 10 MG PO Daily at bedtime November 11, 2018 12:00am November 14, 2024 7:35pm methylPREDNISolone (9 sources) Corticosteroid Start: 08-14-2024 End: 08-18-2024 methylPREDNISolone [...] End: 05-14-2024 take 1 tablet by mouth in the morning rosuvastatin (Crestor) 10 MG tablet Take 1 tablet by mouth in the morning. 05/14/2024 Active Sudafed PE Congestion (1 source) [...] End: 11-02-2024 take 1 tablet by mouth in the morning valsartan (Diovan) 40 MG tablet Take 40 mg by mouth in the morning. 02/15/2024 Active Vitamin D-3 25 MCG (1000 UT) [...] hours as needed for pain Hydrocodone-Acetami nophen (Jenera) 5-325 mg tablet Discontinued 1 TAB PO EVERY 4-6 HOURS as needed for pain 14 3 May 21, 2020 May 28, 2020 9:26pm Start: 03-22-2018 End: 05-14-2020 take 1 tablet by mouth every four to six hours as needed for pain Hydrocodone-Acetaminophen (Jenera) 5-325 mg Tablet Discontinued 1 TAB PO EVERY 4-6 HOURS as needed for Pain 7 3 November 11, 2018 May 14, 2020 2:11pm Start: 03-22-2018 End: 03-28-2018 Hydrocodone-Acetaminophen 5- 325 mg tablet Discontinued 5 - 325 MG PO As Directed as needed for Pain March 22, 2018 12:00am March 28, 2018 12:25am calcium carbonate 1500 mg / cholecalciferol 800 [...] tablet Discontinued 500 MG PO Twice daily 12 May 31, 2020 12:00am November 14, 2024 7:34pm start 06/01/20 am Effer-K 25 mEq oral tablet, effervescent (1 source) Start: 02-07-2022 End: 02-02-2023 take 1 tablet by mouth twice daily Effer-K 25 mEq oral tablet, effervescent 25 mEq = 1 tab(s), Oral, BID, X 90 day(s), # 180 tab(s), Refills(s) 3, Pharmacy: [facility] [id number], 158, cm, 07/18/21 11:10:00 EST, Height/Length Dosing, 63, kg, 07/18/21 11:10:00 EST, Weight Dosing Start Date: 02/07/22 Stop Date: 02/02/23 Status: Ordered meclizine hydrochloride 25 mg oral tablet (20 [...] Refills(s) 0 Start Date: 02/28/18 Status: Ordered End: 04-23-2024 meclizine (Antivert) 12.5 MG tablet Active take 2 tablets by mo uth three times daily as needed meclizine (Antivert) 12.5 MG tablet take 2 tablet by oral route 3 times every day as needed Oral Active ondansetron 4 mg disintegrating oral tablet (20 [...] citrate 15 meq extended release oral tablet (19 sources) Start: 02-14-2018 End: 11-14-2024 Potassium Citrate 15 mEq tablet extended release Discontinued 1080 MG PO Twice daily February 14, 2018 12:00am November 14, 2024 7:35pm Start: 02-14-2018 take 1080 mg by mout h twice daily Potassium Citrate Active 1080 MG PO Twice daily February 13, 2018 11:00pm potassium citrat e CR (Urocit-K-10) 10 mEq ER tablet every 8 (eight) hours Active Pseudoephedrine (1 source) alpha-Adrenergic Agonist Start: [...] vomiting, unspecified] 02-15-2018 Episodic Nonmalignant breast conditions (16 sources) Pseudoangiomatous stromal hyperplasia of breast; Translations: [...] Insect Bite Onset: 04-23-2024 Unclassified (1 source) mole check Onset: 02-15-2024 Urinary tract infections (6 sources) Acute pyelonephritis; [...] Interpretation Reference Range Facility US breast RT limitedon 01-16 US breast RT limited [facility] [address] [place] [address] Mammography Report Signed Patient: Ena Radford MR#: [id number] : 1955 Acct:[id number] Age/Sex: 69 / F Adm Date: 01/16/25 Loc: [place] Room: Type: [facility] Attending Dr: Vipul Vazquez DO Ordering Provider: Vipul Vazquez DO Date of Service: 01/16/25 Procedure(s): MM diagnostic mammo RT w/CAD; US breast RT limited Accession Number(s): ([id number]) US/US breast RT limited: 6mos. follow up w/mamm ([id number]) MM/MM diagnostic mammo RT w/CAD: 6mos. follow [...] Storey M.D. 01/16/2025 1:26 PM Dictation Location: [facility] Dictated By: Manny Storey DO 01/16/25 0924 Signed By: 01/16/25 1326 Normal [facility] Ambulatory Visit Summaryon 0 11-19-2024 Ambulatory Visit Summary Ambulatory Visit Summary ENA RADFORD :1955 Visit Date:11/19/2024 Ambulatory Visit Instructions Your Diagnosis Ureteral stone with hydronephrosis Kidney stones Renal cyst Your Care Team Attending Physician - Diamond BAUTISTA MD Primary Care Physician - REILLY PHIPPS DO This Is Your Medications List potassium [...] Appointments Sunday 9:45 AM EDT With: Diamond BAUTISTA MD Where: [facility] [address] [place] [address]- You Need to Schedule the Following Appointments Follow Up with Diamond BAUTISTA MD, URL When: Where: [facility] [address] [place] [address]- Medications What How Much When Instructions Unchanged [...] these instructions at home: Medicines ??? Take bdig-fve-qnfyrmp and prescription medicines only as told by [...] keep your pee pale yellow. ? Take ywbg-rzm-mesrqct or prescription medicines. ? Eat foods that [...] norm (more content not included)... Normal [facility] Urology Office/Clinic Noteon 11-19-2024 Urology Office/Clinic Note Urology Office/Clinic Note Chief Complaint New Pt HPI Staff Pt was seen at [facility] on 11/14/24 due to right flank pain CT SCAN 11/14/24 Pt states has some back on the right side when she moves Denies any urinary issues History of Present Illness Tests reviewed: UA, ER records, CT I have reviewed the previous health record information and history for this patient from [facility]. I have reviewed and verified the staff [...] Hydronephrosis with renal and ureteral calculous obstruction) [facility] ED 11/14/24 d/t F flank pain, bladder spasms, nausea. CT AP wo con 11/14/24 [facility] - Mild to mod R hydro secondary [...] [facility] [address], [place] [id number]- Additional Instructions: schedule cysto, urs, laser litho, possible stent placement Patient Education Laser Therapy for Kidney Stones, Care After Laser Therapy for Kidney Stones I, Jo Perkins, personally scribed for Dr. Bautista on 11/19/2024 09:15:40. . Documentation recorded by the scribe, Jo Perkins, accurately reflects the services(s) I performed and decisions made by me. Authenticated by Dr. Bautista on 11/19/2024 09:17:19. Problem List/Past Medical History [...] Mother. Diabetes: (more content not included)... Normal [facility] Comment on above: Result Comment: Elec tronically Signed By: Diamond BAUTISTA MD\.br\Date and Time Signed: 11/19/24 09:17 EDT\.br\Electronically Co-Signed By: Jo Perkins\.br\Date and Time Co-Signed: 11/19/24 09:16 EDT Alanine aminotransferase [En zymatic activity/volume] in Serum or PlasmaOrdered By: Carmencita Hirsch on 11-14-2024 ALT [Catalytic activity/Vol] Alanine aminotransferase [Enzymatic activity/volume] in Serum or Plasma 7-52 [facility] Albumin [Mass/volume] in Ser um or Plasma by Bromocresol green (BCG) dye binding methoOrdered By: Carmencita Hirsch on 11-14-2024 Albumin BCG dye [Mass/Vol] Albumin [Mass/volume] in Serum or Plasma by Bromocresol green (BCG) dye binding metho 3.5-5.7 [facility] Alkaline phosphatase [Enzyma tic activity/volume] in Serum or PlasmaOrdered By: Carmencita Hirsch on 11-14-2024 ALP [Catalytic activity/Vol] Alkaline phosphatase [Enzymatic activity/volume] in Serum or Plasma 34-104 [facility] Appearance of UrineOrdered B y: Carmencita Hirsch on 11-14-2024 Appearance (U) Urine appearance Clear [facility] Aspartate aminotransferase [ Enzymatic activity/volume] in Serum or PlasmaOrdered By: Carmencita Hirsch on 11-14-2024 AST [Catalytic activity/Vol] Aspartate aminotransferase [Enzymatic activity/volume] in Serum or Plasma 13-39 [facility] Bacteria [Presence] in Urine by AutomatedOrdered By: Carmencita Hirsch on 11-14-2024 Bacteria Auto Ql (U) Bacteria [Presence] in Urine by Automated None Seen [facility] Basophils Auto (Bld) [#/Vol] Ordered By: Carmencita Hirsch on 11-14-2024 Basophils (Bld) [#/Vol] Automated basoph il count 0.0-0.2 [facility] Basophils/100 WBC Auto (Bld) Ordered By: Carmencita Hirsch on 11-14-2024 Basophils/100 WBC (Bld) Automated basophil % . [facility] Bilirubin Test strip Ql (U)O rdered By: Carmencita Hirsch on 11-14-2024 Bilirubin Ql (U) Bilirubin.total [Presence] in Urine by Test strip Negative [facility] Bilirubin.total [Mass/volume ] in Serum or PlasmaOrdered By: Carmencita Hirsch on 11-14-2024 Bilirubin [Mass/Vol] Bilirubin.total [Mass/volume] in Serum or Plasma 0.3-1.[address] [facility] [address] abdomen pelvis wo conon 0 11-14-2024 CT abdomen pelvis wo [place] [address] CT Scan Report Signed Patient: Ena Radford MR#: [id number] : 1955 Acct:[id number] Age/Sex: 69 / F ADM Date: 11/14/24 Loc: ER Room: Type: [facility] ER Attending Dr: Copies to: Carmencita [...] Maritza Willoughby M.D.11/14/2024 7:52 PM Dictation Location: [place] [address] Transcribed By: [facility] 11/14/241951 Dictated By: Maritza Willoughby MD 11/14/241935 Signed By: 11/14/241951 Normal [facility] Calcium [Mass/volume] in Ser um or PlasmaOrdered By: Carmencita Hirsch on 11-14-2024 Calcium [Mass/Vol] Calcium [Mass/volume ] in Serum or Plasma 8.6-10.3 [facility] Carbon dioxide, total [Moles /volume] in Serum or PlasmaOrdered By: Carmencita Hirsch on 11-14-2024 CO2 [Moles/Vol] Carbon dioxide, tota l [Moles/volume] in Serum or Plasma 21.0-31.0 [facility] Chloride [Moles/volume] in S ellen or PlasmaOrdered By: Carmencita Hirsch on 11-14-2024 Chloride [Moles/Vol] Chloride [Moles/volume] in Serum or Plasma 98-107 [facility] Color Auto (U)Ordered By: Co franco Hirsch on 11-14-2024 Color (U) Color of Urine by Auto Yellow [facility] Complete Blood Count Auto Di ffon 11-14-2024 Basophils (Bld) [#/Vol] 0.0 10*3/uL Normal 0.0-0.2 [facility] Comment on above: Result Comment: PERF ORMED BY: [place] [address] PATHOLOGIST CUSTOMER SUPPORT TECHNICIAN OKSANA MCFARLANE M.D. Performed By: #### C BC, LIPASE, CMP #### [address] Basophils/100 WBC (Bld) 0.2 % Normal . T mer[facility] Comment on above: Performed By: #### C BC, LIPASE, CMP #### [facility] [address] [place] [address] [place] Eosinophils (Bld) [#/Vol] 0.5 10*3/uL High 0.0-0.45 [facility] Comment on above: Performed By: #### C BC, LIPASE, CMP #### [place] [address] [place] Eosinophils/100 WBC (Bld) 6.7 % Normal . [facility] Comment on above: Performed By: #### C BC, LIPASE, CMP #### [address] Erythrocyte distribution width (RBC) [Ratio] 13.6 % Normal 11.9-15.3 [facility] Comment on above: Performed By: #### C BC, LIPASE, CMP #### [address] Hematocrit (Bld) [Volume fraction] 41.7 % Normal 34.0-46.4 [facility] Comment on above: Performed By: #### C BC, LIPASE, CMP #### [address] Hemoglobin (Bld) [Mass/Vol] 14.1 g/dL Normal 11.8-15.4 [facility] Comment on above: Performed By: #### C BC, LIPASE, CMP #### [address] Lymphocytes (Bld) [#/Vol] 2.6 10*3/uL Normal 1.00-4.8 [facility] Comment on above: Performed By: #### C BC, LIPASE, CMP #### [address] Lymphocytes/100 WBC (Bld) 38.0 % Normal . [facility] Comment on above: Performed By: #### C BC, LIPASE, CMP #### [address] MCH (RBC) [Entitic mass] 30.3 pg Normal 24.7-34.3 [facility] Comment on above: Performed By: #### C BC, LIPASE, CMP #### [address] MCV (RBC) [Entitic vol] 89.8 fL Normal 80-100 [facility] Comment on above: Performed By: #### C BC, LIPASE, CMP #### [address] Mean Corpuscular HGB Conc 33.8 g/dL Normal 32.0-35.0 [facility] Comment on above: Performed By: #### C BC, LIPASE, CMP #### [address] Monocytes (Bld) [#/Vol] 0.6 10*3/uL Normal 0.0-0.8 [facility] Comment on above: Performed By: #### C BC, LIPASE, CMP #### [address] Monocytes/100 WBC (Bld) 17.35 % Normal 0.00-20.00 [facility] Comment on above: Performed By: #### C BC, LIPASE, CMP #### [address] Monocytes/100 WBC (Bld) 8.3 % Normal . [facility] Comment on above: Performed By: #### C BC, LIPASE, CMP #### [address] Neutrophils (Bld) [#/Vol] 3.2 10*3/uL Normal 1.8-7.7 [facility] Comment on above: Performed By: #### C BC, LIPASE, CMP #### [address] Neutrophils/100 WBC (Bld) 46.8 % Normal . [facility] Comment on above: Performed By: #### C BC, LIPASE, CMP #### [address] NRBC% 0.1 /100{WBC} Normal 0-0.5 [facility] Comment on above: Performed By: #### C BC, LIPASE, CMP #### [address] Platelet mean volume (Bld) [Entitic vol] 8.0 fL Normal 6.3-10.7 [facility] Comment on above: Performed By: #### C BC, LIPASE, CMP #### [address] Platelets (Bld) [#/Vol] 209 10*3/uL Normal 150-450 [facility] Comment on above: Performed By: #### C BC, LIPASE, CMP #### [address] [address] [place] RBC (Bld) [#/Vol] 4.65 10*6/uL Normal 3.60-5.00 [facility] Comment on above: Performed By: #### C BC, LIPASE, CMP #### [address] WBC (Bld) [#/Vol] 6.9 10*3/uL Normal 3.8-11.6 [facility] Comment on above: Performed By: #### C BC, LIPASE, CMP #### [address] Comprehensive Metabolic Pane cristian 11-14-2024 Albumin [Mass/Vol] 4.6 g/dL Normal 3.5-5.7 [facility] Comment on above: Performed By: #### C BC, LIPASE, CMP #### [address] Albumin/Globulin [Mass ratio] 2.0 {ratio} Normal [facility] Comment on above: Performed By: #### C BC, LIPASE, CMP #### [address] ALP [Catalytic activity/Vol] 64 U/L Normal 34-104 [facility] Comment on above: Performed By: #### C BC, LIPASE, CMP #### [address] ALT [Catalytic activity/Vol] 24 U/L Normal 7-52 [facility] Comment on above: Performed By: #### C BC, LIPASE, CMP #### [address] Anion gap [Moles/Vol] 11.2 mmol/L Normal 6.0-15.0 [facility] Comment on above: Performed By: #### C BC, LIPASE, CMP #### [address] AST [Catalytic activity/Vol] 23 U/L Normal 13-39 [facility] Comment on above: Performed By: #### C BC, LIPASE, CMP #### [address] Bilirubin [Mass/Vol] 0.7 mg/dL Normal 0.3-1.0 [facility] Comment on above: Performed By: #### C BC, LIPASE, CMP #### [facility] [address] Calcium [Mass/Vol] 9.8 mg/dL Normal 8.6-10.3 [facility] Comment on above: Performed By: #### C BC, LIPASE, CMP #### [address] Chloride [Moles/Vol] 106 mmol/L Normal 98-107 [facility] Comment on above: Performed By: #### C BC, LIPASE, CMP #### [address] CO2 [Moles/Vol] 25.8 mmol/L Normal 21.0-31.0 [facility] Comment on above: Performed By: #### C BC, LIPASE, CMP #### [address] Creatinine [Mass/Vol] 0.82 mg/dL Normal 0.60-1.20 [facility] Comment on above: Performed By: #### C BC, LIPASE, CMP #### [address] Creatinine Clr Calc Pharmacy 58.86 Normal [facility] Comment on above: Performed By: #### C BC, LIPASE, CMP #### [place] [address] [place] GFR/1.73 sq M.predicted MDRD (S/P/Bld) [Vol rate/Area] mL/min/{1.73_m2} Normal [facility] Comment on above: Performed By: #### C BC, LIPASE, CMP #### [address] Globulin (S) [Mass/Vol] 2.3 g/dL Normal [facility] Comment on above: Performed By: #### C BC, LIPASE, CMP #### [address] Glucose [Mass/Vol] 94 mg/dL Normal 70-100 [facility] Comment on above: Result Comment: [facility] Glucose Reference Range is dependent on time and content of last meal. Glucose of more than 200 mg/dL in a nonstressed, ambulatory subject supports the diagnosis of Diabetes Mellitus. ADA recommended reference range Performed By: #### C BC, LIPASE, CMP #### [address] Potassium [Moles/Vol] 4.0 mmol/L Normal 3.5-5.1 [facility] Comment on above: Performed By: #### C BC, LIPASE, CMP #### [address] Protein [Mass/Vol] 6.9 g/dL Normal 6.4-8.9 [facility] Comment on above: Performed By: #### C BC, LIPASE, CMP #### [address] Sodium [Moles/Vol] 139 mmol/L Normal 136-145 [facility] Comment on above: Performed By: #### C BC, LIPASE, CMP #### [address] Urea nitrogen [Mass/Vol] 19 mg/dL Normal 7-25 [facility] Comment on above: Performed By: #### C BC, LIPASE, CMP #### [address] Creatinine [Mass/volume] in Serum or PlasmaOrdered By: Carmencita Hirsch on 11-14-2024 Creatinine [Mass/Vol] Creatinine [Mass/volume] in Serum or Plasma 0.60-1.20 [facility] Dipstick and Microscopicon 0 11-14-2024 Appearance (U) Clear Normal Clear [facility] Comment on above: Order Comment: Name Collection Type:: Clean-Voided Midstream Performed By: #### A DDONUAPLUS #### [address] [place] [address] [place] Bacteria,Urine Rare Normal None Seen [facility] Comment on above: Order Comment: Name Collection Type:: Clean-Voided Midstream Performed By: #### A DDONUAPLUS #### [place] [address] [place] Bilirubin,Urine Negative Normal Negative [facility] Comment on above: Order Comment: Name Collection Type:: Clean-Voided Midstream Performed By: #### A DDONUAPLUS #### [place] [address] [place] Color (U) Light-Yellow Normal Yellow [facility] Comment on above: Order Comment: Name Collection Type:: Clean-Voided Midstream Performed By: #### A DDONUAPLUS #### [address] Glucose Ql (U) Normal Normal Normal [facility] Comment on above: Order Comment: Name Collection Type:: Clean-Voided Midstream Performed By: #### A DDONUAPLUS #### [place] [address] [place] Hyaline Casts,Urine None Normal 0-8 [facility] Comment on above: Order Comment: Name Collection Type:: Clean-Voided Midstream Performed By: #### A DDONUAPLUS #### [place] [address] [place] Ketones Ql (U) Negative Normal Negative [facility] Comment on above: Order Comment: Name Collection Type:: Clean-Voided Midstream Performed By: #### A DDONUAPLUS #### [place] [address] [place] Leukocyte esterase Test strip Ql (U) Negative Normal Negative [facility] Comment on above: Order Comment: Name Collection Type:: Clean-Voided Midstream Performed By: #### A DDONUAPLUS #### [place] [address] [place] Mucus,Urine Rare Normal [facility] Comment on above: Order Comment: Name Collection Type:: Clean-Voided Midstream Result Comment: PERF ORMED BY: [place] [address] PATHOLOGIST CUSTOMER SUPPORT TECHNICIAN OKSANA MCFARLNAE M.D. Performed By: #### A DDONUAPLUS #### [place] [id number] [place] Nitrite,Urine Negative Normal Negative [facility] Comment on above: Order Comment: Name Collection Type:: Clean-Voided Midstream Performed By: #### A DDONUAPLUS #### [place] [address] [place] Occult Blood,Urine 1+ High Negative [facility] Comment on above: Order Comment: Name Collection Type:: Clean-Voided Midstream Result Comment: PERF ORMED BY: [place] [address] PATHOLOGIST CUSTOMER SUPPORT TECHNICIAN OKSANA MCFARLANE M.D. Performed By: #### A DDONUAPLUS #### [place] [id number] [place] pH (U) 7.0 [pH] Normal 5.0-9.0 [facility] Comment on above: Order Comment: Name Collection Type:: Clean-Voided Midstream Performed By: #### A DDONUAPLUS #### [place] [address] [place] Protein,Urine Negative Normal Negative [facility] Comment on above: Order Comment: Name Collection Type:: Clean-Voided Midstream Performed By: #### A DDONUAPLUS #### [place] [id number] [place] RBC,Urine 20-49 High 0-4 [facility] Comment on above: Order Comment: Name Collection Type:: Clean-Voided Midstream Performed By: #### A DDONUAPLUS #### [place] [id number] [place] Specificy [place],Urine 1.011 Normal 1.001-1.030 [facility] Comment on above: Order Comment: Name Collection Type:: Clean-Voided Midstream Performed By: #### A DDONUAPLUS #### [facility] [address] Squamous Epithelial Cell,Urine 1-2 Normal 0-2 [facility] Comment on above: Order Comment: Name Collection Type:: Clean-Voided Midstream Performed By: #### A DDONUAPLUS #### [facility] [address] Urobilinogen,Urine Normal Normal Normal [facility] Comment on above: Order Comment: Name Collection Type:: Clean-Voided Midstream Performed By: #### A DDONUAPLUS #### [facility] [address] WBC,Urine 3-4 Normal 0-4 [facility] Comment on above: Order Comment: Name Collection Type:: Clean-Voided Midstream Performed By: #### A DDONUAPLUS #### [place] [address] [place] Eosinophils Auto (Bld) [#/Vo l]Ordered By: Carmencita Hirsch on 11-14-2024 Eosinophils (Bld) [#/Vol] Automated eosinophil count High 0.0-0.45 [facility] Eosinophils/100 WBC Auto (Bl d)Ordered By: Carmencita Hirsch on 11-14-2024 Eosinophils/100 WBC (Bld) Automated eosinophil % . [facility] Epithelial cells.squamous [# /area] in Urine sediment by Automated countOrdered By: Carmencita Hirsch on 11-14-2024 Epithelial cells.squamous Auto (Urine sed) [#/Area] Epithelial cells.squamous [#/area] in Urine sediment by Automated count 0-2 [facility] Erythrocyte distribution wid th Auto (RBC) [Ratio]Ordered By: Carmencita Hirsch on 11-14-2024 Erythrocyte distribution width (RBC) [Ratio] Erythrocyte distribution width [Ratio] by Automated count 11.9-15.3 [facility] Erythrocytes [#/area] in Uri ne sediment by Automated countOrdered By: Carmencita Hirsch on 11-14-2024 RBC Auto (Urine sed) [#/Area] Erythrocytes [#/area] in Urine sediment by Automated count High 0-4 [facility] Globulin Calc (S) [Mass/Vol] Ordered By: Carmencita Hirsch on 11-14-2024 Globulin (S) [Mass/Vol] Serum globulin measurement by calculation (mass/volume) [facility] Glucose [Mass/volume] in Ser um or PlasmaOrdered By: Carmencita Hirsch on 11-14-2024 Glucose [Mass/Vol] Glucose [Mass/volume ] in Serum or Plasma 70-100 [facility] Comment on above: ADA recommended refe rence rangeRandom Glucose Reference Range is dependent on time and content of last meal. Glucose of more than 200 mg/dL in a nonstressed, ambulatory subject supports the diagnosis of Diabetes Mellitus. Glucose [Mass/volume] in Uri ne by Test stripOrdered By: Camrencita Hirsch on 11-14-2024 Glucose Test strip (U) [Mass/Vol] Glucose [Mass/volume] in Urine by Test strip Normal [facility] Hematocrit Auto (Bld) [Volum e fraction]Ordered By: Carmencita Hirsch on 11-14-2024 Hematocrit (Bld) [Volume fraction] Hematocrit [Volume Fraction] of Blood by Automated count 34.0-46.4 [facility] Hemoglobin Test strip Ql (U) Ordered By: Carmencita Hirsch on 11-14-2024 Hemoglobin Ql (U) Hemoglobin [Presence ] in Urine by Test strip High Negative [facility] Hemoglobin [Mass/volume] in BloodOrdered By: Carmencita Hirsch on 11-14-2024 Hemoglobin (Bld) [Mass/Vol] Hemoglobin [Mass/volume] in Blood 11.8-15.4 [facility] Hyaline casts [#/area] in Ur ine sediment by Automated countOrdered By: Carmencita Hirsch on 11-14-2024 Hyaline casts Auto (Urine sed) [#/Area] Hyaline casts [#/area] in Urine sediment by Automated count 0-8 [facility] Ketones Test strip Ql (U)Ord ered By: Carmencita Hirsch on 11-14-2024 Ketones Ql (U) Ketones [Presence] i n Urine by Test strip Negative [facility] Leukocyte esterase [Presence ] in Urine by Test stripOrdered By: Carmencita Hirsch on 11-14-2024 Leukocyte esterase Test strip Ql (U) Leukocyte esterase [Presence] in Urine by Test strip Negative [facility] Leukocytes [#/area] in Urine sediment by Automated countOrdered By: Carmencita Hirsch on 11-14-2024 WBC Auto (Urine sed) [#/Area] Leukocytes [#/area] in Urine sediment by Automated count 0-4 [facility] Leukocytes [#/volume] correc magaly for nucleated erythrocytes in Blood by Automated counOrdered By: Carmencita Hirsch on 11-14-2024 WBC corrected for nucl RBC Auto (Bld) [#/Vol] Leukocytes [#/volume] corrected for nucleated erythrocytes in Blood by Automated coun 3.8-11.6 [facility] Lipaseon 11-14-2024 Lipase [Catalytic activity/Vol] 51.0 U/L Normal 11.0-82.0 [facility] Comment on above: Result Comment: PERF ORMED BY: [place] [address] PATHOLOGIST CUSTOMER SUPPORT TECHNICIAN OKSANA MCFARLANE M.D. Performed By: #### C BC, LIPASE, CMP #### [address] Lipase [Enzymatic activity/v olume] in Serum or PlasmaOrdered By: Carmencita Hirsch on 11-14-2024 Lipase [Catalytic activity/Vol] Lipase [Enzymatic activity/volume] in Serum or Plasma 11.0-82.0 [facility] Lymphocytes Auto (Bld) [#/Vo l]Ordered By: Carmencita Hirsch on 11-14-2024 Lymphocytes (Bld) [#/Vol] Lymphocytes [#/volume] in Blood by Automated count 1.00-4.8 [facility] Lymphocytes/100 WBC Auto (Bl d)Ordered By: Carmencita Hirsch on 11-14-2024 Lymphocytes/100 WBC (Bld) Lymphocytes/100 leukocytes in Blood by Automated count . [facility] MCH Auto (RBC) [Entitic mass ]Ordered By: Carmencita Hirsch on 11-14-2024 MCH (RBC) [Entitic mass] MCH [Entitic mass] by Automated count 24.7-34.3 [facility] MCHC Auto (RBC) [Mass/Vol]Or dered By: Carmencita Hirsch on 11-14-2024 MCHC (RBC) [Mass/Vol] MCHC [Mass/volume] by Automated count 32.0-35.0 [facility] MCV Auto (RBC) [Entitic vol] Ordered By: Carmencita Hirsch on 11-14-2024 MCV (RBC) [Entitic vol] MCV [Entitic vol ume] by Automated count 80-100 [facility] Monocyte distribution width [Entitic volume] in Blood by AutomatedOrdered By: Carmencita Hirsch on 11-14-2024 Monocyte distribution width Auto (Bld) [Entitic vol] Monocyte distribution width [Entitic volume] in Blood by Automated 0.00-20.00 [facility] Monocytes Auto (Bld) [#/Vol] Ordered By: Carmencita Hirsch on 11-14-2024 Monocytes (Bld) [#/Vol] Automated blood monocyte count 0.0-0.8 [facility] Monocytes/100 WBC Auto (Bld) Ordered By: Carmencita Hirsch on 11-14-2024 Monocytes/100 WBC (Bld) Automated monocyte % . [facility] Mucus [Presence] in Urine by AutomatedOrdered By: Carmencita Hirsch on 11-14-2024 Mucus Auto Ql (U) Mucus [Presence] in Urine by Automated [facility] Neutrophils Auto (Bld) [#/Vo l]Ordered By: Carmencita Hirsch on 11-14-2024 Neutrophils (Bld) [#/Vol] Neutrophils [#/volume] in Blood by Automated count 1.8-7.7 [facility] Neutrophils/100 WBC Auto (Bl d)Ordered By: Carmencita Hirsch on 11-14-2024 Neutrophils/100 WBC (Bld) Automated neutrophil % . [facility] Nitrite Test strip Ql (U)Ord ered By: Carmencita Hirsch on 11-14-2024 Nitrite Ql (U) Nitrite [Presence] i n Urine by Test strip Negative [facility] No Panel InformationOrdered By: Carmencita Hirsch on 11-14-2024 Estimated GFR (CKD-EPI) > 60.0 mL/Min [facility] Creatinine Clearance (Chem 58.86 [facility] Nucleated erythrocytes [Pres ence] in Blood by Automated countOrdered By: Carmencita Hirsch on 11-14-2024 Nucleated RBC Auto Ql (Bld) Nucleated erythrocytes [Presence] in Blood by Automated count 0-0.5 [facility] Platelet mean volume Auto (B ld) [Entitic vol]Ordered By: Carmencita Hirsch on 11-14-2024 Platelet mean volume (Bld) [Entitic vol] Platelet mean volume [Entitic volume] in Blood by Automated count 6.3-10.7 [facility] Platelets Auto (Bld) [#/Vol] Ordered By: Carmencita Hirsch on 11-14-2024 Platelets (Bld) [#/Vol] Platelets [#/vol ume] in Blood by Automated count 150-450 [facility] Potassium [Moles/volume] in Serum or PlasmaOrdered By: Carmencita Hirsch 11-14-2024 Potassium [Moles/Vol] Potassium [Moles/volume] in Serum or Plasma 3.5-5.1 [facility] Protein Test strip (U) [Mass /Vol]Ordered By: Carmencita Hirsch 11-14-2024 Protein (U) [Mass/Vol] Protein [Mass/vol ume] in Urine by Test strip Negative [facility] Protein [Mass/volume] in Ser um or PlasmaOrdered By: Carmencita Hirsch 11-14-2024 Protein [Mass/Vol] Protein [Mass/volume ] in Serum or Plasma 6.4-8.9 [facility] RBC Auto (Bld) [#/Vol]Ordere d By: Carmencita Hirsch on 11-14-2024 RBC (Bld) [#/Vol] Erythrocytes [#/volume] in Blood by Automated count 3.60-5.00 [facility] Serum or plasma albumin/glob ulin mass ratioOrdered By: Carmencita Hirsch 11-14-2024 Albumin/Globulin [Mass ratio] Serum or plasma albumin/globulin mass ratio [facility] Serum or plasma anion gap de terminationOrdered By: Carmencita Hirsch 11-14-2024 Anion gap [Moles/Vol] Serum or plasma an ion gap determination 6.0-15.0 [facility] Sodium [Moles/volume] in Ser um or PlasmaOrdered By: Carmencita Hirsch on 11-14-2024 Sodium [Moles/Vol] Sodium [Moles/volume ] in Serum or Plasma 136-145 [facility] Specific gravity Test strip (U) [Rel density]Ordered By: Carmencita Hirsch on 11-14-2024 Specific gravity (U) [Rel density] Specific gravity of Urine by Test strip 1.001-1.030 [facility] Urea nitrogen [Mass/volume] in Serum or PlasmaOrdered By: Carmencita Hirsch on 11-14-2024 Urea nitrogen [Mass/Vol] Urea nitrogen [Mass/volume] in Serum or Plasma 02-27 [facility] Urobilinogen Test strip (U) [Mass/Vol]Ordered By: Carmencita Hirsch on 11-14-2024 Urobilinogen (U) [Mass/Vol] Urobilinogen [Mass/volume] in Urine by Test strip Normal [facility] WBC Auto (Bld) [#/Vol]Ordere d By: Carmencita Hirsch on 11-14-2024 WBC (Bld) [#/Vol] Leukocytes [#/volume ] in Blood by Automated count 3.8-11.6 [facility] pH Test strip (U)Ordered By: Carmencita Hirsch on 11-14-2024 pH (U) pH of Urine by Test strip 5.0-9.0 [facility] Alanine aminotransferase [En zymatic activity/volume] in Serum or PlasmaOrdered By: Reilly Phipps on 08-30-2024 ALT [Catalytic activity/Vol] Alanine aminotransferase [Enzymatic activity/volume] in Serum or Plasma [facility] Albumin [Mass/volume] in Ser um or Plasma by Bromocresol green (BCG) dye binding methoOrdered By: Reilly Phipps on 08-30-2024 Albumin BCG dye [Mass/Vol] Albumin [Mass/volume] in Serum or Plasma by Bromocresol green (BCG) dye binding metho 3.5-5.7 [facility] Alkaline phosphatase [Enzyma tic activity/volume] in Serum or PlasmaOrdered By: Reilly Phipps on 08-30-2024 ALP [Catalytic activity/Vol] Alkaline phosphatase [Enzymatic activity/volume] in Serum or Plasma 34-104 [facility] Aspartate aminotransferase [ Enzymatic activity/volume] in Serum or PlasmaOrdered By: Reilly Phipps on 08-30-2024 AST [Catalytic activity/Vol] Aspartate aminotransferase [Enzymatic activity/volume] in Serum or Plasma 13-39 [facility] Bilirubin.total [Mass/volume ] in Serum or PlasmaOrdered By: Reilly Phipps on 08-30-2024 Bilirubin [Mass/Vol] Bilirubin.total [Mass/volume] in Serum or Plasma 0.3-1.0 [facility] Calcium [Mass/volume] in Ser um or PlasmaOrdered By: Reilly Phipps on 08-30-2024 Calcium [Mass/Vol] Calcium [Mass/volume ] in Serum or Plasma 8.6-10.3 [facility] Carbon dioxide, total [Moles /volume] in Serum or PlasmaOrdered By: Reilly Phipps on 08-30-2024 CO2 [Moles/Vol] Carbon dioxide, tota l [Moles/volume] in Serum or Plasma 21.0-31.0 [facility] Chloride [Moles/volume] in S ellen or PlasmaOrdered By: Reilly Phipps on 08-30-2024 Chloride [Moles/Vol] Chloride [Moles/volume] in Serum or Plasma 98-107 [facility] Comprehensive Metabolic Pane cristian 08-30-2024 Albumin [Mass/Vol] 4.1 g/dL Normal 3.5-5.7 [facility] Comment on above: Performed By: #### C MP #### [facility] [address] Albumin/Globulin [Mass ratio] 1.9 {ratio} Normal [facility] Comment on above: Performed By: #### C MP #### [facility] [address] ALP [Catalytic activity/Vol] 57 U/L Normal 34-104 [facility] Comment on above: Result Comment: PERF ORMED BY: [place] [address] PATHOLOGIST CUSTOMER SUPPORT TECHNICIAN OKSANA MCFARLANE M.D. Performed By: #### C MP #### [address] ALT [Catalytic activity/Vol] 15 U/L Normal 7-52 [facility] Comment on above: Performed By: #### C MP #### [address] Anion gap [Moles/Vol] 11.8 mmol/L Normal 6.0-15.0 [facility] Comment on above: Performed By: #### C MP #### [address] AST [Catalytic activity/Vol] 18 U/L Normal 13-39 [facility] Comment on above: Performed By: #### C MP #### [address] Bilirubin [Mass/Vol] 1.0 mg/dL Normal 0.3-1.0 [facility] Comment on above: Performed By: #### C MP #### [address] Calcium [Mass/Vol] 8.9 mg/dL Normal 8.6-10.3 [facility] Comment on above: Performed By: #### C MP #### [place] [address] [place] Chloride [Moles/Vol] 105 mmol/L Normal 98-107 [facility] Comment on above: Performed By: #### C MP #### [place] [address] [place] CO2 [Moles/Vol] 25.2 mmol/L Normal 21.0-31.0 [facility] Comment on above: Performed By: #### C MP #### [address] Creatinine [Mass/Vol] 0.78 mg/dL Normal 0.60-1.20 [facility] Comment on above: Performed By: #### C MP #### [place] [address] [place] GFR/1.73 sq M.predicted MDRD (S/P/Bld) [Vol rate/Area] mL/min/{1.73_m2} Normal [facility] Comment on above: Performed By: #### C MP #### [address] Globulin (S) [Mass/Vol] 2.2 g/dL Normal [facility] Comment on above: Performed By: #### C MP #### [address] Glucose [Mass/Vol] 79 mg/dL Normal 70-100 [facility] Comment on above: Result Comment: [place] Glucose Reference Range is dependent on time and content of last meal. Glucose of more than 200 mg/dL in a nonstressed, ambulatory subject supports the diagnosis of Diabetes Mellitus. ADA recommended reference range Performed By: #### C MP #### [address] Potassium [Moles/Vol] 4.0 mmol/L Normal 3.5-5.1 [facility] Comment on above: Performed By: #### C MP #### [address] Protein [Mass/Vol] 6.3 g/dL Low 6.4-8.9 [facility] Comment on above: Performed By: #### C MP #### [address] Sodium [Moles/Vol] 138 mmol/L Normal 136-145 [facility] Comment on above: Performed By: #### C MP #### [place] [address] [place] Urea nitrogen [Mass/Vol] 15 mg/dL Normal 7-25 [facility] Comment on above: Performed By: #### C MP #### [place] [address] [place] Creatinine [Mass/volume] in Serum or PlasmaOrdered By: Reilly Phipps 08-30-2024 Creatinine [Mass/Vol] Creatinine [Mass/volume] in Serum or Plasma 0.60-1.20 [facility] Globulin Calc (S) [Mass/Vol] Ordered By: Reilly Phipps on 08-30-2024 Globulin (S) [Mass/Vol] Serum globulin measurement by calculation (mass/volume) [facility] Glucose [Mass/volume] in Ser um or PlasmaOrdered By: Reilly Phipps on 08-30-2024 Glucose [Mass/Vol] Glucose [Mass/volume ] in Serum or Plasma 70-100 [facility] Comment on above: ADA recommended refe rence rangeRandom Glucose Reference Range is dependent on time and content of last meal. Glucose of more than 200 mg/dL in a nonstressed, ambulatory subject supports the diagnosis of Diabetes Mellitus. No Panel InformationOrdered By: Reilly Phipps 08-30-2024 Estimated GFR (CKD-EPI) > 60.0 mL/Min [facility] Creatinine Clearance (Chem N/A [facility] Potassium [Moles/volume] in Serum or PlasmaOrdered By: Reilly Phipps 08-30-2024 Potassium [Moles/Vol] Potassium [Moles/volume] in Serum or Plasma 3.5-5.1 [facility] Protein [Mass/volume] in Ser um or PlasmaOrdered By: Reilly Phipps 08-30-2024 Protein [Mass/Vol] Protein [Mass/volume ] in Serum or Plasma Low 6.4-8.9 [facility] Serum or plasma albumin/glob ulin mass ratioOrdered By: Reilly Phipps 08-30-2024 Albumin/Globulin [Mass ratio] Serum or plasma albumin/globulin mass ratio [facility] Serum or plasma anion gap de terminationOrdered By: Reilly Phipps 08-30-2024 Anion gap [Moles/Vol] Serum or plasma an ion gap determination 6.0-15.0 [facility] Sodium [Moles/volume] in Ser um or PlasmaOrdered By: Reilly Phipps 08-30-2024 Sodium [Moles/Vol] Sodium [Moles/volume ] in Serum or Plasma 136-145 [facility] Urea nitrogen [Mass/volume] in Serum or PlasmaOrdered By: Reilly Phipps on 08-30-2024 Urea nitrogen [Mass/Vol] Urea nitrogen [Mass/volume] in Serum or Plasma 02-27 [facility] Cholesterol [Mass/volume] in Serum or PlasmaOrdered By: Reilly Phipps on 08-15-2024 Cholesterol [Mass/Vol] Cholesterol [Mass/volume] in Serum or Plasma 140-200 [facility] Comment on above: Chol less than 200 m g/dl low riskChol 201-239 mg/dl borderline riskChol 240 mg/dl and greater high risk Cholesterol in HDL [Mass/vol ume] in Serum or PlasmaOrdered By: Reilly Phipps on 08-15-2024 Cholesterol in HDL [Mass/Vol] Serum or plasma high density lipoprotein (HDL) cholesterol measurement [facility] Comment on above: HDL CHOL ATP-III CLA SSIFICATION Cardiovascular RiskHDL > or equal to 60 mg/dL LOWHDL < 40 mg/dL HIGH Cholesterol in LDL Calc [Mas s/Vol]Ordered By: Reilly Phipps on 08-15-2024 Cholesterol in LDL [Mass/Vol] Cholesterol in LDL [Mass/volume] in Serum or Plasma by calculation 0-100 [facility] Comment on above: LDL ATP III CLASSIFI CATIONLDL less than 100 mg/dL OptimalLDL 100-129 mg/dL Near or above optimalLDL 130-159 mg/dL Borderline highLDL 160-189 mg/dL HighLDL greater than 189 mg/dL Very high Cholesterol in VLDL Calc [Ma ss/Vol]Ordered By: Reilly Phipps on 08-15-2024 Cholesterol in VLDL [Mass/Vol] Cholesterol in VLDL [Mass/volume] in Serum or Plasma by calculation [facility] Lipid Panelon 08-15-2024 Cholesterol [Mass/Vol] 153 mg/dL Normal 140-200 [facility] Comment on above: Result Comment: Chol less than 200 mg/dl low risk Chol 201-239 mg/dl borderline risk Chol 240 mg/dl and greater high risk Performed By: #### L IPID, [id number] #### [address] [address] Cholesterol in HDL [Mass/Vol] 59 mg/dL Normal 23-92 [facility] Comment on above: Result Comment: HDL CHOL ATP-III CLASSIFICATION Cardiovascular Risk HDL > or equal to 60 mg/dL LOW HDL < 40 mg/dL HIGH Performed By: #### L IPID, [id number] #### [facility] [address] [place] [address] [facility] Cholesterol.total/Yazmin sterol in HDL [Mass ratio] 2.6 {ratio} Normal <5.0 [facility] Comment on above: Performed By: #### L IPID, [id number] #### [facility] [address] [place] [id number] [facility] LDL Cholesterol,Calculated 74 mg/dL Normal 0-100 [facility] Comment on above: Result Comment: LDL ATP III CLASSIFICATION LDL less than 100 mg/dL Optimal LDL 100-129 mg/dL Near or above optimal LDL 130-159 mg/dL Borderline high LDL 160-189 mg/dL High LDL greater than 189 mg/dL Very high Performed By: #### L IPID, [id number] #### [facility] [address] [place] [id number] [facility] Triglyceride w/Reflex 98 mg/dL Normal 0-149 [facility] Comment on above: Result Comment: TRIG ATP III CLASSIFICATION TRIG less than 150 mg/dL Normal TRIG 150-199 mg/dL Borderline high TRIG 200-500 mg/dL High TRIG greater than 500 mg/dL Very high Standard traceable to the Center for Disease Conrtrol and Prevention (CDC) test method. Performed By: #### L IPID, [id number] #### [facility] [address] [place] [id number] [facility] VLDL CHOLESTEROL 19 mg/dL Normal [facility] Comment on above: Performed By: #### L IPID, [id number] #### [facility] [address] [place] [id number] [facility] Serum or plasma total choles terol/high density lipoprotein (HDL) cholesterol mass ratOrdered By: Reilly Phipps on 08-15-2024 Cholesterol.total/Yazmin sterol in HDL [Mass ratio] Serum or plasma total cholesterol/high density lipoprotein (HDL) cholesterol mass rat <5.0 [facility] Triglyceride [Mass/volume] i n Serum or PlasmaOrdered By: Reilly Phipps on 08-15-2024 Triglyceride [Mass/Vol] Triglyceride [Mass/volume] in Serum or Plasma 0-149 [facility] Comment on above: TRIG ATP III CLASSIF ICATIONTRIG less than 150 mg/dL NormalTRIG 150-199 mg/dL Borderline highTRIG 200-500 mg/dL High TRIG greater than 500 mg/dL Very highStandard traceable to the Center for Disease Conrtrol and Prevention (CDC) test method. Vitamin D 25 Hydroxy Totalon 08-15-2024 Vitamin D 25 Hydroxy Total 34.5 ng/mL Normal 30-100 [facility] Comment on above: Result Comment: DASHA MIN D STATUS 25([place])VITAMIN D RANGE (ng/mL) Deficient <20 Insufficient 20 to <30 Sufficient 30 to 100 Reference: Esperanza Rodrigez, Geetha YOUSIF, et al. Evaluation,treatment, and prevention of vitamin D deficiency; an Endocrine Society clinical practice guideline. JCEM. 2010; 96(7):1911-30. PERFORMED BY: [place] [address] PATHOLOGIST CUSTOMER SUPPORT TECHNICIAN OKSANA MCFARLANE M.D. Performed By: #### L IPID, [id number] #### [address] Vitamin D+Metabolites [Mass/ volume] in Serum or PlasmaOrdered By: Reilly Phipps on 08-15-2024 Vitamin D+Metabolites [Mass/Vol] Vitamin D+Metabolites [Mass/volume] in Serum or Plasma 30-100 [facility] Comment on above: VITAMIN D STATUS 25( [place])VITAMIN D RANGE (ng/mL) Deficient <20 Insufficient 20 to <30Sufficient 30 to 100Reference: Esperanza Rodrigez, Geetha YOUSIF, et al. Evaluation,treatment, and prevention of vitamin D deficiency; an Endocrine Society clinical practice guideline. JCEM. 2010; 96(7):1911-30. Cristian 07-14-2024 L -- ---- Specimen: [id number] Received: 07/15/24 Status: ONUR Correia Num: [id number] Spec Type: Surgical Subm Dr: Manny Storey DO Tissues: A BREAST CORE NO CALCS (RT BREAST TISSUE) Procedures: HE/6, Gross/Micro L4, AE1-AE3, CD31 ---- Age/ Patient Sex Location Account Attending Physician ---- Ena Radford 68/F [place] [id number] Vipul Vazquez, DO ---- SPEC NUM: [id number] RECD: 07/15/24 STATUS: ONUR CORREIA NUM: [id number] [place]RAY[place]: 07/14/[address] [facility] DR: Manny Storey DO ENTERED: 07/15/[address] [facility] [address]: Vipul Vazquez DO SPEC TYPE: Surgical DEPT: S ENTERED BY: [id number] RECV BY: [id number] ORDERED: HE/6, Gross/Micro L4, AE1-AE3, CD31 ORDERED: [...] breast are 8 pale gonzalez to yellow davis, delicate needle core biopsy segments, 1.7-2.5 cm in length with detached fragments of fibrofatty tissue, 1.7 x 1.5 x 0.3 cm in aggregate. The cores are entirely submitted in Cassette A1?A2 with the fragmented fibrofatty tissue filtered, and entirely submitted in Cassette A3. ---- Specimen: [id number] Received: 07/15/24 Status: ONUR Scottdilan Num: [id number] Spec Type: Surgical Subm Dr: Manny Storey DO Tissues: A BREAST CORE NO CALCS (RT BREAST TISSUE) Procedures: HE/6, Gross/Micro L4, AE1-AE3, CD31 ---- Patient: Ena Radford [id number] (Continued) ---- Specimen: [id number] Received: 07/15/24 (Continued) Gross Description (Continued) Signed (signature on file) Marissa Moreno MD 07/16/24 1711 ---- Specimen: [id number] Received: 07/15/24 Status: ONUR Correia Num: [id number] Spec Type: Surgical Subm Dr: Manny Storey DO Tissues: A BREAST CORE NO CALCS (RT BREAST TISSUE) Procedures: HE/6, Gross/Micro L4, AE1-AE3, CD31 ---- Patient: Ena Radford [id number] (Continued) ---- Specimen: [id number] Received: 07/15/24 (Continued) Gross Description (Continued) Fixation time: Time tissue removed from patient: 1342 Time specimen placed in formalin: 1344 Cold ischemic time: 2 minutes Total fixation time: 28 hours (3, ns, [id number] A) Barby Microscopic Description Microscopic examinations are performed supporting the above interpretation CPT Codes 38186, 60215, 42764 ---- ---- Specimen: [id number] Received: 07/15/24 Status: ONUR Correia Num: [id number] Spec Type: Surgical Subm Dr: Manny Storey DO Tissues: A BREAST CORE NO CALCS (RT BREAST TISSUE) Procedures: HE/6, Gross/Micro L4, AE1-AE3, CD31 ---- Patient: Ena Radford [id number] (Continued) ---- Signed (signature on file) Chin-Alexys Moreno MD 07/16/24 1711 Normal [facility] US breast ndl core biopsy RT on 07-14-2024 US breast ndl core biopsy RT [facility] [address] [place] [address] Ultrasound Report Signed Patient: Ena Radford MR#: [id number] : 1955 Acct:[id number] Age/Sex: 68 / F ADM Date: 07/14/24 Loc: [facility] Room: Type: [facility] Attending Dr: Vipul Vazquez DO Ordering Provider: Vipul Vazquez DO Date of Service: 07/14/24 US/US breast ndl core biopsy RT: N63.11 ([id number]) US/US breast RT limited: N63.11 ([id number]) MM/MM post biopsy RT w/CAD: POST RT US GUIDED BREAST BIOPSY - CLIP PLACEMENT Copies to: Vipul Vazquez DO ADDENDUM Pathology report: Benign nodular fibrocystic [...] 07/14/24 1400 Signed By: 07/17/24 1451 Normal [facility] BI MAMMOGRAM DIAGNOSTIC MARJORIE SYNTHESIS [...] IS VERY IMPORTANT TO YOUR HEALTH. THE [place] [employer] GUIDELINES RECOMMEND THAT WOMEN 40 [...] spec) ARTHROPOD IDENT DERMACENTOR SPECIES FEMALE Normal [facility] COMPREHENSIVE METABOLIC PANE Cristian 08-15-2023 Albumin [Mass/Vol] 4.6 g/dL Normal 3.2-5.3 [facility] Comment on above: Performed By: #### C ANITHA, 88658-4, 99583-4 #### [facility] ([id number]) [address], [address] [place] [address] ALP [Catalytic activity/Vol] 66 U/L Normal 39-130 [facility] Comment on above: Performed By: #### C ANITHA, 63704-1, 03851-3 #### [facility] ([id number]) [address], [address] [place] [address] ALT [Catalytic activity/Vol] 14 U/L Normal 0-31 [facility] Comment on above: Performed By: #### C ANITHA, 83796-8, 07777-6 #### [facility] ([id number]) [address], [address] [place] [address] Anion gap [Moles/Vol] 9 mmol/L Normal 5-15 [facility] Comment on above: Performed By: #### C ANITHA, 93675-3, 49732-6 #### [facility] ([id number]) [address], [address] [place] [address] AST [Catalytic activity/Vol] 16 U/L Normal 0-41 [facility] Comment on above: Performed By: #### C ANITHA, 65249-1, 18613-4 #### [facility] ([id number]) [address], [address] [place] [address] Bilirubin [Mass/Vol] 1.0 mg/dL Normal 0.3-1.2 [facility] Comment on above: Performed By: #### C ANITHA, 49276-7, 84278-0 #### [facility] ([id number]) [address], [address] [place] [address] Calcium [Mass/Vol] 9.8 mg/dL Normal 8.5-10.5 [facility] Comment on above: Performed By: #### Romeo WELSH, 33366-6, 09302-1 #### [facility] ([id number]) [address], [address] [place] [address] Chloride [Moles/Vol] 105 mmol/L Normal 98-109 [facility] Comment on above: Performed By: #### Romeo WELSH, 66448-8, 40111-1 #### [facility] ([id number]) [address], [address] [place] [address] CO2 [Moles/Vol] 26 mmol/L Normal 22-32 [facility] Comment on above: Performed By: #### Romeo WELSH, 05057-2, 70395-0 #### [facility] ([id number]) [address], [address] [place] [address] Creatinine [Mass/Vol] 0.88 mg/dL Normal 0.40-1.00 [facility] Comment on above: Result Comment: METH OD TRACEABLE TO IDMS STANDARD Performed By: #### Romeo WELSH, 89512-6, 56087-3 #### [facility] ([id number]) [address], [address] [place] [address] GFR/1.73 sq M.predicted among non-blacks MDRD (S/P/Bld) [Vol rate/Area] 72 mL/min/{1.73_m2} Normal >59 [facility] Comment on above: Result Comment: Reported eGFR is based on the CKD-EPI 2020 equation that does not use a race coefficient. Performed By: #### Romeo WELSH, 52664-8, 86833-7 #### [facility] ([id number]) [address], [address] [place] [address] Glucose [Mass/Vol] 91 mg/dL Normal 65-99 [facility] Comment on above: Performed By: #### Romeo WELSH, 81110-1, 28715-9 #### [facility] ([id number]) [address], [address] [place] [address] Potassium [Moles/Vol] 4.2 mmol/L Normal 3.5-5.0 [facility] Comment on above: Performed By: #### Romeo WELSH, 23260-6, 02900-9 #### [facility] ([id number]) [address], [address] [place] [address] Protein [Mass/Vol] 6.7 g/dL Normal 6.0-8.0 [facility] Comment on above: Performed By: #### Romeo WELSH, 82879-3, 63307-6 #### [facility] ([id number]) [address], [address] [place] [address] Sodium [Moles/Vol] 140 mmol/L Normal 134-146 [facility] Comment on above: Performed By: #### Romeo WELSH, 54146-7, 20447-9 #### [facility] ([id number]) [address], [address] [place] [address] Urea nitrogen [Mass/Vol] 17 mg/dL Normal 5-27 [facility] Comment on above: Performed By: #### C , 50514-6, 85763-9 #### [facility] ([id number]) [address] [place] [address] Comprehensive metabolic pane cristian 08-15-2023 Albumin [Mass/Vol] 4.6 g/dL 3.2 - 5.3 g/dL [facility] ALP [Catalytic activity/Vol] 66 U/L 39 - 130 U/L [facility] ALT No additional P-5'-P [Catalytic activity/Vol] 14 U/L 0 - 31 U/L [facility] Anion gap [Moles/Vol] 9 mmol/L 5 - 15 mmol/L [facility] AST [Catalytic activity/Vol] 16 U/L 0 - 41 U/L [facility] Bilirubin [Mass/Vol] 1.0 mg/dL 0.3 - 1 .2 mg/dL [facility] Calcium [Mass/Vol] 9.8 mg/dL 8.5 - 10. 5 mg/dL [facility] Chloride [Moles/Vol] 105 mmol/L 98 - 10 9 mmol/L [facility] CO2 [Moles/Vol] 26 mmol/L 22 - 32 mmol/L [facility] Creatinine [Mass/Vol] 0.88 mg/dL 0.40 - 1.00 mg/dL [facility] Comment on above: METHOD TRACEABLE TO IDMT STANDARD eGFR (CKD-EPI)non-race dependent 72 - PINF [facility] Comment on above: Reported eGFR is based on the CKD-EPI 202 equation that does not use a race coefficient. Glucose [Mass/Vol] 91 mg/dL 65 - 99 mg/dL [facility] Potassium [Moles/Vol] 4.2 mmol/L 3.5 - 5.0 mmol/L [facility] Protein [Mass/Vol] 6.7 g/dL 6.0 - 8.0 g/dL [facility] Sodium [Moles/Vol] 140 mmol/L 134 - 146 mmol/L [facility] Urea nitrogen [Mass/Vol] 17 mg/dL 5 - 27 mg/dL [facility] Lipid 1996 panelon 4 Cholesterol [Mass/Vol] 218 mg/dL High 150 - 200 mg/dL [facility] Cholesterol in HDL [Mass/Vol] 62 mg/dL 39 - PINF mg/dL [facility] Comment on above: HDL <40 mg/dL - High Risk HDL > or = 40mg/dL- Desirable HDL >60 mg/dL - Negative Risk Cholesterol in LDL [Mass/Vol] 135 mg/dL High NINF - 130 mg/dL [facility] Comment on above: LDL <100 mg/dL - Desirable LDL >160 mg/dL - High Risk Cholesterol in VLDL [Mass/Vol] 21 mg/dL 0 - 30 mg/dL [facility] Cholesterol.total/Yazmin sterol in HDL [Mass ratio] 3.5 {ratio} 1.0 - 5.0 [facility] Interpretation and review of laboratory results Abnormal [facility] Triglyceride [Mass/Vol] 103 mg/dL 27 - 150 mg/dL [facility] Cholesterol [Mass/Vol] 218 mg/dL High 150-200 [facility] Comment on above: Performed By: #### C , 90037-9, 52797-9 #### [facility] ([id number]) [address] [place] [address] Cholesterol in HDL [Mass/Vol] 62 mg/dL Normal >39 [facility] Comment on above: Result Comment: HDL <40 mg/dL - High Risk HDL > or = 40mg/dL- Desirable HDL >60 mg/dL - Negative Risk Performed By: #### Romeo WELSH, 72408-5, 59622-0 #### [facility] ([id number]) [address], [address] [place] [address] Cholesterol in LDL [Mass/Vol] 135 mg/dL High <130 [facility] Comment on above: Result Comment: LDL <100 mg/dL - Desirable LDL >160 mg/dL - High Risk Performed By: #### Romeo WELSH, 74989-2, 12262-6 #### [facility] ([id number]) [address], [address] [place] [address] Cholesterol in VLDL [Mass/Vol] 21 mg/dL Normal 0-30 [facility] Comment on above: Performed By: #### Romeo WELSH, 35756-1, 70044-0 #### [facility] ([id number]) [address], [address] [place] [address] CHOLESTEROL:HDL 3.5 Normal 1.0-5.0 [facility] Comment on above: Performed By: #### Romeo WELSH, 69093-0, 05861-9 #### [facility] ([id number]) [address], [address] [place] [address] Triglyceride [Mass/Vol] 103 mg/dL Normal 27-150 [facility] Comment on above: Performed By: #### Romeo WELSH, 85233-7, 87649-5 #### [facility] ([id number]) [address], [facility] [address] [place] [address] No Panel Informationon 08-15 [facility] Vitamin D 25 hydroxyon 08-15 Vitamin D+Metabolites [Mass/Vol] 33.2 ng/mL 30 - 100 ng/mL [facility] Comment on above: Vitamin D status 25 [place] Vitamin D Deficiency <20 ng/mL Insufficiency 20-29 ng/mL Sufficiency 30-100 ng/mL Toxicity >100 ng/mL NOTE: A pediatric reference range has not been established by the research soil scientist of this kit. The [place] [employer] recommends a Vitamin D level of = or >20ng/mL in infants and children. Vitamin D+Metabolites [Mass/ Vol]on 08-15-2023 [facility] VITAMIN D 25 HYD TOT 33.2 ng/mL Normal 30-100 [facility] Comment on above: Result Comment: Vitamin D status 25 [place] Vitamin D Deficiency <20 ng/mL Insufficiency 20-29 ng/mL Sufficiency 30-100 ng/mL Toxicity >100 ng/mL NOTE: A pediatric reference range has not been established by the research soil scientist of this kit. The [place] [employer] recommends a Vitamin D level of = or >20ng/mL in infants and children. Performed By: #### C , 53353-4, 61059-0 #### [facility] ([id number]) [address] [place] [address], [address] [place] [address] COVID/FLU/RSV RT-PCRon 06-17 SARS-CoV-2 (COVID-19) RNA SOL+probe Ql (Unsp spec) Negative [employer] Other COVID/FLU/RSV RT-PCR Negative [facility] [employer] Other Quick Strepon 06-17-2023 S. pyogenes Org specific cx Ql (Throat) Negative [facility] [employer] Other Quick Strep Rib [place] [employer] Other Albumin [Mass/volume] in Ser um or PlasmaOrdered By: Reilly Phipps on 07-11-2022 Albumin [Mass/Vol] 4.1 g/dL 3.2-5.5 [facility] Cholesterol [Mass/volume] in Serum or PlasmaOrdered By: Reilly Phipps on 07-11-2022 Cholesterol [Mass/Vol] 171 mg/dL 140-200 [facility] Comment on above: Chol less than 200 m g/dl low riskChol 201-239 mg/dl borderline riskChol 240 mg/dl and greater high risk Cholesterol in LDL Calc [Mas s/Vol]Ordered By: Reilly Phipps on 07-11-2022 Cholesterol in LDL [Mass/Vol] 97 mg/dL 0-100 [facility] Comment on above: LDL ATP III CLASSIFI CATIONLDL less than 100 mg/dL OptimalLDL 100-129 mg/dL Near or above optimalLDL 130-159 mg/dL Borderline highLDL 160-189 mg/dL HighLDL greater than 189 mg/dL Very high Cholesterol in VLDL Calc [Ma ss/Vol]Ordered By: Reilly Phipps on 07-11-2022 Cholesterol in VLDL [Mass/Vol] 10 mg/dL [facility] Creatinine and Glomerular fi ltration rate.predicted panel (S/P/Bld)Ordered By: Reilly Phipps on 07-11-2022 Creatinine [Mass/Vol] 0.87 mg/dL 0.44-1.03 [facility] Estimated glomerular filtrat ion rate (GFR) non- AmericanOrdered By: Reilly Phipps on 07-11-2022 GFR/1.73 sq M.predicted among non-blacks MDRD (S/P/Bld) [Vol rate/Area] > 60 mL/Min [facility] Globulin Calc (S) [Mass/Vol] Ordered By: Reilly Phipps on 07-11-2022 Globulin (S) [Mass/Vol] 2.6 g/dL [facility] No Panel InformationOrdered By: Reilly Phipps on 07-11-2022 Estimated GFR () > 60 mL/Min [facility] Comment on above: GFR estimated refere nce range: According to KDOQI guidelines, <60 ml/min/1.73m2 is sufficient to diagnose a patient with chronic kidney disease. Pharmacy Creatinine Clearance (Chem N/A [facility] Protein [Mass/volume] in Ser um or PlasmaOrdered By: Reilly Phipps on 07-11-2022 Protein [Mass/Vol] 6.7 g/dL 6.1-7.9 [facility] Serum or plasma alanine iniguez otransferase measurement without P-5'-P (enzymatic activiOrdered By: Reilly Phipps on 07-11-2022 ALT No additional P-5'-P [Catalytic activity/Vol] 16 U/L 10-60 [facility] Serum or plasma albumin/glob ulin mass ratioOrdered By: Reilly Phipps on 07-11-2022 Albumin/Globulin [Mass ratio] 1.6 {ratio} [facility] Serum or plasma alkaline dalton sphatase measurement (enzymatic activity/volume)Ordered By: Reilly Phipps on 07-11-2022 ALP [Catalytic activity/Vol] 49 U/L 32-92 [facility] Serum or plasma anion gap de terminationOrdered By: Reilly Phipps on 07-11-2022 Anion gap [Moles/Vol] 8.4 mmol/L 6.0-15.0 [facility] Serum or plasma aspartate am inotransferase measurement (enzymatic activity/volume)Ordered By: Reilly Phipps on 07-11-2022 AST [Catalytic activity/Vol] 18 U/L 10-42 [facility] Serum or plasma calcium davin urement (mass/volume)Ordered By: Reilly Phipps on 07-11-2022 Calcium [Mass/Vol] 9.6 mg/dL 8.2-10.2 [facility] Serum or plasma chloride samira surement (moles/volume)Ordered By: Reilly Phipps on 07-11-2022 Chloride [Moles/Vol] 106 mmol/L 95-114 [facility] Serum or plasma glucose davin urement (mass/volume)Ordered By: Reilly Phipps on 07-11-2022 Glucose [Mass/Vol] 93 mg/dL 70-100 [facility] Comment on above: ADA recommended refe rence rangeRandom Glucose Reference Range is dependent on time and content of last meal. Glucose of more than 200 mg/dL in a nonstressed, ambulatory subject supports the diagnosis of Diabetes Mellitus. Serum or plasma high density lipoprotein (HDL) cholesterol measurementOrdered By: Reilly Phipps on 07-11-2022 Cholesterol in HDL [Mass/Vol] 63 mg/dL 35-85 [facility] Comment on above: HDL CHOL ATP-III CLA SSIFICATION Cardiovascular RiskHDL > or equal to 60 mg/dL LOWHDL < 40 mg/dL HIGH Serum or plasma potassium me asurement (moles/volume)Ordered By: Reilly Phipps on 07-11-2022 Potassium [Moles/Vol] 4.7 mmol/L 3.5-5.1 [facility] Serum or plasma sodium measu rement (moles/volume)Ordered By: Reilly Phipps on 07-11-2022 Sodium [Moles/Vol] 138 mmol/L 136-146 [facility] Serum or plasma total biliru bin measurement (mass/volume)Ordered By: Reilly Phipps on 07-11-2022 Bilirubin [Mass/Vol] 0.9 mg/dL 0.3-1.2 [facility] Serum or plasma total carbon dioxide measurement (moles/volume)Ordered By: Reilly Phipps on 07-11-2022 CO2 [Moles/Vol] 28.3 mmol/L 22.0-30.0 [facility] Serum or plasma total choles terol/high density lipoprotein (HDL) cholesterol mass ratOrdered By: Reilly Phipps 07-11-2022 Cholesterol.total/Yazmin sterol in HDL [Mass ratio] 2.7 {ratio} <5.0 [facility] Serum or plasma urea nitroge n measurement (mass/volume)Ordered By: Reilly Phipps on 07-11-2022 Urea nitrogen [Mass/Vol] 12 mg/dL 9-23 [facility] Triglyceride [Mass/volume] i n Serum or PlasmaOrdered By: Reilly Phipps on 07-11-2022 Triglyceride [Mass/Vol] 54 mg/dL 35-149 [facility] Comment on above: TRIG ATP III [...] VERY IMPORTANT TO YOUR HEALTH. THE CURRENT [place] [employer] OF [employer] AND [employer]HENSIVE CANC[employer] NETWORK GUIDELINES RECOMMENDS ANNUAL MAMMOGRAPHY BEGINNING AT AGE 40 THIS FACILITY USES A REMINDER SYSTEM TO ENSURE ALL PATIENTS RECEIVE REMINDER NOTIFICATIONS AT THE APPROPRIATE TIME BASED ON THE RECOMMENDATIONS OF THIS EXAM. Board Certified Radiologist. Accredited by the ACR and FDA. Report reported and signed by Colton Campoverde on 05/11/2022 0947 Normal [facility] COMPREHENSIVE METABOLIC PANE [facility] 12-27-2021 Albumin [Mass/Vol] 4.7 g/dL Normal 3.6-5.1 [facility] Comment on above: Performed By: #### 7 600, 56055, 54620 #### [facility] [place] [address] Corporate Development Manager: Gregg Ferrer MD Albumin/Globulin [Mass ratio] 2.0 {ratio} Normal 1.0-2.5 [facility] Comment on above: Performed By: #### 7 600, 54571, 56946 #### [facility] [place] [address] Corporate Development Manager: Gregg Ferrer MD ALP [Catalytic activity/Vol] 56 U/L Normal 37-153 [facility] Comment on above: Performed By: #### 7 600, 54244, 05853 #### [facility] [place] [address] Corporate Development Manager: Gregg Ferrer MD ALT [Catalytic activity/Vol] 20 U/L Normal 6-29 [facility] Comment on above: Performed By: #### 7 600, 24455, 90568 #### [facility] of [address], [address] [place] [address] Corporate Development Manager: Gregg Ferrer MD AST [Catalytic activity/Vol] 20 U/L Normal 10-35 [facility] Comment on above: Performed By: #### 7 600, 55759, 48787 #### [facility] of [place] [address] Corporate Development Manager: Gregg Ferrer MD Bilirubin [Mass/Vol] 1.1 mg/dL Normal 0.2-1.2 [facility] Comment on above: Performed By: #### 7 600, 68750, 30970 #### [facility] of [place] [address] Corporate Development Manager: Gregg Ferrer MD BUN/CREATININE RATIO NOT APPLICABLE Normal 6-22 [facility] Comment on above: Performed By: #### 7 600, 41090, 96292 #### [facility] [place] [address] Corporate Development Manager: Gregg Ferrer MD Calcium [Mass/Vol] 9.9 mg/dL Normal 8.6-10.4 [facility] Comment on above: Performed By: #### 7 600, 30483, 24473 #### [facility] [place] [address] Corporate Development Manager: Gregg Ferrer MD Chloride [Moles/Vol] 105 mmol/L Normal 98-110 [facility] Comment on above: Performed By: #### 7 600, 58145, 52629 #### [facility] [place] [address] Corporate Development Manager: Gregg Ferrer MD CO2 [Moles/Vol] 26 mmol/L Normal 20-32 [facility] Comment on above: Performed By: #### 7 600, 30356, 13321 #### [facility] [place] [address] Corporate Development Manager: Gregg Ferrer MD Creatinine [Mass/Vol] 0.83 mg/dL Normal 0.50-0.[address] [facility] Comment on above: Result Comment: For patients >49 years of age, the reference limit for Creatinine is approximately 13% higher for people identified as -Lithuanian. Performed By: #### 7 600, 34595, 37090 #### [facility] [address], [address] [place] [address] Corporate Development Manager: Gregg Ferrer MD eGFR NON-AFR. KUWAITI 74 mL/min/1.73m2 Normal > OR = 60 [facility] Comment on above: Performed By: #### 7 600, 24073, 21976 #### [facility] [place] [address] Corporate Development Manager: Gregg Ferrer MD GFR/1.73 sq M.predicted among blacks MDRD (S/P/Bld) [Vol rate/Area] 86 mL/min/{1.73_m2} Normal > OR = 60 [facility] Comment on above: Performed By: #### 7 600, 36031, 49820 #### [facility] [address], [address] [place] [address] Corporate Development Manager: Gregg Ferrer MD Globulin (S) [Mass/Vol] 2.4 g/dL Normal 1.9-3.7 [facility] Comment on above: Performed By: #### 7 600, 51675, 10796 #### [facility] [place] [address] Corporate Development Manager: Gregg Ferrer MD Glucose [Mass/Vol] 95 mg/dL Normal 65-99 [facility] Comment on above: Result Comment: Fasting reference interval Performed By: #### 7 600, 31796, 39306 #### [facility] [place] [address] Corporate Development Manager: Gregg Ferrer MD Potassium [Moles/Vol] 4.0 mmol/L Normal 3.5-5.[address] [facility] Comment on above: Performed By: #### 7 600, 60216, 82385 #### [facility] of [address], [address] [place] [address] Corporate Development Manager: Gregg Ferrer MD Protein [Mass/Vol] 7.1 g/dL Normal 6.1-8.1 [facility] Comment on above: Performed By: #### 7 600, 72178, 82098 #### [facility] of [address], [address] [place] [address] Corporate Development Manager: Gregg Ferrer MD Sodium [Moles/Vol] 141 mmol/L Normal 135-146 [facility] Comment on above: Performed By: #### 7 600, 62590, 07947 #### [facility] [place] [address] Corporate Development Manager: Gregg Ferrer MD Urea nitrogen [Mass/Vol] 17 mg/dL Normal 7-25 [facility] Comment on above: Performed By: #### 7 600, 69203, 51900 #### [facility] [place] [address] Corporate Development Manager: Gregg Ferrer MD LIPID PANEL, [address] Cholesterol [Mass/Vol] 219 mg/dL High <200 [facility] Comment on above: Order Comment: FASTI NG:YES FASTING: YES Performed By: #### 7 600, 47297, 51001 #### [facility] [place] [address] Corporate Development Manager: Gregg Ferrer MD Cholesterol in HDL [Mass/Vol] 62 mg/dL Normal > OR = 50 [facility] Comment on above: Order Comment: FASTI NG:YES FASTING: YES Performed By: #### 7 600, 07050, 82824 #### [facility] [place] [address] Corporate Development Manager: Gregg Ferrer MD Cholesterol in LDL [Mass/Vol] [...] LDL-C. Joshua MUSTAFA et al. BARBIE. 2013;310(19): 1457-5674 (http://education.Q Interactive.legalPAD/faq/SGY329) Performed By: #### 7 600, 11843, 60787 #### [facility] [address], [address] [place] [address] Corporate Development Manager: Gregg Ferrer MD Cholesterol.total/Yazmin sterol in HDL [Mass ratio] 3.5 {ratio} Normal <5.0 [facility] Comment on above: Order Comment: FASTI NG:YES FASTING: YES Performed By: #### 7 600, 61742, 91198 #### [facility] [address], [address] [place] [address] Corporate Development Manager: Gregg Ferrer MD NON HDL CHOLESTEROL 157 mg/dL (calc) High <130 [facility] Comment on above: Order Comment: FASTI NG:YES FASTING: YES Result Comment: For patients with diabetes plus 1 major ASCVD risk factor, treating to a non-HDL-C goal of <100 mg/dL (LDL-C of <70 mg/dL) is considered a therapeutic option. Performed By: #### 7 600, 06974, 68185 #### [facility] [place] [address] Corporate Development Manager: Gregg Ferrer MD Triglyceride [Mass/Vol] 94 mg/dL Normal <150 [facility] Comment on above: Order Comment: FASTI NG:YES FASTING: YES Performed By: #### 7 600, 33402, 39291 #### [facility] [place] [address] Corporate Development Manager: Gregg Ferrer MD VITAMIN D,25-OH,TOTAL,IAon 0 5- VITAMIN D,25-OH,TOTAL,IA 41 ng/mL Normal 30-100 [facility] Comment on above: Result Comment: Dasha min D Status 25-OH Vitamin D: Deficiency: <20 ng/mL Insufficiency: 20 - 29 ng/mL Optimal: > or = 30 ng/mL For 25-OH Vitamin D testing on patients on D2-supplementation and patients for whom quantitation of D2 and D3 fractions is required, the QuestAssureD(TM) 25-OH VIT D, (D2,D3), LC/MS/MS is recommended: order code 17687 (patients >2yrs). See Note 1 Note 1 For additional information, please refer to http://education.GreenWizard/faq/LYT013 (This link is being provided for informational/ educational purposes only.) Performed By: #### 7 600, 59067, 92436 #### [facility] [address], [address] [place] [id number] Corporate Development Manager: Gregg Ferrer MD XR KUB 1 VIEWon [...] stable punctate nephroliths Electronically authenticated by: ARTHUR WILSON Date: 2021-07-15 10:54 Normal [facility] MG MAMM SCREEN 3D MARIO CADon 05-04-2021 MG MAMM SCREEN 3D MARIO CAD Patient: ENA RADFORD Exam Date: 05/04/2021 : 1955 Gender:F Ordering : DR. ANNMARIE FREITAS D.O. Admission #: [id number] Family : Order #: [id number] CLICK HERE TO VIEW EXAM RADIOLOGY REPORT [...] breast cancer at age 89. LOCATION: [facility] BREAST COMPOSITION: Scattered areas fibroglandular [...] LUMP SHOULD BE BIOPSIED. Dictated by: Arthur Wilson MD on 05/04/2021 at 14:36 Approved by: Arthur Wilson MD on 05/04/2021 at 14:39 Normal [facility] XR KUB 1 VIEWon 01-07-2021 XR KUB [...] Bilateral punctate nephrolithiasis Electronically authenticated by: ARTHUR WILSON Date: 2021-01-07 07:37 Normal [facility] LIPID PROFILEon 12-22-2020 CHOL-HDL RATIO NORM SEE BELOW Normal [facility] Comment on above: Result Comment: 3.3 - 4.4 LOW RISK 4.4 - 7.1 AVERAGE RISK 7.1 - 11.0 MODERATE RISK >11.0 HIGH RISK Performed By: #### L IPID, CMP #### [facility] [address] [place], [place] [address] Marques Maritza Cholesterol [Mass/Vol] 184 mg/dL Normal <=200 [facility] Comment on above: Performed By: #### L IPID, CMP #### [facility] [address] [place], [place] [address] Marques Maritza Cholesterol in HDL [Mass/Vol] 72 mg/dL Normal [facility] Comment on above: Performed By: #### L IPID, CMP #### [facility] [address] [place], [place] [address] Marques Maritza Cholesterol in LDL [Mass/Vol] 98.2 mg/dL Normal [facility] Comment on above: Performed By: #### L IPID, CMP #### [facility] [address] [place], [place] [address] Marques Maritza Cholesterol.total/Yazmin sterol in HDL [Mass ratio] 2.6 {ratio} Normal [facility] Comment on above: Performed By: #### L IPID, CMP #### [facility] [address] [place] [id number] Marques Maritza HDL NORMAL > or = 60 mg/dl - LO W CARDIOVASCULAR RISK <40 mg/dl - HIGH CARDIOVASCULAR RISK Normal [facility] Comment on above: Performed By: #### L IPID, CMP #### [facility] [address] [place] [address] Marques Maritza LDL CALC NORMAL SEE BELOW Normal [facility] Comment on above: Result Comment: <100 mg/dl OPTIMAL 100 - 129 mg/dl NEAR OR ABOVE OPTIMAL 130 - 159 mg/dl BORDERLINE HIGH 160 - 189 mg/dl HIGH >190 mg/dl VERY HIGH Performed By: #### L IPID, CMP #### [facility] [address] [place] [address] Marques Maritza Triglyceride [Mass/Vol] 69 mg/dL Normal <=150 [facility] Comment on above: Performed By: #### L IPID, CMP #### [facility] [address] [place] [id number] Marques Maritza VLDL CALC 13.8 mg/dL Normal [facility] Comment on above: Performed By: #### L IPID, CMP #### [facility] [address] [place] [id number] Marquesraf Vázquezen PROF 14(COMP METB)on 021 Albumin [Mass/Vol] 4.0 g/dL Normal 3.5-5.0 [facility] Comment on above: Performed By: #### L IPID, CMP #### [facility] [address] [place] [address] Marques Maritza Albumin/Globulin [Mass ratio] 1.3 {ratio} Normal [facility] Comment on above: Performed By: #### L IPID, CMP #### [facility] [address] [place] [address] Marques Maritza ALP [Catalytic activity/Vol] 52 U/L Normal 38-126 [facility] Comment on above: Performed By: #### L IPID, CMP #### [facility] [address] [place] [address] Marques Maritza ALT [Catalytic activity/Vol] 22 U/L Normal 9-52 [facility] Comment on above: Performed By: #### L IPID, CMP #### [facility] [address] [place] [address] Marques Maritza Anion gap [Moles/Vol] 11.4 mmol/L Normal [facility] Comment on above: Performed By: #### L IPID, CMP #### [facility] [address] [place] [address] Marques Maritza AST [Catalytic activity/Vol] 18 U/L Normal 14-36 [facility] Comment on above: Performed By: #### L IPID, CMP #### [facility] [address] [place] [address] Marques Maritza Bilirubin [Mass/Vol] 0.8 mg/dL Normal 0.2-1.3 [facility] Comment on above: Performed By: #### L IPID, CMP #### [facility] [address] [place] [address] Marques Maritza Calcium [Mass/Vol] 9.1 mg/dL Normal 8.4-10.2 [facility] Comment on above: Performed By: #### L IPID, CMP #### [facility] [address] [place], [place] [id number] Marques Maritza Chloride [Moles/Vol] 107 mmol/L Normal 98-107 [facility] Comment on above: Performed By: #### L IPID, CMP #### [facility] [address] [place], [place] [id number] Marques Maritza CO2 [Moles/Vol] 29.7 mmol/L Normal 22.0-30.[address] [facility] Comment on above: Performed By: #### L IPID, CMP #### [facility] [address] [place] [address] Marques Maritza Creatinine [Mass/Vol] 1.00 mg/dL Normal 0.52-1.04 [facility] Comment on above: Performed By: #### L IPID, CMP #### [facility] [address] [place] [address] Marques Maritza EGFR-AF KUWAITI >60 Normal >=60 [facility] Comment on above: Performed By: #### L IPID, CMP #### [facility] [address] [place] [address] Marques Maritza EGFR-NON AF KUWAITI 56 mL/min/1.73m2 Critically low >=60 [facility] Comment on above: Performed By: #### L IPID, CMP #### [facility] [address] [place] [address] Marques Maritza Globulin (S) [Mass/Vol] 3.2 g/dL Normal [facility] Comment on above: Performed By: #### L IPID, CMP #### [facility] [address] [place] [address] Marques Maritza Glucose [Mass/Vol] 100 mg/dL Normal 74-106 [facility] Comment on above: Performed By: #### L IPID, CMP #### [facility] [address] [place] [address] Marques Maritza Potassium [Moles/Vol] 4.1 mmol/L Normal 3.4-5.0 [facility] Comment on above: Performed By: #### L IPID, CMP #### [facility] [address] [place] [address] Marques Maritza Protein [Mass/Vol] 7.2 g/dL Normal 6.1-8.2 [facility] Comment on above: Performed By: #### L IPID, CMP #### [facility] [address] [place] [address] Marques Maritza Sodium [Moles/Vol] 144 mmol/L Normal 137-145 [facility] Comment on above: Performed By: #### L IPID, CMP #### [facility] [address] [place], [place] [address] Marques Maritza Urea nitrogen [Mass/Vol] 15.0 mg/dL Normal 7.0-17.0 [facility] Comment on above: Performed By: #### L IPID, CMP #### [facility] [address] [place] [id number] Marques Maritza Urea nitrogen/Creatinine [Mass ratio] 15.0 mg/mg Normal [facility] Comment on above: Performed By: #### L IPID, CMP #### [facility] [address] [place] [id number] Marques Maritza Vital Signs Date Time Vital Sign Value Performing Clinician Facility 01-29-2025 [id number] Body height 160 cm Vipul Itzkowitz DO Work Phone: [facility] 01-29-2025 10:26-0400 Body mass index (BMI) [Ratio] 26.22 kg/m2 Vipul Itzkowitz DO Work Phone: [facility] 01-29-2025 10:26-0400 Body weight 67.13 kg Vipul Itzkowitz DO Work Phone: [facility] 01-29-2025 10:26-0400 Diastolic blood pressure 60 mm[Hg] Vipul Itzkowitz DO Work Phone: [facility] 01-29-2025 10:26-0400 Systolic blood pressure 118 mm[Hg] Vipul Itzkowitz DO Work Phone: [facility] 01-20-2025 09:08-0400 Body height 160 cm Reilly GigDropperlong DO Work Phone: [facility] 01-20-2025 09:08-0400 Body mass index (BMI) [Ratio] 26.22 kg/m2 Reilly Furlong DO Work Phone: [facility] [employer] [facility] 01-20-2025 09:08-0400 Body weight 67.13 kg Reilly Furlong DO Work Phone: [facility] 01-20-2025 09:08-0400 Diastolic blood pressure 72 mm[Hg] Reilly Furlong DO Work Phone: [facility] [employer] [facility] 01-20-2025 09:08-0400 Systolic blood pressure 110 mm[Hg] Reilly Furlong DO Work Phone: [facility] 01-01-2025 11:06-0400 Body height 157.5 cm Reilly Furlong DO Work Phone: [facility] 01-01-2025 11:06-0400 Body mass index (BMI) [Ratio] 26.81 kg/m2 Reilly Furlong DO Work Phone: [facility] 01-01-2025 11:06-0400 Body temperature 99.1 [degF] Reilly Furlong DO Work Phone: [facility] 01-01-2025 11:06-0400 Body weight 66.5 kg Reilly Furlong DO Work Phone: [facility] 01-01-2025 11:06-0400 Diastolic blood pressure 78 mm[Hg] Reilly Furlong DO Work Phone: [facility] 01-01-2025 11:06-0400 Heart rate 55 /min Reilly Furlong DO Work Phone: [facility] 01-01-2025 11:06-0400 Respiratory rate 20 /min Reilly Furlong DO Work Phone: [facility] 01-01-2025 11:06-0400 SaO2% (BldA) [Mass fraction] 99 % Reilly Furlong DO Work Phone: [facility] 01-01-2025 11:06-0400 Systolic blood pressure 108 mm[Hg] Reilly Furlong DO Work Phone: [facility] 12-22-2024 11:32-0400 Body height 157.5 cm Reilly Furlong DO Work Phone: [facility] 12-22-2024 11:32-0400 Body mass index (BMI) [Ratio] 27.21 kg/m2 Reilly Furlong DO Work Phone: [facility] 12-22-2024 11:32-0400 Body temperature 97.9 [degF] Reilly Furlong DO Work Phone: [facility] 12-22-2024 11:32-0400 Body weight 67.5 kg Reilly Furlong DO Work Phone: [facility] 12-22-2024 11:32-0400 Diastolic blood pressure 72 mm[Hg] Reilly Furlong DO Work Phone: [facility] 12-22-2024 11:32-0400 Heart rate 58 /min Reilly Furlong DO Work Phone: [facility] 12-22-2024 11:32-0400 Respiratory rate 20 /min Reilly Furlong DO Work Phone: [facility] 12-22-2024 11:32-0400 SaO2% (BldA) [Mass fraction] 100 % Reilly Furlong DO Work Phone: [facility] 12-22-2024 11:32-0400 Systolic blood pressure 162 mm[Hg] Reilly Furlong DO Work Phone: [facility] 11-14-2024 20:42-0400 Diastolic blood pressure 76 mm[Hg] Reilly Furlong DO Work Phone: [facility] 11-14-2024 20:42-0400 Heart rate 62 /min Reilly Furlong DO Work Phone: [facility] 11-14-2024 20:42-0400 Respiratory rate 16 /min Reilly Furlong DO Work Phone: [facility] 11-14-2024 20:42-0400 SaO2% (BldA) [Mass fraction] 98 % Reilly Furlong DO Work Phone: [facility] 11-14-2024 20:42-0400 Systolic blood pressure 154 mm[Hg] Reilly Furlong DO Work Phone: [facility] 11-14-2024 19:46-0400 Inhaled oxygen flow rate 2 L/min Reilly Furlong DO Work Phone: [facility] 11-14-2024 18:55-0400 Body temperature 97.9 [degF] Reilly Furlong DO Work Phone: [facility] 11-14-2024 18:54-0400 Body height 157.48 cm Reilly Furlong DO Work Phone: [facility] 11-14-2024 18:54-0400 Body weight 66.8 kg Reilly Furlong DO Work Phone: [facility] 09-04-2024 13:00-0500 Body height 157.5 cm Cj Cote DPM Work Phone: [facility] 09-04-2024 13:00-0500 Body mass index (BMI) [Ratio] 26.89 kg/m2 Cj Cote DPM Work Phone: [facility] 09-04-2024 13:00-0500 Body weight 66.68 kg Cj Cote DPM Work Phone: [facility] 09-04-2024 13:00-0500 Respiratory rate 18 /min Cj Cote DPM Work Phone: [facility] 08-18-2024 10:30-0500 Body height 157.5 cm Reilly Furlong DO Work Phone: [facility] 08-18-2024 10:30-0500 Body mass index (BMI) [Ratio] 27 kg/m2 Reilly Furlong DO Work Phone: [facility] [employer] 08-18-2024 10:30-0500 Body temperature 97.5 [degF] Reilly Furlong DO Work Phone: [facility] [employer] 08-18-2024 10:30-0500 Body weight 66.95 kg Reilly Furlong DO Work Phone: [facility] [employer] 08-18-2024 10:30-0500 Diastolic blood pressure 68 mm[Hg] Reilly Furlong DO Work Phone: [facility] [employer] [facility] 08-18-2024 10:30-0500 Heart rate 66 /min Reilly Furlong DO Work Phone: [facility] [employer] 08-18-2024 10:30-0500 Respiratory rate 18 /min Reilly Furlong DO Work Phone: [facility] [employer] 08-18-2024 10:30-0500 SaO2% (BldA) [Mass fraction] 98 % Reilly Furlong DO Work Phone: [facility] [employer] 08-18-2024 10:30-0500 Systolic blood pressure 130 mm[Hg] Reilly Furlong DO Work Phone: [facility] [employer] [facility] 08-14-2024 15:05-0500 Body height 157.5 cm Cj Cote DPM Work Phone: [facility] 08-14-2024 15:05-0500 Body mass index (BMI) [Ratio] 26.89 kg/m2 Cj Cote DPM Work Phone: [facility] 08-14-2024 15:05-0500 Body weight 66.68 kg Cj Cote DPM Work Phone: [facility] 08-14-2024 15:05-0500 Respiratory rate 18 /min Cj Cote DPM Work Phone: [facility] 07-31-2024 13:31-0500 Body height 157.5 cm Vipul Itzkowitz DO Work Phone: [facility] 07-31-2024 13:31-0500 Body mass index (BMI) [Ratio] 25.97 kg/m2 Vipul Itzkowitz DO Work Phone: [facility] 07-31-2024 13:31-0500 Body weight 64.41 kg Vipul Itzkowitz DO Work Phone: [facility] 07-31-2024 13:31-0500 Diastolic blood pressure 80 mm[Hg] Vipul Itzkowitz DO Work Phone: [facility] 07-31-2024 13:31-0500 Systolic blood pressure 124 mm[Hg] Vipul Itzkowitz DO Work Phone: [facility] 07-14-2024 13:15-0500 Body temperature 98.2 [degF] Reilly Furlong DO Work Phone: [facility] 07-14-2024 13:15-0500 Diastolic blood pressure 82 mm[Hg] Reilly Furlong DO Work Phone: [facility] 07-14-2024 13:15-0500 Heart rate 74 /min Reilly Furlong DO Work Phone: [facility] 07-14-2024 13:15-0500 Respiratory rate 18 /min Reilly Furlong DO Work Phone: [facility] 07-14-2024 13:15-0500 SaO2% (BldA) [Mass fraction] 99 % Reilly Furlong DO Work Phone: [facility] 07-14-2024 13:15-0500 Systolic blood pressure 140 mm[Hg] Reilly Furlong DO Work Phone: [facility] 06-12-2024 10:18-0500 Body mass index (BMI) [Ratio] 27.44 kg/m2 Annmarie Carterkes DO Work Phone: [facility] 06-12-2024 10:18-0500 Body weight 68.04 kg Annmarie Rinkes DO Work Phone: [facility] 06-12-2024 10:18-0500 Diastolic blood pressure 84 mm[Hg] Annmarie Rinkes DO Work Phone: [facility] 06-12-2024 10:18-0500 Systolic blood pressure 122 mm[Hg] Annmarie Rinkes DO Work Phone: [facility] 04-23-2024 08:58-0400 Body height 157.5 cm Reilly Furlong DO Work Phone: [facility] 04-23-2024 08:58-0400 Body mass index (BMI) [Ratio] 27.65 kg/m2 Reilly Furlong DO Work Phone: [facility] 04-23-2024 08:58-0400 Body temperature 98.29 [degF] Reilly Furlong DO Work Phone: [facility] 04-23-2024 08:58-0400 Body weight 68.58 kg Reilly Furlong DO Work Phone: [facility] 04-23-2024 08:58-0400 Diastolic blood pressure 64 mm[Hg] Reilly Furlong DO Work Phone: [facility] 04-23-2024 08:58-0400 Heart rate 66 /min Reilly Furlong DO Work Phone: [facility] [employer] [facility] 04-23-2024 08:58-0400 Respiratory rate 18 /min Reilly Furlong DO Work Phone: [facility] 04-23-2024 08:58-0400 SaO2% (BldA) [Mass fraction] 98 % Reilly Furlong DO Work Phone: [facility] 04-23-2024 08:58-0400 Systolic blood pressure 124 mm[Hg] Reilly Furlong DO Work Phone: [facility] [employer] [facility] 02-15-2024 09:21-0400 Body height 157.5 cm Reilly Furlong DO Work Phone: [facility] [employer] [facility] 02-15-2024 09:21-0400 Body mass index (BMI) [Ratio] 26.7 kg/m2 Reilly Furlong DO Work Phone: [facility] [employer] [facility] 02-15-2024 09:21-0400 Body temperature 98.01 [degF] Reilly Furlong DO Work Phone: [facility] 02-15-2024 09:21-0400 Body weight 66.22 kg Reilly Furlong DO Work Phone: [facility] [employer] [facility] 02-15-2024 09:21-0400 Diastolic blood pressure 80 mm[Hg] Reilly Furlong DO Work Phone: [facility] [employer] [facility] 02-15-2024 09:21-0400 Heart rate 58 /min Reilly Furlong DO Work Phone: [facility] 02-15-2024 09:21-0400 Respiratory rate 18 /min Reilly Furlong DO Work Phone: [facility] [employer] [facility] 02-15-2024 09:21-0400 SaO2% (BldA) [Mass fraction] 99 % Reilly Furlong DO Work Phone: [facility] [employer] [facility] 02-15-2024 09:21-0400 Systolic blood pressure 120 mm[Hg] Reilly Furlong DO Work Phone: [facility] 01-15-2024 11:03-0400 Body height 157.5 cm Reilly Furlong DO Work Phone: [facility] [employer] [facility] 01-15-2024 11:03-0400 Body mass index (BMI) [Ratio] 26.41 kg/m2 Reilly Furlong DO Work Phone: [facility] [employer] [facility] 01-15-2024 11:03-0400 Body weight 65.5 kg Reilly Furlong DO Work Phone: [facility] [employer] [facility] 01-15-2024 11:03-0400 Diastolic blood pressure 88 mm[Hg] Reilly Furlong DO Work Phone: [facility] 01-15-2024 11:03-0400 Systolic blood pressure 122 mm[Hg] Reilly Furlong DO Work Phone: [facility] [employer] [facility] 08-16-2023 10:47-0500 Diastolic blood pressure 73 mm[Hg] SARAH BETH SINGH [facility] 08-16-2023 10:47-0500 Heart rate 60 /min SARAH BETH SINGH [facility] 08-16-2023 10:47-0500 Systolic blood pressure 134 mm[Hg] SARAH BETH BARNESRY [facility] 08-15-2023 09:20-0500 Body height 157.5 cm Reilly Furlong DO Work Phone: [facility] 08-15-2023 09:20-0500 Body mass index (BMI) [Ratio] 26.34 kg/m2 Reilly Furlong DO Work Phone: [facility] 08-15-2023 09:20-0500 Body temperature 97.2 [degF] Reilly Furlong DO Work Phone: [facility] [employer] [facility] 08-15-2023 09:20-0500 Body weight 65.32 kg Reilly Furlong DO Work Phone: [facility] [employer] [facility] 08-15-2023 09:20-0500 Diastolic blood pressure 62 mm[Hg] Reilly Furlong DO Work Phone: [employer] 08-15-2023 09:20-0500 Heart rate 74 /min Reilly [email or web address] DO Work Phone: [employer] 08-15-2023 09:20-0500 SaO2% (BldA) [Mass fraction] 97 % Reilly [email or web address] DO Work Phone: [employer] 08-15-2023 09:20-0500 Systolic blood pressure 102 mm[Hg] Reilly Phipps DO Work Phone: [employer] 06-17-2023 10:10-0500 Body height 160.02 cm Kaitlyn Giuliana Other [employer] Other 06-17-2023 10:10-0500 Body mass index (BMI) [Ratio] 25.79 kg/m2 Kaitlyn Giuliana Other [employer] Other 06-17-2023 10:10-0500 Body temperature 98.1 [degF] Kaitlyn Giuliana Other [employer] Other 06-17-2023 10:10-0500 Body weight 66.04 kg Kaitlyn Giuliana Other [employer] Other 06-17-2023 10:10-0500 Diastolic blood pressure 74 mm[Hg] Kaitlyn Giuliana Other [employer] Other 06-17-2023 10:10-0500 Respiratory rate 18 /min Kaitlyn Giuliana Other [employer] Other 06-17-2023 10:10-0500 SaO2% (BldA) [Mass fraction] 95 % Kaitlyn Giordano Other [employer] Other 06-17-2023 10:10-0500 Systolic blood pressure 129 mm[Hg] Kaitlyn Giordano Other [employer] Other 07-21-2022 10:52-0500 Blood Pressure Location Diamond BAUTISTA [facility] 07-21-2022 10:52-0500 Diastolic blood pressure 67 mm[Hg] Diamond BAUTISTA [facility] 07-21-2022 10:52-0500 Heart rate 68 /min Diamond BAUTISTA [facility] 07-21-2022 10:52-0500 Respiratory rate 16 /min Diamond BAUTISTA [facility] 07-21-2022 10:52-0500 Systolic blood pressure 124 mm[Hg] Diamond BAUTISTA [facility] Encounters Encounter Date Encounter Type Care Provider Facility Start: 03-06-2025 ambulatory Diamond BAUTISTA Facili ty:[facility] Start: 02-11-2025 ambulatory Diamond BAUTISTA Facili ty:[facility] Start: 01-29-2025 End: 01-29-2025 Office outpatient visit 25 minutes Vipul Vazquez DO Work Phone: [facility] Comment on above: 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) Start: 01-29-2025 End: 01-29-2025 ambulatory VIPUL VAZQUEZ Not Available Start: 01-20-2025 End: 01-20-2025 Patient encounter procedure Reilly Phipps DO Work Phone: [facility] Comment on above: Medicare annual well ness visit, subsequent (Primary Dx); Screening for depression Start: 01-20-2025 End: 01-20-2025 ambulatory [facility] Start: 01-16-2025 End: 01-16-2025 ambulatory [facility] Facility:[facility] Start: 01-01-2025 End: 01-01-2025 Office outpatient visit 15 minutes Reilly Phipps DO Work Phone: [facility] Comment on above: Bilateral impacted c erumen (Primary Dx); Neoplasm of uncertain behavior of skin Start: 01-01-2025 End: 01-01-2025 ambulatory [facility] Start: 12-30-2024 End: 12-30-2024 Orders Only Reilly Phipps DO Work Phone: [facility] Comment on above: Neoplasm of uncertai n behavior of skin (Primary Dx) Start: 12-22-2024 End: 12-22-2024 Office outpatient visit 25 minutes Reilly Phipps DO Work Phone: [facility] Comment on above: Neoplasm of uncertai n behavior of skin (Primary Dx); Tick bite of lower back, sequela; Bilateral impacted cerumen Start: 12-22-2024 End: 12-22-2024 ambulatory [facility] Start: 12-19-2024 End: 12-19-2024 ambulatory Diamond BAUTISTA Facility:CD:[id number] Start: 11-25-2024 End: 11-26-2024 ambulatory Diamond BAUTISTA Facility:CD:[id number] Start: 11-19-2024 End: 11-19-2024 ambulatory Diamond BAUTISTA Facility:[facility] [place] Start: 11-14-2024 End: 11-14-2024 Emergency department patient visit Reilly Phipps DO Work Phone: [facility] Work Phone: Start: 11-02-2024 End: 11-02-2024 Refill Reilly Phipps DO Work Phone: [facility] Start: 10-10-2024 End: 10-10-2024 ambulatory CJ COTE Not Available Start: 10-09-2024 End: 10-09-2024 Bamboo flowsfredo Cote DPM Work Phone: [facility] Start: 10-09-2024 End: 10-09-2024 Bamboo flowsheet Cj Cote DPM Work Phone: [facility] Start: 09-04-2024 End: 09-04-2024 Bamboo flowsheet Cj Cote DPM Work Phone: [facility] Start: 09-04-2024 End: 09-04-2024 Bamboo flowsheet Cj Cote DPM Work Phone: [facility] Start: 09-04-2024 End: 09-04-2024 Office outpatient visit 15 minutes Cj Cote DPM Work Phone: [facility] Comment on above: Posterior tibial ten donitis of right leg (Primary Dx); Pes planovalgus, acquired, right Start: 09-04-2024 End: 09-04-2024 ambulatory CJ COTE Not Available Start: 08-30-2024 End: 08-30-2024 Patient encounter procedure Reilly Phipps DO Work Phone: [facility] [place] Work Phone: Start: 08-30-2024 End: 08-30-2024 ambulatory Reilly Hocassiebuck Facility:[facility] Start: 08-18-2024 End: 08-18-2024 Office outpatient visit 25 minutes Reilly Hocassiebuck DO Work Phone: [facility] Comment on above: Essential hypertensi on (Primary Dx); Hypercholesterolemia; Overweight; Neoplasm of uncertain behavior of skin Start: 08-18-2024 End: 08-18-2024 [facility] Start: 08-15-2024 End: 08-15-2024 Patient encounter procedure Reilly Phipps DO Work Phone: [facility] [place] Work Phone: Start: 08-15-2024 End: 08-15-2024 ambulatory Reilly Phipps DO Work Phone: [facility] Work Phone: Start: 08-14-2024 End: 08-14-2024 Office outpatient new 30 minutes Cj Cote DPM Work Phone: [facility] Comment on above: Posterior tibial ten donitis of right leg (Primary Dx); Pes planovalgus, acquired, right Start: 08-14-2024 End: 08-14-2024 ambulatory CJ COTE Not Available Start: 08-14-2024 End: 08-14-2024 Bamboo flowsheet Cj Cote DPM Work Phone: [facility] Start: 08-14-2024 End: 08-14-2024 Bamboo flowsheet Cj Cote DPM Work Phone: [facility] Start: 08-11-2024 End: 08-12-2024 Orders Only Reilly Phipps DO Work Phone: [facility] Comment on above: Essential hypertensi on (Primary Dx); Hypercholesterolemia; Vitamin D deficiency Start: 08-11-2024 End: 08-11-2024 Refill Reilly Phipps DO Work Phone: [facility] Start: 07-31-2024 End: 07-31-2024 Office outpatient visit 15 minutes Vipul Ara Vazquez DO Work Phone: [facility] Comment on above: 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) Start: 07-31-2024 End: 07-31-2024 ambulatory VIPUL H ITZKOWIARTIS Not Available Start: 07-14-2024 End: 07-14-2024 Admission to same day surgery center Reilly Phipps DO Work Phone: [facility] C[facility]-Ultrasound Cntr for Breast Car Start: 07-14-2024 End: 07-14-2024 ambulatory Vipul Tiburcioderickcotz Facility:[facility] Start: 07-02-2024 End: 07-02-2024 Patient encounter procedure Reilly Phipps DO Work Phone: [facility] Work Phone: Start: 07-02-2024 End: 07-02-2024 [facility] Start: 06-24-2024 End: 06-24-2024 ambulatory ANNMARIE FREITAS Not Available Start: 06-12-2024 End: 06-12-2024 Bamboo flowsheet Annmarie Freitas DO Work Phone: [facility] Start: 06-12-2024 End: 06-12-2024 Bamboo flowsheet Annmarie Carterkes DO Work Phone: [facility] Start: 06-12-2024 End: 06-12-2024 Patient encounter status Annmarie Carterkes DO Work Phone: [facility] Start: 06-12-2024 End: 06-12-2024 Periodic preventive med est patient 65yrs& older Annmarie Carterkes DO Work Phone: [facility] Comment on above: Encounter for gyneco logical examination without abnormal finding; Screening for malignant neoplasm of cervix; Encounter for screening mammogram for breast cancer Start: 06-12-2024 End: 06-12-2024 ambulatory ANNMARIEJENNIFER CARTERKES Not Available Start: 05-14-2024 End: 05-14-2024 Refill Reilly Phipps DO Work Phone: [facility] Start: 04-23-2024 End: 04-23-2024 Office outpatient visit 15 minutes Reilly Phipps DO Work Phone: [facility] Comment on above: Cellulitis, unspecif ied cellulitis site (Primary Dx) Start: 04-23-2024 End: 04-23-2024 ambulatory [facility] Start: 04-22-2024 End: 04-22-2024 Telephone encounter Reilly Phipps DO Work Phone: [facility] Start: 02-15-2024 End: 02-15-2024 ambulatory [facility] Start: 02-15-2024 End: 02-15-2024 Office outpatient visit 15 minutes Reilly Phipps DO Work Phone: [facility] Comment on above: Tick bite of lower b ack, initial encounter (Primary Dx); Essential hypertension; Chronic cough Start: 02-15-2024 End: 02-15-2024 ambulatory [facility] Start: 01-15-2024 End: 01-15-2024 Patient encounter procedure Reilly Phipps DO Work Phone: [facility] Comment on above: Medicare annual well ness visit, subsequent (Primary Dx); Screening for depression Start: 08-30-2023 Refill Reilly jane DO Work Phone: [facility] Start: 08-17-2023 Orders Only Reilly jane DO Work Phone: [facility] Start: 08-16-2023 End: 08-16-2023 Patient encounter procedure SARAH BETH SINGH [facility] [place] Start: 08-15-2023 End: 08-15-2023 ambulatory [facility] Start: 08-15-2023 End: 08-15-2023 Office outpatient visit 25 minutes Reilly G Furlong DO Work Phone: [facility] Comment on above: Essential hypertensi on (Primary Dx); Hypercholesterolemia; Overweight; Screen for colon cancer; Vitamin D deficiency Start: 07-16-2023 End: 07-16-2023 ambulatory DO Reilly Furlong Work Phone: [facility] Work Phone: Start: 07-16-2023 End: 07-16-2023 Patient encounter procedure DO Reilly Furlong Work Phone: [facility] [place] Work Phone: Start: 06-17-2023 End: 06-17-2023 ambulatory Kaitlyn Giordano Other [employer] Other Start: 06-17-2023 Office outpatient vi sit 15 minutes Kaitlyn Giordano [facility] Start: 07-21-2022 End: 07-21-2022 Patient encounter procedure Diamond BAUTISTA [facility] Start: 07-18-2022 End: 07-18-2022 ambulatory DO Reilly Furlong Work Phone: [facility] Work Phone: Start: 07-18-2022 End: 07-18-2022 Patient encounter procedure DO Reilly Furlong Work Phone: [facility] [place] Start: 07-11-2022 End: 07-11-2022 ambulatory DO Reilly Furlong Work Phone: [facility] Work Phone: Start: 07-11-2022 End: 07-11-2022 Patient encounter procedure DO Reilly Furlong Work Phone: [facility] [place] Start: 07-15-2021 End: 07-16-[address] DIAMOND BAUTISTA Facility:[facility] Start: 05-04-2021 End: 05-05-2021 ambulatory ANNMARIE FREITAS Facility:[facility] Start: 01-07-2021 End: 01-08-[address] DIAMOND BAUTISTA Facility:[facility] Start: 12-22-2020 End: 12-23-[address] REILLY PHIPPS Facility:[facility] Start: 10-11-2020 End: 10-12-2020 ambulatory NONE LISTED REQUEST Facility:[facility] Procedures Date Procedure Procedure Detail Performing Clinician Start: 01-20-2025 Adult depression scr eening assessment Reilly Vasquezng DO Work Phone: Start: 01-01-2025 Adult depression scr eening assessment Reilly Vasquezng DO Work Phone: Start: 12-22-2024 Follow-up visit Follow-up REILLY Veronica HOJONAH Start: 12-22-2024 Adult depression scr eening assessment Reilly Vasquezng DO Work Phone: Start: 11-14-2024 CT of abdomen and pe lvis without contrast Reilly Phipps DO Work Phone: Start: 08-18-2024 Adult depression scr eening assessment Reilly Holong DO Work Phone: Start: 07-14-2024 Mammography of right breast Reilly Vasquezng DO Work Phone: Start: 07-14-2024 Core needle biopsy o f breast using ultrasound guidance Reilly Vasquezng DO Work Phone: Start: 07-14-2024 Ultrasonography of r ight breast Reilly Vasquezng DO Work Phone: Start: 06-24-2024 Mammography Vipul It zderickwitz DO Work Phone: Start: 04-23-2024 Adult depression scr eening assessment Reilly Georgialong DO Work Phone: Start: 02-15-2024 Adult depression scr eening assessment Reillyjacqueline Vasquezng DO Work Phone: Start: 01-15-2024 Adult depression scr eening assessment Reilly Phipps DO Work Phone: Start: 08-15-2023 Adult depression scr eening assessment Reilly Phipps [employer] Work Phone: Start: 07-16-2023 Diagnostic radiograp hy of abdomen DO Reilly Phipps Work Phone: Start: 05-17-2023 Mammography Reilly mckenzie DO Work Phone: Start: 07-18-2022 Diagnostic radiograp hy of abdomen DO Reilly Phipps Work Phone: Start: 05-25-2020 Removal of ureteral stent Diamond BAUTISTA Start: 05-21-2020 Cystoscopy and retro grade pyelography Diamond BAUTISTA Start: 05-21-2020 History of ureterosc opic laser fragmentation of ureteric calculus Diamond BAUTISTA Start: 05-21-2020 Placement of stent Kody lisehuan BAUTISTA Start: 02-28-2018 Lithotripsy Diamond RAJAT REHMAN Comment on above: Extracorporeal shock wave lithotripsy left renal calculi Appendectomy Diamond BAUTISTA Colonoscopy Diamond BAUTISTA Extracorporeal shock wave lithotripsy of the bile duct Diamond BAUTISTA Comment on above: had kidney stone in1 987..3 lithotripsies in 2015 Ligation of fallopian tube Aly luther BAUTISTA removal of skin cancer Shakira randolph MICHELE Screening for malign ant neoplasm of colon Kaitlyn Giordano Other Plan of Treatment Date Care Activity Detail Author Start: 01-26-2033 DTaP,Tdap and Td Vaccines (3 - Td or Tdap) DTaP,Tdap and Td Vaccines (3 - Td or Tdap) [facility] Start: 08-22-2026 Screening for malignant neoplasm of colon [facility] Start: 01-26-2026 End: 01-26-2026 Patient encounter procedure 01/26/2026 9:40 AM EDT [facility] [address] [place] [address] [facility] Start: 01-20-2026 Adult BMI Screening Adult BMI Screening [facility] Start: 01-20-2026 Depression Screening Depression Screening [facility] Start: 01-20-2026 Fall Risk Screening Fall Risk Screening [facility] Start: 01-20-2026 Medicare Annual Wellness Visit Medicare Annual Wellness Visit [facility] Start: 01-01-2026 Tobacco Screening Tobacco Screening [facility] Start: 12-22-2025 Adult BMI Screening Adult BMI Screening [facility] Start: 12-22-2025 Depression Screening Depression Screening [facility] Start: 12-22-2025 Fall Risk Screening Fall Risk Screening [facility] Start: 12-22-2025 Tobacco Screening Tobacco Screening [facility] Start: 08-19-2025 End: 08-19-2025 Patient encounter procedure 08/19/2025 10:00 AM EST [facility] [address] [place] [address] Reilly Phipps, DO [address] [facility] [place] [address] [facility] Start: 08-18-2025 Adult BMI Screening Adult BMI Screening [facility] Start: 08-18-2025 Depression Screening Depression Screening [facility] Start: 08-18-2025 Fall Risk Screening Fall Risk Screening [facility] Start: 08-18-2025 Tobacco Screening Tobacco Screening [facility] Start: 06-30-2025 End: 06-30-2025 Professional / ancillary services management 06/30/2025 12:00 PM EST Ancillary Procedure [facility] [place] [address] [place] [address] [facility] [place] Start: 06-30-2025 End: 06-30-2025 Patient encounter procedure 06/30/2025 10:30 AM EST Office Visit [facility] [address] [place] [address] Annmarie Freitas, DO [address] [place] [address] [facility] Start: 06-24-2025 Screening for malignant neoplasm of breast Mammogram [facility] Start: 04-23-2025 Adult BMI Screening Adult BMI Screening [facility] Start: 04-23-2025 Depression Screening Depression Screening [facility] Start: 04-23-2025 Fall Risk Screening Fall Risk Screening [facility] Start: 04-23-2025 Tobacco Screening Tobacco Screening [facility] Start: 04-06-2025 Influenza vaccination Influenza Vaccine [facility] Start: 02-14-2025 Adult BMI Screening Adult BMI Screening [facility] Start: 02-14-2025 Depression Screening Depression Screening [facility] Start: 02-14-2025 Tobacco Screening Tobacco Screening [facility] Start: 01-29-2025 End: 10-01-2025 DBT Breast - right diagnostic Right diagnostic mammogram with tomosynthesis Imaging Routine Pseudoangiomatous stromal hyperplasia of breast Expected: 01/29/2025, Expires: 10/01/2025 [facility] Work Phone: Comment on above: Expected: 01/29/2025, Expires: Start: 01-29-2025 End: 10-01-2025 US Breast - right limited Right breast US limited Imaging Routine Pseudoangiomatous stromal hyperplasia of breast Expected: 01/29/2025, Expires: 10/01/2025 [facility] Comment on above: Expected: 01/29/2025, Expires: Start: 01-29-2025 End: 01-29-2025 Patient encounter procedure 01/29/2025 10:45 AM EDT Office [facility] [address] [place] [address] Vipul Vazquez, DO [address] [facility] [address] [place] [address] [facility] Start: 01-20-2025 End: 01-20-2025 Patient encounter procedure 01/20/2025 9:00 AM EDT [facility] [address] [place] [address] [facility] Start: 01-14-2025 Adult BMI Screening Adult BMI Screening [facility] Start: 01-14-2025 Depression Screening Depression Screening [facility] Start: 01-14-2025 Fall Risk Screening Fall Risk Screening [facility] Start: 01-14-2025 Medicare Annual Wellness Visit Medicare Annual Wellness Visit [facility] Start: 01-01-2025 End: 01-01-2025 Patient encounter procedure 01/01/2025 11:30 AM EDT [facility] [address] [place] [address] Reilly Phipps, DO [address] [facility] [place] [address] [facility] Start: 10-09-2024 End: 10-09-2024 Patient encounter procedure 10/09/2024 10:50 AM EST Office Visit [facility] [address] [facility] [address] [place] [address] Cj Cote DPM [address] [facility] [address] [place] [address] Posterior tibial tendonitis of right leg (Primary [...] procedure 08/18/2024 10:30 AM EST [facility] [address] [place] [address] Reilly Phipps, [address] [place] [address] [facility] Start: 08-15-2024 Adult BMI Screening Adult BMI Screening [facility] Start: 08-15-2024 Depression Screening Depression Screening [facility] Start: 08-15-2024 Fall Risk Screening Fall Risk Screening [facility] Start: 08-15-2024 Tobacco Screening Tobacco Screening [facility] Start: 08-14-2024 End: 08-14-2024 Patient encounter procedure [facility] Comment on above: Arrived Start: 06-12-2024 End: 06-12-2024 Professional / ancillary services management 06/12/2024 11:00 AM EST Ancillary Procedure [facility] [place] [address] [place] [id number] [facility] [place] Start: 06-12-2024 End: 06-12-2024 Patient encounter procedure 06/12/2024 10:15 AM EST Office Visit [facility] [address] [place] [phone] Annmarie Freitas, [address] [place] [address] Encounter for gynecological examination without abnormal finding; Screening for malignant neoplasm of cervix; Encounter for screening mammogram for breast cancer [facility] Comment on above: Encounter for gynecological examination without abnormal finding; Screening for malignant neoplasm of cervix; Encounter for screening mammogram for breast cancer Start: 05-17-2024 Screening for malignant neoplasm of breast Mammogram [facility] Start: 04-23-2024 End: 04-23-2024 Patient encounter procedure 04/23/2024 9:00 AM EDT Office Visit [facility] [address] [place] [address] Reilly Phipps, [address], [facility] [place] [address] [facility] Start: 04-06-[address] [facility] Start: 01-15-2024 End: 01-15-2024 Patient encounter procedure 01/15/2024 11:00 AM EDT [facility] [address] [place] [address] [facility] Start: 12-29-2023 Medicare Annual Wellness Visit Medicare Annual Wellness Visit [facility] Start: 07-03-2023 COVID-19 Vaccine ( season) COVID-19 Vaccine ( season) [facility] Start: 11-08-2020 COVID-19 Vaccine (2 - Silver risk series) COVID-19 Vaccine (2 - Silver risk series) [facility] Start: 2001 Screening for malignant neoplasm of colon Colon Cancer Screening 3 Year Cologuard [facility] Start: 1974 Adult BMI Follow Up Plan Adult BMI Follow Up Plan [facility] Start: 1956 Screening for malignant neoplasm of colon [facility] End: 02-14-2025 Arthropod identification Arthropod identification Lab Routine Tick bite of lower back, initial encounter 1 Occurrences starting 02/15/2024 until 02/14/2025 [facility] Work Phone: Comment on above: 1 Occurrences starting 02/15/2024 until 02/14/2025 [facility] Non-[facility] Cologuar d Non-[facility] Lab Routine Screen for colon cancer Ordered: 08/15/2023 [facility] Work Phone: Comment on above: Ordered: 08/15/2023 End: 08-11-2025 Comprehensive metabolic 2000 panel - Serum or Plasma Comprehensive metabolic panel Lab Routine Essential hypertension 1 Occurrences starting 08/11/2024 until 08/11/2025 [facility] Work Phone: Comment on above: 1 Occurrences starting 08/11/2024 until 08/11/2025 DBT Breast - bilater al screening Bilateral screening mammogram with tomosynthesis Imaging Routine Encounter for screening mammogram for breast cancer Ordered: 06/12/2024 [facility] [email or web address] Comment on above: Ordered: 06/12/2024 End: 08-11-2025 Lipid panel Lipid panel Lab Routine Hypercholesterolemia 1 Occurrences starting 08/11/2024 until 08/11/2025 [employer] Comment on above: 1 Occurrences starting 08/11/2024 until 08/11/2025 Patient Education Kidney stones in adults [facility] Work Phone: Patient referral [facility] Work Phone: SENDOUT TEST MISCELLANEOUS [facility] SENDOUT TEST MISCELLANEOUS [facility] Lab Routine Screening for malignant neoplasm of cervix Ordered: 06/12/2024 [facility] [email or web address] Work Phone: Comment on above: Ordered: 06/12/2024 End: 08-11-2025 Vitamin D 25 hydroxy Vitamin D 25 hydroxy Lab Routine Vitamin D deficiency 1 Occurrences starting 08/11/2024 until 08/11/2025 [employer] Comment on above: 1 Occurrences starting 08/11/2024 until 08/11/2025 Immunizations Immunization Date Immunization Notes Care Provider [facility] 06-07-2024 influenza, high dose seasonal, preservative-free Reilly Furlong DO Work Phone: [employer] 06-07-2024 influenza virus vaccine, unspecified formulation [facility] influenza virus vaccine, unspecified formulation SARAH BETH SINGH [facility] 01-26-2023 tetanus toxoid, redu robin diphtheria toxoid, and acellular pertussis vaccine, adsorbed Reilly Furlong DO Work Phone: [facility] 06-23-2022 SARS-CoV-2 (COVID-19 ) mRNAMUL.[id number] SARAH BETH SINGH [facility] 05-23-2022 influenza virus vaccine, unspecified formulation SARAH BETH FRANCISCO [facility] 05-23-2022 Influenza, High-dose , Quadrivalent Reilly Furlong DO Work Phone: [facility] [employer] [facility] 12-05-2021 Pneumococcal Conjuga te 20-valent Reilly Furlong DO Work Phone: [facility] 06-08-2021 SARS-CoV-2 (COVID-19 ) Ad26 vaccine, recombinant SARAH BETH SINGH [facility] 04-12-2021 influenza virus vaccine, unspecified formulation SARAH BETH FRANCISCO [facility] 04-12-2021 influenza, injectabl e, quadrivalent, preservative free Reilly Furlong DO Work Phone: [facility] 10-11-2020 COVID-19 Vaccine, vector-nr, rS-Ad26, PF, 0.5mL Reilly Furlong DO Work Phone: [facility] 10-11-2020 SARS-CoV-2 (COVID-19 ) mRNA-1273 vaccine Diamond BAUTISTA [facility] [place] Comment on above: Result Comment: birgit scherer 05-07-2020 influenza virus vaccine, unspecified formulation SARAH BETH FRANCISCO [facility] 05-07-2020 Influenza, injectabl e, Madin Azeb Canine Kidney, preservative free, quadrivalent Reilly Furlong DO Work Phone: [facility] [employer] [facility] 05-11-2019 zoster vaccine recombinant Reilly Furlong DO Work Phone: [facility] 05-06-2019 influenza virus vaccine, live, attenuated, for intranasal use Diamond BAUTISTA [facility] 05-06-2019 Influenza, injectabl e, Madin Bristol Canine Kidney, quadrivalent with preservative Reilly Furlong DO Work Phone: [facility] [employer] [facility] 03-12-2019 zoster vaccine recombinant Reilly Furlong DO Work Phone: [facility] 05-21-2018 influenza virus vaccine, unspecified formulation SARAH BETH FRANCISCO [facility] 05-21-2018 Influenza, injectabl e, Madin Azeb Canine Kidney, preservative free, quadrivalent Reilly Furlong DO Work Phone: [facility] [employer] [facility] 05-08-2017 influenza virus vaccine, unspecified formulation SARAH BETH FRANCISCO [facility] 05-08-2017 influenza, injectabl e, quadrivalent, contains preservative Reilly Furlong DO Work Phone: [facility] 04-13-2017 influenza virus vaccine, unspecified formulation SARAH BETH FRANCISCO [facility] 04-13-2017 Influenza, injectabl e, Madin Azeb Canine Kidney, preservative free, quadrivalent Reilly Furlong DO Work Phone: [facility] 10-23-2016 zoster vaccine, live Reilly Furlong DO Work Phone: [facility] 05-12-2016 influenza virus vaccine, unspecified formulation SARAH BETH SINGH [facility] 05-12-2016 influenza, seasonal, injectable, preservative free Reilly Furlong DO Work Phone: [facility] 04-29-2015 influenza, seasonal, injectable, preservative free Reilly Furlong DO Work Phone: [facility] 12-09-2012 tetanus toxoid, redu robin diphtheria toxoid, and acellular pertussis vaccine, adsorbed Reilly Furlong DO Work Phone: [facility] Payers Date Payer Category Payer Managed Care Other (unspecified) [facility] [id number] 2021 Medicare [id number] 2021 Private Health Insurance [id number] 2021 Medicare [id number] 2021 Medicare [id number] 2021 Unknown [id number] 1958 [facility] 1955 Unknown [id number] 2.16.840.1.825734.3.579.2 .593 1955 Unknown [id number] 2.16.840.1.294703.3.579.2 .593 1955 Unknown [id number] 2.16.840.1.026281.3.579.2 .593 1955 Unknown [id number] 2.16.840.1.006823.3.579.2 .593 1955 Unknown [id number] 2.16.840.1.770884.3.579.2 .1286 1955 Unknown [id number] 2.16.840.1.780441.3.579.2 .1286 1955 Unknown [id number] 2.16.840.1.542905.3.579.2 .727 1956 Unknown [id number] 2.16.840.1.999070.3.579.2 .727 1956 Unknown [id number] 2.16.840.1.209871.3.579.2 .727 1956 Unknown [id number] 2.16.840.1.995061.3.579.2 .727 1956 Unknown [id number] 2.16.840.1.636516.3.579.2 .727 1956 Unknown [id number] 2.16.840.1.828400.3.579.2 .1286 1956 Unknown [id number] 2.16.840.1.831962.3.579.2 .1286 1956 Unknown [id number] 2.16.840.1.054960.3.579.2 .1286 1956 Unknown [id number] 2.16.840.1.057513.3.579.2 .1285 1956 Unknown [id number] 2.16.840.1.413057.3.579.2 .1285 1956 Unknown [id number] 2.16.840.1.798138.3.579.2 .1285 1956 Unknown [id number] 2.16840.1.480776.3.579.2 .1258 1956 Unknown [id number] 2.840.1.981464.3.579.2 .1258 1956 Unknown [id number] 2.840.1.504079.3.579.2 .1258 1956 Unknown [id number] 2.840.1.785828.3.579.2 .1258 1956 Unknown [id number] 2.840.1.147851.3.579.2 .9 1956 Unknown [id number] 2.840.1.757998.3.579.2 .1258 1956 Unknown [id number] 2.840.1.172526.3.579.2 .9 1956 Unknown [id number] 2.840.1.594675.3.579.2 .1258 1956 Unknown [id number] 2.840.1.388014.3.579.2 .1259 Unknown [id number] Unknown [id number] 2.840.1.016674.3.579.2 .593 Unknown [place] [facility] [id number] Unknown [facility] [id number] Unknown HCAP/HFA/FAP Active [id number] Social History Date Type Detail Facility Start: 06-09-2022 End: 07-31-2024 Tobacco smoking status NHIS Never smoked tobacco (finding) [facility] Start: 1955 Sex Assigned At Female F [facility] Tobacco smoking status Never [facility] Start: 06-12-2024 End: 01-29-2025 Sex Assigned At Female [facility] Start: 06-12-2024 End: 01-29-2025 Alcoholic beverage intake Lifetime non-drinker (finding) [facility] Start: 06-12-2024 End: 01-29-2025 History of Social function [facility] Start: 05-16-2023 Alcohol Comment Caffeine intak e: 1-2 cups per day chocolate [facility] Start: 1955 Sex assigned at Not on file [facility] Start: 07-18-2022 End: 07-31-2024 Tobacco use and exposure Smokeless tobacco non-user [facility] Start: 08-01-2024 End: 01-01-2025 Alcoholic beverage intake Ex-drinker (finding) [facility] Has the [employer], or [employer] threatened to shut off services in your home in past 12Mo No [facility] [employer] System Do you belong to any clubs or organizations such as roman catholic groups, unions, fraternal or athletic groups, or school groups? Yes [facility] Are you now , , , , never or living with a partner? [facility] How often to you hav e a drink containing alcohol? Never [facility] [employer] System Do you feel stress - tense, restless, nervous, or anxious, or unable to sleep at night because your mind is troubled all the time - these days [OSQ] Not at all [facility] [employer] [facility] Start: 03-11-2015 End: 11-14-2024 Sex Female (finding) [facility] NEGATED: Highlighted rowStart: NINF History of tobacco use Passive smoker [facility] Medical Equipment Procedure Code Equipment Code Equipment [...] FDA Start: 03-22-2018 Polymeric ureter al stent ([id number] FDA Start: 05-21-2020 Functional Status Date Assessment Result Facility 08-16-2023 Functional Status N/A [facility] [place] 07-21-2022 Functional Status N/A [facility] [place] Clinical Notes 07-21-2022 to 01-29-2025 Vipul Vazquez, DO - 01/29/2025 10:45 AM EDJeana Phipps, DO - 01/20/2025 9:00 AM EDJeana Phipps, DO - 01/01/2025 11:30 AM EDTReilly Phipps, DO - 12/22/2024 11:30 AM EDT Note Date & Type Note Facility 01-29-2025 History of Presen t illness Narrative Images from the original note were not included. Ena Radford 1955 Ena Radford is a 69 y.o. female presents with chief complaint of 6mos. follow up Rt. mamm/US w/exam HPI: HPI Ena presents for her 6 mth follow up [...] tablets Follow schedule on MEDROL PACK package instructions to be used as directed potassium citrate CR [...] 5' 3 Wt 148 lb BMI 26.22 kg/m Smoking Status Never BSA 1.73 m Physical Exam Exam conducted with a child support officer present. HENT: Head: Normocephalic. Cardiovascular: Rate and Rhythm: Normal rate and regular rhythm. Pulmonary: Effort: Pulmonary effort is normal. Breath sounds: Normal breath sounds. Chest: Comments: Bilateral supraclavicular, infraclavicular, bicipital and axillary lymph nodes were found to be normal. Each breast was examined in the sitting and supine position, there was no evidence of masses, dimpling or discharge in either breast Abdominal: General: Abdomen is flat. Bowel sounds are normal. Palpations: Abdomen is soft. Skin: General: Skin is warm and dry. Neurological: Mental Status: She is alert. ASSESSMENT AND PLAN: Assessment/Plan Diagnoses and all orders for this visit: Pseudoangiomatous stromal hyperplasia of breast Ena had her 6 mth Rt breast mamm & US that showed - decrease in size of mixed echogenic area now measuring 6 mm. She is due for her bilateral mamm;s in Nov, I'l add a right breast US to that and see her following the imaging documented in this encounter [facility] 01-20-2025 History of Presen t illness Narrative [...] Do you have a durable power of employee benefits attorney?: Yes Cognitive Screening Do you have [...] year (around 01/20/2026). documented in this encounter [employer] 01-01-2025 History of Presen t illness Narrative [...] Exam Vitals reviewed. Exam conducted with a child support officer present (Ramon Argueta MS 3). Constitutional: General: [...] a different surgeon. documented in this encounter [facility] 12-22-2024 History of Presen t illness Narrative [...] Exam Vitals reviewed. Exam conducted with a child support officer present (Ramon Argueta MS 3). Constitutional: Appearance: [...] Argueta MS 3. documented in this encounter [facility] 12-22-2024 Miscellaneous Notes Disclaimer: This note is [...] legal medical record. documented in this encounter [facility] 12-22-2024 Progress note Formatting of t his [...] a part of the legal medical record. [facility] 11-19-2024 Note Patient Education Nephrology Laser Therapy [...] these instructions at home: Medicines ??? Take qhtk-qsg-wcczrzz and prescription medicines only as told by [...] keep your pee pale yellow. ? Take njot-wht-pqfuwoq or prescription medicines. ? Eat foods that [...] provider. Document Revised: 03/23/2023 Document Reviewed: 03/23/2023 [employer] Patient Education ? 2023 [employer] Laser Therapy for Kidney Stones Laser [...] including vitamins, herbs, eye drops, creams, and bxab-tti-wzlvvfw medicines. ??? Any problems you or family [...] and drink. Thes (more content not included)... [facility] 11-14-2024 Radiology Diagnostic study note [facility] [place] [address] [place] [address] CT Scan Report Signed Patient: Ena Radford MR#: [id number] : 1955 Acct:[id number] Age/Sex: 69 / F ADM Date: 5 Loc: ER Room: Type[facility] Attending Dr: Copies to: Carmencita [...] Maritza Willoughby M.D.11/14/2024 7:52 PM Dictation Location: [place] [address] Transcribed By: [facility] 11/14/241951 Dictated By: Maritza Willoughby MD 11/14/241935 Signed By: 11/14/241951 [facility] Work Phone: 08-18-2024 History of Presen t [...] Exam Vitals reviewed. Exam conducted with a child support officer present (Yudi Muniz MS 3). Constitutional: General: [...] for their opinion. documented in this encounter [facility] 08-14-2024 History of Presen t illness Narrative Patient: Ena Radford : 1955 PCP: Reilly Phipps MD SUBJECTIVE This is a 68 y.o. female that presents today for a chief complaint of right medial ankle and plantar foot pain for the past 3 months. Patient denies any trauma states up to 12/13 and has been intermittent in nature particularly [...] , Rfl: cholecalciferol (Vitamin D-3) 50 MCG (2000 UT) tablet, Vitamin D3 2,000 IU QD, Disp: [...] Resource Strain: Low Risk (07/18/2022) Received from [employer], [employer] Overall Financial Resource Strain (CARDIA) Difficulty of Paying Living Expenses: Not hard at all Food Insecurity: No Food Insecurity (04/23/2024) Received from [employer] Hunger Screening Within the past 12 months we worried whether our food would run out before we got money to buy more.: Never True Within the past 12 months the food we bought just didn't last and we didn't have money to get more.: Never True Transportation Needs: No Transportation Needs (07/18/2022) Received from [employer], [employer] PRAPARE - Transportation Lack of Transportation (Medical): No Lack of Transportation (Non-Medical): No Physical Activity: Inactive (01/15/2024) Received from [employer] Exercise Vital Sign Days of Exercise per Week: 0 days Minutes of Exercise per Session: 0 min Stress: No Stress Concern Present (07/18/2022) Received from [employer], [employer] [place] [employer] Occupational Health - Occupational Stress Questionnaire Feeling of Stress : Not at all Social Connections: Socially Integrated (07/18/2022) [facility] [employer] [facility] Social Connection and Isolation Panel [NHANES] Frequency of Communication with Friends and Family: More than three times a week Frequency of Social Gatherings with Friends and Family: More than three times a week Attends Christian Services: More than 4 times per year Active Member of Clubs or Organizations: Yes Attends Club or Organization Meetings: 1 to 4 times per year Marital Status: Intimate Partner Violence: Not on file Housing Stability: Low Risk (01/15/2024) [facility] Housing Instability Are you worried or concerned [...] with follow up in 2 weeks Cj Cote DPM documented in this encounter [facility] 08-11-2024 Miscellaneous Notes Patient is coming in for an apt and would like her labs sent to [facility] documented in this encounter [facility] 08-11-2024 Telephone encounter Note Patient is coming in for an apt and would like her labs sent to [facility] 07-31-2024 History of Presen t illness Narrative [...] in 6 months. documented in this encounter [facility] 07-02-2024 Evaluation note Diagnosis Onset Date Resolution Abnormal finding on mammography acute July 02 11:23am Abnormal finding on mammography acute July 14 24 12:35pm [facility] Work Phone: [phone] 573-850711-07-2024 History of Present illness Narrative* Annmarie Freitas DO - 06/12/2024 10:15 AM EST Images from the original note were not included. Annmarie Fretias D.O. Obstetrics and Gynecology Patient: Ena Radford [...] Review Audit Reviewed by Elizabet Puga MA (Architectural Engineering Teacher) on 06/12/24 at 1016 Medication Order Taking? Sig Documenting Provider Last Dose Status alendronate (Fosamax) 70 MG tablet [id number] TAKE 1 TABLET BY MOUTH ONCE WEEKLY ON AN EMPTY STOMACH BEFORE BREAKFAST. REMAIN UPRIGHT FOR 30 MINUTES AND TAKE WITH 8 OUNCES OF WATER Annmarie Freitas, DO Active Calcium-Vitamin D-Vitamin K (Calcium + D) 500-1000-40 MG-UNT-MCG chewable tablet [id number] Orally Annmarie E Bonniemaura, DO Active cetirizine (ZyrTEC ALLERGY) 10 MG tablet [id number] 1 (one) time each day at the same time. Annmarie Freitas, DO Active cholecalciferol (Vitamin D-3) 50 MCG (2000 UT) tablet [id number] Vitamin D3 2,000 IU QD Annmarie Cartermaura, DO Active lisinopril 5 MG tablet [id number] Take 1 tablet by mouth in the morning. Annmarie Cartermaura, DO Active lovastatin (Mevacor) 20 MG tablet [id number] Take 20 mg by mouth in the morning. Annmarie Cartermaura, DO Active meclizine (Antivert) 12.5 MG tablet [id number] take 2 tablet by oral route 3 times every day as needed Oral Annmarie Cartermaura, DO Active potassium citrate CR (Urocit-K-10) 10 mEq ER tablet [id number] every 8 (eight) hours. Annmarie Cartermaura, DO Active rosuvastatin (Crestor) 10 MG tablet [id number] Yes Take 1 tablet by mouth in the morning. Annmarie Cartermarua, DO Active valsartan (Diovan) 40 MG tablet [id number] Yes Take 40 mg by mouth in the morning. Annmarie Freitas,DO Active Past Medical History: Diagnosis Date Arthritis [...] screening mammogram with tomosynthesis [id number] History of Present illness Narrative* Reilly Phipps DO - 04/23/2024 9:00 AM EDT Images [...] Erythema and rash present. No wound. Comments: [place] papule with a halo of erythema around [...] this for 7 days. [facility] [id number] Miscellaneous Notes* Telephone Encounter - Pat Stevens - 04/22/2024 8:39 AM EDT Not needed [facility] Telephone encounter Note* Telephone Encounter - Pat Gandhirosa - 04/22/2024 8:39 AM EDT Not needed [facility]07-12-2024 History of Present illness Narrative* Reilly Hojonah, DO - 02/15/2024 9:30 AM EDT Subjective [...] Objective Physical Exam Exam conducted with a child support officer present (). Constitutional: General: She is not [...] mouth in the morning. documented [facility]06[facility]24 History of Present illness Narrative* Reilly Phipps DO - 01/15/2024 11:00 AM EDT Subjective SUBJECTIVE: [...] Do you have a durable power of employee benefits attorney?: Yes Cognitive Screening Do you have [...] 1 year (around 01/14/2025). documented in this encounterTr[facility] [id number] Hospital Discharge instructions Patient Education 08/16/2023 11:34:36 Kidney Stones, Wiry-cz-Dwtb Kidney Stones Kidney stones are rock-like masses [...] Follow these instructions at home: Medicines Take wnwn-hho-fkxesdt and prescription medicines only as told by [...] provider. Document Revised: 03/27/2022 Document Reviewed: 03/27/2022 [employer] Patient Education 2022 [employer]. Follow Up Care 07/10/2023 10:36:14 With:FRANCISCO WILBURN, SARAH BETH Antoine, URL Address: [address] [address] [phone] When: Unknown Comments:18 months w/ KUB [facility] 01-10-2024 History of Present illness Narrative* Reilly Veronica Desire, - 08/15/2023 9:20 AM EST Subjective Patient [...] Future Check vitamin-D level [facility] Evaluation note* Encounter Date Diagnosis Assessment Notes [...] 3 days Jun, Cough (ICD-10 - R05.9) [employer] Other 12-16-2022 Hospital Discharge instructions Patient Education 07/21/2022 11:52:31 Kidney Stones, Gcpz-lu-Vhzm Kidney Stones Kidney stones are rock-like masses [...] Follow these instructions at home: Medicines Take npnl-ugp-rssqjyw and prescription medicines only as told by [...] 01/08/2009 Document Revised: 12/09/2019 Document Reviewed: 12/09/2019 Elsevier Patient Education 2020 [employer] Follow Up Care 07/18/2021 12:00:36 With:MICHELE RODRIGUES, Diamond Gonzalez, URL Address: [address] [place] [address] [place] [address]- When: Unknown [facility] evaluation + Plan note Future Appointments Appointment Date:07/23/2023 10:15:00 AM Scheduled Provider:Diamond BAUTISTA MD Location:[facility] [place] Appointment Type:URO Office Visit [facility] [place] evaluation noteNo assessment information available [facility] Work Phone: Evaluation note* Diagnosis Encounter [...] Vitamin D deficiency [facility] Diagnosis Posterior tibial tendonitis of right leg- Primary Pes planovalgus, acquired, right documented in this encounter [facility]* Diagnosis Essential hypertension- Primary Unspecified essential hypertension Hypercholesterolemia Pure hypercholesterolemia Overweight Neoplasm of uncertain behavior of skin [facility] Diagnosis Posterior tibial tendonitis of right leg- Primary Pes planovalgus, acquired, right documented in this encounter [facility] HealthcareEvaluation note* Diagnosis Essential hypertension- Primary Unspecified essential hypertension Hypercholesterolemia Pure hypercholesterolemia Overweight Screen for colon cancer Special screening for malignant neoplasms, colon Vitamin D deficiency [facility] Diagnosis Medicare annual wellness visit, subsequent- Primary Screening for depression [facility] Diagnosis Tick bite of lower back, initial encounter- Primary Essential hypertension Unspecified essential hypertension Chronic cough Cough [facility] Diagnosis Cellulitis, unspecified cellulitis site- Primary [facility] Diagnosis Neoplasm of uncertain behavior of skin- Primary Tick bite of lower back, sequela Bilateral impacted cerumen Impacted cerumen [facility] Diagnosis Neoplasm of uncertain behavior of skin- Primary [facility] Diagnosis Bilateral impacted cerumen- Primary Impacted cerumen Neoplasm of uncertain behavior of skin [facility] Diagnosis Medicare annual wellness visit, subsequent- Primary Screening for depression [facility] Diagnosis Pseudoangiomatous stromal hyperplasia of breast- Primary [facility] - Reported* Type Description Date Medical History UTI Medical History hypertension Medical History osteoporosis Medical History KIDNEY STONES Surgical History appendectomy Surgical History BTL Surgical History kidney stones Hospitalization History See Above [facility] Other History of Present illness Narrative* Cj Cote, MELANIE - 09/04/2024 1:20 PM EST Patient: Ena Radford : 1955 PCP: Reilly Phipps MD SUBJECTIVE This is a 68 y.o. [...] , Rfl: cholecalciferol (Vitamin D-3) 50 MCG (2000 UT) tablet, Vitamin D3 2,000 IU QD, Disp: [...] Resource Strain: Low Risk (07/18/2022) [facility] Overall Financial Resource Strain (CARDIA) Difficulty of Paying Living Expenses: Not hard at all Food Insecurity: No Food Insecurity (08/18/2024) Received from [facility] Hunger Screening Within the past 12 months we worried whether our food would run out before we got money to buy more.: Never True Within the past 12 months the food we bought just didn't last and we didn't have money to get more.: Never True Transportation Needs: No Transportation Needs (07/18/2022) [facility] PRAPARE - Transportation Lack of Transportation (Medical): No Lack of Transportation (Non-Medical): No Physical Activity: Inactive (01/15/2024) [facility] Exercise Vital Sign Days of Exercise per Week: 0 days Minutes of Exercise per Session: 0 min Stress: No Stress Concern Present (07/18/2022) Re[facility] from [facility] [place] [facility] Occupational Health - Occupational Stress Questionnaire Feeling of Stress : Not at all Social Connections: Socially Integrated (07/18/2022) Received from [facility] Social Connection and Isolation Panel [NHANES] Frequency of Communication with Friends and Family: More than three times a week Frequency of Social Gatherings with Friends and Family: More than three times a week Attends Christian Services: More than 4 times per year Active Member of Clubs or Organizations: Yes Attends Club or Organization Meetings: 1 to 4 times per year Marital Status: Intimate Partner Violence: Not on file Housing Stability: Low Risk (01/15/2024) Received from [facility] Housing Instability Are you worried or concerned [...] following conditions as noted per EMR. Cj Cote DPM documented in this [facility] Narrative No data available for this section [facility] Hospital Discharge instructions Additional Instructions [...] breath or any other concerns Strain all [facility] Work Phone: InstructionsNot on filedocumented in this [...] available for this section [facility] Summary Purpose Family History No Family History Records Found Relationship Condition Age at Onset Recorded Date/T [...] mother Unknown Malignant neoplasm Unknown Advance Directives No Advanced Directives Records Found Advance Directive Response Recorded Date/ Time Advance [...] content) DATE CREATED AUTHOR 07/23/2021 [facility] DATE CREATED AUTHOR AUTHOR'S ORGANIZ ATION 12/27/2021 [facility] DATE CREATED AUTHOR AUTHOR'S ORGANIZ ATION 05/12/[address] [facility] dical Specialist DATE CREATED AUTHOR AUTHOR'S ORGANIZ ATION 02/21/2024 [facility] DATE CREATED AUTHOR AUTHOR'S ORGANIZ ATION 12/30/2024 [facility] DATE CREATED AUTHOR AUTHOR'S ORGANIZ ATION 01/19/2025 [facility] DATE CREATED AUTHOR AUTHOR'S ORGANIZ ATION 01/22/2025 [facility] DATE CREATED AUTHOR AUTHOR'S ORGANIZ ATION 01/30/[address] [facility] dical Specialists EPIC Care Teams (unrecognized sec tion and content) Team Status: Inactive Member Role Status Dates Reilly Phipps DO Primary Care Provider, Attending Aly crum Active Team Status: Active Member Role Status Dates Reilly Phipps DO Primary Care Provider Active Team Status: Inactive Member Role Status Dates Reilly Phipps , Primary Care Provider Active Diamond Bautista MD Attending Provider Active Director Of Broadcast Relationship Specialty Start Date End Date Reilly Phipps MD [address] [place] [address] PCP - General Family Medicine 05/17/23 Director Of Broadcast Relationship Specialty Start Date End Date Reilly Phipps MD [address] [place] [address] PCP - General Family Medicine 05/17/23 Director Of Broadcast Relationship Specialty Start Date End Date Reilly Phipps DO [address] [place] [address] PCP - General Family Medicine 06/06/22 Director Of Broadcast Relationship Specialty Start Date End Date Reilly Phipps DO [address] [place] [address] PCP - General Family Medicine 06/06/22 Director Of Broadcast Relationship Specialty Start Date End Date Reilly Phipps DO [address] [place] [address] PCP - General Family Medicine 06/06/22 Director Of Broadcast Relationship Specialty Start Date End Date Reilly Phipps MD [address] [place] [address] PCP - General Family Medicine 05/17/23 Director Of Broadcast Relationship Specialty Start Date End Date Reilly Phipps MD [address], [place] [address] PCP - General Family Medicine 05/17/23 Team Status: Inactive Member Role Status Dates Reilly Phipps DO Primary Care Provider Active Start: July 02, 2024 End: July 02, 2024 Vipul Vazquez DO Attending Provider Active Start: July 02, 2024 End: July 02, 2024 Team Status: Inactive Member Role Status Dates Reilly Phipps DO Primary Care Provider Active Start: July 14, 2024 End: July 14, 2024 Vipul Vazquez DO Attending Provider Active Start: July 14, 2024 End: July 14, 2024 Team Status: Inactive Member Role Status Dates Reilly Phipps DO Primary Care Provide r, Attending Provider Active Start: August 15, 2024 End: August 15, 2024 Director Of Broadcast Relationship Specialty Start Date End Date Reilly Phipps DO [address], [place] [address] PCP - General Family Medicine 06/06/22 Director Of Broadcast Relationship Specialty Start Date End Date Reilly Phipps MD [address], [place] [address] PCP - General Family Medicine 05/17/23 Director Of Broadcast Relationship Specialty Start Date End Date Reilly Phipps MD [address], [place] [address] PCP - General Family Medicine 05/17/23 Director Of Broadcast Relationship Specialty Start Date End Date Reilly Phipps DO [address], [place] [address] PCP - General Family Medicine 06/06/22 Director Of Broadcast Relationship Specialty Start Date End Date Reilly Phipps DO [address], [place] [address] PCP - General Family Medicine 06/06/22 Director Of Broadcast Relationship Specialty Start Date End Date Reilly Phipps DO [address], [place] [address] PCP - General Family Medicine 06/06/22 Director Of Broadcast Relationship Specialty Start Date End Date Reilly Phipps DO [address], [place] [address] PCP - General Family Medicine 06/06/22 Director Of Broadcast Relationship Specialty Start Date End Date Reilly Phipps DO [address], [place] [address] PCP - General Family Medicine 06/06/22 Team Status: Inactive Member Role Status Dates Reilly Phipps DO Primary Care Provide r, Attending Provider Active Start: August 30, 2024 End: August 30, 2024 Team Status: Inactive Member Role Status Dates Reilly Phipps DO Primary Care Provider Active Start: November 14, 2024 End: November 14, 2024 Carmencita Hirsch APRN Emergency Provider Active Start: November 14, 2024 End: November 14, 2024 Director Of Broadcast Relationship Specialty Start Date End Date Reilly Phipps [address] [place] [address] PCP - General Family Medicine 06/06/22 Director Of Broadcast Relationship Specialty Start Date End Date Reilly Phipps DO [address], [place] [address] PCP - General Family Medicine 06/06/22 Director Of Broadcast Relationship Specialty Start Date End Date Reilly Phipps MD [address], [place] [address] PCP - General Family Medicine 01/01/25 Goals (unrecognized section and content) Goals may [...] Reason Comments ear flush Reason Comments maw Reason Comments 6mos. follow up Rt. mamm/US w/exam FOR RECORDS PERTAINING TO PATIENTS WHO ARE [...] BE BASED ON THE PRIMARY CLINICAL RECORDS. [facility]. provides no warranty or guarantee of the accuracy or completeness of information in this document.
--- OUTSIDE RECORDS SUMMARY | 2025-02-06 13:56 | XMS_ITS | Encounter Summary ---
Author Organization [employer] Address [facility] [id number] [address] [place] [address] Care Team Providers Care Bottle Labeler Name Role Phone Naila Reilly Veronica GARCIA Primary Care Provider + [phone] Encounter Details Date Type Department Care Team (Late st Contact Info) Description 08/08/2024 Telephone [facility] - Family Medicine [address] [place] [phone] Lyric Parsons CMA Social History Tobacco Use Types Packs/Day Years Used Date Smoking Tobacco: Never Passive Smoke Exposure: Never Smokeless Tobacco: Never Alcohol Use Standard Drinks/Week Comments Not Currently 0 (1 standard drink = 0.6 oz pur e alcohol) [facility] Utilities Answer Date Recorded In the [...] often do you attend chur ch or anglican services? More than 4 times per year 07/18/2022 Do you belong to any clubs o r organizations such as mu-ism groups, unions, fraternal or athletic groups, or [...] Answer Date Recorded Total Score 0 04/23/2024 [facility] of Occupat ional Health - Occupational Stress [...] called requesting her lab order sent to [facility] so she has her results for her upcoming appt documented in this encounter Plan of Treatment Upcoming Encounters Date Type Department Care Team (Late st Contact Info) Description 08/19/2025 10:00 AM EST Office Visit [facility] [address] [place] [address] Reilly Yoo DO [address] [facility] [address] 01/26/2026 9:40 AM EDT Office Visit [facility] [address] [place] [address] documented as of this encounter Visit Diagnoses Not on filedocumented in this encounter Additional Health Concerns Assessment Noted Time PHQ-9 Depression Total Score: 0 04/23/20 24 8:58 AM EDT documented as of this encounter Care Teams Bottle Labeler Relationship Specialty Start Date End Date Reilly Yoo DO [address] [place] [address] PCP - General Family Medicine 06/06/22 documented as of this encounter
--- OUTSIDE RECORDS SUMMARY | 2025-02-06 13:56 | XMS_ITS | Encounter Summary ---
Author Organization [facility] tem Address [facility] [place]-[id number] [address] [place] [address] Care Team Providers Care Driver Recruiter Name Role Phone Reilly Yoo DO Primary Care Provider + [phone] Encounter Details Date Type Department Care Team (Late st Contact Info) Description 08/19/2024 Orders Only [facility] - Family Medicine [address] [place] [phone] Reilly Yoo DO [address] [place] [address] Social History Tobacco Use Types Packs/Day Years Used Date Smoking Tobacco: Never Passive Smoke Exposure: Never Smokeless Tobacco: Never Alcohol Use Standard Drinks/Week Comments Not Currently 0 (1 standard drink = 0.6 oz pur e alcohol) [facility] Utilities Answer Date Recorded In the past 12 months has [employer], gas, oil, or water [employer] threatened to shut off services in your [...] How often do you attend chur or mosque services? More than 4 times per year 07/18/2022 Do you belong to any clubs o r organizations such as christianity groups, unions, fraternal or athletic groups, or [...] Answer Date Recorded Total Score 0 08/18/2024 [facility] of Occupat ional Health - Occupational [...] Recorded Do you need help finding a [facility] career center and/or a training program? [...] Medicine - Family Medicine [address] [place] [address] Reilly Yoo DO [address], [facility] [place] [address] 01/26/2026 9:40 AM EDT Office Visit [facility] Family Medicine [address] [place] [address] documented as of this encounter Visit Diagnoses Not on filedocumented in this encounter Additional Health Concerns Assessment Noted Time PHQ-9 Depression Total Score: 0 08/18/19 25 10:30 AM EST documented as of this encounter Care Teams Driver Recruiter Relationship Specialty Start Date End Date Reilly Yoo DO [address] [place] [address] [address] PCP - General Family Medicine 06/06/22 documented as of this encounter
--- OUTSIDE RECORDS SUMMARY | 2025-02-06 13:56 | XMS_ITS | Encounter Summary ---
Author Organization [facility] Address [facility] [id number] [address] [place] [address] Care Team Providers Care Management Development Specialist Name Role Phone NailaReilly Veronica GARCIA Primary Care Provider + [phone] Encounter Details Date Type Department Care Team (Late st Contact Info) Description 02/21/2023 Orders Only [facility] - Family Medicine [address] [place] [phone] Magalis Robles CMA Age-related osteoporosis without current [...] any clubs o r organizations such as jew groups, unions, fraternal or athletic groups, or [...] Answer Date Recorded Total Score 0 01/26/2023 [facility] of Occupat ional Health - [...] Family Medicine [address] [place] [address] Reilly Yoo DO [address] [facility] [place] [address] 01/26/2026 9:40 AM EDT Office Visit [facility] Family Medicine [address] [place] [address] documented as of this encounter Procedures Procedure [...] documented as of this encounter Care Teams Management Development Specialist Relationship Specialty Start Date End Date Reilly Yoo DO [address] [facility] [place] [address] PCP - General Family Medicine 06/06/22 documented as of this encounter
--- OUTSIDE RECORDS SUMMARY | 2025-02-06 13:56 | XMS_ITS | Encounter Summary ---
Author Organization [facility] Address [facility] [place]-[id number] [address] [place] [address] Care Team Providers Care Director Dance Name Role Phone Reilly Yoo DO Primary Care Provider + [phone] Reason for Visit * Reason Comments Med Refill Encounter Details Date Type Department Care Team (Late st Contact Info) Description 08/13/2022 Refill [facility] - Family Medicine [address] [place] [phone] Reilly Yoo DO [address], [facility] [place] [address] Social History Tobacco Use Types Packs/Day Years [...] often do you attend chur ch or sikh services? More than 4 times per year [...] and heating? Not hard at all 07/18/2022 [facility] [place] of Occupat ional Health - Occupational Stress [...] Medicine - Family Medicine [address] [place] [address] Reilly Yoo DO [address] [address] 01/26/2026 9:40 AM EDT Office Visit [facility] Family Medicine [address] [place] [phone] documented as of this encounter Visit Diagnoses Not on filedocumented in this encounter Care Teams Director Dance Relationship Specialty Start Date End Date Reilly Yoo DO [address] [place] [address] PCP - General Family Medicine 06/06/22 documented as of this encounter
--- OUTSIDE RECORDS SUMMARY | 2025-02-06 13:56 | XMS_ITS | Clinical Summary ---
Author Organization [facility] Address [address] [place] [address] Care Team Providers Care Presales Engineer Name Role Phone Reilly Yoo MD Primary Care Provider [phone] Allergies Active Allergy Reactions Criticality Noted Date [...] Unknown Medications alendronate (Fosamax) 70 MG tablet 3 Active Calcium-Vitamin D-Vitamin K (Calcium + D) 500-1000-40 MG-UNT-MCG chewable tablet Acti ve cetirizine (ZyrTEC ALLERGY) 10 MG tablet 1 (one) time each day at the same time Active cholecalciferol (Vitamin D-3) 50 MCG (1999) tablet Active lisinopril 5 MG tablet Take 1 tablet by mouth Daily 3 Active lovastatin (Mevacor) 20 MG tablet Take 20 mg by mouth in the morning. 3 Active meclizine (Antivert) 12.5 MG tablet Active potassium citrate CR (Urocit-K-10) 10 mEq ER tablet every 8 (eight) hours Active valsartan (Diovan) 40 MG tablet Take [...] Encounters Date Type Department Care Team Description 01/29/2025 10:45 AM EDT [facility] [address] [place] [address] Andres Restrepo DO Pseudoangiomatous stromal hyperplasia of breast (Primary Dx) 01/29/2025 Travel 01/01/2025 Travel from Last 3 Months Family [...] Mass Index 26.22 01/29/2025 10:26 AM EDT Plan of Treatment Upcoming Encounters Date Type Department Care Team (Late st Contact Info) Description 06/25/2025 9:45 AM EST [facility] [address] [place] [address] Andres Restrepo, DO [address] [place] [address] 06/30/2025 10:30 AM EST Office Visit [facility] [address] [place] [address] Annmarie Freitsa, DO [address] [place] [address] Health Maintenance Due Date Last Done Comments CT Colonography 1955 Colonoscopy 1955 FIT 1955 FOBT 1955 Sigmoidoscopy 1955 Mammogram 06/24/2025 06/24/2024, 1102/2024, 05/17/2023, Additional history exists Colorectal Cancer Screening [...] M.D. 01/16/2025 1:26 PM Dictation Location: [facility] Dictated By: Manny Storey DO 01/16/25 0924 Signed By: <Electronically signed by Manny Storey DO in OV> 01/16/25 1326 Narrative 01/16/2025 1:29 PM EDT [facility] [address] [place] [address] Mammography Report Signed Patient: Malia Smith MR#: [id number] : 1955 Acct:[id number] Age/Sex: 69 / F Adm Date: 01/16/25 Loc: OR Room: Type: [facility] Attending Dr: Andres Restrepo DO Ordering Provider: Andres Restrepo DO Date of Service: 01/16/25 Procedure(s): MM diagnostic mammo RT w/CAD; US breast RT limited Accession Number(s): ([id number]) US/US breast RT limited: 6mos. follow up w/mamm ([id number]) MM/MM diagnostic mammo RT w/CAD: 6mos. follow [...] Procedure Note Radiology, Radiologist, MD - 01/16/2025 [place] [address] Mammography Report Signed Patient: Malia Smith MMR#: [id number] : 7Acct:[id number] Age/Sex: 69 / FAdm Date: 01/16/25 Loc: OR Room:Type: [facility] Attending Dr: Andres Restrepo DO Ordering Provider: Andres Restrepo DO Date of Service: 01/16/25 Procedure(s): MM diagnostic mammo RT w/CAD; US breast RT limited Accession Number(s): ([id number]) US/US breast RT limited: 6mos. followup w/mamm ([id number]) MM/MM diagnostic mammo RT w/CAD: 6mos. follow up Copies to: Reilly Yoo,DO Andres Restrepo DO RIGHT Diagnostic Full Field digital mammogram [...] M.D. 01/16/2025 1:26 PM Dictation Location: [facility] Dictated By: Manny Storey DO 01/16/25 0924 [...] IS VERY IMPORTANT TO YOUR HEALTH. THE [employer] GUIDELINES RECOMMEND THAT WOMEN 40 [...] breast in 3 months would be recommended. us Annmarie Freitas DO IMG BI PROCEDURES Final Res ult from Last 3 Months or Most Recently Relevant to Health Maintenance Insurance MEDICARE [employer] Care Teams Presales Engineer Relationship Specialty Start Date End Date Reilly Yoo MD [address] [facility] [address] PCP - General Family Medicine 01/01/25
--- OUTSIDE RECORDS SUMMARY | 2025-02-06 13:56 | XMS_ITS | Encounter Summary ---
Author Organization [facility] Sys tem Address [id number] [address] [place] [address] Care Team Providers Care Bulk Sugar Handler Name Role Phone GeorgiaReilly mckenzie Primary Care Provider + [phone] Encounter Details Date Type Department Care Team (Late st Contact Info) Description 01/22/2023 Orders Only [facility] - Family Medicine [address] [place] [phone] Magalis Robles CMA Essential hypertension; Hypercholesterolemia Social [...] often do you attend chur ch or judaism services? More than 4 times per year [...] Answer Date Recorded Total Score 0 01/26/2023 [facility] - Occupational Stress Questionnaire Answer Date [...] Recorded Do you need help finding a [facility] and/or a training [...] - Family Medicine [address] [place] [phone] Reilly Yoo, [address], [place] [address] 01/26/2026 9:40 AM EDT Office Visit [facility] - Family Medicine [address] [place] [place] [phone] documented as of this encounter Procedures Procedure [...] ORDERABLES Final R esult Performing Organization Address [facility] de Phone Number MANUALLY TRANSCRIBED RESULTS * [...] ORDERABLES Final R esult Performing Organization Address [facility] de Phone Number MANUALLY TRANSCRIBED RESULTS * TSH (01/19/2023) External Tsh 2.02 0.45 - 5.33 MANUALLY TRANSCRIBED RESULTS Blood 01/19/2023 Result [facility] Reilly Yoo LAB BLOOD ORDERABLES Final R esult Performing Organization Address [facility] de Phone Number MANUALLY TRANSCRIBED RESULTS documented in this encounter Visit Diagnoses Diagnosis Essential hypertension Unspecified essential hypertension Hypercholesterolemia Pure hypercholesterolemia documented in this encounter Additional Health Concerns Assessment Noted Time PHQ-9 Depression Total Score: 0 12/29/19 23 12:51 PM EDT documented as of this encounter Care Teams Bulk Sugar Handler Relationship Specialty Start Date End Date Reilly Yoo DO [address] [facility], [place] [address] PCP - General Family Medicine 06/06/22 documented as of this encounter
--- OUTSIDE RECORDS SUMMARY | 2025-02-06 13:56 | XMS_ITS | Encounter Summary ---
Author Organization [facility] Sys tem Address [id number] [address] [place] [address] Care Team Providers Care Tobacco Hanger Name Role Phone NailaReilly Primary Care Provider + [phone] Encounter Details Date Type Department Care Team (Late st Contact Info) Description 12/11/2022 Orders Only [facility] - Family Medicine [address] [place] [phone] External, Scanning Provider Social History Tobacco Use [...] any clubs o r organizations such as anabaptism groups, unions, fraternal or athletic groups, or [...] and heating? Not hard at all 07/18/2022 [facility] of Occupat ional [facility] - Occupational Stress Questionnaire Answer Date [...] Medicine - Family Medicine [address] [place] [address] Reilly Yoo, DO [address] [place] [address] 01/26/2026 9:40 AM EDT Office Visit [facility] - Family Medicine [address] [place] [address] documented as of this encounter Procedures Procedure Name Priority Date/Time Associated Diagnosis Comments HEPATITIS C(HCV) ANTIBODY W/ REFLEX TO PCR Routine 01/02/2016 documented in this encounter Results * Hepatitis C(HCV) Ab w/ Reflex to PCR (01/02/2016) us Scanning Provider External LAB BLOOD ORDERABLES Final Result Performing Organization Address City/State/[facility] Co de Phone Number MANUALLY TRANSCRIBED LAB RESULTS documented in this encounter Visit Diagnoses Not on filedocumented in this encounter Care Teams Tobacco Hanger Relationship Specialty Start Date End Date Reilly Yoo DO [address], [facility] [place] [address] PCP - General Family Medicine 06/06/22 documented as of this encounter
--- OUTSIDE RECORDS SUMMARY | 2025-02-06 13:56 | XMS_ITS | Encounter Summary ---
Author Organization [facility] [employer] Sys tem Address [id number] [address] [place] [address] Care Team Providers Care Swimming Pool Servicer Name Role Phone Reilly Yoo DO Primary Care Provider + [phone] Reason for Visit * Reason Comments Med Refill Encounter Details Date Type Department Care Team (Late st Contact Info) Description 12/05/2022 Refill [facility] - Family Medicine [address] [place] [phone] Reilly Yoo DO [address], [facility] [place] [address] Social History Tobacco Use Types Packs/Day Years [...] often do you attend chur ch or synagogue services? More than 4 times per year 07/18/2022 Do you belong to any clubs o r organizations such as adventism groups, unions, fraternal or athletic groups, or [...] and heating? Not hard at all 07/18/2022 [facility] of Occupat ional Health - Occupational Stress [...] Medicine - Family Medicine [address] [place] [address] Reilly Yoo DO [address], [facility] [place] [address] 01/26/2026 9:40 AM EDT Office Visit [facility] - Family Medicine [address] [place] [address] documented as of this encounter Visit Diagnoses Not on filedocumented in this encounter Care Teams Swimming Pool Servicer Relationship Specialty Start Date End Date Reilly Yoo DO [address] [facility] [place] [address] PCP - General Family Medicine 06/06/22 documented as of this encounter
--- OUTSIDE RECORDS SUMMARY | 2025-02-06 13:56 | XMS_ITS | Encounter Summary ---
Author Organization [employer] Address [facility]-[id number] [address] [place] [address] Care Team Providers Care Promotion Officer Name Role Phone Naila Reilly Veronica GARCIA Primary Care Provider + [phone] Encounter Details Date Type Department Care Team (Late st Contact Info) Description 08/19/2024 Telephone [facility] - Family Medicine [address] [place] [phone] Lyric Parsons CMA Social History Tobacco Use Types Packs/Day Years Used Date Smoking Tobacco: Never Passive Smoke Exposure: Never Smokeless Tobacco: Never Alcohol Use Standard Drinks/Week Comments Not Currently 0 (1 standard drink = 0.6 oz pur e alcohol) [facility] Utilities Answer Date Recorded In the [...] often do you attend chur ch or baptism services? More than 4 times per year 07/18/2022 Do you belong to any clubs o r organizations such as judaism groups, unions, fraternal or athletic groups, or [...] Answer Date Recorded Total Score 0 08/18/2024 [facility] of Occupat ional Health - [...] Recorded Do you need help finding a [facility] career [facility] and/or a training [...] her CMP result yet though. [facility] them if not.She will have to go back and get it * Telephone Encounter - Lyric Parsons CMA - 08/19/2024 2:01 PM EST [facility] [...] - Family Medicine [address] [place] [address] Reilly Yoo DO [address] [facility] [place] [address] 01/26/2026 9:40 AM EDT Office Visit [facility] - Family Medicine [address] [place] [address] documented as of this encounter Visit Diagnoses Not on filedocumented in this encounter Additional Health Concerns Assessment Noted Time PHQ-9 Depression Total Score: 0 08/18/19 25 10:30 AM EST documented as of this encounter Care Teams Promotion Officer Relationship Specialty Start Date End Date Reilly Yoo DO [address] [place] [address] PCP - General Family Medicine 06/06/22 documented as of this encounter
--- OUTSIDE RECORDS SUMMARY | 2025-02-06 13:56 | XMS_ITS | Encounter Summary ---
Author Organization [facility] Address [address] [place] [address] Care Team Providers Care Bakery Supervisor Name Role Phone Reilly Yoo MD Primary Care Provider + [phone] Reilly Yoo MD Primary Care Provider + [phone] Encounter Details Date Type Department Care Team (Late Contact Info) Description 05/16/2023 Abstract [facility] [address] [facility] [address] [place] [address] Annmarie Freitas, DO [address] [facility] [address] [place] [address] Social History Tobacco Use Types [...] Department Care Team (Late Contact Info) Description 06/25/2025 9:45 AM EST Office [facility] [address] [facility] [address] [place] [phone] Andres Restrepo, DO [address] [facility] [address] [place] [address] 06/30/2025 10:30 AM EST Office Visit [facility] [address] [place] [address] Annmarie Freitas, DO [address] [place] [address] documented as of this encounter Visit Diagnoses Not on filedocumented in this encounter Care Teams Bakery Supervisor Relationship Specialty Start Date End Date Reilly Yoo MD PCP - General Family Medicine 05/17/23 12/31/24 Reilly Yoo MD [address] [facility] [place] [address] PCP - General Family Medicine 01/01/25 documented as of this encounter
--- OUTSIDE RECORDS SUMMARY | 2025-02-06 13:56 | XMS_ITS | Encounter Summary ---
Author Organization [facility] Address [address] [place] [address] Care Team Providers Care Vigoureux Printer Name Role Phone Reilly Yoo MD Primary Care Provider [phone] Encounter Details Date Type Department Care Team (Latest Contact Info) Description 01/29/2025 Travel Social History Tobacco Use Types Packs/Day [...] EST Office Visit [facility] [address] [facility] [address] [place] [address] Andres Restrepo, DO [address] [place] [address] 06/30/2025 10:30 AM EST Office Visit [facility] [address] [place] [address] Annmarie Freitas, DO [address] [facility] [address] [facility] [address] [place] [address] documented as of this encounter Visit Diagnoses Not on filedocumented in this encounter Care Teams Vigoureux Printer Relationship Specialty Start Date End Date Reilly Yoo MD [address], [facility] [place] [address] PCP - General Family Medicine 01/01/25 documented as of this encounter
--- OUTSIDE RECORDS SUMMARY | 2025-02-06 13:56 | XMS_ITS | Encounter Summary ---
Author Organization [facility] tem Address [facility]-[id number] [address] [place] [address] Care Team Providers Care Orthopedic Surgeon Name Role Phone Reilly Yoo DO Primary Care Provider + [phone] Encounter Details Date Type Department Care Team (Late st Contact Info) Description 08/27/2024 Orders Only [facility] - Family Medicine [address] [place] [phone] Reilly Yoo DO [address], [place] [address] Social History Tobacco Use Types Packs/Day Years Used Date Smoking Tobacco: Never Passive Smoke Exposure: Never Smokeless Tobacco: Never Alcohol Use Standard Drinks/Week Comments Not Currently 0 (1 standard drink = 0.6 oz pur e alcohol) [facility] Utilities Answer Date Recorded In the past 12 months has [employer], gas, oil, or water [employer] threatened to shut off services in your [...] How often do you attend chur or restorationism services? More than 4 times per year 07/18/2022 Do you belong to any clubs o r organizations such as episcopal groups, unions, fraternal or athletic groups, or [...] Answer Date Recorded Total Score 0 08/18/2024 [facility] of Occupat ional Health - [...] Recorded Do you need help finding a [facility] career center and/or a training program? [...] Medicine - Family Medicine [address] [place] [address] Reilly Yoo DO [address], [facility] [address] 01/26/2026 9:40 AM EDT Office Visit [facility] - Family Medicine [address] [place] [address] documented as of this encounter Visit Diagnoses Not on filedocumented in this encounter Additional Health Concerns Assessment Noted Time PHQ-9 Depression Total Score: 0 08/18/19 25 10:30 AM EST documented as of this encounter Care Teams Orthopedic Surgeon Relationship Specialty Start Date End Date Reilly Yoo DO [address] [place] [address] PCP - General Family Medicine 06/06/22 documented as of this encounter
--- OUTSIDE RECORDS SUMMARY | 2025-02-06 13:56 | XMS_ITS | Encounter Summary ---
Author Organization [facility] [employer] Sys [employer] Address [facility]-[id number] [address] [place] [address] Care Team Providers Care Strategic Planning Consultant Name Role Phone Reilly Yoo DO Primary Care Provider + [phone] Reason for Visit * Reason Comments Med Refill Encounter Details Date Type Department Care Team (Late st Contact Info) Description 03/05/2023 Refill [facility] - Family Medicine [address] [place] [phone] Reilly Yoo DO [address], [facility] [place] [address] Social History Tobacco Use Types Packs/Day Years [...] often do you attend chur ch or buddhism services? More than 4 times per year [...] Answer Date Recorded Total Score 0 01/26/2023 [facility] of Occupat ional Health - Occupational [...] Recorded Do you need help finding a [facility] career [facility] and/or a training [...] - Family Medicine [address] [place] [address] Reilly Yoo DO [address], [place] [address] 01/26/2026 9:40 AM EDT Office Visit [facility] - Family Medicine [address] [place] [address] documented as of this encounter Visit Diagnoses Not on filedocumented in this encounter Additional Health Concerns Assessment Noted Time PHQ-9 Depression Total Score: 0 01/27/20 23 10:24 AM EDT documented as of this encounter Care Teams Strategic Planning Consultant Relationship Specialty Start Date End Date Reilly Yoo DO [address] [place] [address] PCP - General Family Medicine 06/06/22 documented as of this encounter
[2025-02-06 14:03] VITALS: BP 163/91; PULSE 58; TEMP 36.8; O2SAT 97; BMI 26.2
--- NOTE | 2025-02-06 14:10 | XR_ITS ---
The [address] [address] Patient Name: ENA RADFORD MRN: [id number] date: 1955 Sex: F Assigned Patient Location: ER Current Patient Location: ER Accession/Order Number: [id number] Exam Date: 02/06/2025 14:36 Report Date: 02/06/2025 14:37 At the request of: JORGE VARGAS MD Procedure: XR nasal bones min 3V NASAL BONES - - 3 views CLINICAL HISTORY: Fell, hit nose COMPARISON: None FINDINGS: No acute displaced nasal bone fracture. Soft tissues unremarkable. No definite paranasal sinus opacification or air-fluid level on the provided images. XR/XR nasal bones min 3V IMPRESSION: No acute displaced nasal fractures identified. Correlate with exam findings Impression dictated by: Sg Sandoval M.D. 02/06/2025 2:37 PM Dictation Location: [place] [address] Electronically authenticated by: [id number] Y Date: 02/06/2025 14:37
--- NOTE | 2025-02-06 14:11 | ED.GENADUL1 ---
HPI HPI - General Adult General Chief complaint: Epistaxis Stated complaint: FALL/ NOSE PAIN Time Seen by Provider: 02/06/25 14:08 Source: patient Mode of arrival: walk-in Limitations: no limitations History of Present Illness HPI narrative: 69-year-old female presents for injury to her nose. She tripped and fell and hit her nose in the garage. There was some bleeding from the left side which is now stopped. No other injury. No LOC or neck pain. This happened about 30 minutes ago. Related Data Home Medications �Medication �Instructions �Recorded �Confirmed cetirizine 10 mg capsule 10 mg PO DAILY PRN allergy symptoms 11/21/24 11/25/24 cholecalciferol (vitamin D3) 50 2,000 unit PO DAILY 11/21/24 11/25/24 mcg (2,000 unit) capsule docusate sodium 100 mg capsule 100 mg PO DAILY 11/21/24 11/25/24 ondansetron 4 mg disintegrating 4 mg PO Q8H PRN nausea and vomiting 11/21/24 11/25/24 tablet oxycodone-acetaminophen 5 mg-325 1 tab PO Q8H PRN pain 11/21/24 11/25/24 mg tablet potassium bicarbonate-citric acid 25 meq PO BID 11/21/24 11/25/24 25 mEq effervescent tablet (Klor-Con/EF) rosuvastatin 10 mg tablet 10 mg PO DAILY 11/21/24 11/25/24 tamsulosin 0.4 mg capsule 0.4 mg PO DAILY 11/21/24 11/25/24 valsartan 40 mg tablet 40 mg PO DAILY 11/21/24 11/25/24 Previous Rx's �Medication �Instructions �Recorded mirabegron 50 mg tablet,extended 50 mg PO DAILY #10 tabs 11/25/24 release 24 hr (Myrbetriq) Allergies Allergy/AdvReac Type Severity Reaction Status Date / Time amoxicillin Allergy Rash Verified 11/21/24 09:22 azithromycin Allergy Abdominal Verified 11/21/24 09:22 Pain bee venom protein (honey bee) Allergy Hives Verified 11/21/24 09:22 chlorpheniramine Allergy eye Verified 11/21/24 09:22 swelling erythromycin base Allergy Abdominal Verified 11/21/24 09:22 Pain Iodinated Contrast Media Allergy Chest Pain Verified 11/21/24 09:22 Sulfa (Sulfonamide Allergy Rash Verified 11/21/24 09:22 Antibiotics) Opioid HPI Opioid Management Most Recent Opioid Data: Last Pain Scale 1 Today, 14:03 Review of Systems ROS Narrative A ten point review of systems is negative except as noted above. 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 (ICD-10) Squamous cell skin cancer �C44.92 - Squamous cell carcinoma of skin, unspecified (ICD-10) Osteoporosis �M81.0 - Age-related osteoporosis without current pathological fracture (ICD-10) COVID-19 �U07.1 - COVID-19 (ICD-10) Hypertension �I10 - Essential (primary) hypertension (ICD-10) S/P extracorporeal shock wave therapy �Z98.890 - Other specified postprocedural states (ICD-10) Tendinitis �M77.9 - Enthesopathy, unspecified (ICD-10) Kidney stones �N20.0 - Calculus of kidney (ICD-10) Vertigo �R42 - Dizziness and giddiness (ICD-10) Surgical History (Updated 11/21/24 @ 09:37 by Jing Gomez NP) S/P ureteral stent placement �Z96.0 - Presence of urogenital implants (ICD-10) History of breast biopsy �Z98.890 - Other specified postprocedural states (ICD-10) History of excision of lesion �Z98.890 - Other specified postprocedural states (ICD-10) �Z87.2 - Personal history of diseases of the skin and subcutaneous tissue (ICD-10) History of appendectomy �Z90.49 - Acquired absence of other specified parts of digestive tract (ICD-10) History of tubal ligation �Z98.51 - Tubal ligation status (ICD-10) History of colonoscopy �Z98.890 - Other specified postprocedural states (ICD-10) Family History (Updated 11/21/24 @ 09:51 by Jing Gomez NP) Other Arthritis Atrial fibrillation CAD (coronary artery disease) Dementia Family history of CHF (congestive heart failure) Family history of COPD (chronic obstructive pulmonary disease) Family history of cancer Family history of diabetes mellitus Family history of hypertension Family history of myocardial infarction Family history of stroke Kidney disease Pacemaker Parkinson disease Social History (Updated 11/21/24 @ 09:26 by Jing Gomez NP) Within the past year, how often did you have a drink containing alcohol: never Score interpretation: A score less than 3 is consistent with normal alcohol consumption. Smoking status: Never smoker Non-prescribed substance use: denies use Highest level of school completed/degree received: high school graduate Little interest or pleasure in doing things: not at all Feeling down, depressed, or hopeless: not at all Exam Narrative Exam Narrative: Nurses note and vital signs reviewed and patient is not hypoxic. General: The patient appears well and in no apparent distress. Patient is resting comfortably on cart. Skin: Warm, dry, no pallor noted. There is no rash noted. Head: Normocephalic, atraumatic Eye: Normal conjunctiva, no drainage Ears, Nose, Mouth, and Throat: oral mucosa is moist. I do not see the bruising or swelling or deformity to her nose. There is a small amount of dried blood in the left nares which has no active bleeding. The right side has no dried blood or bleeding. Cardiovascular: Regular Rate and Rhythm Respiratory: Patient is in no distress, no accessory muscle use, lungs are clear to auscultation, no wheezing, rales or rhonchi GI: Soft and nontender Musculoskeletal: All joints have good range of motion Neurological: A&O, normal speech Psychiatric: Cooperative Constitutional Vital Signs, click to edit/add: Last Vital Signs Temp 98.2 F 02/06/25 14:03 Pulse 58 L 02/06/25 14:03 Resp 18 02/06/25 14:03 BP 163/91 H 02/06/25 14:03 Pulse Ox 97 02/06/25 14:03 O2 Del Method Room Air 02/06/25 14:03 Course Vital Signs Vital signs: Vital Signs Temperature 98.2 F 02/06/25 14:03 Pulse Rate 58 L 02/06/25 14:03 Respiratory Rate 18 02/06/25 14:03 Blood Pressure 163/91 H 02/06/25 14:03 Pulse Oximetry 97 02/06/25 14:03 Oxygen Delivery Method Room Air 02/06/25 14:03 Temperature 98.2 F 02/06/25 14:03 Pulse Rate 58 L 02/06/25 14:03 Respiratory Rate 18 02/06/25 14:03 Blood Pressure 163/91 H 02/06/25 14:03 Pulse Oximetry 97 02/06/25 14:03 Oxygen Delivery Method Room Air 02/06/25 14:03 Medical Decision Making MDM Narrative Medical decision making narrative: X-rays are negative and the patient is discharged home. Treatment diagnosis and follow-up were discussed with the patient. Differential Diagnosis Differential Diagnosis: The patient, nasal fracture Imaging Data Nasal bones: Radiologist's impression: ITS Impressions Nasal Bones X-Ray 02/06/25 14:10 IMPRESSION: No acute displaced nasal fractures identified. Correlate with exam findings Impression dictated by: Sg Sandoval M.D. 02/06/2025 2:37 PM Dictation Location: [place] [address] Electronically authenticated by: [id number] Y Date: 02/06/2025 14:37 Discharge Plan Discharge Chief Complaint: Epistaxis Clinical Impression: Contusion of nose Patient Disposition: Home, Self-Care Time of Disposition Decision: 14:57 Condition: Good Mode of Transportation: Private Vehicle Prescriptions / Home Meds: No Action tamsulosin 0.4 mg capsule 0.4 mg PO DAILY docusate sodium 100 mg capsule 100 mg PO DAILY cholecalciferol (vitamin D3) 50 mcg (2,000 unit) capsule 2,000 unit PO DAILY valsartan 40 mg tablet 40 mg PO DAILY Klor-Con/EF 25 mEq tablet, effervescent 25 meq PO BID rosuvastatin 10 mg tablet 10 mg PO DAILY cetirizine 10 mg capsule 10 mg PO DAILY PRN (Reason: allergy symptoms) oxycodone-acetaminophen 5-325 mg tablet 1 tab PO Q8H PRN (Reason: pain) ondansetron 4 mg tablet,disintegrating 4 mg PO Q8H PRN (Reason: nausea and vomiting) mirabegron [Myrbetriq] 50 mg tablet extended release 24 hr 50 mg PO DAILY Qty: 10 0RF Print Language: Micronesian Instructions: Nasal Contusion (ED) Referrals: [facility] [Primary Care Provider, Family Practice] - 1 week
== END 2025-02-06 15:16 | disposition home or self-care (01) ==
PROVIDERS: Emergency Provider Emergency Medicine; PCP Family Medicine
DX: S00.33XA Contusion of nose, initial encounter (principal); Z90.49 Acquired absence of other specified parts of digestive tract; Z98.51 Tubal ligation status; W01.0XXA Fall on same level from slipping, tripping and stumbling without subsequent striking against object, initial encounter; Y92.008 Other place in unspecified non-institutional (private) residence as the place of occurrence of the external cause
CPT/HCPCS: 70160; 99283

== ENCOUNTER 2025-02-25 08:47 | Outpatient (OUT) | payer MEDICARE, SELFPAY ==
--- NOTE | 2025-02-25 08:58 | XR_ITS ---
[facility] [place] [id number] Patient Name: ENA RADFORD MRN: [id number] date: 1955 Sex: F Assigned Patient Location: [facility] Current Patient Location: [facility] Accession/Order Number: [id number] Exam Date: 02/25/2025 09:57 Report Date: 02/25/2025 10:02 At the request of: DIAMOND BAUTISTA MD Procedure: XR abdomen 1V KUB: CLINICAL INFORMATION: Kidney stone follow-up COMPARISON: KUB 07/15/2021 FINDINGS: Punctate bilateral nephrolithiasis grossly similar to the prior study. No bowel obstruction or free air. Osseous structures demonstrate degenerative change. XR/XR abdomen 1V IMPRESSION: 1. BILATERAL NEPHROLITHIASIS SIMILAR TO THE 2020 STUDY. Impression dictated by: Mahin Mccormick Jr., DTusharOTushar 02/25/2025 10:02 AM Dictation Location: [place] [address] Electronically authenticated by: [id number] Y Date: 02/25/2025 10:02
== END 2025-02-25 08:48 | disposition home or self-care (01) ==
LOC: RAD 08:48
PROVIDERS: PCP Family Medicine; Visit Provider Urology
DX: N20.0 Calculus of kidney (principal)
CPT/HCPCS: 74018